=== PATIENT | female | born 1940 | race Caucasian/White ===

== ENCOUNTER → 2017-12-03 | Outpatient (CLI) | payer MEDICARE ==
--- NOTE | 2017-12-03 18:32 | ECHOF ---
Referral Reason:R60.9 Edema MEASUREMENTS -------- HEIGHT: 157.5 cm WEIGHT: 63.0 kg BP: 136/63 RVIDd: 2.6 cm (< 3.3) IVSd: 1.0 cm (0.6 - 1.1) LVIDd: 3.8 cm (3.9 - 5.3) LVPWd: 1.1 cm (0.6 - 1.1) IVSs: 1.4 cm LVIDs: 2.4 cm LVPWs: 1.3 cm LA Diam: 2.9 cm (2.7 - 3.8) LAESV Index (A-L): 23.40 ml/m Ao Diam: 3.1 cm (2.0 - 3.7) AV Cusp: 1.6 cm (1.5 - 2.6) EPSS: 0.6 cm MV E Alvarado: 0.91 m/s MV DecT: 172 ms MV A Alvarado: 1.09 m/s MV E/A Ratio: 0.84 AV maxP.02 mmHg AV meanP.56 mmHg AR PHT: 729 ms RAP: 5.00 mmHg RVSP: 24.98 mmHg MV EF SLOPE: 43.00 mm/s (70 - 150) MV EXCURSION: 1.34 cm (> 18.000) FINDINGS -------- Sinus rhythm. This was a technically adequate study. The left ventricular size is normal. There is borderline concentric left ventricular hypertrophy. Overall left ventricular systolic function is normal with, an EF between 55 - 60 %. The right ventricle is normal in size. Normal LA size by volume 22+/-6 ml/m2. The right atrium is normal in size. There is mild aortic valve sclerosis. There is xrxx-gg-uawibcbr aortic regurgitation. There is mi ld aortic stenosis present. Mild mitral annular calcification present. Wmrtwrmj-qd-dwaopf mitral regurgitation is present. Moderate tricuspid regurgitation present. Right ventricular systolic pressure is normal at < 35 mmH g. Trace/mild (physiologic) pulmonic regurgitation. The aortic root size is normal. Normal inferior vena cava with normal inspiratory collapse consistent with estimated right atrial pre ssure of 5 mmHg. There is no pericardial effusion. CONCLUSIONS -------- 1. Sinus rhythm. 2. This was a technically adequate study. 3. The left ventricular size is normal. 4. There is borderline concentric left ventricular hypertrophy. 5. Overall left ventricular systolic function is normal with, an EF between 55 - 60 %. 6. Normal LA size by volume 22+/-6 ml/m2. 7. There is mild aortic valve sclerosis. 8. There is lodo-lh-jgfbvfab aortic regurgitation. 9. There is mild aortic stenosis present. 10. Mild mitral annular calcification present. 11. Awuwkypm-us-slzndp mitral regurgitation is present. 12. Moderate tricuspid regurgitation present. 13. Right ventricular systolic pressure is normal at < 35 mmHg. 14. Trace/mild (physiologic) pulmonic regurgitation. 15. The aortic root size is normal. 16. Normal inferior vena cava with normal inspiratory collapse consistent with estimated right atrial pressure of 5 mmHg. 17. There is no pericardial effusion. [employer]ARD [employer]OX[employer] ESTIMATOR: HOWARD Taylor
== END | disposition home or self-care (01) ==
LOC: RADECHMAIN 13:13
PROVIDERS: ATTEND Internal Medicine Geriatric Medicine
DX: I08.3 Combined rheumatic disorders of mitral, aortic and tricuspid valves (principal)
CPT/HCPCS: 93306

== ENCOUNTER 2018-09-03 17:48 | Emergency (ER) | payer MEDICARE ==
[2018-09-03 18:08] VITALS: TEMP 98
[2018-09-03] MEDS ORDERED: LIDOCAINE 1% INJ 10MG/ML (20 ML MDV) SQ ONE (19:01)
[2018-09-03] MEDS ORDERED: SODIUM CHLORIDE 0.9% 500 ML 500 ML IV STA (19:01)
--- NOTE | 2018-09-03 19:37 | XR ---
EXAMINATION TYPE: XR chest 2V DATE OF EXAM: 09/03/2018 COMPARISON: NONE HISTORY: Syncope TECHNIQUE: Frontal and lateral views of the chest are obtained. FINDINGS: Heart is enlarged. There is no heart failure. Costophrenic angles are clear. Thoracic aort a is atheromatous. Lungs are clear of consolidation. There is 15% anterior wedging of T12 vertebra. IMPRESSION: Cardiomegaly. No active cardiopulmonary disease.
[2018-09-03 19:40] LABS: Basophils % (A) 0 %; Eosinophils # (A) 0.1 k/uL (0-0.7); Eosinophils % (A) 1 %; HCT 36.5 % (34.0-46.0); HGB 11.9 gm/dL (11.4-16.0); Lymphocytes # (A) 2.6 k/uL (1.0-4.8); Lymphocytes % (A) 25 %; MCH 32.7 pg (25.0-35.0); MCHC 32.7 g/dL (31.0-37.0); MCV 100.1 fL (80.0-100.0); Mean Platelet Volume 7.6; Monocytes # (A) 0.6 k/uL (0-1.0); Monocytes % (A) 6 %; Neutrophils % (A) 66 %; Platelet Count 201 k/uL (150-450); RBC 3.65 m/uL (3.80-5.40); RDW 11.9 % (11.5-15.5); WBC 10.6 k/uL (3.8-10.6)
[2018-09-03 19:55] LABS: INR 0.9 (<1.2); Partial Thromboplastin Time 24.3 sec (22.0-30.0); Prothrombin Time 9.6 sec (9.0-12.0)
[2018-09-03 20:07] LABS: ALT 17 U/L (9-52); AST 21 U/L (14-36); African American GFR (CKD) >90 (>60 ml/min/1.73 sqM); Albumin 4.1 g/dL (3.5-5.0); Alkaline Phosphatase 58 U/L (38-126); Anion Gap 10 mmol/L; Blood Urea Nitrogen 22 mg/dL (7-17); Calcium 9.3 mg/dL (8.4-10.2); Carbon Dioxide 27 mmol/L (22-30); Chloride 102 mmol/L (98-107); Glucose 98 mg/dL (74-99); Magnesium 2.2 mg/dL (1.6-2.3); Potassium 4.5 mmol/L (3.5-5.1); Sodium 139 mmol/L (137-145); Total Bilirubin 0.4 mg/dL (0.2-1.3); Total Protein 6.9 g/dL (6.3-8.2)
--- NOTE | 2018-09-03 20:28 | ED ---
General Adult HPI - General Chief complaint: Fall Stated complaint: 3 FALLS TODAY Time Seen by Provider: 09/03/18 18:15 Source: patient, family Mode of arrival: ambulatory Limitations: no limitations - History of Present Illness Initial comments: 77-year-old female patient with past medical history significant for dementia presents to the emergency department today after having 3 falls at home. Patient's daughter is present and reports the patient has had a steady decline in her mental and motor function since 2011. States over the last year things have been becoming worse. States that she has trouble with coordination and ambulation and she will occasionally become dizzy. She has been being evaluated by Dr. Campbell a neurologist in [facility]. They report 3 falls today once in the bathroom, once in the bedroom, once in the kitchen. Patient states that with the last fall she did strike her head on the floor. She denies any loss of consciousness. When asked why she fell patient reports "I don't know". She reports that one moment she was standing and the next she is on the floor. She does not believe she passed out during his episodes. Denies any shortness of breath, dizziness, or chest pain leading up to these episodes. Patient denies any recent rash, fever, chills, abdominal pain, nausea, vomiting, diarrhea, constipation, back pain, numbness, tingling, weakness, hematuria, dysuria, urinary urgency, urinary frequency, headache, visual changes, or any other complaints. - Related Data Previous Rx's Medication Instructions Recorded Azithromycin [Zithromax Z-pack] 0 mg PO DIRECTED #6 tab 09/03/18 Allergies Allergy/AdvReac Type Severity Reaction Status Date / Time Penicillins Allergy Unknown Verified 09/03/18 18:02 Review of Systems ROS Statement: Those systems with pertinent positive or pertinent negative responses have been documented in the HPI. ROS Other: All systems not noted in ROS Statement are negative. Past Medical History Past Medical History: Dementia, Hypertension History of Any Multi-Drug Resistant Organisms: None Reported Past Surgical History: Section Past Psychological History: No Psychological Hx Reported Smoking Status: Never smoker Past Alcohol Use History: None Reported, Occasional Past Drug Use History: None Reported General Exam Limitations: no limitations General appearance: alert, in no apparent distress, other (This is a well- developed, well-nourished elderly female patient in no acute distress. Vital signs upon presentation are temperature 98.0F, pulse 61, respirations 18, blood pressure 132/80, pulse ox 99% on room air.) Eye exam: Present: normal appearance, PERRL, EOMI. Absent: scleral icterus, conjunctival injection, nystagmus, periorbital swelling ENT exam: Present: normal exam, normal oropharynx Respiratory exam: Present: normal lung sounds bilaterally. Absent: respiratory distress, wheezes, rales, rhonchi, stridor Cardiovascular Exam: Present: regular rate, normal rhythm, normal heart sounds. Absent: systolic murmur, diastolic murmur, rubs, gallop, clicks GI/Abdominal exam: Present: soft, normal bowel sounds. Absent: distended, tenderness, guarding, rebound, rigid Extremities exam: Present: full ROM, normal capillary refill, other (There is a 4 cm laceration to the right posterior elbow.). Absent: normal inspection, tenderness, pedal edema, joint swelling, calf tenderness Neurological exam: Present: alert, CN II-XII intact. Absent: oriented X3 (Oriented 2) Psychiatric exam: Present: normal affect, normal mood, other (Pleasant demeanor) Skin exam: Present: warm, dry, intact, normal color. Absent: rash Course Vital Signs 09/03/18 09/03/18 09/03/18 18:02 21:23 21:25 Temperature 98 F Pulse Rate 61 Pulse Rate [ 70 72 Pulse Oximetery ] Respiratory 18 Rate Blood Pressure 132/80 Blood Pressure 169/71 155/78 [Left Arm] O2 Sat by Pulse 99 Oximetry 09/03/18 22:15 Temperature Pulse Rate Pulse Rate [ Pulse Oximetery ] Respiratory 16 Rate Blood Pressure Blood Pressure [Left Arm] O2 Sat by Pulse Oximetry EKG Findings - EKG Comments: EKG Findings:: EKG obtained at 194 shows normal sinus rhythm with a left axis deviation. Ventricular rate is 64, CA interval 204, QRS duration 76, QT 396, QTc 408. No evidence of ST elevation or depression. Procedures - Laceration Laceration #1 Consent Obtained: verbal consent Indication: laceration Site: upper extremity (right elbow) Size (cm): 4 Description: linear Depth: simple, single layer Anesthetic Used: lidocaine 1% Anesthesia Technique: local infiltration Amount (mls): 6 Pre-repair: irrigated extensively Type of Sutures: nylon Size of Sutures: 4-0 Number of Sutures: 5 Technique: simple, interrupted Patient Tolerated Procedure: well, no complications Medical Decision Making - Medical Decision Making 77-year-old female patient presents to the emergency department today for evaluation after experiencing 3 falls at home. Patient states that she did strike her head on the last fall but did not lose consciousness. Patient is unsure why she is falling. Family member reports the patient has had a steady decline and physical and mental coordination over the last several years worsening over the last year. Physical examination is unremarkable. She is neurologically intact with no focal deficits. She does have a laceration to the right elbow. This was repaired with sutures as documented. CT brain and C- spine was obtained and showed pansinusitis, but no other acute abnormalities. Chest x-ray was obtained and showed no acute abnormalities. Labs reviewed and are unremarkable. No urinary tract infection. Did discuss findings and results with the patient and family. She'll be treated with azithromycin for sinusitis. She'll be discharged home at this time to follow-up with her primary care physician for recheck in 1-2 days. Return parameters were discussed in detail. She verbalizes understanding and agrees with this plan. - Lab Data Result diagrams: 09/03/18 19:20 09/03/18 19:20 Lab Results 09/03/18 09/03/18 09/03/18 Range/Units 19:20 19:20 19:20 WBC 10.6 (3.8-10.6) k/uL RBC 3.65 L (3.80-5.40) m/uL Hgb 11.9 (11.4-16.0) gm/dL Hct 36.5 (34.0-46.0) % MCV 100.1 H (80.0-100.0) fL MCH 32.7 (25.0-35.0) pg MCHC 32.7 (31.0-37.0) g/dL RDW 11.9 (11.5-15.5) % Plt Count 201 (150-450) k/uL Neutrophils % 66 % Lymphocytes % 25 % Monocytes % 6 % Eosinophils % 1 % Basophils % 0 % Neutrophils # 7.0 (1.3-7.7) k/uL Lymphocytes # 2.6 (1.0-4.8) k/uL Monocytes # 0.6 (0-1.0) k/uL Eosinophils # 0.1 (0-0.7) k/uL Basophils # 0.0 (0-0.2) k/uL PT 9.6 (9.0-12.0) sec INR 0.9 (<1.2) APTT 24.3 (22.0-30.0) sec Sodium 139 (137-145) mmol/L Potassium 4.5 (3.5-5.1) mmol/L Chloride 102 (98-107) mmol/L Carbon Dioxide 27 (22-30) mmol/L Anion Gap 10 mmol/L BUN 22 H (7-17) mg/dL Creatinine 0.68 (0.52-1.04) mg/dL Est GFR (CKD-EPI)AfAm >90 (>60 ml/min/1.73 sqM) Est GFR (CKD-EPI)NonAf 85 (>60 ml/min/1.73 sqM) Glucose 98 (74-99) mg/dL Calcium 9.3 (8.4-10.2) mg/dL Magnesium 2.2 (1.6-2.3) mg/dL Total Bilirubin 0.4 (0.2-1.3) mg/dL AST 21 (14-36) U/L ALT 17 (9-52) U/L Alkaline Phosphatase 58 (38-126) U/L Troponin I (0.000-0.034) ng/mL Total Protein 6.9 (6.3-8.2) g/dL Albumin 4.1 (3.5-5.0) g/dL TSH 2.140 (0.465-4.680) mIU/L Urine Color Urine Appearance (Clear) Urine pH (5.0-8.0) Ur Specific [place] (1.001-1.035) Urine Protein (Negative) Urine Glucose (UA) (Negative) Urine Ketones (Negative) Urine Blood (Negative) Urine Nitrite (Negative) Urine Bilirubin (Negative) Urine Urobilinogen (<2.0) mg/dL Ur Leukocyte Esterase (Negative) Urine WBC (0-5) /hpf Ur Squamous Epith Cells (0-4) /hpf Urine Mucus (None) /hpf 09/03/18 09/03/18 Range/Units 19:20 20:45 WBC (3.8-10.6) k/uL RBC (3.80-5.40) m/uL Hgb (11.4-16.0) gm/dL Hct (34.0-46.0) % MCV (80.0-100.0) fL MCH (25.0-35.0) pg MCHC (31.0-37.0) g/dL RDW (11.5-15.5) % Plt Count (150-450) k/uL Neutrophils % % Lymphocytes % % Monocytes % % Eosinophils % % Basophils % % Neutrophils # (1.3-7.7) k/uL Lymphocytes # (1.0-4.8) k/uL Monocytes # (0-1.0) k/uL Eosinophils # (0-0.7) k/uL Basophils # (0-0.2) k/uL PT (9.0-12.0) sec INR (<1.2) APTT (22.0-30.0) sec Sodium (137-145) mmol/L Potassium (3.5-5.1) mmol/L Chloride (98-107) mmol/L Carbon Dioxide (22-30) mmol/L Anion Gap mmol/L BUN (7-17) mg/dL Creatinine (0.52-1.04) mg/dL Est GFR (CKD-EPI)AfAm (>60 ml/min/1.73 sqM) Est GFR (CKD-EPI)NonAf (>60 ml/min/1.73 sqM) Glucose (74-99) mg/dL Calcium (8.4-10.2) mg/dL Magnesium (1.6-2.3) mg/dL Total Bilirubin (0.2-1.3) mg/dL AST (14-36) U/L ALT (9-52) U/L Alkaline Phosphatase (38-126) U/L Troponin I <0.012 (0.000-0.034) ng/mL Total Protein (6.3-8.2) g/dL Albumin (3.5-5.0) g/dL TSH (0.465-4.680) mIU/L Urine Color Yellow Urine Appearance Clear (Clear) Urine pH 5.5 (5.0-8.0) Ur Specific [place] 1.015 (1.001-1.035) Urine Protein Negative (Negative) Urine Glucose (UA) Negative (Negative) Urine Ketones Trace H (Negative) Urine Blood Negative (Negative) Urine Nitrite Negative (Negative) Urine Bilirubin Negative (Negative) Urine Urobilinogen <2.0 (<2.0) mg/dL Ur Leukocyte Esterase Small H (Negative) Urine WBC 2 (0-5) /hpf Ur Squamous Epith Cells <1 (0-4) /hpf Urine Mucus Rare H (None) /hpf - Radiology Data Radiology results: report reviewed, image reviewed Two-view x-ray of the chest is obtained. Report was reviewed in its entirety. Impression by Dr. Magaña shows cardiomegaly. No active cardiopulmonary disease. CT brain and C-spine without contrast obtained. Report was reviewed in its entirety. Impression by Dr. Magaña shows cerebral atrophy. Pansinusitis. No acute intracranial abnormality. Mild spondylotic changes of the cervical spine. No fracture. Disposition Clinical Impression: Frequent falls, Laceration of right elbow, Pansinusitis Disposition: HOME SELF-CARE Condition: Good Instructions (If sedation given, give patient instructions): Care For Your Stitches (ED), Laceration (ED), Sinusitis (ED), Fall Prevention for Older Adults (ED) Additional Instructions: Complete antibiotic prescription in full. Cleanse wound twice daily with warm water and antibacterial soap. Return in 7 days to have the stitches removed. Follow-up through primary care physician for recheck in 1-2 days. Return to the emergency department immediately for any new, worsening, or concerning symptoms Prescriptions: Azithromycin [Zithromax Z-pack] 0 mg PO DIRECTED #6 tab Is patient prescribed a controlled substance at d/c from ED?: No Referrals: Sunny Monteiro MD [Primary Care Provider] - 1-2 days Time of Disposition: 22:03
--- NOTE | 2018-09-03 20:56 | CT ---
EXAMINATION TYPE: CT brain patti prasad DATE OF EXAM: 09/03/2018 COMPARISON: None HISTORY: multiple falls today CT DLP: 1134.5 mGycm Automated exposure control for dose reduction was used. TECHNIQUE: CT scan of the head and cervical spine are performed without contrast. FINDINGS: There is some cerebral cortical atrophy. There is no mass effect nor midline shift. There is no sign of intracranial hemorrhage. Calvarium is intact. There is mucosal thickening in the maxil ann ethmoid frontal sinuses. There is mucosal thickening also in the sphenoid sinus. Cervical vertebra have normal alignment. There is mild spurring of the endplates at C4-5 C5-6 C6-7. F acet joints are intact. There is multilevel hypertrophic facet arthropathy. The skull base is intact. I see no bony destructive process. There is some pleural thickening at the lung apices. IMPRESSION: Cerebral atrophy. Pansinusitis. No acute intracranial abnormality. Mild spondylotic changes in the cervical spine. No fracture.
[2018-09-03 21:01] LABS: Appearance,Urine Clear (Clear); Bilirubin,Urine Negative (Negative); Blood,Urine Negative (Negative); Color,Urine Yellow; Glucose,Urine (UA) Negative (Negative); Ketones,Urine Trace (Negative); Leukocyte Esterase,Urine Small (Negative); Mucus,Urine Rare /hpf; Nitrite,Urine Negative (Negative); PH, Urine 5.5 (5.0-8.0); Protein,Urine Negative (Negative); Specific Gravity,Urine 1.015 (1.001-1.035); Squamous Epithelial Cell,Urine <1 /hpf (0-4); Urobilinogen,Urine <2.0 mg/dL (<2.0); WBC,Urine 2 /hpf (0-5)
[2018-09-03 21:26] VITALS: BP 155/78; PULSE 72
[2018-09-03] MEDS ORDERED: AZITHROMYCIN 500 MG TAB PO STA (22:01)
[2018-09-03 22:22] VITALS: RESP 16
== END 2018-09-03 22:15 | disposition home or self-care (01) ==
LOC: EC 17:48
DX: S51.011A Laceration without foreign body of right elbow, initial encounter (principal); R29.6 Repeated falls; J32.4 Chronic pansinusitis; F03.90 Unspecified dementia, unspecified severity, without behavioral disturbance, psychotic disturbance, mood disturbance, and anxiety; Z88.0 Allergy status to penicillin; W19.XXXA Unspecified fall, initial encounter
CPT/HCPCS: 99284 ×2; 12002 ×2; 96360 ×2; 96361 ×2; 36415; 93005; 80053; 84443; 83735; 84484; 85025; 85610; 85730; 81001; 71046; 72125; 70450; J2001

== ENCOUNTER → 2018-11-17 | Outpatient (CLI) | payer MEDICARE ==
[~2018-11-17] MED LIST: REGADENOSON 0.4 MG/5 ML SYRINGE IV ONE
--- NOTE | 2018-11-17 11:02 | US ---
EXAMINATION TYPE: US carotid duplex BILAT DATE OF EXAM: 11/17/2018 COMPARISON: NONE CLINICAL HISTORY: R42 dizziness. Intermittent dizziness EXAM MEASUREMENTS: RIGHT: Peak Systolic Velocity (PSV) cm/sec ----- Right CCA: 73.8 ----- Right ICA: 87.5 ----- Right ECA: 72.9 ICA/CCA ratio: 1.2 RIGHT: End Diastole cm/sec ----- Right CCA: 12.7 ----- Right ICA: 23.7 ----- Right ECA: 9.2 LEFT: Peak Systolic Velocity (PSV) cm/sec ----- Left CCA: 61.6 ----- Left ICA: 79.9 ----- Left ECA: 83.4 ICA/CCA ratio: 1.3 LEFT: End Diastole cm/sec ----- Left CCA: 15.4 ----- Left ICA: 25.8 ----- Left ECA: 11.0 VERTEBRALS (direction of flow): Right Vertebral: Antegrade Left Vertebral: Antegrade Rhythm: Normal IMPRESSION: Mild plaque bilateral bifurcations. No evidence of significant stenosis Criteria for Assigning % of Stenosis / Diameter reduction (Estimation based on the indirect measurements of the internal carotid artery velocities (ICA PSV). 1. Normal (no stenosis)=ICA PSV < 125 cm/s: ratio < 2.0: ICA EDV<40 cm/s. 2. Less than 50% stenosis=ICA PSV < 125 cm/s: ratio < 2.0: ICA EDV<40 cm/s. 3. 50 to 69% stenosis=ICA PSV of 125 to 230 cm/s: ration 2.0 ? 4.0: ICA EDV 40-100 cm/s. 4. Greater than 70% stenosis to near occlusion= ICA PSV > 230 cm/s: ratio > 4.0: ICA EDV > 100 cm/s. 5. Near occlusion= ICA PSV velocities may be low or undetectable: variable ratio and ICA EDV. 6. Total occlusion=unable to detect flow.
--- NOTE | 2018-11-17 11:32 | NM ---
EXAMINATION TYPE: NM stress lexiscan cardiolite DATE OF EXAM: 11/17/2018 COMPARISON: NONE HISTORY: Precordial chest pain and abnormal EKG. TECHNIQUE: After the intravenous administration of 9.81 mCi Tc 99m Sestamibi - Cardiolite resting SP ECT images acquired 45 minutes post injection. The patient received 0.4mg Lexiscan, 26.4 mCi Tc 99m Sestamibi - Stress images obtained [address] injection FINDINGS: Review of stress and rest SPECT images demonstrates mild decreased perfusion on stress images involvi ng the anterior wall which may reflect stress-induced ischemia. Gated analysis shows normal wall makenzie on with an estimated left ventricular ejection fraction of 68 %. IMPRESSION: I cannot exclude stress-induced ischemia involving the anterior wall. Correlate clinically.
--- NOTE | 2018-11-17 12:17 | EST ---
EXERCISE STRESS AGE: 78 SEX: F HT: 5'2" WT: 145 PROTOCOL: Lexiscan Cardiolite Stress Test HEART RATE REST: 60 BLOOD PRESSURE REST: 157/91 MAXIMUM HEART RATE ACHIEVED: 80 MAXIMUM BLOOD PRESSURE: 157/91 INDICATIONS: Abnormal ECG, dizziness. CLINICAL INFORMATION: Baseline rhythm is sinus mechanism, rate of 60, left axis deviation, poor R-wave progression connects with anterior wall myocardial infarction. Baseline blood pressure 157/91 mmHg. Patient received an injection of Lexiscan. Electrocardiograph monitoring revealed no evidence of diagnostic ischemic ST deviation. Cardiolite was injected per protocol. CONCLUSION: 1. Nondiagnostic electrocardiograph stress testing. 2. Nuclear images will be reported separately. MMODL / IJN: [id number] /
== END | disposition home or self-care (01) ==
LOC: RADNMMAIN 08:04
PROVIDERS: ATTEND Internal Medicine Geriatric Medicine
DX: I77.89 Other specified disorders of arteries and arterioles (principal); R42 Dizziness and giddiness; R94.31 Abnormal electrocardiogram [ECG] [EKG]
CPT/HCPCS: 93017; 93880; 78452; A9500; J2785

== ENCOUNTER 2018-11-27 19:22 | Emergency (ER) | payer MEDICARE ==
[2018-11-27 19:35] VITALS: TEMP 97.9
--- NOTE | 2018-11-27 20:50 | XR ---
EXAMINATION TYPE: XR shoulder complete LT DATE OF EXAM: 11/27/2018 COMPARISON: NONE HISTORY: Pain TECHNIQUE: 3 views FINDINGS: There is nondisplaced fracture of the lateral and of the clavicle. There is no dislocation. Glenohumeral joint is anatomic. IMPRESSION: Acute nondisplaced clavicle fracture.
--- NOTE | 2018-11-27 20:52 | XR ---
EXAMINATION TYPE: XR cervical spine comp DATE OF EXAM: 11/27/2018 COMPARISON: NONE HISTORY: Neck pain TECHNIQUE: 5 views FINDINGS: Cervical vertebra have normal alignment. There is some degenerative disc space narrowing fr om C4 to C6 with mild spurring. Posterior elements are intact. Atlantoaxial facet joint is normal. Th ere are no cervical ribs. IMPRESSION: Mild spondylotic changes. No fracture seen.
[2018-11-27 22:02] VITALS: BP 134/69; PULSE 71; RESP 20
--- NOTE | 2018-11-27 22:02 | ED ---
Fall HPI - General Chief Complaint: Fall Stated Complaint: fall Time Seen by Provider: 11/27/18 19:30 Source: patient, EMS Mode of arrival: EMS - History of Present Illness Initial Comments: 78-year-old female patient presents to the emergency department today for evaluation of left shoulder pain after experiencing a fall. Patient states that she was going up stairs when she lost her balance and fell down approximately 6- 8 steps. Patient states that she slid down on her side. She denies hitting her head or losing consciousness. She denies neck or back pain. Denies any leg or hip pain. Patient states that she is having pain to the shoulder whenever she attempts to move it. Denies any numbness or tingling to the arm. Denies any use of blood thinning medications. Patient denies any headache, chest pain, shortness of breath, dizziness, weakness, abdominal pain, nausea, vomiting, or difficulties with bowel movements or urination. - Related Data Previous Rx's Medication Instructions Recorded Azithromycin [Zithromax Z-pack] 0 mg PO DIRECTED #6 tab 09/03/18 Allergies Allergy/AdvReac Type Severity Reaction Status Date / Time Penicillins Allergy Unknown Verified 09/03/18 18:02 Review of Systems ROS Statement: Those systems with pertinent positive or pertinent negative responses have been documented in the HPI. ROS Other: All systems not noted in ROS Statement are negative. Past Medical History Past Medical History: Dementia, Hypertension History of Any Multi-Drug Resistant Organisms: None Reported Past Surgical History: Section Past Psychological History: No Psychological Hx Reported Smoking Status: Never smoker Past Alcohol Use History: Occasional Past Drug Use History: None Reported General Exam Limitations: no limitations General appearance: alert, in no apparent distress, other (This is a well- developed, well-nourished elderly female patient in no acute distress. Vital signs upon presentation are temperature 97.9F, pulse 68, respirations 18, blood pressure 173/81, pulse ox 96% on room air.) Eye exam: Present: normal appearance, PERRL, EOMI. Absent: scleral icterus, conjunctival injection, periorbital swelling ENT exam: Present: normal exam, normal oropharynx, mucous membranes moist Neck exam: Present: normal inspection, full ROM, other (Nontender, no step-off, no deformity to firm midline palpation of the posterior cervical spine. Full range of motion without pain or limitation.). Absent: tenderness, meningismus, lymphadenopathy Respiratory exam: Present: normal lung sounds bilaterally. Absent: respiratory distress, wheezes, rales, rhonchi, stridor Cardiovascular Exam: Present: regular rate, normal rhythm, normal heart sounds. Absent: systolic murmur, diastolic murmur, rubs, gallop, clicks GI/Abdominal exam: Present: soft, normal bowel sounds. Absent: distended, tenderness, guarding, rebound, rigid Extremities exam: Present: normal inspection, full ROM, tenderness (Tenderness over the left distal clavicle), normal capillary refill, other (Skin to the left arm is pink, warm, dry. Cap refills less than 3 seconds. Radial pulses 2+ and equal bilaterally.). Absent: pedal edema, joint swelling, calf tenderness Back exam: Present: normal inspection, other (Nontender, no step-off, no deformity to firm midline palpation of the thoracic and lumbar vertebrae. Full range of motion without pain or limitation.). Absent: vertebral tenderness Neurological exam: Present: alert, oriented X3, CN II-XII intact Psychiatric exam: Present: normal affect, normal mood Skin exam: Present: warm, dry, intact, normal color. Absent: rash Course Vital Signs 11/27/18 11/27/18 11/27/18 19:30 21:56 22:11 Temperature 97.9 F 97.9 F Pulse Rate 68 71 Respiratory 18 20 Rate Blood Pressure 173/81 134/69 O2 Sat by Pulse 96 95 Oximetry Medical Decision Making - Medical Decision Making 78-year-old female patient presents to the emergency department today for evaluation of left shoulder pain after experiencing a fall. Physical examination did reveal tenderness over the left shoulder. Neurovascular status is intact and left arm. X-rays of the cervical spine are obtained and were unremarkable. X-ray of the left shoulder was obtained and did reveal an acute nondisplaced left clavicle fracture. Patient was placed in a sling. She'll be discharged home to follow-up with industrial specialist for further evaluation. She is instructed to take Tylenol Motrin for pain control per she is educated regarding ice in the area. Return parameters were discussed in detail. Patient and family verbalized understanding and agree with this plan. - Radiology Data Radiology results: report reviewed, image reviewed Cervical spine x-rays obtained. Report was reviewed in its entirety. Impression by Dr. Patel shows mild spondylotic changes. No fracture seen. 3 views of the left shoulder obtained. Report was reviewed in its entirety. Impression by Dr. Magaña shows acute nondisplaced clavicle fracture. Disposition Clinical Impression: Closed left clavicular fracture Disposition: HOME SELF-CARE Condition: Good Instructions (If sedation given, give patient instructions): Clavicle Fracture (ED), Fall Prevention for Older Adults (ED) Additional Instructions: Take Tylenol and Motrin for pain control. Use sling. Do not lift arm above 90 degrees or shoulder level. Do not lift anything with the left arm until cleared by orthopedics. When dressing put the sore arm in first. When undressing take the arm out last. Apply ice to the shoulder 20 minutes at a time at least 4 times per day. Follow up with the industrial specialist for further evaluation. Return to the emergency department for any other, new, worsening, or concerning symptoms. Is patient prescribed a controlled substance at d/c from ED?: No Referrals: Sunny Monteiro MD [Primary Care Provider] - 1-2 days Armaan Murphy MD [STAFF PHYSICIAN] - 1-2 days Time of Disposition: 22:02
== END 2018-11-27 22:14 | disposition home or self-care (01) ==
LOC: EC 19:22
DX: S42.002A Fracture of unspecified part of left clavicle, initial encounter for closed fracture (principal); Z88.0 Allergy status to penicillin; W10.9XXA Fall (on) (from) unspecified stairs and steps, initial encounter; Y93.01 Activity, walking, marching and hiking
CPT/HCPCS: 72050; 99284

== ENCOUNTER → 2018-12-15 | Outpatient (CLI) | payer MEDICARE ==
[2018-12-15 15:38] LABS: HCT 37.6 % (34.0-46.0); HGB 12.6 gm/dL (11.4-16.0); MCH 33.8 pg (25.0-35.0); MCHC 33.5 g/dL (31.0-37.0); Mean Platelet Volume 6.5; Platelet Count 221 k/uL (150-450); RBC 3.73 m/uL (3.80-5.40); RDW 11.9 % (11.5-15.5); WBC 8.9 k/uL (3.8-10.6)
[2018-12-15 15:41] LABS: Potassium 4.7 mmol/L (3.5-5.1)
== END | disposition home or self-care (01) ==
LOC: LABPAT 14:34
PROVIDERS: ATTEND Internal Medicine Interventional Cardiology
DX: Z01.812 Encounter for preprocedural laboratory examination (principal); R94.39 Abnormal result of other cardiovascular function study
CPT/HCPCS: 36415; 80051; 82565; 84520; 85027

== ENCOUNTER 2018-12-16 06:15 | Day surgery (SDC) | payer MEDICARE ==
[2018-12-14 15:13] VITALS: BMI 25.7
[~2018-12-16 06:15] MED LIST changes: +ALPRAZolam 0.25 MG TAB PO PRN; +ALPRAZolam 0.5 MG TAB PO PRN; +NITROGLYCERIN SL TABS 0.4 MG TAB SUBLINGUAL PRN; -REGADENOSON 0.4 MG/5 ML SYRINGE IV ONE; +SODIUM CHLORIDE 0.9% 1,000 ML in EMPTY BAG 1 BAG IV ONE
[2018-12-16] MEDS ORDERED: ASPIRIN 325 MG TAB PO ONE (07:00)
[2018-12-16] MEDS ORDERED: ATORVASTATIN 80 MG TAB PO ONE (07:00)
[2018-12-16 07:07] VITALS: RESP 16; TEMP 98
[2018-12-16] MEDS ORDERED: SODIUM CHLORIDE 0.9% 1,000 ML IV ONE (07:09)
[2018-12-16] MEDS: BENZOCAINE SPRAY 1 CAN MUCOUS MEM ONE ×2 (07:20→07:28)
[2018-12-16] MEDS: MIDAZOLAM 2 MG/2 ML VIAL IVP ONE ×2 (07:28→07:30)
[2018-12-16] MEDS ORDERED: fentaNYL (PF) 50 MCG/ML 2 ML AMP IVP ONE (07:28)
[2018-12-16] MEDS ORDERED: LIDOCAINE 1% INJ 10MG/ML (20 ML MDV) SQ ONE (08:13)
--- NOTE | 2018-12-16 08:13 | ECHOT ---
TRANSESOPHAGEAL ECHOCARDIOGRAM INDICATION: Evaluation of mitral valve. PROCEDURE: After explaining the procedure to the patient, its risks and the complications, her blood pressure, heart rate, O2 saturation was monitored. The throat was sprayed with Cetacaine. She received 2 mg intravenous Versed and 50 mcg of intravenous fentanyl. The probe was introduced in the esophagus without difficulty. Images were obtained. Following that, the probe was removed. There was no immediate complication. FINDINGS: Left atrial size appears to be normal, although accurate measuring could not be obtained. Left atrial appendage is normal. Left ventricular size and systolic function normal. 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 The tricuspid valve appears to be thickening with appearance of prolapse. The aortic valve is mildly calcified with preserved opening. Descending thoracic aorta appears to be normal. No pericardial effusion was noted. Contrast bubble study revealed no evidence of shunting across the interatrial septum with Valsalva maneuver. Doppler pulse wave and color Doppler obtained and revealed severe eccentric mitral regurgitation with moderate tricuspid regurgitation and mild to moderate aortic regurgitation. There was no shunting by color Doppler study. CONCLUSION: 1. Normal left ventricular size and systolic function. 2. 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 3. Moderate tricuspid regurgitation. 4. Mild to moderate aortic regurgitation with mild calcification of the aortic valve leaflet and preserved opening. 5. No pericardial effusion. 6. No shunting across the interatrial septum. MMODL / IJN: [id number] /
[2018-12-16] MEDS ORDERED: IV FLUID CONTINUATION 800 ML IV ONE (08:15)
[2018-12-16] MEDS: VERAPAMIL SYRINGE (5 MG/10 ML) INTRAARTER ONE ×2 (08:17→08:36)
[2018-12-16] MEDS ORDERED: MIDAZOLAM 2 MG/2 ML VIAL IV ONE (08:21)
[2018-12-16] MEDS ORDERED: IOPAMIDOL-370 125ML BTL INJ ONE (08:40)
[2018-12-16] MEDS ORDERED: RX INFO: IV CONTRAST WAS GIVEN 1 EACH MISC MISCELLANE PRN (08:51)
[2018-12-16] MEDS ORDERED: ACETAMINOPHEN TAB 500 MG TAB PO PRN (08:52)
[2018-12-16] MEDS ORDERED: NON FORMULARY DRUG (Zinc [Zinc] 50 MG) PO SCH (09:00)
[2018-12-16] MEDS ORDERED: MAGNESIUM OXIDE 400 MG TAB PO SCH (09:00)
[2018-12-16] MEDS ORDERED: GLUCOS SUL PO SCH (09:00)
[2018-12-16] MEDS ORDERED: [UNRECOGNIZED DRUG - OTHER] PO SCH (09:00)
[2018-12-16] MEDS ORDERED: NON FORMULARY DRUG (B Complex-Vit C-Vit E-Zinc 1 TAB) PO SCH (09:00)
[2018-12-16] MEDS ORDERED: LYSINE PO SCH (09:00)
[2018-12-16] MEDS ORDERED: LUTEIN PO SCH (09:00)
[2018-12-16] MEDS ORDERED: RAMIPRIL 5 MG PO SCH (09:00)
[2018-12-16] MEDS ORDERED: [UNRECOGNIZED DRUG - OTHER] PO SCH (09:00)
[2018-12-16] MEDS ORDERED: [UNRECOGNIZED DRUG - OTHER] PO SCH (09:00)
[2018-12-16] MEDS ORDERED: LYCOPEN PO SCH (09:00)
[2018-12-16] MEDS ORDERED: VITAMIN D3 PO SCH (09:00)
[2018-12-16] MEDS ORDERED: NON FORMULARY DRUG (Ascorbic Acid [Vitamin C] 1,000 MG) PO SCH (09:00)
[2018-12-16] MEDS ORDERED: MULTIVIT MIN PO SCH (09:00)
[2018-12-16] MEDS ORDERED: RALOXIFENE 60 MG TAB PO SCH (09:00)
[2018-12-16] MEDS ORDERED: CALCIUM CARBONATE PO SCH (09:00)
[2018-12-16] MEDS ORDERED: SODIUM CHLORIDE 0.9% 1,000 ML IV SCH (09:00)
--- NOTE | 2018-12-16 09:41 | CC ---
CARDIAC CATHETERIZATION REPORT Mrs. Lawson is a 78-year-old female with known history of hypertension who was found to have progressive mitral regurgitation with symptoms of fatigue and dyspnea. In view of that, recommendation was made regarding cardiac catheterization. The procedure as well as the risks and the complications were discussed with the patient who is in full understanding and agreement. 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 Using Xylocaine anesthesia and Seldinger technique, a 6-Prydeinig sheath was introduced in the right radial artery. The intravenous catheter sheath in the right brachial area was exchanged over a wire to 6-Prydeinig sheath. Following that, attempts to advance a [place]- Opal catheter were unsuccessful in negotiating to advance the catheter into the superior vena cava. At that time, the [place]al catheter was removed and selective right and left coronary angiography was performed using 5-Prydeinig 3.5 bend right and left Kamran catheter. Multiple views of the coronary artery including hemiaxial views obtained. Following that, catheter and sheath were removed. Hemostasis was obtained with deployment of a TR band. There was no immediate complication. Patient is returned to her room in stable condition. Of note, the patient received 4000 units of intravenous heparin. FINDINGS: LEFT MAIN: This is a large-sized vessel bifurcating in left circumflex, left anterior descending artery. Left main coronary artery has no evidence of obstructive coronary artery disease. LEFT ANTERIOR DESCENDING ARTERY: This is a large-sized vessel reaching to the apex, tortuous in mid segment, giving rise to 2 large size diagonal branches. Left anterior descending artery as well as branches have no evidence of obstructive coronary artery disease. LEFT CIRCUMFLEX: This is a nondominant vessel, giving rise to a moderately sized obtuse marginal branch. The left circumflex as well as branches have no evidence of obstructive coronary artery disease. RIGHT CORONARY ARTERY: This is a large dominant vessel, bifurcating in PDA and posterolateral segment and branches. The right coronary artery has a superior takeoff that has no evidence of high-grade stenosis. LEFT VENTRICULOGRAM: Left ventriculogram was not performed. CONCLUSION: Normal coronary arteries. RECOMMENDATION: In view of finding anatomy, I have recommended continue medical therapy. Patient will be evaluated for the need to undergo mitral valve repair. Those findings and recommendations were discussed with the patient and her family and they are in full understanding and agreement. Duration of procedure is 31 minutes. MMODL / IJN: [id number] /
[2018-12-16 13:02] VITALS: BP 134/61; PULSE 54
[2018-12-16] MEDS ORDERED: MEMANTINE 10 MG TAB PO SCH (21:00)
[2018-12-16] MEDS ORDERED: DONEPEZIL 10 MG TAB PO SCH (21:00)
[2018-12-17] MEDS ORDERED: ASPIRIN 81 MG PO SCH (21:00)
== END 2018-12-16 14:19 | disposition home or self-care (01) ==
LOC: CATHCVL 06:15
PROVIDERS: ATTEND Internal Medicine Interventional Cardiology
DX: I08.3 Combined rheumatic disorders of mitral, aortic and tricuspid valves (principal); I77.1 Stricture of artery; I10 Essential (primary) hypertension; R41.3 Other amnesia; R60.0 Localized edema; M25.50 Pain in unspecified joint; Z91.81 History of falling; Z79.899 Other long term (current) drug therapy; Z79.82 Long term (current) use of aspirin; Z88.0 Allergy status to penicillin
CPT/HCPCS: 93312; 93320; 93325; 93454; C1769 ×3; C1751; C1894 ×3; J2250; J2001; J3010; J1644; Q9967

== ENCOUNTER 2018-12-25 11:29 | Emergency (ER) | payer MEDICARE ==
[2018-12-25] MEDS ORDERED: LIDOCAINE 1% INJ 10MG/ML (20 ML MDV) SQ ONE (12:06)
--- NOTE | 2018-12-25 12:48 | CT ---
EXAMINATION TYPE: CT brain patti prasad DATE OF EXAM: 12/25/2018 COMPARISON: Previous study dated 09/03/2018. HISTORY: Fall, struck back of head on parking lot CT DLP: 1249.2 mGycm Automated exposure control for dose reduction was used. TECHNIQUE: CT scan of the head and cervical spine are performed without contrast. FINDINGS: BRAIN: There are generalized changes of sulcal prominence and ventriculomegaly, compatible with atrop hic change. There is diffuse periventricular white matter lucency, compatible chronic white matter is chemic change. There is no acute focal lesion, mass effect or midline shift identified. I do not see evidence of intracranial blood. There is a left parietal scalp hematoma. Visualized portions of the paranasal sinuses and mastoids are clear. The bony calvarium is intact. IMPRESSION: 1. NO ACUTE INTRACRANIAL ABNORMALITY. 2. ATROPHIC CHANGE. 3. CHRONIC ISCHEMIC CHANGE. CERVICAL SPINE: There are mild emphysematous changes within the lungs. There has been a previous left -sided thyroidectomy. The right lobe of the thyroid is somewhat heterogenous and contains some calcif ication. Prevertebral soft tissues are normal. Vertebral body height and alignment are maintained. Atlantoaxial relationships are normal. There is mild degenerative disc disease at C4-5, C5-6 and C6-7. There is mild uncovertebral joint dis ease at these levels. There is facet arthropathy on the left to 3 and C3-4 as well as C4-5 and to a l ayla sensitivity 5 seconds. No definite protrusion is seen. No fracture is identified. IMPRESSION: 1. NO ACUTE OSSEOUS TRAUMA. 2. DEGENERATIVE CHANGE.
[2018-12-25] MEDS ORDERED: DIPH,PERTUS(ACELL)TETVAC-LF 0.5 ML VIAL IM ONE (14:10)
--- NOTE | 2018-12-25 14:11 | ED ---
Fall HPI - General Chief Complaint: Fall Stated Complaint: Fall Time Seen by Provider: 12/25/18 11:35 Source: patient Mode of arrival: ambulatory - History of Present Illness Initial Comments: The patient is a 78-year-old female presents emergency Department after a fall. The patient reports that she was coming out of buddhist. She attempted to step up a curb when she lost her footing and fell backwards. She did strike her head on the concrete. There was no loss of consciousness. She is not on any blood thinners. EMS was called to the scene by bystanders. They did place her in a c-collar and transferred her to the hospital. She denies pain elsewhere in her body. Denies any headaches or visual changes. No neck pain or stiffness. Denies any unilateral numbness or weakness. No pain in her thoracic or lumbar back. Denies any chest pain or shortness of breath. There are no other alleviating, precipitating or modifying factors - Related Data Home Medications Medication Instructions Recorded Confirmed Acetaminophen [Tylenol Extra 1,000 mg PO Q6H PRN 12/14/18 12/14/18 Strength] Ascorbic Acid [Vitamin C] 1,000 mg PO DAILY 12/14/18 12/16/18 Aspirin [Adult Low Dose Aspirin EC] 81 mg PO HS 12/14/18 12/16/18 B Complex-Vit C-Vit E-Zinc [Z-Bec] 1 tab PO DAILY 12/14/18 12/16/18 Calcium Carbonate/Vitamin D3 2 each PO DAILY 12/14/18 12/16/18 [Calcium 600-Vit D3 800 Caplet] Donepezil [Aricept] 10 mg PO HS 12/14/18 12/16/18 Glucos Sul 2Kcl/MSM/Chond/C/Mn 1 each PO DAILY 12/14/18 12/16/18 [Glucosamine Chondroitin Cap] Lysine (Unknown Dose) 1 tab PO DAILY 12/14/18 12/16/18 Magnesium Oxide [Mag-Ox] 400 mg PO DAILY 12/14/18 12/16/18 Memantine [Namenda] 10 mg PO HS 12/14/18 12/16/18 Multivit-Min/FA/Lycopen/Lutein 1 each PO DAILY 12/14/18 12/16/18 [Centrum Silver Tablet] Raloxifene [Evista] 60 mg PO DAILY 12/14/18 12/16/18 Ramipril [Altace] 5 mg PO DAILY 12/14/18 12/16/18 Zinc 50 mg PO DAILY 12/14/18 12/16/18 Allergies Allergy/AdvReac Type Severity Reaction Status Date / Time Penicillins Allergy Unknown Verified 12/25/18 11:35 Review of Systems ROS Statement: Those systems with pertinent positive or pertinent negative responses have been documented in the HPI. ROS Other: All systems not noted in ROS Statement are negative. Past Medical History Past Medical History: Cancer, Dementia, Eye Disorder, Hearing Disorder / Deafness, Hypertension, Liver Disease, Memory Impairment, Musculoskeletal Disorder, Syncope Additional Past Medical History / Comment(s): Hx heart murmur; Breast CA 2001; Hep A . Glaucoma. Wears hearing aids. "Recent EKG changes, Echo shows severe MV regurg," per daughter. Recent falls, has fx lt clavicle. History of Any Multi-Drug Resistant Organisms: None Reported Past Surgical History: Breast Surgery, Section Additional Past Surgical History / Comment(s): Lumpectomy. Cataracts. Past Anesthesia/Blood Transfusion Reactions: No Reported Reaction Past Psychological History: No Psychological Hx Reported Smoking Status: Never smoker - Past Family History Mother Family Medical History: Cancer Additional Family Medical History / Comment(s): Possible breast CA General Exam Limitations: no limitations General appearance: alert, in no apparent distress Head exam: Present: normocephalic, normal inspection, other (1.0 cm lac on the patients occiput) Eye exam: Present: normal appearance, PERRL, EOMI. Absent: scleral icterus, conjunctival injection, periorbital swelling ENT exam: Present: normal exam, mucous membranes moist Neck exam: Present: normal inspection. Absent: tenderness, meningismus, lymphadenopathy Respiratory exam: Present: normal lung sounds bilaterally. Absent: respiratory distress, wheezes, rales, rhonchi, stridor Cardiovascular Exam: Present: regular rate, normal rhythm, normal heart sounds. Absent: systolic murmur, diastolic murmur, rubs, gallop, clicks GI/Abdominal exam: Present: soft, normal bowel sounds. Absent: distended, tenderness, guarding, rebound, rigid Extremities exam: Present: normal inspection, full ROM, normal capillary refill. Absent: tenderness, pedal edema, joint swelling, calf tenderness Back exam: Present: normal inspection Neurological exam: Present: alert, oriented X3, CN II-XII intact Psychiatric exam: Present: normal affect, normal mood Skin exam: Present: warm, dry, intact, normal color. Absent: rash Course Vital Signs 12/25/18 12/25/18 11:31 14:47 Temperature 97.3 F L 98 F Pulse Rate 59 L 65 Respiratory 16 18 Rate Blood Pressure 137/68 155/84 O2 Sat by Pulse 97 98 Oximetry Procedures - Laceration Laceration #1 Consent Obtained: verbal consent Indication: laceration Site: scalp Size (cm): 1 (cm) Description: linear Depth: simple, single layer Anesthetic Used: lidocaine 1% Anesthesia Technique: local infiltration Amount (mls): 3 Pre-repair: wound explored, irrigated extensively, deep structures intact Type of Sutures: other (staple) Number of Sutures: 1 (staple) Patient Tolerated Procedure: well, no complications Medical Decision Making - Medical Decision Making Upon the patient is placed into room 27. There are history of physical exam is performed. I did recommend CT and the patient's brain and C-spine. Imaging is performed and demonstrates no acute intracranial abdomen male. Atrophic change. Chronic ischemic change. Cervical spine shows no acute osseous trauma. Degenerative changes. Physical exam demonstrates a 1 cm lac to the patient's occiput. I did recommend staple repair. I did anesthetize the area using 3 cc of 1% without epi. Once staple was put into place with reapproximation of the skin. C-collar was removed. Daughters at bedside. I updated the patient's tetanus. The patient will be discharged home. She is able to ambulated without difficulty. She is to follow-up with primary care doctor have her lianna taken out in 7-10 days. The patient has any new or worsening symptoms she should report back to the emergency room. The patient was discharged home in stable condition Disposition Clinical Impression: Fall, Blunt head trauma, Scalp laceration Disposition: HOME SELF-CARE Condition: Stable Instructions (If sedation given, give patient instructions): Fall Prevention for Older Adults (ED), Staple Care (ED) Additional Instructions: Please follow-up with your primary care doctor in 2-4 days. You need to have your lianna taken out in 7-10 days. Return to the emergency room for any new or worsening symptoms Is patient prescribed a controlled substance at d/c from ED?: No Referrals: Sunny Monteiro MD [Primary Care Provider] - 1-2 days Time of Disposition: 14:11
[2018-12-25 14:48] VITALS: BP 155/84; PULSE 65; RESP 18; TEMP 98
== END 2018-12-25 14:47 | disposition home or self-care (01) ==
LOC: EC 11:29
DX: S01.01XA Laceration without foreign body of scalp, initial encounter (principal); Z23 Encounter for immunization; I10 Essential (primary) hypertension; F03.90 Unspecified dementia, unspecified severity, without behavioral disturbance, psychotic disturbance, mood disturbance, and anxiety; Z79.82 Long term (current) use of aspirin; Z79.899 Other long term (current) drug therapy; Z88.0 Allergy status to penicillin; Z85.3 Personal history of malignant neoplasm of breast; W01.0XXA Fall on same level from slipping, tripping and stumbling without subsequent striking against object, initial encounter
CPT/HCPCS: 72125; 70450; 90715; 99284; 12001; 90471; J2001

== ENCOUNTER 2019-01-07 21:36 | Emergency (ER) | payer MEDICARE ==
[2019-01-07 21:45] VITALS: TEMP 97.9
[2019-01-07] MEDS ORDERED: SODIUM CHLORIDE 0.9% 500 ML 500 ML IV STA (21:49)
--- NOTE | 2019-01-07 21:54 | ED ---
General Adult HPI - General Chief complaint: Fall Stated complaint: Fall, Head Injury Time Seen by Provider: 01/07/19 21:41 Source: patient, EMS Mode of arrival: EMS Limitations: no limitations - History of Present Illness Initial comments: Dictation was produced using [employer] dictation software. please excuse any grammatical, word or spelling errors. Chief Complaint: 78 old female with past medical history of dementia, liver disease, hypertension, sick B presents after fall. History of Present Illness: 78-year-old female she has multiple comorbidities. Approximately 1-2 hours prior to arrival patient stood up after several minutes watching TV. She went to the bedroom and lost her footing causing her to fall backwards. Next thing she knows she is hitting her head on the dresser. Patient has similar episode recently and cause a laceration to her posterior head. She had a staple placed. She had her family member take the staple out recently. Reports that the previous laceration was well healed until she fell today. He opened causing bleeding. And was ambulatory after the fall. She told her assisted living facility staff that she fell. EMS was called patient brought to the emergency department. Patient has no other pain complaints at this time. She is ambulatory for EMS. The ROS documented in this emergency department record has been reviewed and confirmed by me. Those systems with pertinent positive or negative responses have been documented in the HPI. All other systems are other negative and/or noncontributory. PHYSICAL EXAM: General Impression: Alert and oriented x3, not in acute distress HEENT: One [place] laceration to the occiput with minimal hemorrhage, extra- ocular movements intact, pupils equal and reactive to light bilaterally, mucous membranes moist. Cardiovascular: Heart regular rate and rhythm, S1&S2 audible, no murmurs, rubs or gallops Chest: Lungs clear to auscultation bilaterally, no rhonchi, no wheeze, no rales Abdomen: Bowel sounds present, abdomen soft, non-tender, non-distended, no organomegaly Musculoskeletal: Pulses present and equal in all extremities, no peripheral edema Motor: no focal deficits noted Neurological: CN II-XII grossly intact, no focal motor or sensory deficits noted Skin: Intact with no visualized rashes Psych: Normal affect and mood ED course: 78-year-old female presents after episode of syncope and head trauma. As upon arrival are within acceptable limits.Laboratory evaluation obtained. CBC unremarkable. Coag panel is negative. Urinalysis is negative. Metabolic panel shows no acute processes. Computed tomography scan of the head and C- spine shows no acute injuries. Pelvis x-ray is nonacute. Chest x-ray shows no acute cardio pulmonary processes. Radiology was concerned about possible left- sided rib fractures. Patient denies any left-sided chest pain or rib pain. Patient observed in emergency department for several hours with stable medical condition. She is ambulatory around the ER several yards with no demonstration of ataxia. She has normal orthostatic vital signs. Medications were reviewed no obvious medication that's causing her symptoms. Patient feels comfortable being discharged. She is instructed to follow-up with her primary care physician for outpatient management. Chart review shows that patient's tetanus was updated last month. EKG interpretation: Ventricular rate 63, normal sinus rhythm, FL interval 180, QS 94, QTC 417. No FL prolongation, no QTC prolongation, no ST or T-wave changes noted. EKG compared to 09/03/2018 showing no changes. Overall, this EKG is unremarkable - Related Data Home Medications Medication Instructions Recorded Confirmed Acetaminophen [Tylenol Extra 1,000 mg PO Q6H PRN 12/14/18 01/07/19 Strength] Ascorbic Acid [Vitamin C] 1,000 mg PO DAILY 12/14/18 01/07/19 Aspirin [Adult Low Dose Aspirin EC] 81 mg PO HS 12/14/18 01/07/19 Calcium Carbonate/Vitamin D3 2 tab PO HS 12/14/18 01/07/19 [Calcium 600-Vit D3 800 Caplet] Donepezil [Aricept] 10 mg PO HS 12/14/18 01/07/19 Glucos Sul 2Kcl/MSM/Chond/C/Mn 1 tab PO DAILY 12/14/18 01/07/19 [Glucosamine Chondroitin Cap] Lysine (Unknown Dose) 1 tab PO DAILY 12/14/18 01/07/19 Magnesium Oxide [Mag-Ox] 400 mg PO DAILY 12/14/18 01/07/19 Memantine [Namenda] 10 mg PO HS 12/14/18 01/07/19 Multivit-Min/FA/Lycopen/Lutein 1 tab PO DAILY 12/14/18 01/07/19 [Centrum Silver Tablet] Raloxifene [Evista] 60 mg PO DAILY 12/14/18 01/07/19 Ramipril [Altace] 5 mg PO DAILY 12/14/18 01/07/19 Zinc 25 mg PO DAILY 12/14/18 01/07/19 Brimonidine Tartrate/Timolol 1 drop BOTH EYES BID 01/07/19 01/07/19 [Combigan 0.2%-0.5% Eye Drops] Vitamin B Complex 1 cap PO DAILY 01/07/19 01/07/19 Allergies Allergy/AdvReac Type Severity Reaction Status Date / Time Penicillins Allergy Unknown Verified 01/07/19 22:44 Childhood Review of Systems ROS Statement: Those systems with pertinent positive or pertinent negative responses have been documented in the HPI. ROS Other: All systems not noted in ROS Statement are negative. Past Medical History Past Medical History: Cancer, Dementia, Eye Disorder, Hearing Disorder / Deafness, Hypertension, Liver Disease, Memory Impairment, Musculoskeletal Disorder, Syncope Additional Past Medical History / Comment(s): Hx heart murmur; Breast CA 2001; Hep A 1969's. Glaucoma. Wears hearing aids. "Recent EKG changes, Echo shows severe MV regurg," per daughter. Recent falls, has fx lt clavicle. History of Any Multi-Drug Resistant Organisms: None Reported Past Surgical History: Breast Surgery, Section Additional Past Surgical History / Comment(s): Lumpectomy. Cataracts. Past Anesthesia/Blood Transfusion Reactions: No Reported Reaction Past Psychological History: No Psychological Hx Reported Smoking Status: Never smoker - Past Family History Mother Family Medical History: Cancer Additional Family Medical History / Comment(s): Possible breast CA General Exam Limitations: no limitations Course Vital Signs 01/07/19 01/07/19 01/07/19 21:41 22:05 22:44 Temperature 97.9 F Pulse Rate 63 72 Pulse Rate [ 61 Audio Visual Specialist ] Pulse Rate [ 64 Sitting] Pulse Rate [ 77 Standing] Respiratory 20 20 18 Rate Blood Pressure 166/79 164/84 Blood Pressure 154/77 [Sitting] Blood Pressure 166/87 [Standing] Blood Pressure 157/81 [Supine] O2 Sat by Pulse 98 99 99 Oximetry 01/07/19 23:44 Temperature Pulse Rate 61 Pulse Rate [ Audio Visual Specialist ] Pulse Rate [ Sitting] Pulse Rate [ Standing] Respiratory 20 Rate Blood Pressure 159/76 Blood Pressure [Sitting] Blood Pressure [Standing] Blood Pressure [Supine] O2 Sat by Pulse 97 Oximetry Medical Decision Making - Lab Data Result diagrams: 01/07/19 21:57 01/07/19 21:57 Lab Results 01/07/19 01/07/19 01/07/19 Range/Units 21:57 21:57 21:57 WBC 7.7 (3.8-10.6) k/uL RBC 3.69 L (3.80-5.40) m/uL Hgb 12.7 (11.4-16.0) gm/dL Hct 37.1 (34.0-46.0) % MCV 100.5 H (80.0-100.0) fL MCH 34.3 (25.0-35.0) pg MCHC 34.2 (31.0-37.0) g/dL RDW 12.0 (11.5-15.5) % Plt Count 197 (150-450) k/uL Neutrophils % 45 % Lymphocytes % 46 % Monocytes % 5 % Eosinophils % 0 % Basophils % 0 % Neutrophils # 3.5 (1.3-7.7) k/uL Lymphocytes # 3.5 (1.0-4.8) k/uL Monocytes # 0.4 (0-1.0) k/uL Eosinophils # 0.0 (0-0.7) k/uL Basophils # 0.0 (0-0.2) k/uL PT 9.9 (9.0-12.0) sec INR 0.9 (<1.2) APTT 22.4 (22.0-30.0) sec Sodium 140 (137-145) mmol/L Potassium 4.4 (3.5-5.1) mmol/L Chloride 107 (98-107) mmol/L Carbon Dioxide 26 (22-30) mmol/L Anion Gap 7 mmol/L BUN 22 H (7-17) mg/dL Creatinine 0.74 (0.52-1.04) mg/dL Est GFR (CKD-EPI)AfAm >90 (>60 ml/min/1.73 sqM) Est GFR (CKD-EPI)NonAf 78 (>60 ml/min/1.73 sqM) Glucose 110 H (74-99) mg/dL Calcium 9.5 (8.4-10.2) mg/dL Total Bilirubin 0.2 (0.2-1.3) mg/dL AST 24 (14-36) U/L ALT 16 (9-52) U/L Alkaline Phosphatase 69 (38-126) U/L Troponin I (0.000-0.034) ng/mL Total Protein 6.9 (6.3-8.2) g/dL Albumin 4.1 (3.5-5.0) g/dL Urine Color Urine Appearance (Clear) Urine pH (5.0-8.0) Ur Specific [place] (1.001-1.035) Urine Protein (Negative) Urine Glucose (UA) (Negative) Urine Ketones (Negative) Urine Blood (Negative) Urine Nitrite (Negative) Urine Bilirubin (Negative) Urine Urobilinogen (<2.0) mg/dL Ur Leukocyte Esterase (Negative) Blood Type Blood Type Confirm Blood Type Recheck Bld Type Recheck Status Antibody Screen Spec Expiration Date 01/07/19 01/07/19 01/07/19 Range/Units 21:57 21:57 22:04 WBC (3.8-10.6) k/uL RBC (3.80-5.40) m/uL Hgb (11.4-16.0) gm/dL Hct (34.0-46.0) % MCV (80.0-100.0) fL MCH (25.0-35.0) pg MCHC (31.0-37.0) g/dL RDW (11.5-15.5) % Plt Count (150-450) k/uL Neutrophils % % Lymphocytes % % Monocytes % % Eosinophils % % Basophils % % Neutrophils # (1.3-7.7) k/uL Lymphocytes # (1.0-4.8) k/uL Monocytes # (0-1.0) k/uL Eosinophils # (0-0.7) k/uL Basophils # (0-0.2) k/uL PT (9.0-12.0) sec INR (<1.2) APTT (22.0-30.0) sec Sodium (137-145) mmol/L Potassium (3.5-5.1) mmol/L Chloride (98-107) mmol/L Carbon Dioxide (22-30) mmol/L Anion Gap mmol/L BUN (7-17) mg/dL Creatinine (0.52-1.04) mg/dL Est GFR (CKD-EPI)AfAm (>60 ml/min/1.73 sqM) Est GFR (CKD-EPI)NonAf (>60 ml/min/1.73 sqM) Glucose (74-99) mg/dL Calcium (8.4-10.2) mg/dL Total Bilirubin (0.2-1.3) mg/dL AST (14-36) U/L ALT (9-52) U/L Alkaline Phosphatase (38-126) U/L Troponin I <0.012 (0.000-0.034) ng/mL Total Protein (6.3-8.2) g/dL Albumin (3.5-5.0) g/dL Urine Color Urine Appearance (Clear) Urine pH (5.0-8.0) Ur Specific [place] (1.001-1.035) Urine Protein (Negative) Urine Glucose (UA) (Negative) Urine Ketones (Negative) Urine Blood (Negative) Urine Nitrite (Negative) Urine Bilirubin (Negative) Urine Urobilinogen (<2.0) mg/dL Ur Leukocyte Esterase (Negative) Blood Type A Positive Blood Type Confirm A Positive Blood Type Recheck No Previous Record Bld Type Recheck Status CABO Indicated Antibody Screen NEGATIVE Spec Expiration Date 01/10/2019235601/07/19 Range/Units 22:40 WBC (3.8-10.6) k/uL RBC (3.80-5.40) m/uL Hgb (11.4-16.0) gm/dL Hct (34.0-46.0) % MCV (80.0-100.0) fL MCH (25.0-35.0) pg MCHC (31.0-37.0) g/dL RDW (11.5-15.5) % Plt Count (150-450) k/uL Neutrophils % % Lymphocytes % % Monocytes % % Eosinophils % % Basophils % % Neutrophils # (1.3-7.7) k/uL Lymphocytes # (1.0-4.8) k/uL Monocytes # (0-1.0) k/uL Eosinophils # (0-0.7) k/uL Basophils # (0-0.2) k/uL PT (9.0-12.0) sec INR (<1.2) APTT (22.0-30.0) sec Sodium (137-145) mmol/L Potassium (3.5-5.1) mmol/L Chloride (98-107) mmol/L Carbon Dioxide (22-30) mmol/L Anion Gap mmol/L BUN (7-17) mg/dL Creatinine (0.52-1.04) mg/dL Est GFR (CKD-EPI)AfAm (>60 ml/min/1.73 sqM) Est GFR (CKD-EPI)NonAf (>60 ml/min/1.73 sqM) Glucose (74-99) mg/dL Calcium (8.4-10.2) mg/dL Total Bilirubin (0.2-1.3) mg/dL AST (14-36) U/L ALT (9-52) U/L Alkaline Phosphatase (38-126) U/L Troponin I (0.000-0.034) ng/mL Total Protein (6.3-8.2) g/dL Albumin (3.5-5.0) g/dL Urine Color Yellow Urine Appearance Clear (Clear) Urine pH 6.5 (5.0-8.0) Ur Specific [place] 1.012 (1.001-1.035) Urine Protein Negative (Negative) Urine Glucose (UA) Negative (Negative) Urine Ketones Negative (Negative) Urine Blood Negative (Negative) Urine Nitrite Negative (Negative) Urine Bilirubin Negative (Negative) Urine Urobilinogen <2.0 (<2.0) mg/dL Ur Leukocyte Esterase Negative (Negative) Blood Type Blood Type Confirm Blood Type Recheck Bld Type Recheck Status Antibody Screen Spec Expiration Date Disposition Clinical Impression: Fall, Scalp laceration, Blunt head trauma Disposition: HOME SELF-CARE Condition: Good Instructions (If sedation given, give patient instructions): Fall Prevention for Older Adults (ED) Is patient prescribed a controlled substance at d/c from ED?: No Referrals: Sunny Monterio MD [Primary Care Provider] - 1-2 days Time of Disposition: 00:21
[2019-01-07 22:16] LABS: Basophils % (A) 0 %; Eosinophils % (A) 0 %; HCT 37.1 % (34.0-46.0); HGB 12.7 gm/dL (11.4-16.0); Lymphocytes # (A) 3.5 k/uL (1.0-4.8); Lymphocytes % (A) 46 %; MCH 34.3 pg (25.0-35.0); MCHC 34.2 g/dL (31.0-37.0); MCV 100.5 fL (80.0-100.0); Mean Platelet Volume 6.9; Monocytes # (A) 0.4 k/uL (0-1.0); Monocytes % (A) 5 %; Neutrophils # (A) 3.5 k/uL (1.3-7.7); Neutrophils % (A) 45 %; Platelet Count 197 k/uL (150-450); RBC 3.69 m/uL (3.80-5.40); WBC 7.7 k/uL (3.8-10.6)
[2019-01-07 22:19] LABS: ALT 16 U/L (9-52); AST 24 U/L (14-36); African American GFR (CKD) >90 (>60 ml/min/1.73 sqM); Albumin 4.1 g/dL (3.5-5.0); Alkaline Phosphatase 69 U/L (38-126); Anion Gap 7 mmol/L; Blood Urea Nitrogen 22 mg/dL (7-17); Calcium 9.5 mg/dL (8.4-10.2); Carbon Dioxide 26 mmol/L (22-30); Chloride 107 mmol/L (98-107); Glucose 110 mg/dL (74-99); Potassium 4.4 mmol/L (3.5-5.1); Sodium 140 mmol/L (137-145); Total Bilirubin 0.2 mg/dL (0.2-1.3); Total Protein 6.9 g/dL (6.3-8.2)
[2019-01-07 22:22] LABS: INR 0.9 (<1.2); Partial Thromboplastin Time 22.4 sec (22.0-30.0); Prothrombin Time 9.9 sec (9.0-12.0)
[2019-01-07 22:51] LABS: Appearance,Urine Clear (Clear); Bilirubin,Urine Negative (Negative); Blood,Urine Negative (Negative); Color,Urine Yellow; Glucose,Urine (UA) Negative (Negative); Ketones,Urine Negative (Negative); Leukocyte Esterase,Urine Negative (Negative); Nitrite,Urine Negative (Negative); PH, Urine 6.5 (5.0-8.0); Protein,Urine Negative (Negative); Specific Gravity,Urine 1.012 (1.001-1.035); Urobilinogen,Urine <2.0 mg/dL (<2.0)
--- NOTE | 2019-01-07 23:01 | CT ---
EXAM: CT Head Without Intravenous Contrast CLINICAL HISTORY: Injury. Headache. TECHNIQUE: Axial computed tomography images of the head/brain without intravenous contrast. CTDI is 55.27 mGy and DLP is 1293.1 mGy-cm. This CT exam was performed using one or more of the following dose reduction techniques: automated exposure control, adjustment of the mA and/or kV according to patient size, and/or use of iterative reconstruction technique. COMPARISON: 12/25/2018. FINDINGS: Brain: Small vessel disease of aging. No midline shift or mass-effect. No abnormal extra-axial collection. No hemorrhage. Midline shift: Midline anatomy is unremarkable. Ventricles: There is prominence of the ventricular system, cortical sulci, basilar cisterns, compatible with age related atrophy. Bones/joints: The calvarium is unremarkable. No acute fracture. Soft tissues: A 2.4 x 0.9 cm scalp hematoma at the left high parietal scalp is noted, similar to that noted on the study of 12/25/2018. Sinuses: Mild chronic right sphenoid sinusitis. Remaining visualized sinuses are unremarkable. Mastoid air cells: Mastoid air cells are well pneumatized. IMPRESSION: Age-related atrophy and small vessel disease of aging, similar to the previous study. No acute intracranial pathology. If there is concern for etiology such as early acute lacunar infarct, magnetic resonance image of the brain with diffusion-weighted sequences should be performed for follow-up. Stable scalp hematoma at the left high parietal scalp, unchanged since the previous study of 12/25/2018. EXAM: CT Cervical Spine Without Intravenous Contrast CLINICAL HISTORY: Injury. Headache. TECHNIQUE: Axial computed tomography images of the cervical spine without intravenous contrast. CTDI is 55.27 mGy and DLP is 1293.1 mGy-cm. This CT exam was performed using one or more of the following dose reduction techniques: automated exposure control, adjustment of the mA and/or kV according to patient size, and/or use of iterative reconstruction technique. COMPARISON: 12/25/2018. FINDINGS: Vertebrae: There is straightening and reversal of the curvature of the cervical spine possibly on the basis of muscle spasm. There is a normal relationship of C1 and C2. There is grade 1 anterolisthesis of C4 upon C5 vertebral body. There is grade 1 anterolisthesis of C5 on C6 vertebral body. Similar findings were noted on the previous study. There is mild dextroscoliosis. No acute fracture. Discs/spinal canal/neural foramina: Transaxial images of the cervical spine reveal mild to moderate posterior facet arthropathy and multilevel disc osteophyte complexes, similar to that noted on the previous study. No spinal canal stenosis. Soft tissues: Paraspinal and regional soft tissues are grossly unremarkable. 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 5 cm nodules the right lobe of the thyroid gland are noted. Lung apices: Scarring at the lung apices is suggested. The airway is patent. Other findings: The spinous processes are unremarkable. IMPRESSION: No evidence of acute injury to the cervical spine. Degenerative disc disease of the cervical spine, similar to that noted on the previous study as discussed above.
--- NOTE | 2019-01-07 23:35 | XR ---
EXAM: XR Pelvis, 1 or 2 Views CLINICAL HISTORY: Injury. Pelvic pain. TECHNIQUE: Frontal view of the pelvis. COMPARISON: None. FINDINGS: Bones/joints: Mild to moderate osteoarthritic changes about the hip joints are noted. No acute fracture or dislocation about the hip joints. The bony pelvis is unremarkable. Mild to moderate osteoarthritic changes about the sacroiliac joints. The visualized lumbar spine is unremarkable. The sacrum and coccyx are suboptimally visualized but appear grossly unremarkable. Clinical correlation is necessary. Soft tissues: Unremarkable. Vasculature: Pelvic phleboliths. IMPRESSION: No acute fracture about the bony pelvis. Osteoarthritic and degenerative changes.
[2019-01-07 23:45] VITALS: RESP 20
--- NOTE | 2019-01-07 23:46 | XR ---
EXAM: XR Chest, 1 View CLINICAL HISTORY: ITS.REASON XR Reason: trauma TECHNIQUE: Frontal view of the chest. COMPARISON: No relevant prior studies available. FINDINGS: Lungs: No consolidation or mass. Pleural space: No acute findings Heart: cardiomegaly. Bones/joints: The left fifth, sixth, and seventh ribs somewhat irregular. IMPRESSION: No acute cardiopulmonary process. Possible left-sided rib fractures.
[2019-01-08 00:54] VITALS: BP 120/67; PULSE 70
== END 2019-01-08 01:18 | disposition home or self-care (01) ==
LOC: EC 21:36
DX: S01.01XA Laceration without foreign body of scalp, initial encounter (principal); I10 Essential (primary) hypertension; F03.90 Unspecified dementia, unspecified severity, without behavioral disturbance, psychotic disturbance, mood disturbance, and anxiety; Z79.899 Other long term (current) drug therapy; Z79.82 Long term (current) use of aspirin; Z88.0 Allergy status to penicillin; Z85.3 Personal history of malignant neoplasm of breast; W18.09XA Striking against other object with subsequent fall, initial encounter; Y92.003 Bedroom of unspecified non-institutional (private) residence as the place of occurrence of the external cause
CPT/HCPCS: 36415; 70450; 71045; 72125; 72170; 80053; 81003; 84484; 85025; 85610; 85730; 86850; 86900; 86901; 93005; 96360; 96361; 99284

== ENCOUNTER → 2019-01-17 | Outpatient (CLI) | payer MEDICARE ==
[2019-01-17 10:02] LABS: HCT 36.7 % (34.0-46.0); HGB 12.6 gm/dL (11.4-16.0); MCHC 34.3 g/dL (31.0-37.0); Mean Platelet Volume 6.8; Platelet Count 191 k/uL (150-450); WBC 7.2 k/uL (3.8-10.6)
[2019-01-17 10:11] LABS: Partial Thromboplastin Time 23.2 sec (22.0-30.0); Prothrombin Time 10.3 sec (9.0-12.0)
[2019-01-17 10:12] LABS: Calcium 9.6 mg/dL (8.4-10.2); Magnesium 2.2 mg/dL (1.6-2.3); Potassium 4.8 mmol/L (3.5-5.1); Total Bilirubin 0.5 mg/dL (0.2-1.3); Total Protein 6.9 g/dL (6.3-8.2)
[2019-01-17 11:19] LABS: Appearance,Urine Clear (Clear); Bacteria,Urine Rare /hpf; Bilirubin,Urine Negative (Negative); Blood,Urine Negative (Negative); Color,Urine Yellow; Glucose,Urine (UA) Negative (Negative); Ketones,Urine Negative (Negative); Leukocyte Esterase,Urine Small (Negative); Mucus,Urine Few /hpf; Nitrite,Urine Negative (Negative); PH, Urine 5.5 (5.0-8.0); Protein,Urine Negative (Negative); RBC,Urine 2 /hpf (0-5); Squamous Epithelial Cell,Urine 1 /hpf (0-4); Urobilinogen,Urine <2.0 mg/dL (<2.0); WBC,Urine 35 /hpf (0-5)
--- NOTE | 2019-01-17 11:35 | XR ---
EXAMINATION TYPE: XR chest 2V DATE OF EXAM: 01/17/2019 COMPARISON: Prior chest 01/07/2019 HISTORY: Preop cardiac valve replacement TECHNIQUE: Frontal and lateral views of the chest are obtained. FINDINGS: There is no focal air space opacity, pleural effusion, or pneumothorax seen. The cardiac silhouette size is stable, enlarged. The aorta is dense. There are prominent lung volumes suggesting possible underlying COPD. The osseous structures are notable for possible superior wedge compression of a midthoracic vertebral body, degenerative disc changes are noted in the visualized spine. IMPRESSION: Stable cardiomegaly. Additional findings above.
[2019-01-17 17:04] LABS: Hepatitis A Antibody IgM Non-Reactive (Non-Reactive); Hepatitis B Core IgM Non-Reactive (Non-Reactive); Hepatitis B Surface Antigen Non-Reactive (Non-Reactive); Hepatitis C IgG Antibody Non-Reactive (Non-Reactive)
== END | disposition home or self-care (01) ==
LOC: LABWHC1 09:03
PROVIDERS: ATTEND Thoracic Surgery (Cardiothoracic Vascular Surgery)
DX: Z01.818 Encounter for other preprocedural examination (principal); Z01.810 Encounter for preprocedural cardiovascular examination; Z01.812 Encounter for preprocedural laboratory examination; I51.7 Cardiomegaly
CPT/HCPCS: 36415; 71046; 80053; 80061; 80074; 81001; 83735; 84443; 85027; 85610; 85730; 86850; 86900; 86901; 86920; 87070; 87077; 87086; 87186; 93005; 94150

== ENCOUNTER 2019-01-24 05:51 | Inpatient (IN) | payer MEDICARE ==
--- NOTE | 2019-01-17 10:43 | P.PN ---
Progress Note - Text Progress Note Date: 01/17/19 5 m walk test completed: Time: 4.28 seconds, time 2: 3.91 seconds, time 3: 3.43 seconds.
[~2019-01-24 05:51] MED LIST changes: +ALBUMIN HUMAN 25% 50 ML IV ONE; +ALBUMIN HUMAN 5% 500 ML IVPB ONE; -ALPRAZolam 0.25 MG TAB PO PRN; -ALPRAZolam 0.5 MG TAB PO PRN; +ASPIRIN 325 MG TAB PO ONE; +ATORVASTATIN 10 MG TAB PO ONE; +CALCIUM CHLORIDE 100 MG/ML 10 ML SYRINGE IV ONE; +CARDIOPLEGIC SOLN (K+ 16 MEQ/L 1,000 ML with SODIUM BICARB (1 MEQ/ML) 20 ML, LIDOCAINE ... PERFUSION ONE; +CHLORHEXIDINE GLUCONATE 15 ML CUP MUCOUS MEM ONE; +CLEVIDIPINE BUTYRATE 25 MG in EMPTY BAG 1 BAG IV ONE; +HEPARIN SODIUM 1,000 UN/ML (10ML VL) IV ONE; +HEPARIN SODIUM,PORCINE 5,000 UNIT in SODIUM CHLORIDE 0.9% 500 ML 500 ML IV ONE; +INSULIN REGULAR 100 UNIT in SODIUM CHLORIDE 0.9% 100 ML IV ONE; +LACTATED RINGERS 1,000 ML IV ONE; +LACTATED RINGERS 1,000 ML IV SCH; +LIDOCAINE 1% 20 ML VIAL (10MG/ML) FOR IV START INTRADERMA PRN; +MAGNESIUM SULFATE MG 500 MG/ML IV ONE; +MANNITOL 25% 12.5 GM/50 ML VIAL IV ONE; +METOPROLOL TARTRATE 12.5 MG TAB PO ONE; -NITROGLYCERIN SL TABS 0.4 MG TAB SUBLINGUAL PRN; +NITROGLYCERIN-D5W PMX 25 MG/250 ML BTL IV ONE; +NOREPINEPHRINE 4 MG in SODIUM CHLORIDE 0.9% 250 ML IV ONE; +PHENYLEPHRINE 10 MG/ML VIAL IV ONE; +PHENYLEPHRINE 40 MG in SODIUM CHLORIDE 0.9% 250 ML IV ONE; +PROPOFOL 1,000 MG/100 ML VIAL IV ONE; +PROTAMINE SULFATE 10 MG/ML 25 ML VIAL IV ONE; +PROTAMINE SULFATE 250 MG in EMPTY BAG 1 BAG IV ONE; +SODIUM BICARB 8.4% 50 ML SYR (1 MEQ/ML) IV ONE; +SODIUM CHLORIDE 0.9% 1,000 ML IV ONE; -SODIUM CHLORIDE 0.9% 1,000 ML in EMPTY BAG 1 BAG IV ONE; +TRANEXAMIC ACID 2,000 MG in SODIUM CHLORIDE 0.9% 80 ML IV ONE; +ceFAZolin 1,000 MG in SODIUM CHLORIDE 0.9% IRRIGATIO 1,000 ML IRRIGATION ONE; +ceFAZolin 2,000 MG in SODIUM CHLORIDE 0.9% 30 ML IVPB ONE
[2019-01-24] MEDS ORDERED: MIDAZOLAM 2 MG/2 ML VIAL ONE (08:10)
[2019-01-24] MEDS ORDERED: SODIUM CHLORIDE 0.9% 250 ML BAG ONE (08:10)
[2019-01-24] MEDS ORDERED: PROPOFOL 10 MG/ML 20 ML VIAL IV ONE (08:10)
[2019-01-24] MEDS ORDERED: ALBUMIN HUMAN 5% (25gm) 500 ML VIAL IVPB ONE (08:10)
[2019-01-24] MEDS ORDERED: fentaNYL (PF) 50 MCG/ML 50 ML VIAL ONE (08:10)
[2019-01-24] MEDS ORDERED: fentaNYL (PF) 50 MCG/ML 2 ML AMP ONE (08:10)
[2019-01-24] MEDS ORDERED: SODIUM CHLORIDE 0.9% IRRIG 1,000 ML BTL IRRIGATION ONE (08:10)
[2019-01-24] MEDS ORDERED: PROTAMINE SULFATE 10 MG/ML 25 ML VIAL IV ONE (08:10)
[2019-01-24] MEDS ORDERED: ELECTROLYTE-R (PH 7.4) 1,000 ML IV.SOLN IV ONE (08:10)
[2019-01-24] MEDS ORDERED: HEPARIN SODIUM,PORCINE 10,000 UNIT/ML 1 ML VIAL ONE (08:10)
[2019-01-24] MEDS ORDERED: TRANEXAMIC ACID 1,000 MG/10 ML VIAL ONE (08:10)
[2019-01-24] MEDS ORDERED: VECURONIUM 10 MG VIAL IV ONE (08:10)
[2019-01-24 09:50] LABS: ABG Base Excess -0.5 mmol/L; ABG Glucose Whole Blood 91 mg/dL (75-99); ABG HCO3 23 mmol/L (21-25); ABG Hematocrit 33 % (34.0-46.0); ABG Ionized Calcium 4.6 mg/dL (4.5-5.3); ABG PCO2 32 mmHg (35-45); ABG PH 7.46 (7.35-7.45); ABG PO2 269 mmHg (83-108); ABG Potassium Whole Blood 4.2 mmol/L (3.4-4.5); ABG Sodium Whole Blood 139 mmol/L (135-146); ABG TCO2 24 mmol/L (19-24)
[2019-01-24 10:41] LABS: ABG Base Excess 0.1 mmol/L; ABG Glucose Whole Blood 93 mg/dL (75-99); ABG HCO3 24 mmol/L (21-25); ABG Hematocrit 32 % (34.0-46.0); ABG Ionized Calcium 4.6 mg/dL (4.5-5.3); ABG PCO2 37 mmHg (35-45); ABG PH 7.42 (7.35-7.45); ABG PO2 287 mmHg (83-108); ABG Potassium Whole Blood 4.1 mmol/L (3.4-4.5); ABG Sodium Whole Blood 141 mmol/L (135-146); ABG TCO2 26 mmol/L (19-24)
[2019-01-24 11:37] LABS: ABG Base Excess -2.2 mmol/L; ABG Glucose Whole Blood 88 mg/dL (75-99); ABG HCO3 23 mmol/L (21-25); ABG Ionized Calcium 4.3 mg/dL (4.5-5.3); ABG Lactic Acid Whole Blood 1.6 mmol/L (0.5-1.6); ABG PCO2 38 mmHg (35-45); ABG PH 7.38 (7.35-7.45); ABG PO2 382 mmHg (83-108); ABG Potassium Whole Blood 4.5 mmol/L (3.4-4.5); ABG Sodium Whole Blood 139 mmol/L (135-146); ABG TCO2 24 mmol/L (19-24)
[2019-01-24 12:09] LABS: ABG Base Excess -2.6 mmol/L; ABG Glucose Whole Blood 93 mg/dL (75-99); ABG HCO3 22 mmol/L (21-25); ABG Ionized Calcium 4.3 mg/dL (4.5-5.3); ABG Lactic Acid Whole Blood 1.6 mmol/L (0.5-1.6); ABG PCO2 37 mmHg (35-45); ABG PH 7.38 (7.35-7.45); ABG PO2 381 mmHg (83-108); ABG Potassium Whole Blood 4.6 mmol/L (3.4-4.5); ABG Sodium Whole Blood 141 mmol/L (135-146); ABG TCO2 23 mmol/L (19-24)
[2019-01-24 12:45] LABS: ABG Base Excess -2.8 mmol/L; ABG Glucose Whole Blood 97 mg/dL (75-99); ABG HCO3 22 mmol/L (21-25); ABG Ionized Calcium 4.2 mg/dL (4.5-5.3); ABG Lactic Acid Whole Blood 1.7 mmol/L (0.5-1.6); ABG PCO2 34 mmHg (35-45); ABG PH 7.41 (7.35-7.45); ABG PO2 349 mmHg (83-108); ABG Sodium Whole Blood 139 mmol/L (135-146); ABG TCO2 23 mmol/L (19-24)
[2019-01-24 13:18] LABS: ABG Base Excess -3.3 mmol/L; ABG Glucose Whole Blood 110 mg/dL (75-99); ABG HCO3 21 mmol/L (21-25); ABG Ionized Calcium 4.1 mg/dL (4.5-5.3); ABG PCO2 35 mmHg (35-45); ABG PH 7.39 (7.35-7.45); ABG PO2 415 mmHg (83-108); ABG Potassium Whole Blood 5.2 mmol/L (3.4-4.5); ABG Sodium Whole Blood 139 mmol/L (135-146); ABG TCO2 22 mmol/L (19-24)
[2019-01-24 14:45] LABS: ABG Base Excess -3.7 mmol/L; ABG Glucose Whole Blood 93 mg/dL (75-99); ABG HCO3 22 mmol/L (21-25); ABG Hematocrit 32 % (34.0-46.0); ABG Ionized Calcium 5.8 mg/dL (4.5-5.3); ABG Oxygen Saturation 98.8 % (94-97); ABG PCO2 38 mmHg (35-45); ABG PH 7.36 (7.35-7.45); ABG PO2 119 mmHg (83-108); ABG Potassium Whole Blood 4.1 mmol/L (3.4-4.5); ABG Sodium Whole Blood 143 mmol/L (135-146); ABG TCO2 23 mmol/L (19-24)
[2019-01-24 15:00] LABS: ABG Lactic Acid Whole Blood 2.6 mmol/L (0.5-1.6)
[2019-01-24 15:01] LABS: ABG Hematocrit 19 % (34.0-46.0)
[2019-01-24 15:01] LABS: ABG Hematocrit 19 % (34.0-46.0)
[2019-01-24 15:02] LABS: ABG Hematocrit 23 % (34.0-46.0)
[2019-01-24 15:03] LABS: ABG Hematocrit 22 % (34.0-46.0); ABG Lactic Acid Whole Blood 2.1 mmol/L (0.5-1.6)
[2019-01-24 15:04] LABS: ABG Lactic Acid Whole Blood 2.2 mmol/L (0.5-1.6)
[2019-01-24] MEDS ORDERED: Magnesium Replacement Protocol 1 EACH MISC MISCELLANE PRN (15:17)
[2019-01-24] MEDS ORDERED: AMIODARONE 300 MG in DEXTROSE 5% IN WATER 250 ML IV PRN ×2 (15:17)
[2019-01-24] MEDS ORDERED: BENZOCAINE/MENTHOL LOZENG 1 EACH LOZENGE MUCOUS MEM PRN (15:17)
[2019-01-24] MEDS ORDERED: IPRATROPIUM-ALBUTEROL 3 ML NEB INHALATION PRN (15:17)
[2019-01-24] MEDS ORDERED: ONDANSETRON 4 MG/2 ML VIAL IVP PRN (15:17)
[2019-01-24] MEDS ORDERED: METOCLOPRAMIDE 5 MG/ML 2 ML VIAL IVP PRN (15:17)
[2019-01-24] MEDS ORDERED: DEXTROSE 5% IN WATER 100 ML with AMIODARONE 150 MG IV PRN (15:17)
[2019-01-24] MEDS ORDERED: AMIODARONE 360 MG in DEXTROSE 5% IN WATER 200 ML IV PRN ×2 (15:17)
[2019-01-24] MEDS ORDERED: PROPOFOL 1,000 MG in EMPTY BAG 1 BAG IV SCH (15:17)
[2019-01-24] MEDS ORDERED: CALCIUM GLUCONATE 2 GM in SODIUM CHLORIDE 0.9% 100 ML IVPB PRN (15:17)
[2019-01-24] MEDS ORDERED: Phosphorus Replacement Protoco 1 EACH MISC MISCELLANE PRN (15:17)
[2019-01-24] MEDS ORDERED: Potassium Replacement Protocol 1 EACH MISC MISCELLANE PRN (15:17)
[2019-01-24 15:39] LABS: Glucose,Whole Blood 96 mg/dL (75-99)
[2019-01-24 15:40] LABS: Ionized Calcium 5.4 mg/dL (4.5-5.3)
[2019-01-24 15:49] LABS: ALT 27 U/L (9-52); AST 46 U/L (14-36); African American GFR (CKD) >90 (>60 ml/min/1.73 sqM); Albumin 2.9 g/dL (3.5-5.0); Alkaline Phosphatase 21 U/L (38-126); Anion Gap 5 mmol/L; Blood Urea Nitrogen 14 mg/dL (7-17); Calcium 9.2 mg/dL (8.4-10.2); Carbon Dioxide 22 mmol/L (22-30); Chloride 116 mmol/L (98-107); Glucose 93 mg/dL (74-99); Magnesium 3.7 mg/dL (1.6-2.3); Non-African American GFR(CKD) 83 (>60 ml/min/1.73 sqM); Potassium 4.2 mmol/L (3.5-5.1); Sodium 143 mmol/L (137-145); Total Protein 4.5 g/dL (6.3-8.2)
--- NOTE | 2019-01-24 15:52 | XR ---
EXAMINATION TYPE: XR chest 1V portable DATE OF EXAM: 01/24/2019 HISTORY: Post Op CABG COMPARISON: 01/17/2019 TECHNIQUE: Single view of the chest is submitted. FINDINGS: Endotracheal tube, NG tube, SG catheter, mediastianal drains and chest tubes are appropriately placed . Post operative changes of CABG. No sizeable pneumothorax. Scattered Pleural-parencymal opacities may reflect atelectasis. The heart is not enlarged. IMPRESSION: 1. Post operative changes of CABG.
[2019-01-24 15:53] LABS: Basophils % (A) 0 %; Eosinophils % (A) 1 %; HCT 28.4 % (34.0-46.0); INR 1.5 (<1.2); Lymphocytes # (A) 1.5 k/uL (1.0-4.8); Lymphocytes % (A) 17 %; MCH 33.2 pg (25.0-35.0); MCHC 33.8 g/dL (31.0-37.0); MCV 98.1 fL (80.0-100.0); Mean Platelet Volume 6.9; Monocytes # (A) 0.3 k/uL (0-1.0); Monocytes % (A) 3 %; Neutrophils # (A) 7.1 k/uL (1.3-7.7); Neutrophils % (A) 79 %; Partial Thromboplastin Time 45.2 sec (22.0-30.0); Prothrombin Time 15.5 sec (9.0-12.0); RDW 13.8 % (11.5-15.5); WBC 8.9 k/uL (3.8-10.6)
[2019-01-24 15:54] LABS: HGB 9.6 gm/dL (11.4-16.0)
[2019-01-24 16:03] LABS: ABG Base Excess -3.5 mmol/L; ABG HCO3 23 mmol/L (21-25); ABG Oxygen Saturation 99.7 % (94-97); ABG PCO2 44 mmHg (35-45); ABG PH 7.32 (7.35-7.45); ABG PO2 313 mmHg (83-108); ABG TCO2 24 mmol/L (19-24); Allen Test Performed? Yes
[2019-01-24] MEDS: IPRATROPIUM-ALBUTEROL 3 ML NEB INHALATION SCH ×3 (16:08→19:26)
[2019-01-24 16:14] LABS: Glucose,Whole Blood 93 mg/dL (75-99)
[2019-01-24 16:31] LABS: Platelet Count 96 k/uL (150-450)
[2019-01-24] MEDS: LACTATED RINGERS 1,000 ML IV SCH (16:45)
[2019-01-24] MEDS: CLEVIDIPINE BUTYRATE 25 MG in EMPTY BAG 1 BAG IV SCH (16:46)
[2019-01-24] MEDS: ALBUMIN HUMAN 5% 250 ML in EMPTY BAG 1 BAG IVPB PRN ×3 (16:48→16:50)
[2019-01-24 17:16] LABS: Glucose,Whole Blood 95 mg/dL (75-99)
[2019-01-24] MEDS: ACETAMINOPHEN IV (For NPO) 1,000 MG in EMPTY BAG 1 BAG IVPB SCH ×2 (17:54→23:33)
[2019-01-24 18:21] LABS: Glucose,Whole Blood 110 mg/dL (75-99)
[2019-01-24 18:25] LABS: Basophils # (A) 0.1 k/uL (0-0.2); Basophils % (A) 1 %; Eosinophils % (A) 0 %; HGB 10.6 gm/dL (11.4-16.0); Lymphocytes # (A) 1.3 k/uL (1.0-4.8); Lymphocytes % (A) 12 %; MCH 32.6 pg (25.0-35.0); MCV 98.7 fL (80.0-100.0); Monocytes # (A) 0.4 k/uL (0-1.0); Monocytes % (A) 4 %; Neutrophils # (A) 9.5 k/uL (1.3-7.7); Neutrophils % (A) 83 %; RBC 3.24 m/uL (3.80-5.40); RDW 13.8 % (11.5-15.5); WBC 11.5 k/uL (3.8-10.6)
[2019-01-24 18:27] LABS: Platelet Count 99 k/uL (150-450)
--- NOTE | 2019-01-24 18:57 | P.CNPUL ---
History of Present Illness Consult date: 01/24/19 Chief complaint: Cardiac surgery, mitral valve repair, Tricuspid valve repair History of present illness: 78-year-old female patient is currently postop from cardiac surgery as the patient underwent a mitral valve repair and a tricuspid valve repair. Currently she is postop day #0. Note that preoperatively, the patient was found to have severe mitral regurgitation and moderate TR and mild aortic insufficiency. Her coronary angiogram was within normal limits. She is known to have hypertension, early onset dementia, and previous history of breast cancer. Currently, the patient is postop. She is on a assist-control mode of ventilation at the rate of 12 with a tidal volume of 350 and FiO2 was dropped down to 50% with a PEEP of 5. The blood gases showed a pH of 7.32 with a pCO2 of 43 and pO2 of found and 13 and this was done immediately postop. The chest x-ray showed adequate expansion of both lungs. The patient has 2 mediastinal chest tubes 1 right- sided and 1 left-sided pleural chest tube. The output from the chest tubes have been in the order of 200 mL of bloody output/serosanguineous from the mediastinal chest tube and 100 mL from the pleural chest tubes. Hemodynamically, the patient is doing well. Her cardiac index is at 2 with an output of 3.3. The patient has a PA pressure of 37/20. She is on Catapres for blood pressure control. She is not requiring any inotropes. She is producing adequate urine output in the order of 150 mL an hour. She is on IV fluids and she is receiving lactated Ringer at the rate of an hour. She received a total of 2 units of packed RBC intraoperatively and a unit of packed RBC. The patient for now is off sedation and when the process of weaning the sedation off and assessing the patient neurologic status. Review of Systems ROS unobtainable: due to endotracheal tube Past Medical History Past Medical History: Cancer, Dementia, Eye Disorder, Hearing Disorder / Deafness, Hypertension, Liver Disease, Memory Impairment, Musculoskeletal Disorder, Osteoarthritis (OA), Syncope Additional Past Medical History / Comment(s): Hx heart murmur; Breast CA 2001; Hep A 1970's. Glaucoma. Wears hearing aids. Recent falls, hx. fx lt clavicle, fell & cut back of head 01-07-19-lianna to be removed by daughter,fatigue, leg swelling History of Any Multi-Drug Resistant Organisms: None Reported Past Surgical History: Breast Surgery, Section, Heart Catheterization Additional Past Surgical History / Comment(s): left breast Lumpectomy. Cataracts. Past Anesthesia/Blood Transfusion Reactions: No Reported Reaction Smoking Status: Never smoker - Past Family History Mother Family Medical History: Cancer Additional Family Medical History / Comment(s): Possible breast CA Medications and Allergies Home Medications Medication Instructions Recorded Confirmed Type Ascorbic Acid [Vitamin C] 1,000 mg PO DAILY 12/14/18 01/24/19 History Aspirin [Adult Low Dose Aspirin EC] 81 mg PO HS 12/14/18 01/24/19 History Calcium Carbonate/Vitamin D3 2 tab PO HS 12/14/18 01/24/19 History [Calcium 600-Vit D3 800 Caplet] Donepezil [Aricept] 10 mg PO HS 12/14/18 01/24/19 History Glucos Sul 2Kcl/MSM/Chond/C/Mn 1 tab PO DAILY 12/14/18 01/24/19 History [Glucosamine Chondroitin Cap] Lysine HCl [l-Lysine] 1,000 mg PO DAILY 12/14/18 01/24/19 History Magnesium Oxide [Mag-Ox] 250 mg PO DAILY 12/14/18 01/24/19 History Memantine [Namenda] 10 mg PO HS 12/14/18 01/24/19 History Multivit-Min/FA/Lycopen/Lutein 1 tab PO DAILY 12/14/18 01/24/19 History [Centrum Silver Tablet] Raloxifene [Evista] 60 mg PO DAILY 12/14/18 01/24/19 History Ramipril [Altace] 5 mg PO DAILY 12/14/18 01/24/19 History Zinc 25 mg PO DAILY 12/14/18 01/24/19 History Brimonidine Tartrate/Timolol 1 drop BOTH EYES BID 01/07/19 01/24/19 History [Combigan 0.2%-0.5% Eye Drops] Vitamin B Complex 1 cap PO DAILY 01/07/19 01/24/19 History Latanoprost Ophth [Xalatan 0.005%] 1 drops BOTH EYES HS 01/23/19 01/24/19 History Sulfamethox-Tmp 400-80Mg [Bactrim 1 tab PO Q12HR 01/23/19 01/24/19 History SS 400-80 mg] Allergies Allergy/AdvReac Type Severity Reaction Status Date / Time Penicillins Allergy Unknown Verified 01/24/19 06:24 Childhood Physical Exam Vitals: Vital Signs Temp Pulse Pulse Resp BP BP Pulse Ox 01/24/19 18:20 80 20 89/61 98 01/24/19 18:10 80 15 97 01/24/19 18:00 80 12 96 01/24/19 17:50 80 12 96 01/24/19 17:40 80 12 94 L 01/24/19 17:30 79 20 99 01/24/19 17:20 80 19 96 01/24/19 17:10 80 13 94 L 01/24/19 17:00 80 15 94 L 01/24/19 16:50 93.9 F L 80 21 94 L 01/24/19 16:40 80 21 94 L 01/24/19 16:30 80 20 93 L 01/24/19 16:20 80 12 89/61 93 L 01/24/19 16:10 80 19 97 01/24/19 16:09 80 01/24/19 16:00 80 11 L 01/24/19 15:50 80 9 L 99 01/24/19 15:40 80 100 01/24/19 15:30 93.2 F L 80 5 L 99 01/24/19 15:20 39 H 01/24/19 06:47 98.3 F 58 L 16 128/77 99 Intake and Output 01/24/19 01/24/19 01/24/19 06:59 14:59 22:59 Intake Total 041 679 4871.786 Output Total 3580 Balance 100 652 -2154.214 Intake: IV 100 32 108 Cardiac Output 90 Pressure Bag 18 Intake, IV Titration 1017.786 Amount ACETAMINOPHEN IV (For NPO 100 ) 1,000 mg In Empty Bag 1 bag @ 400 mls/hr IVPB Q6HR [facility] Rx#:[id number] Albumin Human 5% 250 ml 750 In Empty Bag 1 bag @ 250 mls/hr IVPB Q1HR PRN Rx#: [id number] Clevidipine Butyrate 25 6.666 mg In Empty Bag 1 bag @ 1 MG/HR 2 mls/hr IV .Q24H [facility] Rx#:[id number] Lactated Ringers 1,000 ml 100 @ 50 mls/hr IV .Q20H [facility] Rx#:[id number] Propofol 1,000 mg In 11.120 Empty Bag 1 bag @ Titrate IV .Q0M [facility] Rx#: [id number] ceFAZolin 2 gm In Sodium 50 Chloride 0.9% 50 ml @ 100 mls/hr IVPB Q8H [facility] Rx#: [id number] Blood Product 620 300 Platelet Pheresis Acda2 0 300 Unit [id number] Rc As-1 Unit 310 [id number] Rc As-1 Unit 310 [id number] Output: Chest Tube Drainage 280 left and right pleural 80 mediastinal x2 200 Urine 1700 Estimated Blood Loss 1600 Other: Voiding Method Indwelling Catheter Weight 66.587 kg ABP, PAP, CO, CI - Last 8 Hours Arterial Blood Pressure 143/83 Arterial Blood Pressure 127/73 Arterial Blood Pressure 121/70 Arterial Blood Pressure 104/60 Arterial Blood Pressure 91/53 Arterial Blood Pressure 131/74 Arterial Blood Pressure 144/81 Arterial Blood Pressure 123/69 Arterial Blood Pressure 114/65 Arterial Blood Pressure 112/64 Arterial Blood Pressure 122/69 Arterial Blood Pressure 128/71 Arterial Blood Pressure 116/67 Arterial Blood Pressure 90/55 Arterial Blood Pressure 82/52 Arterial Blood Pressure 84/55 Arterial Blood Pressure 120/74 Arterial Blood Pressure 80/53 Pulmonary Artery Pressure 40/20 Pulmonary Artery Pressure 41/21 Pulmonary Artery Pressure 40/20 Pulmonary Artery Pressure 36/19 Pulmonary Artery Pressure 36/19 Pulmonary Artery Pressure 36/19 Pulmonary Artery Pressure 41/22 Pulmonary Artery Pressure 38/19 Pulmonary Artery Pressure 37/20 Pulmonary Artery Pressure 35/18 Pulmonary Artery Pressure 35/20 Pulmonary Artery Pressure 39/23 Pulmonary Artery Pressure 37/22 Pulmonary Artery Pressure 36/20 Pulmonary Artery Pressure 32/18 Pulmonary Artery Pressure 28/17 Pulmonary Artery Pressure 34/21 Pulmonary Artery Pressure 34/20 Cardiac Output 3.3 Cardiac Output 3.7 Cardiac Output 3.7 Cardiac Output 3.7 Cardiac Output 3.7 Cardiac Output 3.7 Cardiac Output 3.7 Cardiac Output 3.7 Cardiac Output 3.8 Cardiac Output 3.8 Cardiac Output 3.8 Cardiac Output 3.1 Cardiac Output 3.1 Cardiac Output 3.6 Cardiac Output 3.6 Cardiac Output 3.6 Cardiac Output 3.6 Cardiac Index 2 Cardiac Index 2.2 Cardiac Index 2.2 Cardiac Index 2.2 Cardiac Index 2.2 Cardiac Index 2.2 Cardiac Index 2.2 Cardiac Index 2.2 Cardiac Index 2.3 Cardiac Index 2.3 Cardiac Index 2.3 Cardiac Index 1.8 Cardiac Index 1.8 Cardiac Index 2.1 Cardiac Index 2.1 Cardiac Index 2.1 Cardiac Index 2.1 Gen. appearance, comfortable sedated nonacute distress sections with a mechanical ventilator. Head exam was generally normal. There was no scleral icterus or corneal arcus. Mucous membranes were moist. Neck was supple and without jugular venous distension, thyromegaly, or carotid bruits. Carotids were easily palpable bilaterally. There was no adenopathy. The patient is a left IJ Cordis with a [place]-Opal catheter in place. Orogastric and orotracheal tube are both in place. The patient is intubated by #8 orotracheal tube. Lungs sounds are equal and symmetrical bilaterally. No wheezes or rhonchi any crackles. Sternum stable clean and intact. The patient has 2 mediastinal chest tubes, right pleural and left pleural chest tubes are also in place. Heart sounds are regular, paced at the rate of 80. Underlying rhythm is irregular and bradycardic rhythm at the rate of 30. No significant murmurs appreciated. Abdominal exam revealed normal bowel sounds. The abdomen was soft, non-tender, and without masses, organomegaly, or appreciable enlargement of the abdominal aorta. Examination of the extremities revealed easily palpable radial, femoral and pedal pulses. There was no cyanosis, clubbing or edema. Examination of the skin revealed no evidence of significant rashes, suspicious appearing nevi or other concerning lesions. Neurologic patient is sedated. Pupils are equal and reactive to light. No facial asymmetry. No gaze. No nystagmus. Results - Laboratory Findings CBC and BMP: 01/24/19 18:14 01/24/19 15:25 ABG ABG pH 7.32 (7.35-7.45) L 01/24/19 15:55 ABG pCO2 44 mmHg (35-45) 01/24/19 15:55 ABG pO2 313 mmHg (83-108) H 01/24/19 15:55 ABG O2 Saturation 99.7 % (94-97) H 01/24/19 15:55 PT/INR, D-dimer PT 15.5 sec (9.0-12.0) H 01/24/19 15:25 INR 1.5 (<1.2) H 01/24/19 15:25 Abnormal lab findings: Abnormal Labs 01/17/19 01/24/19 01/24/19 09:30 09:50 10:41 WBC RBC Hgb Hct Plt Count Neutrophils # PT INR APTT ABG pH 7.46 H ABG pCO2 32 L ABG pO2 269 H 287 H ABG Total CO2 26 H ABG O2 Saturation 100.0 H 100.0 H ABG Hematocrit 33 L 32 L ABG Potassium ABG Ionized Calcium ABG Glucose ABG Lactic Acid 2.6 H* 2.0 H Hemoglobin 10.8 L 10.4 L Chloride POC Glucose (mg/dL) Ionized Calcium Andra Magnesium AST Alkaline Phosphatase Total Protein Albumin Arterial Blood Potassium Arterial Blood Glucose Crossmatch See Detail 01/24/19 01/24/19 01/24/19 11:37 12:45 12:45 WBC RBC Hgb Hct Plt Count Neutrophils # PT INR APTT ABG pH ABG pCO2 34 L ABG pO2 382 H 381 H 349 H ABG Total CO2 ABG O2 Saturation 100.0 H 100.0 H 100.0 H ABG Hematocrit 19 L* 19 L* 23 L ABG Potassium 4.6 H 5.0 H ABG Ionized Calcium 4.3 L 4.3 L 4.2 L ABG Glucose ABG Lactic Acid 1.7 H Hemoglobin 6.3 L* 6.2 L* 7.6 L Chloride POC Glucose (mg/dL) Ionized Calcium Andra Magnesium AST Alkaline Phosphatase Total Protein Albumin Arterial Blood Potassium 4.6 H 5.0 H Arterial Blood Glucose Crossmatch 01/24/19 01/24/19 01/24/19 13:18 14:46 15:25 WBC RBC 2.90 L Hgb 9.6 L D Hct 28.4 L Plt Count 96 L Neutrophils # PT INR APTT ABG pH ABG pCO2 ABG pO2 415 H 119 H ABG Total CO2 ABG O2 Saturation 100.0 H 98.8 H ABG Hematocrit 22 L 32 L ABG Potassium 5.2 H ABG Ionized Calcium 4.1 L 5.8 H ABG Glucose 110 H ABG Lactic Acid 2.1 H 2.2 H* Hemoglobin 7.2 L 10.4 L Chloride POC Glucose (mg/dL) Ionized Calcium Andra Magnesium AST Alkaline Phosphatase Total Protein Albumin Arterial Blood Potassium 5.2 H Arterial Blood Glucose 110 H Crossmatch 01/24/19 01/24/19 01/24/19 15:25 15:25 15:55 WBC RBC Hgb Hct Plt Count Neutrophils # PT 15.5 H INR 1.5 H APTT 45.2 H ABG pH 7.32 L ABG pCO2 ABG pO2 313 H ABG Total CO2 ABG O2 Saturation 99.7 H ABG Hematocrit ABG Potassium ABG Ionized Calcium ABG Glucose ABG Lactic Acid Hemoglobin Chloride 116 H POC Glucose (mg/dL) Ionized Calcium Andra 5.4 H Magnesium 3.7 H AST 46 H Alkaline Phosphatase 21 L Total Protein 4.5 L Albumin 2.9 L Arterial Blood Potassium Arterial Blood Glucose Crossmatch 01/24/19 01/24/19 18:09 18:14 WBC 11.5 H RBC 3.24 L Hgb 10.6 L Hct 32.0 L Plt Count 99 L Neutrophils # 9.5 H PT INR APTT ABG pH ABG pCO2 ABG pO2 ABG Total CO2 ABG O2 Saturation ABG Hematocrit ABG Potassium ABG Ionized Calcium ABG Glucose ABG Lactic Acid Hemoglobin Chloride POC Glucose (mg/dL) 110 H Ionized Calcium Andra Magnesium AST Alkaline Phosphatase Total Protein Albumin Arterial Blood Potassium Arterial Blood Glucose Crossmatch - Diagnostic Findings Chest x-ray: image reviewed Assessment and Plan Plan: 1 valvular heart disease with severe mitral and tricuspid regurgitation the patient undergone mitral valve repair and tricuspid valve repair and the patient is postop day #0. Intraoperatively, the patient required a total of 2 units of packed RBC and unit of platelets. Currently on no inotropes and the patient is maintaining her on hemodynamics. She is on Cleviprex for blood pressure control. 2 post thoracotomy, currently on mechanical ventilator and she is remains intubated on a mechanical ventilator for now 3 hypertension currently on Cleviprex for blood pressure control 4 history of breast cancer 5 early onset dementia 6 bradycardia, currently paced at the rate of 80 (AV paced) Plan Monitor hemodynamics. Keep the patient AV paced at the rate of 80. Increase tidal volume to 400. Keep respiratory 12. Wean down the FiO2 down to 40%. Maintaining Cleviprex for blood pressure control. Monitor the output from the chest tubes. Hold sedation. Assess neuro status. Assess weaning parameters and her ability to wean. Further recommendations are to follow accordingly. She is 100 is stable. Cardiac output needs to be repeated. Chest x-ray was reviewed. Blood gases was reviewed. Anticipate extubation within the next few hours.
[2019-01-24 19:01] LABS: Glucose,Whole Blood 126 mg/dL (75-99)
[2019-01-24 20:01] LABS: Glucose,Whole Blood 137 mg/dL (75-99)
--- NOTE | 2019-01-24 20:01 | CONS ---
CONSULTATION Mrs. Lawson is a 78-year-old female who underwent mitral and tricuspid valve repair. The patient has no obstructive coronary artery disease. She has been complaining of progressive dyspnea and fatigue and underwent cardiac catheterization, was found to have significant mitral valve disease with a ELLYN that was done on the 16 of December. 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 She underwent mitral and tricuspid valve repair, aortoplasty for dilated aorta and clipping of the left atrial appendage. She is intubated and sedated and is with paced rhythm. She is on no pressors. PAST MEDICAL HISTORY: Her past medical history is positive for the valve disease, but there is no history of coronary artery disease or history of myocardial infarction. She has a history of hypertension. She is a nonsmoker. REVIEW OF SYSTEMS: Could not be obtained at this time. MEDICATIONS: Her medication prior to admission included ramipril 5 mg daily, Namenda, Xalatan, Aricept, aspirin and vitamin C. PHYSICAL EXAMINATION: She is a 78-year-old female, intubated, sedated. Blood pressure 112/60. PA pressure systolic in the mid 30s. Heart rate in the 80s, paced. HEAD: Normocephalic. Eyes sclerae anicteric. NECK: [place]-Opal catheter noted in the IJ. LUNGS: Clear to auscultation anteriorly. HEART is regular rate and rhythm S1-S2. No rub appreciated. ABDOMEN: Soft, hypoactive bowel sounds. No organomegaly. EXTREMITIES: Serjio wrapping in place. No edema. Chest x-ray revealed evidence of congestion with an ET tube in place, a [place]-Opal catheter. IMPRESSION: 1. Status post mitral and tricuspid valve repair and closure of left atrial appendage. 2. Prior history of hypertension. RECOMMENDATIONS: We will continue routine postoperative care, hopefully wean the patient, extubate her soon. Adjust her medical regimen afterward. Thank you for this consult. We will follow with you. MMODL / IJN: [id number] /
[2019-01-24 20:36] LABS: Basophils % (A) 0 %; Eosinophils % (A) 0 %; HCT 32.5 % (34.0-46.0); HGB 11.1 gm/dL (11.4-16.0); Lymphocytes # (A) 1.3 k/uL (1.0-4.8); Lymphocytes % (A) 8 %; MCH 33.3 pg (25.0-35.0); MCHC 34.1 g/dL (31.0-37.0); MCV 97.9 fL (80.0-100.0); Mean Platelet Volume 6.9; Monocytes # (A) 0.5 k/uL (0-1.0); Monocytes % (A) 3 %; Neutrophils # (A) 13.4 k/uL (1.3-7.7); Neutrophils % (A) 88 %; Platelet Count 128 k/uL (150-450); RBC 3.32 m/uL (3.80-5.40); RDW 14.2 % (11.5-15.5); WBC 15.2 k/uL (3.8-10.6)
[2019-01-24] MEDS ORDERED: MUPIROCIN 2% OINT 22 GM TUBE NASAL ONE (20:45)
[2019-01-24 20:46] LABS: Glucose,Whole Blood 134 mg/dL (75-99)
[2019-01-24] MEDS: INSULIN REGULAR 100 UNIT in SODIUM CHLORIDE 0.9% 100 ML IV SCH (21:27)
[2019-01-24 22:15] LABS: Glucose,Whole Blood 136 mg/dL (75-99)
[2019-01-24] MEDS: HEPARIN SODIUM,PORCINE 5,000 UNIT/ML 1 ML VIAL SQ SCH (23:31)
[2019-01-24] MEDS: TIMOLOL 0.5% OPHTH DROPS 5 ML BTL BOTH EYES SCH (23:32)
[2019-01-24] MEDS: BRIMONIDINE TARTRATE 0.2% DROPS 5 ML BTL BOTH EYES SCH (23:32)
[2019-01-24 23:37] LABS: Glucose,Whole Blood 131 mg/dL (75-99)
[2019-01-25 00:39] LABS: Glucose,Whole Blood 138 mg/dL (75-99)
[2019-01-25] MEDS: LATANOPROST 0.005% OPHTH DROPS 2.5 ML BTL BOTH EYES SCH ×2 (00:48→20:52)
[2019-01-25 01:22] LABS: Glucose,Whole Blood 135 mg/dL (75-99)
[2019-01-25] MEDS: MEMANTINE 10 MG TAB PO SCH ×2 (01:30→20:51)
[2019-01-25] MEDS: DONEPEZIL 10 MG TAB PO SCH ×2 (01:30→20:52)
[2019-01-25] MEDS: CLEVIDIPINE BUTYRATE 25 MG in EMPTY BAG 1 BAG IV SCH (02:36)
[2019-01-25 02:50] LABS: Glucose,Whole Blood 137 mg/dL (75-99)
[2019-01-25 04:25] LABS: Glucose,Whole Blood 135 mg/dL (75-99)
[2019-01-25 04:42] LABS: Basophils % (A) 0 %; Eosinophils % (A) 0 %; HCT 31.5 % (34.0-46.0); HGB 10.7 gm/dL (11.4-16.0); Lymphocytes # (A) 0.9 k/uL (1.0-4.8); Lymphocytes % (A) 8 %; MCH 33.4 pg (25.0-35.0); MCV 98.2 fL (80.0-100.0); Mean Platelet Volume 6.9; Monocytes # (A) 0.4 k/uL (0-1.0); Monocytes % (A) 4 %; Neutrophils # (A) 10.6 k/uL (1.3-7.7); Neutrophils % (A) 88 %; Platelet Count 124 k/uL (150-450); RDW 14.2 % (11.5-15.5)
[2019-01-25 04:47] LABS: ABG Base Excess -3.3 mmol/L; ABG HCO3 23 mmol/L (21-25); ABG Oxygen Saturation 96.6 % (94-97); ABG PCO2 44 mmHg (35-45); ABG PH 7.33 (7.35-7.45); ABG PO2 89 mmHg (83-108); ABG TCO2 24 mmol/L (19-24)
[2019-01-25 05:27] LABS: Albumin 3.7 g/dL (3.5-5.0); Calcium 8.5 mg/dL (8.4-10.2); Magnesium 2.4 mg/dL (1.6-2.3); Potassium 4.3 mmol/L (3.5-5.1); Total Bilirubin 1.5 mg/dL (0.2-1.3); Total Protein 5.3 g/dL (6.3-8.2)
[2019-01-25] MEDS ORDERED: HYDROcodone/APAP 5-325MG 1 EACH TAB PO PRN ×2 (05:59)
[2019-01-25 06:26] LABS: Glucose,Whole Blood 134 mg/dL (75-99)
--- NOTE | 2019-01-25 06:30 | XR ---
EXAMINATION TYPE: XR chest 1V portable DATE OF EXAM: 01/25/2019 CLINICAL HISTORY: Difficulty breathing progress study. Postoperative cardiac surgery. TECHNIQUE: Single AP portable upright view of the chest is obtained. COMPARISON: Chest x-ray from one day earlier and older studies. FINDINGS: Interval extubation with removal of endotracheal and orogastric tubes. Persistent bilatera l chest tubes along with mediastinal drainage catheter. Persistent left internal jugular [place]-Opal ca theter. Cardiac valvular rings and superior closure device are redemonstrated. There is background ch ronic parenchymal change in cardiomegaly with ectatic aorta causing mass effect on trachea and patchy bibasilar opacities. Tiny biapical pneumothoraces are thought present seen better on current study. Osseous structures are intact. Overlying leads and wires are noted. Overlying epicardial pacer wires are noted inferiorly. IMPRESSION: Interval extubation. Chronic parenchymal change and cardiomegaly with improving central v ascular congestion. Persistent patchy bibasilar atelectasis and/or infiltrate. Tiny biapical pneumoth oraces despite bilateral chest tube placement.
[2019-01-25] MEDS: IPRATROPIUM-ALBUTEROL 3 ML NEB INHALATION SCH ×4 (07:08→20:02)
[2019-01-25 07:21] LABS: Glucose,Whole Blood 134 mg/dL (75-99)
--- NOTE | 2019-01-25 07:29 | PN ---
PROGRESS NOTE Mrs. Lawson is a 78-year-old female who underwent mitral and aortic valve repair yesterday with clipping of the left atrial appendage. She is extubated, sitting up in the chair. She is paced 100%. She has underlying severe bradycardia to an asystole. She is on no vasopressor. Her blood pressure was elevated earlier. She is on Cleviprex for that. There is no evidence of ventricular or atrial arrhythmia. In addition to the Cleviprex, she is on Lipitor daily, aspirin, Aricept. PHYSICAL EXAMINATION: Blood pressure 117/50 with the heart rate of 80. Patient is paced. LUNGS: With crackles at the bases. HEART: Regular rate and rhythm. S1, S2. No S3. No rub. ABDOMEN: Soft, nontender. EXTREMITIES: No edema. LAB DATA: Lab data revealed BUN and creatinine 16 and 0.78. Potassium 4.3. Her hemoglobin 10.7. Her chest x-ray showed improved vascular congestion. IMPRESSION: 1. Status post mitral and tricuspid valve repair. 2. Marked bradycardia. 3. History of hypertension. 4. Status post clipping of the left atrial appendage. RECOMMENDATION: I will follow her rhythm and if needed, permanent pacemaker implantation will be recommended. We will continue incentive spirometry. Increase her level of activity and follow her blood pressure and depending on that, further adjustment will be made. MMODL / IJN: [id number] /
[2019-01-25] MEDS: INSULIN REGULAR 100 UNIT in SODIUM CHLORIDE 0.9% 100 ML IV SCH (07:44)
[2019-01-25 08:06] LABS: Glucose,Whole Blood 127 mg/dL (75-99)
[2019-01-25] MEDS ORDERED: MAGNESIUM HYDROXIDE 2,400 MG/10 ML CUP PO PRN (09:00)
[2019-01-25] MEDS ORDERED: ASPIRIN 325 MG TAB PO SCH (09:00)
[2019-01-25] MEDS ORDERED: PANTOPRAZOLE 40 MG/10 ML VIAL IVP SCH (09:00)
[2019-01-25] MEDS ORDERED: METOPROLOL TARTRATE 12.5 MG TAB PO SCH (09:00)
[2019-01-25] MEDS ORDERED: BISACODYL 10 MG SUPP RECTAL PRN (09:00)
[2019-01-25] MEDS: ATORVASTATIN 40 MG TAB PO SCH (09:15)
[2019-01-25] MEDS: BRIMONIDINE TARTRATE 0.2% DROPS 5 ML BTL BOTH EYES SCH ×2 (09:16→20:52)
[2019-01-25] MEDS: HEPARIN SODIUM,PORCINE 5,000 UNIT/ML 1 ML VIAL SQ SCH ×3 (09:16→23:11)
[2019-01-25] MEDS: TIMOLOL 0.5% OPHTH DROPS 5 ML BTL BOTH EYES SCH ×2 (09:17→20:47)
[2019-01-25] MEDS: CHOLECALCIFEROL 400 UNIT TAB PO SCH (09:19)
[2019-01-25] MEDS: ASCORBIC ACID 500 MG TAB PO SCH (09:19)
--- NOTE | 2019-01-25 10:09 | P.PN ---
Subjective Progress Note Date: 01/25/19 78-year-old female patient is currently postop from cardiac surgery as the patient underwent a mitral valve repair and a tricuspid valve repair. Currently she is postop day #0. Note that preoperatively, the patient was found to have severe mitral regurgitation and moderate TR and mild aortic insufficiency. Her coronary angiogram was within normal limits. She is known to have hypertension, early onset dementia, and previous history of breast cancer. Currently, the patient is postop. She is on a assist-control mode of ventilation at the rate of 12 with a tidal volume of 350 and FiO2 was dropped down to 50% with a PEEP of 5. The blood gases showed a pH of 7.32 with a pCO2 of 43 and pO2 of found and 13 and this was done immediately postop. The chest x-ray showed adequate expansion of both lungs. The patient has 2 mediastinal chest tubes 1 right- sided and 1 left-sided pleural chest tube. The output from the chest tubes have been in the order of 200 mL of bloody output/serosanguineous from the mediastinal chest tube and 100 mL from the pleural chest tubes. Hemodynamically, the patient is doing well. Her cardiac index is at 2 with an output of 3.3. The patient has a PA pressure of 37/20. She is on Catapres for blood pressure control. She is not requiring any inotropes. She is producing adequate urine output in the order of 150 mL an hour. She is on IV fluids and she is receiving lactated Ringer at the rate of an hour. She received a total of 2 units of packed RBC intraoperatively and a unit of packed RBC. The patient for now is off sedation and when the process of weaning the sedation off and assessing the patient neurologic status. On today's evaluation of 01/25/2019 the patient is looking well. She is a bit sleepy. I was able to wean off the mechanical ventilator and extubated around 11:30 PM yesterday. She is currently on oxygen at 3 L. Bruner-Opal catheter is in place. Cardiac index is at 2.4 with an output of 4.1. PA pressures are 30/9 and his CVP is around 7. She has the tubes in place with a right pleural and left pleural and 2 mediastinal chest tubes. Output is around 30-50 mL an hour and there is no evidence of any air leak. The chest x-ray from today shows what especially of both lungs. She is hemodynamically stable. She wasn't Cleviprex for blood pressure control that This continues. She is awake and alert and she is following commands. Her underlying cardiac rhythm was asystole. The patient is currently AV paced at the rate of 80. Afebrile. Using incentive spirometer and she is pulling approximately 500 mL. Objective - Vital Signs Vital signs: Vital Signs Temp 97.7 F 01/25/19 08:00 Pulse 80 01/25/19 09:00 Resp 13 01/25/19 09:00 BP 116/61 01/25/19 00:30 Pulse Ox 97 01/25/19 09:00 Intake & Output 01/24/19 01/25/19 01/25/19 18:59 06:59 18:59 Intake Total 2077.786 1031.333 327.386 Output Total 3580 2375 220 Balance -1502.214 -1343.667 107.386 Intake: IV 140 948 207 Cardiac Output 90 240 30 Lactated Ringers 1,000 ml 550 150 @ 20 mls/hr IV .Q24H [facility] Rx#:[id number] Pressure Bag 18 108 27 ceFAZolin 2 gm In Sodium 50 Chloride 0.9% 50 ml @ 100 mls/hr IVPB Q8HR [facility] Rx# :[id number] Intake, IV Titration 1017.786 83.333 60.386 Amount ACETAMINOPHEN IV (For NPO 100 ) 1,000 mg In Empty Bag 1 bag @ 400 mls/hr IVPB Q6HR [facility] Rx#:[id number] Albumin Human 5% 250 ml 750 In Empty Bag 1 bag @ 250 mls/hr IVPB Q1HR PRN Rx#: [id number] Clevidipine Butyrate 25 6.666 33.333 50 mg In Empty Bag 1 bag @ 1 MG/HR 2 mls/hr IV .Q24H [facility] Rx#:[id number] Insulin Regular 100 unit 10.386 In Sodium Chloride 0.9% 100 ml @ Per Protocol IV .Q0M [facility] Rx#:[id number] Lactated Ringers 1,000 ml 100 @ 20 mls/hr IV .Q24H [facility] Rx#:[id number] Propofol 1,000 mg In 11.120 Empty Bag 1 bag @ Titrate IV .Q0M [facility] Rx#: [id number] ceFAZolin 2 gm In Sodium 50 50 Chloride 0.9% 50 ml @ 100 mls/hr IVPB Q8H [facility] Rx#: [id number] Oral 60 Blood Product 920 Platelet Pheresis Acda2 300 Unit [id number] Rc As-1 Unit 310 [id number] Rc As-1 Unit 310 [id number] Output: Chest Tube Drainage 280 800 70 left and right pleural 80 390 40 mediastinal x2 200 410 30 Urine 1700 1575 150 Estimated Blood Loss 1600 Other: Voiding Method Indwelling Catheter Indwelling Catheter Indwelling Catheter ABP, PAP, CO, CI - Last Documented Arterial Blood Pressure 109/72 Pulmonary Artery Pressure 30/9 Cardiac Output 4.1 Cardiac Index 2.4 - Exam Gen. appearance, comfortable, sleepy, currently on today's Zaroxolyn by nasal cannula Head exam was generally normal. There was no scleral icterus or corneal arcus. Mucous membranes were moist. Neck was supple and without jugular venous distension, thyromegaly, or carotid bruits. Carotids were easily palpable bilaterally. There was no adenopathy. The patient is a left IJ Cordis with a Bruner-Opal catheter in place. Orogastric and orotracheal tube are both in place. The patient is intubated by #8 orotracheal tube. Lungs sounds are equal and symmetrical bilaterally. No wheezes or rhonchi any crackles. Sternum stable clean and intact. The patient has 2 mediastinal chest tubes, right pleural and left pleural chest tubes are also in place. Heart sounds are regular, paced at the rate of 80. Underlying rhythm is irregular and bradycardic rhythm at the rate of 30. No significant murmurs appreciated. Abdominal exam revealed normal bowel sounds. The abdomen was soft, non-tender, and without masses, organomegaly, or appreciable enlargement of the abdominal aorta. Examination of the extremities revealed easily palpable radial, femoral and pedal pulses. There was no cyanosis, clubbing or edema. Examination of the skin revealed no evidence of significant rashes, suspicious appearing nevi or other concerning lesions. Neurologic patient awake and alert and following commands and answering questions. No focal neurological deficits. - Labs CBC & Chem 7: 01/25/19 04:10 01/25/19 04:10 Labs: Abnormal Lab Results - Last 24 Hours (Table) 11/01/24/19 01/24/19 Range/Units 09:30 09:50 10:41 WBC (3.8-10.6) k/uL RBC (3.80-5.40) m/uL Hgb (11.4-16.0) gm/dL Hct (34.0-46.0) % Plt Count (150-450) k/uL Neutrophils # (1.3-7.7) k/uL Lymphocytes # (1.0-4.8) k/uL PT (9.0-12.0) sec INR (<1.2) APTT (22.0-30.0) sec ABG pH 7.46 H (7.35-7.45) ABG pCO2 32 L (35-45) mmHg ABG pO2 269 H 287 H (83-108) mmHg ABG Total CO2 26 H (19-24) mmol/L ABG O2 Saturation 100.0 H 100.0 H (94-97) % ABG Hematocrit 33 L 32 L (34.0-46.0) % ABG Potassium (3.4-4.5) mmol/L ABG Ionized Calcium (4.5-5.3) mg/dL ABG Glucose (75-99) mg/dL ABG Lactic Acid 2.6 H* 2.0 H (0.5-1.6) mmol/L Hemoglobin 10.8 L 10.4 L (11.4-16.0) gm/dL Chloride (98-107) mmol/L Glucose (74-99) mg/dL POC Glucose (mg/dL) (75-99) mg/dL Ionized Calcium Andra (4.5-5.3) mg/dL Magnesium (1.6-2.3) mg/dL Total Bilirubin (0.2-1.3) mg/dL AST (14-36) U/L Alkaline Phosphatase (38-126) U/L Total Protein (6.3-8.2) g/dL Albumin (3.5-5.0) g/dL Arterial Blood Potassium (3.4-4.5) mmol/L Arterial Blood Glucose (75-99) mg/dL Crossmatch See Detail 01/24/19 01/24/19 01/24/19 Range/Units 11:37 12:45 12:45 WBC (3.8-10.6) k/uL RBC (3.80-5.40) m/uL Hgb (11.4-16.0) gm/dL Hct (34.0-46.0) % Plt Count (150-450) k/uL Neutrophils # (1.3-7.7) k/uL Lymphocytes # (1.0-4.8) k/uL PT (9.0-12.0) sec INR (<1.2) APTT (22.0-30.0) sec ABG pH (7.35-7.45) ABG pCO2 34 L (35-45) mmHg ABG pO2 382 H 381 H 349 H (83-108) mmHg ABG Total CO2 (19-24) mmol/L ABG O2 Saturation 100.0 H 100.0 H 100.0 H (94-97) % ABG Hematocrit 19 L* 19 L* 23 L (34.0-46.0) % ABG Potassium 4.6 H 5.0 H (3.4-4.5) mmol/L ABG Ionized Calcium 4.3 L 4.3 L 4.2 L (4.5-5.3) mg/dL ABG Glucose (75-99) mg/dL ABG Lactic Acid 1.7 H (0.5-1.6) mmol/L Hemoglobin 6.3 L* 6.2 L* 7.6 L (11.4-16.0) gm/dL Chloride (98-107) mmol/L Glucose (74-99) mg/dL POC Glucose (mg/dL) (75-99) mg/dL Ionized Calcium Andra (4.5-5.3) mg/dL Magnesium (1.6-2.3) mg/dL Total Bilirubin (0.2-1.3) mg/dL AST (14-36) U/L Alkaline Phosphatase (38-126) U/L Total Protein (6.3-8.2) g/dL Albumin (3.5-5.0) g/dL Arterial Blood Potassium 4.6 H 5.0 H (3.4-4.5) mmol/L Arterial Blood Glucose (75-99) mg/dL Crossmatch 01/24/19 01/24/19 01/24/19 Range/Units 13:18 14:46 15:25 WBC (3.8-10.6) k/uL RBC 2.90 L (3.80-5.40) m/uL Hgb 9.6 L D (11.4-16.0) gm/dL Hct 28.4 L (34.0-46.0) % Plt Count 96 L (150-450) k/uL Neutrophils # (1.3-7.7) k/uL Lymphocytes # (1.0-4.8) k/uL PT (9.0-12.0) sec INR (<1.2) APTT (22.0-30.0) sec ABG pH (7.35-7.45) ABG pCO2 (35-45) mmHg ABG pO2 415 H 119 H (83-108) mmHg ABG Total CO2 (19-24) mmol/L ABG O2 Saturation 100.0 H 98.8 H (94-97) % ABG Hematocrit 22 L 32 L (34.0-46.0) % ABG Potassium 5.2 H (3.4-4.5) mmol/L ABG Ionized Calcium 4.1 L 5.8 H (4.5-5.3) mg/dL ABG Glucose 110 H (75-99) mg/dL ABG Lactic Acid 2.1 H 2.2 H* (0.5-1.6) mmol/L Hemoglobin 7.2 L 10.4 L (11.4-16.0) gm/dL Chloride (98-107) mmol/L Glucose (74-99) mg/dL POC Glucose (mg/dL) (75-99) mg/dL Ionized Calcium Andra (4.5-5.3) mg/dL Magnesium (1.6-2.3) mg/dL Total Bilirubin (0.2-1.3) mg/dL AST (14-36) U/L Alkaline Phosphatase (38-126) U/L Total Protein (6.3-8.2) g/dL Albumin (3.5-5.0) g/dL Arterial Blood Potassium 5.2 H (3.4-4.5) mmol/L Arterial Blood Glucose 110 H (75-99) mg/dL Crossmatch 01/24/19 01/24/19 01/24/19 Range/Units 15:25 15:25 15:55 WBC (3.8-10.6) k/uL RBC (3.80-5.40) m/uL Hgb (11.4-16.0) gm/dL Hct (34.0-46.0) % Plt Count (150-450) k/uL Neutrophils # (1.3-7.7) k/uL Lymphocytes # (1.0-4.8) k/uL PT 15.5 H (9.0-12.0) sec INR 1.5 H (<1.2) APTT 45.2 H (22.0-30.0) sec ABG pH 7.32 L (7.35-7.45) ABG pCO2 (35-45) mmHg ABG pO2 313 H (83-108) mmHg ABG Total CO2 (19-24) mmol/L ABG O2 Saturation 99.7 H (94-97) % ABG Hematocrit (34.0-46.0) % ABG Potassium (3.4-4.5) mmol/L ABG Ionized Calcium (4.5-5.3) mg/dL ABG Glucose (75-99) mg/dL ABG Lactic Acid (0.5-1.6) mmol/L Hemoglobin (11.4-16.0) gm/dL Chloride 116 H (98-107) mmol/L Glucose (74-99) mg/dL POC Glucose (mg/dL) (75-99) mg/dL Ionized Calcium Andra 5.4 H (4.5-5.3) mg/dL Magnesium 3.7 H (1.6-2.3) mg/dL Total Bilirubin (0.2-1.3) mg/dL AST 46 H (14-36) U/L Alkaline Phosphatase 21 L (38-126) U/L Total Protein 4.5 L (6.3-8.2) g/dL Albumin 2.9 L (3.5-5.0) g/dL Arterial Blood Potassium (3.4-4.5) mmol/L Arterial Blood Glucose (75-99) mg/dL Crossmatch 01/24/19 01/24/19 01/24/19 Range/Units 18:09 18:14 18:50 WBC 11.5 H (3.8-10.6) k/uL RBC 3.24 L (3.80-5.40) m/uL Hgb 10.6 L (11.4-16.0) gm/dL Hct 32.0 L (34.0-46.0) % Plt Count 99 L (150-450) k/uL Neutrophils # 9.5 H (1.3-7.7) k/uL Lymphocytes # (1.0-4.8) k/uL PT (9.0-12.0) sec INR (<1.2) APTT (22.0-30.0) sec ABG pH (7.35-7.45) ABG pCO2 (35-45) mmHg ABG pO2 (83-108) mmHg ABG Total CO2 (19-24) mmol/L ABG O2 Saturation (94-97) % ABG Hematocrit (34.0-46.0) % ABG Potassium (3.4-4.5) mmol/L ABG Ionized Calcium (4.5-5.3) mg/dL ABG Glucose (75-99) mg/dL ABG Lactic Acid (0.5-1.6) mmol/L Hemoglobin (11.4-16.0) gm/dL Chloride (98-107) mmol/L Glucose (74-99) mg/dL POC Glucose (mg/dL) 110 H 126 H (75-99) mg/dL Ionized Calcium Andra (4.5-5.3) mg/dL Magnesium (1.6-2.3) mg/dL Total Bilirubin (0.2-1.3) mg/dL AST (14-36) U/L Alkaline Phosphatase (38-126) U/L Total Protein (6.3-8.2) g/dL Albumin (3.5-5.0) g/dL Arterial Blood Potassium (3.4-4.5) mmol/L Arterial Blood Glucose (75-99) mg/dL Crossmatch 01/24/19 01/24/19 01/24/19 Range/Units 19:50 20:21 20:35 WBC 15.2 H (3.8-10.6) k/uL RBC 3.32 L (3.80-5.40) m/uL Hgb 11.1 L (11.4-16.0) gm/dL Hct 32.5 L (34.0-46.0) % Plt Count 128 L (150-450) k/uL Neutrophils # 13.4 H (1.3-7.7) k/uL Lymphocytes # (1.0-4.8) k/uL PT (9.0-12.0) sec INR (<1.2) APTT (22.0-30.0) sec ABG pH (7.35-7.45) ABG pCO2 (35-45) mmHg ABG pO2 (83-108) mmHg ABG Total CO2 (19-24) mmol/L ABG O2 Saturation (94-97) % ABG Hematocrit (34.0-46.0) % ABG Potassium (3.4-4.5) mmol/L ABG Ionized Calcium (4.5-5.3) mg/dL ABG Glucose (75-99) mg/dL ABG Lactic Acid (0.5-1.6) mmol/L Hemoglobin (11.4-16.0) gm/dL Chloride (98-107) mmol/L Glucose (74-99) mg/dL POC Glucose (mg/dL) 137 H 134 H (75-99) mg/dL Ionized Calcium Andra (4.5-5.3) mg/dL Magnesium (1.6-2.3) mg/dL Total Bilirubin (0.2-1.3) mg/dL AST (14-36) U/L Alkaline Phosphatase (38-126) U/L Total Protein (6.3-8.2) g/dL Albumin (3.5-5.0) g/dL Arterial Blood Potassium (3.4-4.5) mmol/L Arterial Blood Glucose (75-99) mg/dL Crossmatch 01/24/19 01/24/19 01/24/19 Range/Units 22:03 23:25 23:41 WBC (3.8-10.6) k/uL RBC (3.80-5.40) m/uL Hgb (11.4-16.0) gm/dL Hct (34.0-46.0) % Plt Count (150-450) k/uL Neutrophils # (1.3-7.7) k/uL Lymphocytes # (1.0-4.8) k/uL PT (9.0-12.0) sec INR (<1.2) APTT (22.0-30.0) sec ABG pH 7.33 L (7.35-7.45) ABG pCO2 (35-45) mmHg ABG pO2 (83-108) mmHg ABG Total CO2 (19-24) mmol/L ABG O2 Saturation (94-97) % ABG Hematocrit (34.0-46.0) % ABG Potassium (3.4-4.5) mmol/L ABG Ionized Calcium (4.5-5.3) mg/dL ABG Glucose (75-99) mg/dL ABG Lactic Acid (0.5-1.6) mmol/L Hemoglobin (11.4-16.0) gm/dL Chloride (98-107) mmol/L Glucose (74-99) mg/dL POC Glucose (mg/dL) 136 H 131 H (75-99) mg/dL Ionized Calcium Andra (4.5-5.3) mg/dL Magnesium (1.6-2.3) mg/dL Total Bilirubin (0.2-1.3) mg/dL AST (14-36) U/L Alkaline Phosphatase (38-126) U/L Total Protein (6.3-8.2) g/dL Albumin (3.5-5.0) g/dL Arterial Blood Potassium (3.4-4.5) mmol/L Arterial Blood Glucose (75-99) mg/dL Crossmatch 01/25/19 01/25/19 01/25/19 Range/Units 00:27 01:10 02:39 WBC (3.8-10.6) k/uL RBC (3.80-5.40) m/uL Hgb (11.4-16.0) gm/dL Hct (34.0-46.0) % Plt Count (150-450) k/uL Neutrophils # (1.3-7.7) k/uL Lymphocytes # (1.0-4.8) k/uL PT (9.0-12.0) sec INR (<1.2) APTT (22.0-30.0) sec ABG pH (7.35-7.45) ABG pCO2 (35-45) mmHg ABG pO2 (83-108) mmHg ABG Total CO2 (19-24) mmol/L ABG O2 Saturation (94-97) % ABG Hematocrit (34.0-46.0) % ABG Potassium (3.4-4.5) mmol/L ABG Ionized Calcium (4.5-5.3) mg/dL ABG Glucose (75-99) mg/dL ABG Lactic Acid (0.5-1.6) mmol/L Hemoglobin (11.4-16.0) gm/dL Chloride (98-107) mmol/L Glucose (74-99) mg/dL POC Glucose (mg/dL) 138 H 135 H 137 H (75-99) mg/dL Ionized Calcium Andra (4.5-5.3) mg/dL Magnesium (1.6-2.3) mg/dL Total Bilirubin (0.2-1.3) mg/dL AST (14-36) U/L Alkaline Phosphatase (38-126) U/L Total Protein (6.3-8.2) g/dL Albumin (3.5-5.0) g/dL Arterial Blood Potassium (3.4-4.5) mmol/L Arterial Blood Glucose (75-99) mg/dL Crossmatch 01/25/19 01/25/19 01/25/19 Range/Units 04:10 04:10 04:14 WBC 12.0 H (3.8-10.6) k/uL RBC 3.20 L (3.80-5.40) m/uL Hgb 10.7 L (11.4-16.0) gm/dL Hct 31.5 L (34.0-46.0) % Plt Count 124 L (150-450) k/uL Neutrophils # 10.6 H (1.3-7.7) k/uL Lymphocytes # 0.9 L (1.0-4.8) k/uL PT (9.0-12.0) sec INR (<1.2) APTT (22.0-30.0) sec ABG pH (7.35-7.45) ABG pCO2 (35-45) mmHg ABG pO2 (83-108) mmHg ABG Total CO2 (19-24) mmol/L ABG O2 Saturation (94-97) % ABG Hematocrit (34.0-46.0) % ABG Potassium (3.4-4.5) mmol/L ABG Ionized Calcium (4.5-5.3) mg/dL ABG Glucose (75-99) mg/dL ABG Lactic Acid (0.5-1.6) mmol/L Hemoglobin (11.4-16.0) gm/dL Chloride 112 H (98-107) mmol/L Glucose 135 H (74-99) mg/dL POC Glucose (mg/dL) 135 H (75-99) mg/dL Ionized Calcium Andra (4.5-5.3) mg/dL Magnesium 2.4 H (1.6-2.3) mg/dL Total Bilirubin 1.5 H (0.2-1.3) mg/dL AST 80 H (14-36) U/L Alkaline Phosphatase 28 L (38-126) U/L Total Protein 5.3 L (6.3-8.2) g/dL Albumin (3.5-5.0) g/dL Arterial Blood Potassium (3.4-4.5) mmol/L Arterial Blood Glucose (75-99) mg/dL Crossmatch 01/25/19 01/25/19 01/25/19 Range/Units 06:14 07:09 07:54 WBC (3.8-10.6) k/uL RBC (3.80-5.40) m/uL Hgb (11.4-16.0) gm/dL Hct (34.0-46.0) % Plt Count (150-450) k/uL Neutrophils # (1.3-7.7) k/uL Lymphocytes # (1.0-4.8) k/uL PT (9.0-12.0) sec INR (<1.2) APTT (22.0-30.0) sec ABG pH (7.35-7.45) ABG pCO2 (35-45) mmHg ABG pO2 (83-108) mmHg ABG Total CO2 (19-24) mmol/L ABG O2 Saturation (94-97) % ABG Hematocrit (34.0-46.0) % ABG Potassium (3.4-4.5) mmol/L ABG Ionized Calcium (4.5-5.3) mg/dL ABG Glucose (75-99) mg/dL ABG Lactic Acid (0.5-1.6) mmol/L Hemoglobin (11.4-16.0) gm/dL Chloride (98-107) mmol/L Glucose (74-99) mg/dL POC Glucose (mg/dL) 134 H 134 H 127 H (75-99) mg/dL Ionized Calcium Andra (4.5-5.3) mg/dL Magnesium (1.6-2.3) mg/dL Total Bilirubin (0.2-1.3) mg/dL AST (14-36) U/L Alkaline Phosphatase (38-126) U/L Total Protein (6.3-8.2) g/dL Albumin (3.5-5.0) g/dL Arterial Blood Potassium (3.4-4.5) mmol/L Arterial Blood Glucose (75-99) mg/dL Crossmatch Assessment and Plan Plan: 1 valvular heart disease with severe mitral and tricuspid regurgitation the patient undergone mitral valve repair and tricuspid valve repair and the patient is postop day #1. Intraoperatively, the patient required a total of 2 units of packed RBC and unit of platelets. Currently on no inotropes and the patient is maintaining her on hemodynamics. She is currently off the Drip. Cardiac index is up to 2.4. She is producing adequate amount of urine output. Chest tubes are all in place. The patient is extubated. 2 post thoracotomy, the patient was weaned off the mechanical ventilator and she was extubated and currently she is on 4 L of oxygen by nasal cannula. She has a very tiny biapical pneumothoraces in the chest tubes are in place without evidence of any air leak. She is using incentive spirometer. 3 hypertension currently off Cleviprex 4 history of breast cancer 5 early onset dementia 6 asystole/bradycardia, currently paced at the rate of 80 (AV paced) Plan Keep the patient paced at the rate of 80. Keep the chest tubes in place. Monitor hemodynamics. Encouraged use of incentive spirometer. She is able to stop on a chair. Adequate pain control. Bruner-Opal catheter will be removed. The hemoglobin is stable at 10.7. We'll continue to follow.
--- NOTE | 2019-01-25 10:11 | OP ---
OPERATIVE REPORT DATE OF OPERATION: 01/24/2019 DATED OF DICTATION: 01/25/2019 PREOPERATIVE DIAGNOSIS: Mitral regurgitation, tricuspid regurgitation. POSTOPERATIVE DIAGNOSIS: Mitral regurgitation, tricuspid regurgitation., ascending aortic aneurysm. SURGEON: Dr. Josep Tolliver. TROLLEY OPERATOR: Dr. Chetan Tapia. ANESTHESIA: General endotracheal with ELLYN by Dr. Tinoco. OPERATIVE PROCEDURE: Mitral valve repair, tricuspid valve repair, repair of ascending aortic aneurysm. INDICATIONS: Patient is a 79-year-old female who presents with worsening dyspnea and shortness of breath. She has had known history of mitral valve prolapse and mitral regurgitation or many years, and these have been followed over time. The most recent echocardiogram showed severe mitral regurgitation with moderate tricuspid regurgitation. This was confirmed on ELLYN. There was no evidence of flail of the leaflets. However, there was bileaflet prolapse and billowing with central regurgitation of the mitral valve. Ventricular function was well preserved. There was mild aortic valvular insufficiency. The cardiac catheterization showed normal coronary artery. Patient was referred for elective mitral valve repair and this was scheduled electively at the patient's and surgeon's convenience. OPERATIVE PROCEDURE: The patient was electively admitted to the hospital, brought to the operating room, placed supine on the operating table, anesthetized and intubated, monitoring lines have been started in the preoperative area, ELLYN probe was placed. Steward catheter was placed. The anterior torso and lower extremities were sterilely prepped and draped in standard fashion. Midline sternotomy was performed. Bilateral pleural spaces were opened and the pericardium was opened and the heart exposed with pericardial sutures. It was immediately evident that the ascending aorta was markedly dilated with a maximum diameter of 4.5 cm. This appeared to begin in the segment of the ascending aorta above the sinotubular junction and there was a good neck just before takeoff of the innominate artery with a bovine arch. The ascending aorta was mobilized. It was felt it was necessary to address this aneurysm during this operation due to its size. Epiaortic ultrasonography was performed and there was no significant calcification preoperative associated with the ascending aorta or proximal arch. The patient was systemically heparinized and cannulated for cardiopulmonary bypass. A 6 mm soft cannula was placed in the arch of the aorta just beyond the takeoff of the Bovine arch vessel, 34 straight venous cannula was placed through the right atrial appendage into the inferior vena cava and the 28 right angle camera was placed in the superior vena cava. Antegrade and retrograde catheters were placed in a standard fashion. The patient was placed on cardiopulmonary bypass and stabilized. Interatrial groove was developed. The aorta was cross clamped right at the base of a bovine arch vessel in the distal- most portion of the ascending aorta. The heart was arrested with cold crystalloid cardioplegia followed by retrograde cardioplegia. The left atrium was entered through the interatrial groove and the mitral valve was exposed. 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 This extended from the free edge all the way to the anulus. On testing the valve, the regurgitant opening was between the edge of this cleft at A2, A3 and E2, P3. The edges of the anterior leaflet did not prolapse beyond the plane of the anulus. It was felt the first thing to do was to place a ring and reassess. Anterior leaflet was sized and a 26 mm Visio 2 ring was chosen. Circumferential annuloplasty sutures were taken down the entire anulus of the mitral valve. On pulling up on these and retesting the valve, the mitral regurgitation appeared immediately to have almost been eradicated, this was felt to be a good sign. The valve sutures were passed through the 26 ring and the ring was seated and the sutures tied. When testing the valve, there was now only a minimal leak at the previous site and there appeared to be good coaptation throughout. It was decided to see what would happen if we attempted to close the cleft and a single suture was placed in the very distal most edge of the anterior leaflet at the site of the cleft to reattach A2 and A3. It should be noted that there was no regurgitation through the cleft itself. When placing this suture it immediately became evident that this only worsened the mitral regurgitation and the suture was cut out. It was felt that the current repair was highly acceptable and the therefore we opted to close the left atrium. After appropriate irrigation, left atrium was closed with a single running 3-0 Prolene suture. Atrium was de-aired prior to tying the suture. Attention was now directed to the ascending aorta. Given the patient's age, the size of the ascending aorta at 4.5 cm, it was decided to simply place an aortoplasty type of repair. Cortical incision was made from the cross- clamp just to the left of midline along the entire length of the ascending aorta and down to the level of the sino-tubular junction above the noncoronary cusp of the aortic valve. We then excised elliptical portions of the aorta from both the left and right side of the aortotomy attempting to maintain similar length of the incision on both sides. Two strips of Pasquale felt were cut to reinforce the aortoplasty and a 2 layer running closure was then performed using Pasquale felt to reinforce on both slides. This yielded an excellent reduction in the diameter of the ascending aorta down to maximum of about 34 mm. Intermittent doses of retrograde cardioplegia had been given at appropriate intervals, in the upper profunda vertical, right atriotomy and exposed the tricuspid valve. Moderate central regurgitation was noted. Annuloplasty sutures were placed avoiding the region of the septal leaflet end and the induction tissue and a 26 mm MC3 band was chosen. No sutures were placed through the MC3 band and the band was seated without difficulty. The sutures were tied and cut and the valve was noted to be competent. The patient was placed in steep Trendelenburg and the cross-clamp was removed. The caval tapes had been passed prior to opening of the right atrium. Right atriotomy was now closed with a single layer running closure of 5-0 Prolene with completion of the closure of the right atriotomy. Atrial and ventricular pacing wires were placed and the patient was paced, heart was de-aired on ELLYN guidance. The aortic vent was then removed and reinforced with a 4-0 pledget of Prolene suture. A 34-Swiss cannula in the right atrial appendage extending into the inferior vena cava was pulled back into the right atrium, the superior vena caval cannula is clamped and removed and the pursestring tied. The patient was weaned from cardiopulmonary bypass without the use of inotropic support. Hemostasis appeared to be good. Patient was decannulating in standard fashion after returning the pump to the patient. Epi was reversed with protamine and good hemostasis obtained throughout. Bilateral pleural spaces were drained with 32-Swiss chest tubes in the mediastinum with a 36-Swiss straight anterior tube and a 36-Swiss right angled inferior tube. The sternum was closed with 6 Mersilene bands after irrigating out the chest with antibiotic solution and ensuring excellent hemostasis throughout. Fascia was closed with 0 Ethibond and subcutaneous and subcuticular layers with 0 Vicryl suture and she was transferred to the [facility] in stable condition. MMODL / IJN: [id number] / DEXTER
[2019-01-25 10:29] LABS: Glucose,Whole Blood 124 mg/dL (75-99)
--- NOTE | 2019-01-25 10:33 | P.PN ---
Subjective Progress Note Date: 01/25/19 Principal diagnosis: Severe mitral regurgitation with moderate tricuspid regurgitation and mild aortic insufficiency. Patient has a pmh of life long standing mitral valve prolapse which never required treatment. Other pmh includes hypertension, early-onset dementia, depression, osteroarthritis, remote history of Hepatitis A, and breast cancer with radiation 17 years ago. POD #1 Elective mitral valve repair with 26mm annuloflex ring, tricuspid valve repair with 26mm M3 tricuspid ring, ascending aortoplasty, ligation of the left atrial appendage with 35mm Atriclip, Epiaortic ultrasound, intraoperative ELLYN Postoperative bradycardia, unexpected finding. Postoperative acute blood loss anemia, expected, secondary to cardiopulmonary bypass pump and hemodilution. Patient sitting up in the chair and lethargic this morning, no acute distress noted. She states she is having pain that is controlled by her pain regimen. She is short of breath with activity, but not at rest. Currently on 2L nasal cannula with SPO2 93%. Left IJ cordis and swan analisa catheter in place. CI 2.4/CO 4.1, PAP 29/10. Patient hemodynamically stable and off pressors. Patient currently on Cleviprex to control blood pressure. Objective - Vital Signs Vital signs: Vital Signs Temp 97.7 F 01/25/19 08:00 Pulse 80 01/25/19 08:00 Resp 16 01/25/19 08:00 BP 116/61 01/25/19 00:30 Pulse Ox 95 01/25/19 08:00 Intake & Output 01/24/19 01/25/19 01/25/19 18:59 06:59 18:59 Intake Total 2077.786 1031.333 218.386 Output Total 3580 2375 175 Balance -1502.214 -1343.667 43.386 Intake: IV 140 948 148 Cardiac Output 90 240 30 Lactated Ringers 1,000 ml 550 100 @ 50 mls/hr IV .Q20H [facility] Rx#:[id number] Pressure Bag 18 108 18 ceFAZolin 2 gm In Sodium 50 Chloride 0.9% 50 ml @ 100 mls/hr IVPB Q8HR [facility] Rx# :[id number] Intake, IV Titration 1017.786 83.333 10.386 Amount ACETAMINOPHEN IV (For NPO 100 ) 1,000 mg In Empty Bag 1 bag @ 400 mls/hr IVPB Q6HR [facility] Rx#:[id number] Albumin Human 5% 250 ml 750 In Empty Bag 1 bag @ 250 mls/hr IVPB Q1HR PRN Rx#: [id number] Clevidipine Butyrate 25 6.666 33.333 mg In Empty Bag 1 bag @ 1 MG/HR 2 mls/hr IV .Q24H [facility] Rx#:[id number] Insulin Regular 100 unit 10.386 In Sodium Chloride 0.9% 100 ml @ Per Protocol IV .Q0M [facility] Rx#:[id number] Lactated Ringers 1,000 ml 100 @ 50 mls/hr IV .Q20H [facility] Rx#:[id number] Propofol 1,000 mg In 11.120 Empty Bag 1 bag @ Titrate IV .Q0M [facility] Rx#: [id number] ceFAZolin 2 gm In Sodium 50 50 Chloride 0.9% 50 ml @ 100 mls/hr IVPB Q8H [facility] Rx#: [id number] Oral 60 Blood Product 920 Platelet Pheresis Acda2 300 Unit [id number] Rc As-1 Unit 310 [id number] Rc As-1 Unit 310 [id number] Output: Chest Tube Drainage 280 800 70 left and right pleural 80 390 40 mediastinal x2 200 410 30 Urine 1700 1575 105 Estimated Blood Loss 1600 Other: Voiding Method Indwelling Catheter Indwelling Catheter Indwelling Catheter ABP, PAP, CO, CI - Last Documented Arterial Blood Pressure 117/57 Pulmonary Artery Pressure 29/9 Cardiac Output 4.1 Cardiac Index 2.4 - Constitutional Constitutional Comment(s): Patient lethargic, but Alert and orient x 3 and answers questions appropriately. General appearance: Present: average body habitus - Respiratory Details: Lungs sounds are equal and symmetrical bilaterally and diminished. No wheezes or rhonchi any crackles. Patient currently on 3L NC with a SPO2 of 93%. Weak cough, and only able to achieve 500ml on incentive spirometer. Sternum stable clean and intact. The patient has 2 mediastinal chest tubes, right pleural and left pleural chest tubes are also in place to -20cm [id number]. Mediastinal chest tubes with total of 650ml sero/sang drainage, right and left pleural chest tubes with a total of 50ml sero/sang drainage. No airleak or subcutaneous emphy sema present. - Cardiovascular Details: Heart sounds are regular. Epicardial pacemaker DDD set at a rate of 80bpm. Patient currently paced at the rate of 80. No underlying rhythm, no intrinsic rhythm. No significant murmurs appreciated. Left IJ Cordis and swan in place. CO 3.7, CI 2.2, PAP 29/10. Left radial arterial line intact. Patient on Cleviprex, blood pressure stable 115/58. Generalized trace edema noted. Extremities warm to touch. +2 pulses in all 4 extremities. Capillary refill < 3 seconds. - Gastrointestinal Gastrointestinal Comment(s): Abdomen soft, non-tender, non-distended. Normoactive owel sounds present x 4 quadrants. No nausea or vomiting. No flatus or bowel movement post operative ly. - Genitourinary Genitourinary Comment(s): Steward catheter in place and draining clear yellow urine. Output 40-60ml's an hour this morning. - Integumentary Integumentary Comment(s): Skin warm and dry. Sternal incision with dressing CDI. - Neurologic Neurologic Comment(s): Patient is lethargic, but awakens easily. Neurologic: Present: CNII-XII intact - Musculoskeletal Musculoskeletal: Present: generalized weakness, strength equal bilaterally - Psychiatric Psychiatric: Present: A&O x's 3, appropriate affect, intact judgment & insight - Allied health notes Allied health notes reviewed: nursing - Labs CBC & Chem 7: 01/25/19 04:10 01/25/19 04:10 Labs: Abnormal Lab Results - Last 24 Hours (Table) 01/17/19 01/24/19 01/24/19 Range/Units 09:30 09:50 10:41 WBC (3.8-10.6) k/uL RBC (3.80-5.40) m/uL Hgb (11.4-16.0) gm/dL Hct (34.0-46.0) % Plt Count (150-450) k/uL Neutrophils # (1.3-7.7) k/uL Lymphocytes # (1.0-4.8) k/uL PT (9.0-12.0) sec INR (<1.2) APTT (22.0-30.0) sec ABG pH 7.46 H (7.35-7.45) ABG pCO2 32 L (35-45) mmHg ABG pO2 269 H 287 H (83-108) mmHg ABG Total CO2 26 H (19-24) mmol/L ABG O2 Saturation 100.0 H 100.0 H (94-97) % ABG Hematocrit 33 L 32 L (34.0-46.0) % ABG Potassium (3.4-4.5) mmol/L ABG Ionized Calcium (4.5-5.3) mg/dL ABG Glucose (75-99) mg/dL ABG Lactic Acid 2.6 H* 2.0 H (0.5-1.6) mmol/L Hemoglobin 10.8 L 10.4 L (11.4-16.0) gm/dL Chloride (98-107) mmol/L Glucose (74-99) mg/dL POC Glucose (mg/dL) (75-99) mg/dL Ionized Calcium Andra (4.5-5.3) mg/dL Magnesium (1.6-2.3) mg/dL Total Bilirubin (0.2-1.3) mg/dL AST (14-36) U/L Alkaline Phosphatase (38-126) U/L Total Protein (6.3-8.2) g/dL Albumin (3.5-5.0) g/dL Arterial Blood Potassium (3.4-4.5) mmol/L Arterial Blood Glucose (75-99) mg/dL Crossmatch See Detail 01/24/19 01/24/19 01/24/19 Range/Units 11:37 12:45 12:45 WBC (3.8-10.6) k/uL RBC (3.80-5.40) m/uL Hgb (11.4-16.0) gm/dL Hct (34.0-46.0) % Plt Count (150-450) k/uL Neutrophils # (1.3-7.7) k/uL Lymphocytes # (1.0-4.8) k/uL PT (9.0-12.0) sec INR (<1.2) APTT (22.0-30.0) sec ABG pH (7.35-7.45) ABG pCO2 34 L (35-45) mmHg ABG pO2 382 H 381 H 349 H (83-108) mmHg ABG Total CO2 (19-24) mmol/L ABG O2 Saturation 100.0 H 100.0 H 100.0 H (94-97) % ABG Hematocrit 19 L* 19 L* 23 L (34.0-46.0) % ABG Potassium 4.6 H 5.0 H (3.4-4.5) mmol/L ABG Ionized Calcium 4.3 L 4.3 L 4.2 L (4.5-5.3) mg/dL ABG Glucose (75-99) mg/dL ABG Lactic Acid 1.7 H (0.5-1.6) mmol/L Hemoglobin 6.3 L* 6.2 L* 7.6 L (11.4-16.0) gm/dL Chloride (98-107) mmol/L Glucose (74-99) mg/dL POC Glucose (mg/dL) (75-99) mg/dL Ionized Calcium Andra (4.5-5.3) mg/dL Magnesium (1.6-2.3) mg/dL Total Bilirubin (0.2-1.3) mg/dL AST (14-36) U/L Alkaline Phosphatase (38-126) U/L Total Protein (6.3-8.2) g/dL Albumin (3.5-5.0) g/dL Arterial Blood Potassium 4.6 H 5.0 H (3.4-4.5) mmol/L Arterial Blood Glucose (75-99) mg/dL Crossmatch 01/24/19 01/24/19 01/24/19 Range/Units 13:18 14:46 15:25 WBC (3.8-10.6) k/uL RBC 2.90 L (3.80-5.40) m/uL Hgb 9.6 L D (11.4-16.0) gm/dL Hct 28.4 L (34.0-46.0) % Plt Count 96 L (150-450) k/uL Neutrophils # (1.3-7.7) k/uL Lymphocytes # (1.0-4.8) k/uL PT (9.0-12.0) sec INR (<1.2) APTT (22.0-30.0) sec ABG pH (7.35-7.45) ABG pCO2 (35-45) mmHg ABG pO2 415 H 119 H (83-108) mmHg ABG Total CO2 (19-24) mmol/L ABG O2 Saturation 100.0 H 98.8 H (94-97) % ABG Hematocrit 22 L 32 L (34.0-46.0) % ABG Potassium 5.2 H (3.4-4.5) mmol/L ABG Ionized Calcium 4.1 L 5.8 H (4.5-5.3) mg/dL ABG Glucose 110 H (75-99) mg/dL ABG Lactic Acid 2.1 H 2.2 H* (0.5-1.6) mmol/L Hemoglobin 7.2 L 10.4 L (11.4-16.0) gm/dL Chloride (98-107) mmol/L Glucose (74-99) mg/dL POC Glucose (mg/dL) (75-99) mg/dL Ionized Calcium Andra (4.5-5.3) mg/dL Magnesium (1.6-2.3) mg/dL Total Bilirubin (0.2-1.3) mg/dL AST (14-36) U/L Alkaline Phosphatase (38-126) U/L Total Protein (6.3-8.2) g/dL Albumin (3.5-5.0) g/dL Arterial Blood Potassium 5.2 H (3.4-4.5) mmol/L Arterial Blood Glucose 110 H (75-99) mg/dL Crossmatch 01/24/19 01/24/19 01/24/19 Range/Units 15:25 15:25 15:55 WBC (3.8-10.6) k/uL RBC (3.80-5.40) m/uL Hgb (11.4-16.0) gm/dL Hct (34.0-46.0) % Plt Count (150-450) k/uL Neutrophils # (1.3-7.7) k/uL Lymphocytes # (1.0-4.8) k/uL PT 15.5 H (9.0-12.0) sec INR 1.5 H (<1.2) APTT 45.2 H (22.0-30.0) sec ABG pH 7.32 L (7.35-7.45) ABG pCO2 (35-45) mmHg ABG pO2 313 H (83-108) mmHg ABG Total CO2 (19-24) mmol/L ABG O2 Saturation 99.7 H (94-97) % ABG Hematocrit (34.0-46.0) % ABG Potassium (3.4-4.5) mmol/L ABG Ionized Calcium (4.5-5.3) mg/dL ABG Glucose (75-99) mg/dL ABG Lactic Acid (0.5-1.6) mmol/L Hemoglobin (11.4-16.0) gm/dL Chloride 116 H (98-107) mmol/L Glucose (74-99) mg/dL POC Glucose (mg/dL) (75-99) mg/dL Ionized Calcium Andra 5.4 H (4.5-5.3) mg/dL Magnesium 3.7 H (1.6-2.3) mg/dL Total Bilirubin (0.2-1.3) mg/dL AST 46 H (14-36) U/L Alkaline Phosphatase 21 L (38-126) U/L Total Protein 4.5 L (6.3-8.2) g/dL Albumin 2.9 L (3.5-5.0) g/dL Arterial Blood Potassium (3.4-4.5) mmol/L Arterial Blood Glucose (75-99) mg/dL Crossmatch 01/24/19 01/24/19 01/24/19 Range/Units 18:09 18:14 18:50 WBC 11.5 H (3.8-10.6) k/uL RBC 3.24 L (3.80-5.40) m/uL Hgb 10.6 L (11.4-16.0) gm/dL Hct 32.0 L (34.0-46.0) % Plt Count 99 L (150-450) k/uL Neutrophils # 9.5 H (1.3-7.7) k/uL Lymphocytes # (1.0-4.8) k/uL PT (9.0-12.0) sec INR (<1.2) APTT (22.0-30.0) sec ABG pH (7.35-7.45) ABG pCO2 (35-45) mmHg ABG pO2 (83-108) mmHg ABG Total CO2 (19-24) mmol/L ABG O2 Saturation (94-97) % ABG Hematocrit (34.0-46.0) % ABG Potassium (3.4-4.5) mmol/L ABG Ionized Calcium (4.5-5.3) mg/dL ABG Glucose (75-99) mg/dL ABG Lactic Acid (0.5-1.6) mmol/L Hemoglobin (11.4-16.0) gm/dL Chloride (98-107) mmol/L Glucose (74-99) mg/dL POC Glucose (mg/dL) 110 H 126 H (75-99) mg/dL Ionized Calcium Andra (4.5-5.3) mg/dL Magnesium (1.6-2.3) mg/dL Total Bilirubin (0.2-1.3) mg/dL AST (14-36) U/L Alkaline Phosphatase (38-126) U/L Total Protein (6.3-8.2) g/dL Albumin (3.5-5.0) g/dL Arterial Blood Potassium (3.4-4.5) mmol/L Arterial Blood Glucose (75-99) mg/dL Crossmatch 01/24/19 01/24/19 01/24/19 Range/Units 19:50 20:21 20:35 WBC 15.2 H (3.8-10.6) k/uL RBC 3.32 L (3.80-5.40) m/uL Hgb 11.1 L (11.4-16.0) gm/dL Hct 32.5 L (34.0-46.0) % Plt Count 128 L (150-450) k/uL Neutrophils # 13.4 H (1.3-7.7) k/uL Lymphocytes # (1.0-4.8) k/uL PT (9.0-12.0) sec INR (<1.2) APTT (22.0-30.0) sec ABG pH (7.35-7.45) ABG pCO2 (35-45) mmHg ABG pO2 (83-108) mmHg ABG Total CO2 (19-24) mmol/L ABG O2 Saturation (94-97) % ABG Hematocrit (34.0-46.0) % ABG Potassium (3.4-4.5) mmol/L ABG Ionized Calcium (4.5-5.3) mg/dL ABG Glucose (75-99) mg/dL ABG Lactic Acid (0.5-1.6) mmol/L Hemoglobin (11.4-16.0) gm/dL Chloride (98-107) mmol/L Glucose (74-99) mg/dL POC Glucose (mg/dL) 137 H 134 H (75-99) mg/dL Ionized Calcium Andra (4.5-5.3) mg/dL Magnesium (1.6-2.3) mg/dL Total Bilirubin (0.2-1.3) mg/dL AST (14-36) U/L Alkaline Phosphatase (38-126) U/L Total Protein (6.3-8.2) g/dL Albumin (3.5-5.0) g/dL Arterial Blood Potassium (3.4-4.5) mmol/L Arterial Blood Glucose (75-99) mg/dL Crossmatch 01/24/19 01/24/19 01/24/19 Range/Units 22:03 23:25 23:41 WBC (3.8-10.6) k/uL RBC (3.80-5.40) m/uL Hgb (11.4-16.0) gm/dL Hct (34.0-46.0) % Plt Count (150-450) k/uL Neutrophils # (1.3-7.7) k/uL Lymphocytes # (1.0-4.8) k/uL PT (9.0-12.0) sec INR (<1.2) APTT (22.0-30.0) sec ABG pH 7.33 L (7.35-7.45) ABG pCO2 (35-45) mmHg ABG pO2 (83-108) mmHg ABG Total CO2 (19-24) mmol/L ABG O2 Saturation (94-97) % ABG Hematocrit (34.0-46.0) % ABG Potassium (3.4-4.5) mmol/L ABG Ionized Calcium (4.5-5.3) mg/dL ABG Glucose (75-99) mg/dL ABG Lactic Acid (0.5-1.6) mmol/L Hemoglobin (11.4-16.0) gm/dL Chloride (98-107) mmol/L Glucose (74-99) mg/dL POC Glucose (mg/dL) 136 H 131 H (75-99) mg/dL Ionized Calcium Andra (4.5-5.3) mg/dL Magnesium (1.6-2.3) mg/dL Total Bilirubin (0.2-1.3) mg/dL AST (14-36) U/L Alkaline Phosphatase (38-126) U/L Total Protein (6.3-8.2) g/dL Albumin (3.5-5.0) g/dL Arterial Blood Potassium (3.4-4.5) mmol/L Arterial Blood Glucose (75-99) mg/dL Crossmatch 01/25/19 01/25/19 01/25/19 Range/Units 00:27 01:10 02:39 WBC (3.8-10.6) k/uL RBC (3.80-5.40) m/uL Hgb (11.4-16.0) gm/dL Hct (34.0-46.0) % Plt Count (150-450) k/uL Neutrophils # (1.3-7.7) k/uL Lymphocytes # (1.0-4.8) k/uL PT (9.0-12.0) sec INR (<1.2) APTT (22.0-30.0) sec ABG pH (7.35-7.45) ABG pCO2 (35-45) mmHg ABG pO2 (83-108) mmHg ABG Total CO2 (19-24) mmol/L ABG O2 Saturation (94-97) % ABG Hematocrit (34.0-46.0) % ABG Potassium (3.4-4.5) mmol/L ABG Ionized Calcium (4.5-5.3) mg/dL ABG Glucose (75-99) mg/dL ABG Lactic Acid (0.5-1.6) mmol/L Hemoglobin (11.4-16.0) gm/dL Chloride (98-107) mmol/L Glucose (74-99) mg/dL POC Glucose (mg/dL) 138 H 135 H 137 H (75-99) mg/dL Ionized Calcium Andra (4.5-5.3) mg/dL Magnesium (1.6-2.3) mg/dL Total Bilirubin (0.2-1.3) mg/dL AST (14-36) U/L Alkaline Phosphatase (38-126) U/L Total Protein (6.3-8.2) g/dL Albumin (3.5-5.0) g/dL Arterial Blood Potassium (3.4-4.5) mmol/L Arterial Blood Glucose (75-99) mg/dL Crossmatch 01/25/19 01/25/19 01/25/19 Range/Units 04:10 04:10 04:14 WBC 12.0 H (3.8-10.6) k/uL RBC 3.20 L (3.80-5.40) m/uL Hgb 10.7 L (11.4-16.0) gm/dL Hct 31.5 L (34.0-46.0) % Plt Count 124 L (150-450) k/uL Neutrophils # 10.6 H (1.3-7.7) k/uL Lymphocytes # 0.9 L (1.0-4.8) k/uL PT (9.0-12.0) sec INR (<1.2) APTT (22.0-30.0) sec ABG pH (7.35-7.45) ABG pCO2 (35-45) mmHg ABG pO2 (83-108) mmHg ABG Total CO2 (19-24) mmol/L ABG O2 Saturation (94-97) % ABG Hematocrit (34.0-46.0) % ABG Potassium (3.4-4.5) mmol/L ABG Ionized Calcium (4.5-5.3) mg/dL ABG Glucose (75-99) mg/dL ABG Lactic Acid (0.5-1.6) mmol/L Hemoglobin (11.4-16.0) gm/dL Chloride 112 H (98-107) mmol/L Glucose 135 H (74-99) mg/dL POC Glucose (mg/dL) 135 H (75-99) mg/dL Ionized Calcium Andra (4.5-5.3) mg/dL Magnesium 2.4 H (1.6-2.3) mg/dL Total Bilirubin 1.5 H (0.2-1.3) mg/dL AST 80 H (14-36) U/L Alkaline Phosphatase 28 L (38-126) U/L Total Protein 5.3 L (6.3-8.2) g/dL Albumin (3.5-5.0) g/dL Arterial Blood Potassium (3.4-4.5) mmol/L Arterial Blood Glucose (75-99) mg/dL Crossmatch 01/25/19 01/25/19 01/25/19 Range/Units 06:14 07:09 07:54 WBC (3.8-10.6) k/uL RBC (3.80-5.40) m/uL Hgb (11.4-16.0) gm/dL Hct (34.0-46.0) % Plt Count (150-450) k/uL Neutrophils # (1.3-7.7) k/uL Lymphocytes # (1.0-4.8) k/uL PT (9.0-12.0) sec INR (<1.2) APTT (22.0-30.0) sec ABG pH (7.35-7.45) ABG pCO2 (35-45) mmHg ABG pO2 (83-108) mmHg ABG Total CO2 (19-24) mmol/L ABG O2 Saturation (94-97) % ABG Hematocrit (34.0-46.0) % ABG Potassium (3.4-4.5) mmol/L ABG Ionized Calcium (4.5-5.3) mg/dL ABG Glucose (75-99) mg/dL ABG Lactic Acid (0.5-1.6) mmol/L Hemoglobin (11.4-16.0) gm/dL Chloride (98-107) mmol/L Glucose (74-99) mg/dL POC Glucose (mg/dL) 134 H 134 H 127 H (75-99) mg/dL Ionized Calcium Andra (4.5-5.3) mg/dL Magnesium (1.6-2.3) mg/dL Total Bilirubin (0.2-1.3) mg/dL AST (14-36) U/L Alkaline Phosphatase (38-126) U/L Total Protein (6.3-8.2) g/dL Albumin (3.5-5.0) g/dL Arterial Blood Potassium (3.4-4.5) mmol/L Arterial Blood Glucose (75-99) mg/dL Crossmatch - Imaging and Cardiology Chest x-ray: report reviewed, image reviewed Assessment and Plan Assessment: 1. Severe mitral regurgitation, moderate tricuspid regurgitation, and mild aortic insufficiency. S/P Elective mitral valve repair with 26mm annuloflex ring, tricuspid valve repair with 26mm M3 tricuspid ring, ascending aortoplasty, ligation of the left atrial appendage with 35mm Atriclip, Epiaortic ultrasound, intraoperative ELLYN 2. Post operative bradycardia 3. Post operative acute blood loss anemia secondary to cardiopulmonary bypass pump and hemodilution 4. Hypertension 5. Dementia 6. Depression 7. Osteoarthritis 8. Remote history of Hepatitis A 9. History of breast cancer with radiation 17 years ago Plan: 1. Optimize medical management with full strength asprin, stopped beta ollie and will re-start as appropriate. Wean off Cleveprex 2. Wean oxygen as tolerated. Encourage incentive spirometer as tolerated. Bronchodilators per pulmonology. 3. Discontinue swan analisa catheter connect cordis to continuous CVP monitoring 4. Increase activity as tolerated, out of bed to chair. PT/OT/cardiac rehab following. 5. Will monitor daily labs and xrays. Electrolyte replacement per protocol. 6. Insulin management per primary care service. 7. Discontinue [place], start Toradol 15mg Q 6 hours PRN and Tylenol 1000 mg Q 6 hrs PRN. No narcotics. 8. GI/DVT prophylaxis, continue Heparin 5000 units SQ Q 8 hours and Protonix changed from IV to 40mg PO AC breakfast 9. More recommendations to follow on patient's clinical course.
[2019-01-25] MEDS: KETOROLAC 30 MG/ML 1 ML VIAL IVP SCH ×4 (11:17→23:10)
[2019-01-25] MEDS: LACTATED RINGERS 1,000 ML IV SCH (11:17)
[2019-01-25 12:22] LABS: Glucose,Whole Blood 120 mg/dL (75-99)
--- NOTE | 2019-01-25 13:51 | P.CONS ---
History of Present Illness - Reason for Consult Consult date: 01/25/19 medical management - History of Present Illness This is a 78-year-old female patient of Dr. Monteiro with past medical history of breast cancer in 2001, dementia, hypertension, osteoarthritis, glaucoma. Patient is seen on postop day #1 following a mitral valve repair and a tricuspid valve repair. Patient is seen in the intensive care unit. She has been successfully extubated last evening is currently on 2 L nasal cannula. She is using incentive spirometer reaching 500 mL. She is currently on insulin 1 unit per hour and does not have history of diabetes. Patient has had good urine output but has decreased to 30-40 mL per hour this morning. She is currently on O2 at 2 L. Blood pressure is stable. Patient did stand with physical therapy may require subacute or inpatient rehab. Review of Systems Constitutional: Reports fatigue, Reports poor appetite, Reports weakness, Denies anorexia, Denies chills, Denies fever Eyes: denies blurred vision, denies pain Ears, nose, mouth and throat: Denies dental pain, Denies dysphagia, Denies headache, Denies sore throat, Denies vertigo Cardiovascular: Denies chest pain, Denies decreased exercise tolerance, Denies dyspnea on exertion, Denies shortness of breath, Denies syncope Respiratory: Denies cough, Denies cough with sputum, Denies dyspnea, Denies respiratory infections Gastrointestinal: Denies abdominal pain, Denies diarrhea, Denies nausea, Denies vomiting Genitourinary: Denies dysuria, Denies hematuria, Denies urinary frequency Musculoskeletal: Reports muscle weakness, Denies myalgias Integumentary: Denies pruritus, Denies rash Neurological: Denies change in mentation, Denies change in speech, Denies numbness, Denies seizures, Denies weakness Psychiatric: Denies anxiety, Denies depression Endocrine: Denies fatigue, Denies weight change Past Medical History Past Medical History: Cancer, Dementia, Eye Disorder, Hearing Disorder / Deafness, Hypertension, Liver Disease, Memory Impairment, Musculoskeletal Disorder, Osteoarthritis (OA), Syncope Additional Past Medical History / Comment(s): Hx heart murmur; Breast CA 2001; Hep A 1970'. Glaucoma. Wears hearing aids. Recent falls, hx. fx lt clavicle, fell & cut back of head 01-07-19-lianna to be removed by daughter,fatigue, leg swelling History of Any Multi-Drug Resistant Organisms: None Reported Past Surgical History: Breast Surgery, Section, Heart Catheterization Additional Past Surgical History / Comment(s): left breast Lumpectomy. Cataracts. Mitral valve repair and tricuspid valve repair 01/25/2019. Past Anesthesia/Blood Transfusion Reactions: No Reported Reaction Smoking Status: Never smoker Additional Past Alcohol Use History / Comment(s): Patient is a lifelong nonsmoker, no marijuana or illicit drug use. She drink alcohol occasionally. - Past Family History Mother Family Medical History: Cancer Additional Family Medical History / Comment(s): . Mother at age 90. Possible breast CA Father Additional Family Medical History / Comment(s): Father at age 90 from old age. Brother(s) Additional Family Medical History / Comment(s): Patient has 1 brother with no known medical problems. Patient does not have any sisters. Patient has 2 daughters with no major medical problems. Medications and Allergies Home Medications Medication Instructions Recorded Confirmed Type Ascorbic Acid [Vitamin C] 1,000 mg PO DAILY 12/14/18 01/24/19 History Aspirin [Adult Low Dose Aspirin EC] 81 mg PO HS 12/14/18 01/24/19 History Calcium Carbonate/Vitamin D3 2 tab PO HS 12/14/18 01/24/19 History [Calcium 600-Vit D3 800 Caplet] Donepezil [Aricept] 10 mg PO HS 12/14/18 01/24/19 History Glucos Sul 2Kcl/MSM/Chond/C/Mn 1 tab PO DAILY 12/14/18 01/24/19 History [Glucosamine Chondroitin Cap] Lysine HCl [l-Lysine] 1,000 mg PO DAILY 12/14/18 01/24/19 History Magnesium Oxide [Mag-Ox] 250 mg PO DAILY 12/14/18 01/24/19 History Memantine [Namenda] 10 mg PO HS 12/14/18 01/24/19 History Multivit-Min/FA/Lycopen/Lutein 1 tab PO DAILY 12/14/18 01/24/19 History [Centrum Silver Tablet] Raloxifene [Evista] 60 mg PO DAILY 12/14/18 01/24/19 History Ramipril [Altace] 5 mg PO DAILY 12/14/18 01/24/19 History Zinc 25 mg PO DAILY 12/14/18 01/24/19 History Brimonidine Tartrate/Timolol 1 drop BOTH EYES BID 01/07/19 01/24/19 History [Combigan 0.2%-0.5% Eye Drops] Vitamin B Complex 1 cap PO DAILY 01/07/19 01/24/19 History Latanoprost Ophth [Xalatan 0.005%] 1 drops BOTH EYES HS 01/23/19 01/24/19 History Sulfamethox-Tmp 400-80Mg [Bactrim 1 tab PO Q12HR 01/23/19 01/24/19 History SS 400-80 mg] Allergies Allergy/AdvReac Type Severity Reaction Status Date / Time Penicillins Allergy Unknown Verified 01/24/19 06:24 Childhood Physical Exam Vitals: Vital Signs Temp Pulse Resp BP Pulse Ox 01/25/19 13:00 70 12 96 01/25/19 12:30 70 11 L 97 01/25/19 12:00 97.6 F 69 22 96 01/25/19 11:47 70 01/25/19 11:38 73 01/25/19 11:30 70 14 98 01/25/19 11:00 80 20 116/61 98 01/25/19 10:30 80 14 116/61 99 01/25/19 10:00 80 14 116/61 97 01/25/19 09:30 80 12 116/61 95 01/25/19 09:00 80 13 97 01/25/19 08:30 80 13 97 01/25/19 08:00 97.7 F 80 16 95 01/25/19 07:30 80 16 96 01/25/19 07:23 80 01/25/19 07:09 80 01/25/19 07:00 79 11 L 96 01/25/19 06:45 80 13 96 01/25/19 06:30 80 16 96 01/25/19 06:15 80 19 98 01/25/19 06:00 80 13 97 01/25/19 05:45 80 21 94 L 01/25/19 05:30 80 13 94 L 01/25/19 05:15 80 22 94 L 01/25/19 05:00 80 18 94 L 01/25/19 04:45 80 11 L 95 01/25/19 04:30 80 12 94 L 01/25/19 04:15 80 11 L 94 L 01/25/19 04:00 97.0 F L 80 10 L 94 L 01/25/19 03:45 80 11 L 95 01/25/19 03:30 80 10 L 94 L 01/25/19 03:15 80 10 L 96 01/25/19 03:00 80 10 L 97 01/25/19 02:45 80 11 L 95 01/25/19 02:30 80 13 96 01/25/19 02:15 80 11 L 97 01/25/19 02:00 80 15 97 01/25/19 01:45 80 11 L 97 01/25/19 01:30 80 18 96 01/25/19 01:15 80 11 L 97 01/25/19 01:00 80 11 L 96 01/25/19 00:45 80 18 97 01/25/19 00:30 80 13 116/61 96 01/25/19 00:00 97.3 F L 80 17 96 01/24/19 23:43 96 01/24/19 23:30 80 15 95 01/24/19 23:00 80 14 98 01/24/19 22:30 80 17 98 01/24/19 22:00 80 14 97 01/24/19 21:45 80 16 98 01/24/19 21:30 80 18 96 01/24/19 21:15 80 24 96 01/24/19 21:00 97.2 F L 80 24 97 01/24/19 20:45 80 23 97 01/24/19 20:30 80 12 97 01/24/19 20:15 80 12 95 01/24/19 20:00 80 13 94 L 01/24/19 19:57 95 01/24/19 19:45 80 14 110/54 95 01/24/19 19:31 80 01/24/19 19:30 96.4 F L 80 12 100 01/24/19 19:23 80 01/24/19 19:00 95.9 F L 80 16 98 01/24/19 18:50 80 20 96 01/24/19 18:40 80 20 95 01/24/19 18:30 80 14 98 01/24/19 18:20 80 20 89/61 98 01/24/19 18:10 80 15 97 01/24/19 18:00 80 12 96 01/24/19 17:50 80 12 96 01/24/19 17:40 80 12 94 L 01/24/19 17:30 79 20 99 01/24/19 17:20 80 19 96 01/24/19 17:10 80 13 94 L 01/24/19 17:00 80 15 94 L 01/24/19 16:50 93.9 F L 80 21 94 L 01/24/19 16:40 80 21 94 L 01/24/19 16:30 80 20 93 L 01/24/19 16:20 80 12 89/61 93 L 01/24/19 16:19 80 01/24/19 16:10 80 19 97 01/24/19 16:09 80 01/24/19 16:00 80 11 L 01/24/19 15:50 80 9 L 99 01/24/19 15:40 80 100 01/24/19 15:30 93.2 F L 80 5 L 99 01/24/19 15:20 39 H Intake and Output 01/24/19 01/25/19 01/25/19 22:59 06:59 14:59 Intake Total 1749.786 707.333 611.386 Output Total 4825 1130 485 Balance -3075.214 -422.667 126.386 Intake: IV 374 682 441 Cardiac Output 170 160 30 Lactated Ringers 1,000 ml 150 400 310 @ 20 mls/hr IV .Q24H [facility] Rx#:[id number] Pressure Bag 54 72 51 ceFAZolin 2 gm In Sodium 50 50 Chloride 0.9% 50 ml @ 100 mls/hr IVPB Q8HR [facility] Rx# :[id number] Intake, IV Titration 1075.786 25.333 60.386 Amount ACETAMINOPHEN IV (For NPO 100 ) 1,000 mg In Empty Bag 1 bag @ 400 mls/hr IVPB Q6HR [facility] Rx#:[id number] Albumin Human 5% 250 ml 750 In Empty Bag 1 bag @ 250 mls/hr IVPB Q1HR PRN Rx#: [id number] Clevidipine Butyrate 25 14.666 25.333 50 mg In Empty Bag 1 bag @ 1 MG/HR 2 mls/hr IV .Q24H [facility] Rx#:[id number] Insulin Regular 100 unit 10.386 In Sodium Chloride 0.9% 100 ml @ Per Protocol IV .Q0M [facility] Rx#:[id number] Lactated Ringers 1,000 ml 100 @ 20 mls/hr IV .Q24H [facility] Rx#:[id number] Propofol 1,000 mg In 11.120 Empty Bag 1 bag @ Titrate IV .Q0M [facility] Rx#: [id number] ceFAZolin 2 gm In Sodium 100 Chloride 0.9% 50 ml @ 100 mls/hr IVPB Q8H [facility] Rx#: [id number] Oral 110 Blood Product 300 Platelet Pheresis Acda2 300 Unit [id number] Output: Chest Tube Drainage 670 410 220 left and right pleural 270 200 130 mediastinal x2 400 210 90 Urine 2555 720 265 Estimated Blood Loss 1600 Other: Voiding Method Indwelling Catheter Indwelling Catheter Indwelling Catheter Weight 66.587 kg ABP, PAP, CO, CI - Last 8 Hours Arterial Blood Pressure 116/58 Arterial Blood Pressure 117/60 Arterial Blood Pressure 144/69 Arterial Blood Pressure 119/58 Arterial Blood Pressure 153/70 Arterial Blood Pressure 138/66 Arterial Blood Pressure 98/64 Arterial Blood Pressure 113/62 Arterial Blood Pressure 109/72 Arterial Blood Pressure 104/66 Arterial Blood Pressure 117/57 Arterial Blood Pressure 111/52 Arterial Blood Pressure 117/57 Arterial Blood Pressure 113/55 Arterial Blood Pressure 108/54 Arterial Blood Pressure 125/59 Arterial Blood Pressure 121/58 Arterial Blood Pressure 110/54 Arterial Blood Pressure 104/54 Pulmonary Artery Pressure 31/9 Pulmonary Artery Pressure 30/11 Pulmonary Artery Pressure 30/9 Pulmonary Artery Pressure 30/9 Pulmonary Artery Pressure 29/9 Pulmonary Artery Pressure 24/6 Pulmonary Artery Pressure 27/8 Pulmonary Artery Pressure 28/9 Pulmonary Artery Pressure 28/8 Pulmonary Artery Pressure 28/10 Pulmonary Artery Pressure 29/11 Pulmonary Artery Pressure 30/11 Pulmonary Artery Pressure 31/13 Cardiac Output 4.1 Cardiac Output 4.1 Cardiac Output 4.1 Cardiac Output 4.1 Cardiac Output 4.1 Cardiac Output 4.1 Cardiac Output 4.1 Cardiac Output 4.1 Cardiac Output 4.1 Cardiac Output 4.1 Cardiac Output 4.1 Cardiac Output 3.7 Cardiac Output 3.7 Cardiac Index 2.4 Cardiac Index 2.4 Cardiac Index 2.4 Cardiac Index 2.4 Cardiac Index 2.4 Cardiac Index 2.4 Cardiac Index 2.4 Cardiac Index 2.4 Cardiac Index 2.4 Cardiac Index 2.4 Cardiac Index 2.4 Cardiac Index 2.2 Cardiac Index 2.2 Gen: This is a 78-year-old female. She is sitting in recliner in the intensive care unit appears to be comfortable and in no acute distress. HEENT: Head is atraumatic, normocephalic. Pupils equal, round. Sclerae is anicteric. Left-sided Cordis in place. NECK: Supple. No JVD. No lymphadenopathy. No thyromegaly. LUNGS: Diminished bilaterally. No wheezes or rhonchi. No intercostal retractions. HEART: Regular rate and rhythm. No murmur. Chest tubes in place. ABDOMEN: Soft. Bowel sounds are present. No masses. No tenderness. Steward catheter draining clear catrachito urine. EXTREMITIES: No pedal edema. No calf tenderness. NEUROLOGICAL: Patient is awake, alert and oriented x3. Cranial nerves 2 through 12 are grossly intact. Results CBC & Chem 7: 01/25/19 04:10 01/25/19 04:10 Labs: Abnormal Lab Results - Last 24 Hours (Table) 01/17/19 01/24/19 01/24/19 Range/Units 09:30 09:50 10:41 WBC (3.8-10.6) k/uL RBC (3.80-5.40) m/uL Hgb (11.4-16.0) gm/dL Hct (34.0-46.0) % Plt Count (150-450) k/uL Neutrophils # (1.3-7.7) k/uL Lymphocytes # (1.0-4.8) k/uL PT (9.0-12.0) sec INR (<1.2) APTT (22.0-30.0) sec ABG pH 7.46 H (7.35-7.45) ABG pCO2 32 L (35-45) mmHg ABG pO2 269 H 287 H (83-108) mmHg ABG Total CO2 26 H (19-24) mmol/L ABG O2 Saturation 100.0 H 100.0 H (94-97) % ABG Hematocrit 33 L 32 L (34.0-46.0) % ABG Potassium (3.4-4.5) mmol/L ABG Ionized Calcium (4.5-5.3) mg/dL ABG Glucose (75-99) mg/dL ABG Lactic Acid 2.6 H* 2.0 H (0.5-1.6) mmol/L Hemoglobin 10.8 L 10.4 L (11.4-16.0) gm/dL Chloride (98-107) mmol/L Glucose (74-99) mg/dL POC Glucose (mg/dL) (75-99) mg/dL Ionized Calcium Andra (4.5-5.3) mg/dL Magnesium (1.6-2.3) mg/dL Total Bilirubin (0.2-1.3) mg/dL AST (14-36) U/L Alkaline Phosphatase (38-126) U/L Total Protein (6.3-8.2) g/dL Albumin (3.5-5.0) g/dL Arterial Blood Potassium (3.4-4.5) mmol/L Arterial Blood Glucose (75-99) mg/dL Crossmatch See Detail 01/24/19 01/24/19 01/24/19 Range/Units 11:37 12:45 12:45 WBC (3.8-10.6) k/uL RBC (3.80-5.40) m/uL Hgb (11.4-16.0) gm/dL Hct (34.0-46.0) % Plt Count (150-450) k/uL Neutrophils # (1.3-7.7) k/uL Lymphocytes # (1.0-4.8) k/uL PT (9.0-12.0) sec INR (<1.2) APTT (22.0-30.0) sec ABG pH (7.35-7.45) ABG pCO2 34 L (35-45) mmHg ABG pO2 382 H 381 H 349 H (83-108) mmHg ABG Total CO2 (19-24) mmol/L ABG O2 Saturation 100.0 H 100.0 H 100.0 H (94-97) % ABG Hematocrit 19 L* 19 L* 23 L (34.0-46.0) % ABG Potassium 4.6 H 5.0 H (3.4-4.5) mmol/L ABG Ionized Calcium 4.3 L 4.3 L 4.2 L (4.5-5.3) mg/dL ABG Glucose (75-99) mg/dL ABG Lactic Acid 1.7 H (0.5-1.6) mmol/L Hemoglobin 6.3 L* 6.2 L* 7.6 L (11.4-16.0) gm/dL Chloride (98-107) mmol/L Glucose (74-99) mg/dL POC Glucose (mg/dL) (75-99) mg/dL Ionized Calcium Andra (4.5-5.3) mg/dL Magnesium (1.6-2.3) mg/dL Total Bilirubin (0.2-1.3) mg/dL AST (14-36) U/L Alkaline Phosphatase (38-126) U/L Total Protein (6.3-8.2) g/dL Albumin (3.5-5.0) g/dL Arterial Blood Potassium 4.6 H 5.0 H (3.4-4.5) mmol/L Arterial Blood Glucose (75-99) mg/dL Crossmatch 01/24/19 01/24/19 01/24/19 Range/Units 13:18 14:46 15:25 WBC (3.8-10.6) k/uL RBC 2.90 L (3.80-5.40) m/uL Hgb 9.6 L D (11.4-16.0) gm/dL Hct 28.4 L (34.0-46.0) % Plt Count 96 L (150-450) k/uL Neutrophils # (1.3-7.7) k/uL Lymphocytes # (1.0-4.8) k/uL PT (9.0-12.0) sec INR (<1.2) APTT (22.0-30.0) sec ABG pH (7.35-7.45) ABG pCO2 (35-45) mmHg ABG pO2 415 H 119 H (83-108) mmHg ABG Total CO2 (19-24) mmol/L ABG O2 Saturation 100.0 H 98.8 H (94-97) % ABG Hematocrit 22 L 32 L (34.0-46.0) % ABG Potassium 5.2 H (3.4-4.5) mmol/L ABG Ionized Calcium 4.1 L 5.8 H (4.5-5.3) mg/dL ABG Glucose 110 H (75-99) mg/dL ABG Lactic Acid 2.1 H 2.2 H* (0.5-1.6) mmol/L Hemoglobin 7.2 L 10.4 L (11.4-16.0) gm/dL Chloride (98-107) mmol/L Glucose (74-99) mg/dL POC Glucose (mg/dL) (75-99) mg/dL Ionized Calcium Andra (4.5-5.3) mg/dL Magnesium (1.6-2.3) mg/dL Total Bilirubin (0.2-1.3) mg/dL AST (14-36) U/L Alkaline Phosphatase (38-126) U/L Total Protein (6.3-8.2) g/dL Albumin (3.5-5.0) g/dL Arterial Blood Potassium 5.2 H (3.4-4.5) mmol/L Arterial Blood Glucose 110 H (75-99) mg/dL Crossmatch 01/24/19 01/24/19 01/24/19 Range/Units 15:25 15:25 15:55 WBC (3.8-10.6) k/uL RBC (3.80-5.40) m/uL Hgb (11.4-16.0) gm/dL Hct (34.0-46.0) % Plt Count (150-450) k/uL Neutrophils # (1.3-7.7) k/uL Lymphocytes # (1.0-4.8) k/uL PT 15.5 H (9.0-12.0) sec INR 1.5 H (<1.2) APTT 45.2 H (22.0-30.0) sec ABG pH 7.32 L (7.35-7.45) ABG pCO2 (35-45) mmHg ABG pO2 313 H (83-108) mmHg ABG Total CO2 (19-24) mmol/L ABG O2 Saturation 99.7 H (94-97) % ABG Hematocrit (34.0-46.0) % ABG Potassium (3.4-4.5) mmol/L ABG Ionized Calcium (4.5-5.3) mg/dL ABG Glucose (75-99) mg/dL ABG Lactic Acid (0.5-1.6) mmol/L Hemoglobin (11.4-16.0) gm/dL Chloride 116 H (98-107) mmol/L Glucose (74-99) mg/dL POC Glucose (mg/dL) (75-99) mg/dL Ionized Calcium Andra 5.4 H (4.5-5.3) mg/dL Magnesium 3.7 H (1.6-2.3) mg/dL Total Bilirubin (0.2-1.3) mg/dL AST 46 H (14-36) U/L Alkaline Phosphatase 21 L (38-126) U/L Total Protein 4.5 L (6.3-8.2) g/dL Albumin 2.9 L (3.5-5.0) g/dL Arterial Blood Potassium (3.4-4.5) mmol/L Arterial Blood Glucose (75-99) mg/dL Crossmatch 01/24/19 01/24/19 01/24/19 Range/Units 18:09 18:14 18:50 WBC 11.5 H (3.8-10.6) k/uL RBC 3.24 L (3.80-5.40) m/uL Hgb 10.6 L (11.4-16.0) gm/dL Hct 32.0 L (34.0-46.0) % Plt Count 99 L (150-450) k/uL Neutrophils # 9.5 H (1.3-7.7) k/uL Lymphocytes # (1.0-4.8) k/uL PT (9.0-12.0) sec INR (<1.2) APTT (22.0-30.0) sec ABG pH (7.35-7.45) ABG pCO2 (35-45) mmHg ABG pO2 (83-108) mmHg ABG Total CO2 (19-24) mmol/L ABG O2 Saturation (94-97) % ABG Hematocrit (34.0-46.0) % ABG Potassium (3.4-4.5) mmol/L ABG Ionized Calcium (4.5-5.3) mg/dL ABG Glucose (75-99) mg/dL ABG Lactic Acid (0.5-1.6) mmol/L Hemoglobin (11.4-16.0) gm/dL Chloride (98-107) mmol/L Glucose (74-99) mg/dL POC Glucose (mg/dL) 110 H 126 H (75-99) mg/dL Ionized Calcium Andra (4.5-5.3) mg/dL Magnesium (1.6-2.3) mg/dL Total Bilirubin (0.2-1.3) mg/dL AST (14-36) U/L Alkaline Phosphatase (38-126) U/L Total Protein (6.3-8.2) g/dL Albumin (3.5-5.0) g/dL Arterial Blood Potassium (3.4-4.5) mmol/L Arterial Blood Glucose (75-99) mg/dL Crossmatch 01/24/19 01/24/19 01/24/19 Range/Units 19:50 20:21 20:35 WBC 15.2 H (3.8-10.6) k/uL RBC 3.32 L (3.80-5.40) m/uL Hgb 11.1 L (11.4-16.0) gm/dL Hct 32.5 L (34.0-46.0) % Plt Count 128 L (150-450) k/uL Neutrophils # 13.4 H (1.3-7.7) k/uL Lymphocytes # (1.0-4.8) k/uL PT (9.0-12.0) sec INR (<1.2) APTT (22.0-30.0) sec ABG pH (7.35-7.45) ABG pCO2 (35-45) mmHg ABG pO2 (83-108) mmHg ABG Total CO2 (19-24) mmol/L ABG O2 Saturation (94-97) % ABG Hematocrit (34.0-46.0) % ABG Potassium (3.4-4.5) mmol/L ABG Ionized Calcium (4.5-5.3) mg/dL ABG Glucose (75-99) mg/dL ABG Lactic Acid (0.5-1.6) mmol/L Hemoglobin (11.4-16.0) gm/dL Chloride (98-107) mmol/L Glucose (74-99) mg/dL POC Glucose (mg/dL) 137 H 134 H (75-99) mg/dL Ionized Calcium Andra (4.5-5.3) mg/dL Magnesium (1.6-2.3) mg/dL Total Bilirubin (0.2-1.3) mg/dL AST (14-36) U/L Alkaline Phosphatase (38-126) U/L Total Protein (6.3-8.2) g/dL Albumin (3.5-5.0) g/dL Arterial Blood Potassium (3.4-4.5) mmol/L Arterial Blood Glucose (75-99) mg/dL Crossmatch 01/24/19 01/24/19 01/24/19 Range/Units 22:03 23:25 23:41 WBC (3.8-10.6) k/uL RBC (3.80-5.40) m/uL Hgb (11.4-16.0) gm/dL Hct (34.0-46.0) % Plt Count (150-450) k/uL Neutrophils # (1.3-7.7) k/uL Lymphocytes # (1.0-4.8) k/uL PT (9.0-12.0) sec INR (<1.2) APTT (22.0-30.0) sec ABG pH 7.33 L (7.35-7.45) ABG pCO2 (35-45) mmHg ABG pO2 (83-108) mmHg ABG Total CO2 (19-24) mmol/L ABG O2 Saturation (94-97) % ABG Hematocrit (34.0-46.0) % ABG Potassium (3.4-4.5) mmol/L ABG Ionized Calcium (4.5-5.3) mg/dL ABG Glucose (75-99) mg/dL ABG Lactic Acid (0.5-1.6) mmol/L Hemoglobin (11.4-16.0) gm/dL Chloride (98-107) mmol/L Glucose (74-99) mg/dL POC Glucose (mg/dL) 136 H 131 H (75-99) mg/dL Ionized Calcium Andra (4.5-5.3) mg/dL Magnesium (1.6-2.3) mg/dL Total Bilirubin (0.2-1.3) mg/dL AST (14-36) U/L Alkaline Phosphatase (38-126) U/L Total Protein (6.3-8.2) g/dL Albumin (3.5-5.0) g/dL Arterial Blood Potassium (3.4-4.5) mmol/L Arterial Blood Glucose (75-99) mg/dL Crossmatch 01/25/19 01/25/19 01/25/19 Range/Units 00: 01:10 02:39 WBC (3.8-10.6) k/uL RBC (3.80-5.40) m/uL Hgb (11.4-16.0) gm/dL Hct (34.0-46.0) % Plt Count (150-450) k/uL Neutrophils # (1.3-7.7) k/uL Lymphocytes # (1.0-4.8) k/uL PT (9.0-12.0) sec INR (<1.2) APTT (22.0-30.0) sec ABG pH (7.35-7.45) ABG pCO2 (35-45) mmHg ABG pO2 (83-108) mmHg ABG Total CO2 (19-24) mmol/L ABG O2 Saturation (94-97) % ABG Hematocrit (34.0-46.0) % ABG Potassium (3.4-4.5) mmol/L ABG Ionized Calcium (4.5-5.3) mg/dL ABG Glucose (75-99) mg/dL ABG Lactic Acid (0.5-1.6) mmol/L Hemoglobin (11.4-16.0) gm/dL Chloride (98-107) mmol/L Glucose (74-99) mg/dL POC Glucose (mg/dL) 138 H 135 H 137 H (75-99) mg/dL Ionized Calcium Andra (4.5-5.3) mg/dL Magnesium (1.6-2.3) mg/dL Total Bilirubin (0.2-1.3) mg/dL AST (14-36) U/L Alkaline Phosphatase (38-126) U/L Total Protein (6.3-8.2) g/dL Albumin (3.5-5.0) g/dL Arterial Blood Potassium (3.4-4.5) mmol/L Arterial Blood Glucose (75-99) mg/dL Crossmatch 01/25/19 01/25/19 01/25/19 Range/Units 04:10 04:10 04:14 WBC 12.0 H (3.8-10.6) k/uL RBC 3.20 L (3.80-5.40) m/uL Hgb 10.7 L (11.4-16.0) gm/dL Hct 31.5 L (34.0-46.0) % Plt Count 124 L (150-450) k/uL Neutrophils # 10.6 H (1.3-7.7) k/uL Lymphocytes # 0.9 L (1.0-4.8) k/uL PT (9.0-12.0) sec INR (<1.2) APTT (22.0-30.0) sec ABG pH (7.35-7.45) ABG pCO2 (35-45) mmHg ABG pO2 (83-108) mmHg ABG Total CO2 (19-24) mmol/L ABG O2 Saturation (94-97) % ABG Hematocrit (34.0-46.0) % ABG Potassium (3.4-4.5) mmol/L ABG Ionized Calcium (4.5-5.3) mg/dL ABG Glucose (75-99) mg/dL ABG Lactic Acid (0.5-1.6) mmol/L Hemoglobin (11.4-16.0) gm/dL Chloride 112 H (98-107) mmol/L Glucose 135 H (74-99) mg/dL POC Glucose (mg/dL) 135 H (75-99) mg/dL Ionized Calcium Andra (4.5-5.3) mg/dL Magnesium 2.4 H (1.6-2.3) mg/dL Total Bilirubin 1.5 H (0.2-1.3) mg/dL AST 80 H (14-36) U/L Alkaline Phosphatase 28 L (38-126) U/L Total Protein 5.3 L (6.3-8.2) g/dL Albumin (3.5-5.0) g/dL Arterial Blood Potassium (3.4-4.5) mmol/L Arterial Blood Glucose (75-99) mg/dL Crossmatch 01/25/19 01/25/19 01/25/19 Range/Units 06:14 07:09 07:54 WBC (3.8-10.6) k/uL RBC (3.80-5.40) m/uL Hgb (11.4-16.0) gm/dL Hct (34.0-46.0) % Plt Count (150-450) k/uL Neutrophils # (1.3-7.7) k/uL Lymphocytes # (1.0-4.8) k/uL PT (9.0-12.0) sec INR (<1.2) APTT (22.0-30.0) sec ABG pH (7.35-7.45) ABG pCO2 (35-45) mmHg ABG pO2 (83-108) mmHg ABG Total CO2 (19-24) mmol/L ABG O2 Saturation (94-97) % ABG Hematocrit (34.0-46.0) % ABG Potassium (3.4-4.5) mmol/L ABG Ionized Calcium (4.5-5.3) mg/dL ABG Glucose (75-99) mg/dL ABG Lactic Acid (0.5-1.6) mmol/L Hemoglobin (11.4-16.0) gm/dL Chloride (98-107) mmol/L Glucose (74-99) mg/dL POC Glucose (mg/dL) 134 H 134 H 127 H (75-99) mg/dL Ionized Calcium Andra (4.5-5.3) mg/dL Magnesium (1.6-2.3) mg/dL Total Bilirubin (0.2-1.3) mg/dL AST (14-36) U/L Alkaline Phosphatase (38-126) U/L Total Protein (6.3-8.2) g/dL Albumin (3.5-5.0) g/dL Arterial Blood Potassium (3.4-4.5) mmol/L Arterial Blood Glucose (75-99) mg/dL Crossmatch 01/25/19 01/25/19 Range/Units 10:17 12:10 WBC (3.8-10.6) k/uL RBC (3.80-5.40) m/uL Hgb (11.4-16.0) gm/dL Hct (34.0-46.0) % Plt Count (150-450) k/uL Neutrophils # (1.3-7.7) k/uL Lymphocytes # (1.0-4.8) k/uL PT (9.0-12.0) sec INR (<1.2) APTT (22.0-30.0) sec ABG pH (7.35-7.45) ABG pCO2 (35-45) mmHg ABG pO2 (83-108) mmHg ABG Total CO2 (19-24) mmol/L ABG O2 Saturation (94-97) % ABG Hematocrit (34.0-46.0) % ABG Potassium (3.4-4.5) mmol/L ABG Ionized Calcium (4.5-5.3) mg/dL ABG Glucose (75-99) mg/dL ABG Lactic Acid (0.5-1.6) mmol/L Hemoglobin (11.4-16.0) gm/dL Chloride (98-107) mmol/L Glucose (74-99) mg/dL POC Glucose (mg/dL) 124 H 120 H (75-99) mg/dL Ionized Calcium Andra (4.5-5.3) mg/dL Magnesium (1.6-2.3) mg/dL Total Bilirubin (0.2-1.3) mg/dL AST (14-36) U/L Alkaline Phosphatase (38-126) U/L Total Protein (6.3-8.2) g/dL Albumin (3.5-5.0) g/dL Arterial Blood Potassium (3.4-4.5) mmol/L Arterial Blood Glucose (75-99) mg/dL Crossmatch Assessment and Plan Plan: 1. Valvular heart disease status post mitral valve repair and tricuspid valve repair, postop day #1. Continue current management per cardiothoracic surgery, intensive care management continues incentive spirometry to reduce incidence of atelectasis and hospital-acquired pneumonia. Insulin drip currently at one unit per hour. Continue aspirin, Lipitor 2. Hypertension. Patient is off clevidipine. 3. Dementia. Continue Aricept. 4. Glaucoma. Continue eyedrops. 5. Postoperative bradycardia, resolved, expected. 6. DVT prophylaxis. Heparin subcu. 7. GI prophylaxis. Tenex. Discharge plan: To be determined Impression and plan of care have been directed as dictated by the signing physician. Noris Gonzales nurse practitioner acting as scribe for signing physician.
[2019-01-25] MEDS ORDERED: FUROSEMIDE 10 MG/ML 2 ML VIAL IV ONE (14:15)
[2019-01-25 14:21] LABS: Glucose,Whole Blood 120 mg/dL (75-99)
[2019-01-25 16:31] LABS: Glucose,Whole Blood 124 mg/dL (75-99)
[2019-01-25 18:17] LABS: Glucose,Whole Blood 129 mg/dL (75-99)
[2019-01-25 20:26] LABS: Glucose,Whole Blood 106 mg/dL (75-99)
[2019-01-25] MEDS: SENNOSIDES-DOCUSATE SODIUM 1 EACH TAB PO SCH (20:51)
[2019-01-25 22:19] LABS: Glucose,Whole Blood 125 mg/dL (75-99)
[2019-01-25 23:47] LABS: Glucose,Whole Blood 134 mg/dL (75-99)
[2019-01-26] MEDS: ACETAMINOPHEN TAB 500 MG TAB PO PRN ×3 (01:48→21:07)
[2019-01-26 02:10] LABS: Glucose,Whole Blood 118 mg/dL (75-99)
[2019-01-26 03:39] LABS: Glucose,Whole Blood 121 mg/dL (75-99)
[2019-01-26] MEDS ORDERED: FUROSEMIDE 10 MG/ML 2 ML VIAL IV ONE (04:23)
[2019-01-26 04:38] LABS: Basophils % (A) 0 %; Eosinophils # (A) 0.1 k/uL (0-0.7); Eosinophils % (A) 1 %; HCT 27.9 % (34.0-46.0); HGB 9.4 gm/dL (11.4-16.0); Lymphocytes # (A) 1.5 k/uL (1.0-4.8); Lymphocytes % (A) 13 %; MCH 33.3 pg (25.0-35.0); MCHC 33.6 g/dL (31.0-37.0); MCV 99.4 fL (80.0-100.0); Mean Platelet Volume 7.2; Monocytes # (A) 0.5 k/uL (0-1.0); Monocytes % (A) 4 %; Neutrophils % (A) 82 %; RBC 2.81 m/uL (3.80-5.40); RDW 14.2 % (11.5-15.5); WBC 12.1 k/uL (3.8-10.6)
[2019-01-26 04:40] LABS: Glucose,Whole Blood 131 mg/dL (75-99)
[2019-01-26 05:13] LABS: Platelet Count 91 k/uL (150-450)
[2019-01-26 05:39] LABS: Albumin 3.1 g/dL (3.5-5.0); Calcium 8.5 mg/dL (8.4-10.2); Potassium 4.2 mmol/L (3.5-5.1); Total Bilirubin 0.8 mg/dL (0.2-1.3); Total Protein 4.9 g/dL (6.3-8.2)
[2019-01-26 05:47] LABS: Glucose,Whole Blood 135 mg/dL (75-99)
[2019-01-26] MEDS: KETOROLAC 30 MG/ML 1 ML VIAL IVP SCH ×4 (06:03→23:00)
--- NOTE | 2019-01-26 07:07 | XR ---
EXAMINATION TYPE: XR chest 1V portable DATE OF EXAM: 01/26/2019 CLINICAL HISTORY: Difficulty breathing progress study. Postopen cardiac surgery. TECHNIQUE: Single AP portable upright view of the chest is obtained. COMPARISON: Chest x-ray from one day earlier and older studies. FINDINGS: Persistent bilateral chest tubes with tiny biapical pneumothoraces unchanged from prior. P ersistent mediastinal drainage catheter. Interval removal of left internal jugular [place]-Opal catheter with cordis sheath now present. Cardiac valvular rings and closure device again seen. Background chr onic parenchymal change and cardiomegaly with ectatic aorta causing mass effect on trachea is redemon strated. Persistent patchy bibasilar opacities. Second mediastinal or pericardial drainage catheter i nferiorly better seen on current study. Overlying EKG leads redemonstrated. Overlying epicardial wire s less well seen. Osseous structures intact. IMPRESSION: Chronic parenchymal changes and cardiomegaly with patchy bibasilar atelectasis and/or inf iltrate and tiny biapical pneumothoraces despite bilateral chest tube all redemonstrated. No signific ant interval change from one day earlier.
[2019-01-26 07:15] LABS: Glucose,Whole Blood 129 mg/dL (75-99)
[2019-01-26] MEDS: IPRATROPIUM-ALBUTEROL 3 ML NEB INHALATION SCH ×4 (08:02→19:27)
[2019-01-26 08:21] LABS: Glucose,Whole Blood 126 mg/dL (75-99)
[2019-01-26] MEDS: ASCORBIC ACID 500 MG TAB PO SCH (08:57)
[2019-01-26] MEDS: TIMOLOL 0.5% OPHTH DROPS 5 ML BTL BOTH EYES SCH ×3 (08:59→21:10)
[2019-01-26] MEDS: hydrALAZINE HCL 25 MG TAB PO SCH ×2 (08:59→21:08)
[2019-01-26] MEDS: ATORVASTATIN 40 MG TAB PO SCH (08:59)
[2019-01-26] MEDS: HEPARIN SODIUM,PORCINE 5,000 UNIT/ML 1 ML VIAL SQ SCH ×3 (08:59→23:00)
[2019-01-26] MEDS: BRIMONIDINE TARTRATE 0.2% DROPS 5 ML BTL BOTH EYES SCH ×2 (08:59→21:07)
[2019-01-26] MEDS: CHOLECALCIFEROL 400 UNIT TAB PO SCH (09:00)
[2019-01-26] MEDS: PANTOPRAZOLE 40 MG TABLET PO SCH (09:02)
[2019-01-26] MEDS: ASPIRIN 81 MG PO SCH (09:02)
--- NOTE | 2019-01-26 09:38 | P.PN ---
Subjective Progress Note Date: 01/26/19 78-year-old female patient is currently postop from cardiac surgery as the patient underwent a mitral valve repair and a tricuspid valve repair. Currently she is postop day #0. Note that preoperatively, the patient was found to have severe mitral regurgitation and moderate TR and mild aortic insufficiency. Her coronary angiogram was within normal limits. She is known to have hypertension, early onset dementia, and previous history of breast cancer. Currently, the patient is postop. She is on a assist-control mode of ventilation at the rate of 12 with a tidal volume of 350 and FiO2 was dropped down to 50% with a PEEP of 5. The blood gases showed a pH of 7.32 with a pCO2 of 43 and pO2 of found and 13 and this was done immediately postop. The chest x-ray showed adequate expansion of both lungs. The patient has 2 mediastinal chest tubes 1 right- sided and 1 left-sided pleural chest tube. The output from the chest tubes have been in the order of 200 mL of bloody output/serosanguineous from the mediastinal chest tube and 100 mL from the pleural chest tubes. Hemodynamically, the patient is doing well. Her cardiac index is at 2 with an output of 3.3. The patient has a PA pressure of 37/20. She is on Catapres for blood pressure control. She is not requiring any inotropes. She is producing adequate urine output in the order of 150 mL an hour. She is on IV fluids and she is receiving lactated Ringer at the rate of an hour. She received a total of 2 units of packed RBC intraoperatively and a unit of packed RBC. The patient for now is off sedation and when the process of weaning the sedation off and assessing the patient neurologic status. On today's evaluation of 01/25/2019 the patient is looking well. She is a bit sleepy. I was able to wean off the mechanical ventilator and extubated around 11:30 PM yesterday. She is currently on oxygen at 3 L. [place]-Opal catheter is in place. Cardiac index is at 2.4 with an output of 4.1. PA pressures are 30/9 and his CVP is around 7. She has the tubes in place with a right pleural and left pleural and 2 mediastinal chest tubes. Output is around 30-50 mL an hour and there is no evidence of any air leak. The chest x-ray from today shows what especially of both lungs. She is hemodynamically stable. She wasn't Cleviprex for blood pressure control that This continues. She is awake and alert and she is following commands. Her underlying cardiac rhythm was asystole. The patient is currently AV paced at the rate of 80. Afebrile. Using incentive spirometer and she is pulling approximately 500 mL. [place] evaluation of 01/26/2019 the patient is resting comfortably in bed. She was moved to a chair and after being there for few minutes she started developing ectopies mainly ventricular ectopies while her cardiac rhythm was still paced at the rate of 70. Her underlying rhythm is abnormal and that only P waves without any significant ventricular bases were noted earlier. However, she is producing some ventricular ectopies for now on the rhythm strips. She was unable to tolerate lower heart rate and heart rate was maintained at the rate of 70. Output from the chest tubes are minimal. The patient has right pleural and the left pleural chest tube and mediastinal chest tubes. The based on chest tubes w ill be taken out today. Her urine output is in order of 30 mL an hour. She got a dose of Lasix at 5 AM this morning. She is using incentive spirometer and she is pulling approximately 500. Tiny apical pneumothorax on today's chest x-ray. No evidence of any air leaks. [place]-Opal catheter removed. Cordis is in place. Sternum stable clean and intact. No fever or chills. The hemoglobin is stable at 9.4. Creatinine is at 0.8. Objective - Vital Signs Vital signs: Vital Signs Temp 97.8 F 01/26/19 08:00 Pulse 72 01/26/19 08:24 Resp 17 01/26/19 08:00 BP 117/65 01/26/19 07:30 Pulse Ox 94 L 01/26/19 08:00 Intake & Output 01/25/19 01/26/19 01/26/19 18:59 06:59 18:59 Intake Total 882.462 680.603 72 Output Total 928 980 125 Balance -45.538 -299.397 -53 Weight 66.587 kg 70.1 kg Intake: IV 641 432 72 Cardiac Output 30 Lactated Ringers 1,000 ml 480 360 60 @ 20 mls/hr IV .Q24H [facility] Rx#:[id number] Pressure Bag 81 72 12 ceFAZolin 2 gm In Sodium 50 Chloride 0.9% 50 ml @ 100 mls/hr IVPB Q8HR [facility] Rx# :[id number] Intake, IV Titration 71.462 3.603 Amount Clevidipine Butyrate 25 50 mg In Empty Bag 1 bag @ 1 MG/HR 2 mls/hr IV .Q24H [facility] Rx#:[id number] Insulin Regular 100 unit 21.462 3.603 In Sodium Chloride 0.9% 100 ml @ Per Protocol IV .Q0M [facility] Rx#:[id number] Oral 170 245 Output: Chest Tube Drainage 360 530 left and right pleural 240 380 mediastinal x2 120 150 Urine 568 450 125 Other: Voiding Method Indwelling Catheter Indwelling Catheter ABP, PAP, CO, CI - Last Documented Arterial Blood Pressure 125/53 Pulmonary Artery Pressure 31/9 Cardiac Output 4.1 Cardiac Index 2.4 - Exam Gen. appearance, comfortable, sleepy, currently on 4 L per nasal cannula Head exam was generally normal. There was no scleral icterus or corneal arcus. Mucous membranes were moist. Neck was supple and without jugular venous distension, thyromegaly, or carotid bruits. Carotids were easily palpable bilaterally. There was no adenopathy. The patient is a left IJ Cordis in place and the [place]-Opal catheter has been taken out. Lungs sounds are equal and symmetrical bilaterally. No wheezes or rhonchi any crackles. Sternum stable clean and intact. The patient has 2 mediastinal chest tubes, right pleural and left pleural chest tubes are also in place. Heart sounds are regular, paced at the rate of 70. His some underlying ventricular ectopies.. No significant murmurs appreciated. Abdominal exam revealed normal bowel sounds. The abdomen was soft, non-tender, and without masses, organomegaly, or appreciable enlargement of the abdominal aorta. Examination of the extremities revealed easily palpable radial, femoral and pedal pulses. There was no cyanosis, clubbing or edema. Examination of the skin revealed no evidence of significant rashes, suspicious appearing nevi or other concerning lesions. Neurologic patient awake and alert and following commands and answering questions. No focal neurological deficits. - Labs CBC & Chem 7: 01/26/19 04:30 01/26/19 04:30 Labs: Abnormal Lab Results - Last 24 Hours (Table) 01/25/19 01/25/19 01/25/19 Range/Units 10:17 12:10 14:09 WBC (3.8-10.6) k/uL RBC (3.80-5.40) m/uL Hgb (11.4-16.0) gm/dL Hct (34.0-46.0) % Plt Count (150-450) k/uL Neutrophils # (1.3-7.7) k/uL Chloride (98-107) mmol/L BUN (7-17) mg/dL Glucose (74-99) mg/dL POC Glucose (mg/dL) 124 H 120 H 120 H (75-99) mg/dL AST (14-36) U/L Alkaline Phosphatase (38-126) U/L Total Protein (6.3-8.2) g/dL Albumin (3.5-5.0) g/dL 01/25/19 01/25/19 01/25/19 Range/Units 16:19 18:06 20:15 WBC (3.8-10.6) k/uL RBC (3.80-5.40) m/uL Hgb (11.4-16.0) gm/dL Hct (34.0-46.0) % Plt Count (150-450) k/uL Neutrophils # (1.3-7.7) k/uL Chloride (98-107) mmol/L BUN (7-17) mg/dL Glucose (74-99) mg/dL POC Glucose (mg/dL) 124 H 129 H 106 H (75-99) mg/dL AST (14-36) U/L Alkaline Phosphatase (38-126) U/L Total Protein (6.3-8.2) g/dL Albumin (3.5-5.0) g/dL 01/25/19 01/25/19 01/26/19 Range/Units 22:07 23:18 01:58 WBC (3.8-10.6) k/uL RBC (3.80-5.40) m/uL Hgb (11.4-16.0) gm/dL Hct (34.0-46.0) % Plt Count (150-450) k/uL Neutrophils # (1.3-7.7) k/uL Chloride (98-107) mmol/L BUN (7-17) mg/dL Glucose (74-99) mg/dL POC Glucose (mg/dL) 125 H 134 H 118 H (75-99) mg/dL AST (14-36) U/L Alkaline Phosphatase (38-126) U/L Total Protein (6.3-8.2) g/dL Albumin (3.5-5.0) g/dL 01/26/19 01/26/19 01/26/19 Range/Units 03:28 04:27 04:30 WBC 12.1 H (3.8-10.6) k/uL RBC 2.81 L (3.80-5.40) m/uL Hgb 9.4 L (11.4-16.0) gm/dL Hct 27.9 L (34.0-46.0) % Plt Count 91 L (150-450) k/uL Neutrophils # 10.0 H (1.3-7.7) k/uL Chloride (98-107) mmol/L BUN (7-17) mg/dL Glucose (74-99) mg/dL POC Glucose (mg/dL) 121 H 131 H (75-99) mg/dL AST (14-36) U/L Alkaline Phosphatase (38-126) U/L Total Protein (6.3-8.2) g/dL Albumin (3.5-5.0) g/dL 01/26/19 01/26/19 01/26/19 Range/Units 04:30 05:35 07:03 WBC (3.8-10.6) k/uL RBC (3.80-5.40) m/uL Hgb (11.4-16.0) gm/dL Hct (34.0-46.0) % Plt Count (150-450) k/uL Neutrophils # (1.3-7.7) k/uL Chloride 110 H (98-107) mmol/L BUN 25 H (7-17) mg/dL Glucose 128 H (74-99) mg/dL POC Glucose (mg/dL) 135 H 129 H (75-99) mg/dL AST 74 H (14-36) U/L Alkaline Phosphatase 37 L (38-126) U/L Total Protein 4.9 L (6.3-8.2) g/dL Albumin 3.1 L (3.5-5.0) g/dL 01/26/19 Range/Units 08:09 WBC (3.8-10.6) k/uL RBC (3.80-5.40) m/uL Hgb (11.4-16.0) gm/dL Hct (34.0-46.0) % Plt Count (150-450) k/uL Neutrophils # (1.3-7.7) k/uL Chloride (98-107) mmol/L BUN (7-17) mg/dL Glucose (74-99) mg/dL POC Glucose (mg/dL) 126 H (75-99) mg/dL AST (14-36) U/L Alkaline Phosphatase (38-126) U/L Total Protein (6.3-8.2) g/dL Albumin (3.5-5.0) g/dL Assessment and Plan Plan: 1 valvular heart disease with severe mitral and tricuspid regurgitation the patient undergone mitral valve repair and tricuspid valve repair and the patient is postop day #2. The patient's distal in the intensive care unit. The patient is recovering from her surgery. Underlying cardiac rhythm is he weighs only without any ventricular beats. The patient is currently paced at the rate of 70. On the rhythm strip there is some ventricular ectopies been generated. She remains hemodynamically stable. 2 post thoracotomy, the patient was weaned off the mechanical ventilator and she was extubated and currently she is on 4 L of oxygen by nasal cannula. She has a very tiny biapical pneumothoraces in the chest tubes are in place without evidence of any air leak. She is using incentive spirometer. The mediastinal chest tubes will be removed today. 3 hypertension currently off Cleviprex , the patient is going to be started on some hydralazine. 4 history of breast cancer 5 early onset dementia 6 asystole/bradycardia, currently paced at the rate of 70 (AV paced) Plan To the cardiac rhythm. Keep the heart paced at the rate of 70. Very much likely that she will need a permanent pacemaker at a later stage. Keep the Cordis in place for any transvenous pacing that may be needed. Remove the mediastinal chest tubes. Continue to follow. Keep in the ICU for now.
[2019-01-26 10:04] LABS: Glucose,Whole Blood 145 mg/dL (75-99)
[2019-01-26 10:14] LABS: Magnesium 2.1 mg/dL (1.6-2.3); Potassium 3.9 mmol/L (3.5-5.1)
[2019-01-26] MEDS: LACTATED RINGERS 1,000 ML IV SCH (10:16)
--- NOTE | 2019-01-26 11:04 | P.PN ---
Subjective Progress Note Date: 01/26/19 Principal diagnosis: Severe mitral valve regurgitation with moderate tricuspid valve regurgitation, mild aortic insufficiency and ascending aortic aneurysm. Past medical history s ignificant for hypertension, early onset dementia, depression, osteoarthritis, remote history of hepatitis A and breast cancer with radiation 17 years ago. POD #2 mitral valve repair with a 26mm annuloflex ring, tricuspid valve repair with a 26mm MC3 tricuspid ring, ascending aortic aortoplasty, ligation of the left atrial appendage with a 35mm Atriclip, Epiaortic ultrasound, intraoperative ELLYN. Postoperative bradycardia, unexpected finding. Postoperative acute blood loss anemia, expected, secondary to cardiopulmonary bypass pump and hemodilution. The patient is sitting up to the bedside chair in the intensive care unit. She is in no acute distress. Currently denies any complaints of pain or shortness of breath. Oxygen saturations are 95% on 2 L nasal cannula and she is achieving 500 mL on her incentive spirometry. Left IJ cordis remains in place to continue CVP monitoring, current CVP pressure 3 mmHg. Remained hemodynamically stable and is currently on no inotropic or pressor support. Remains with atrial and ventricular epicardial pacemaker wires in place and is currently on a DDD mode of 70. She has an abnormal underlying rhythm which is consistent with third- degree heart block with a heart rate in the 40s. Remains with mediastinal, left and right pleural chest tubes in place to low continuous wall suction -20 cm H2O. Draining thin serosanguineous drainage and no air leak is present. Mediastinal chest tubes drained 120 mL output in the last 8 hours, 250 mL output in the last 24 hours. The right pleural chest tubes drained 320 mL output in the last 8 hours, 640 mL output in the last 24 hours. Objective - Vital Signs Vital signs: Vital Signs Temp 97.8 F 01/26/19 08:00 Pulse 72 01/26/19 08:24 Resp 17 01/26/19 08:00 BP 117/65 01/26/19 07:30 Pulse Ox 94 L 01/26/19 08:00 Intake & Output 01/25/19 01/26/19 01/26/19 18:59 06:59 18:59 Intake Total 882.462 680.603 72 Output Total 928 980 125 Balance -45.538 -299.397 -53 Weight 66.587 kg 70.1 kg Intake: IV 641 432 72 Cardiac Output 30 Lactated Ringers 1,000 ml 480 360 60 @ 20 mls/hr IV .Q24H [facility] Rx#:[id number] Pressure Bag 81 72 12 ceFAZolin 2 gm In Sodium 50 Chloride 0.9% 50 ml @ 100 mls/hr IVPB Q8HR [facility] Rx# :[id number] Intake, IV Titration 71.462 3.603 0 Amount Clevidipine Butyrate 25 50 mg In Empty Bag 1 bag @ 1 MG/HR 2 mls/hr IV .Q24H [facility] Rx#:[id number] Insulin Regular 100 unit 21.462 3.603 0 In Sodium Chloride 0.9% 100 ml @ Per Protocol IV .Q0M [facility] Rx#:[id number] Oral 170 245 Output: Chest Tube Drainage 360 530 left and right pleural 240 380 mediastinal x2 120 150 Urine 568 450 125 Other: Voiding Method Indwelling Catheter Indwelling Catheter ABP, PAP, CO, CI - Last Documented Arterial Blood Pressure 125/53 Pulmonary Artery Pressure 31/9 Cardiac Output 4.1 Cardiac Index 2.4 - Constitutional General appearance: Present: cooperative, no acute distress - Respiratory Details: Lung sounds essentially clear throughout, diminished bilateral bases. Respirations are symmetrical and nonlabored. Oxygen saturation 95% on 2 L nasal cannula. Achieving 500 mL on her incentive spirometry with much encouragement. Mediastinal, left and right pleural chest tubes remain in place to low co ntinuous wall suction -20 cm H2O. No air leak is present. Draining thin serosanguineous drainage. - Cardiovascular Details: Regular rhythm and rate. S1 and S2 present, negative for S3, gallop or murmur. Sternum is stable. Atrial and ventricular epicardial pacemaker wires in place and connected to a pacemaker generator with a DDD mode with a rate of 70 bpm. Underlying rhythm consistent with third-degree AV block. Heart hugger is in place and she is demonstrating appropriate use. Knee-high MU hose and sequential compression devices in place to bilateral lower extremities. - Gastrointestinal Gastrointestinal Comment(s): Abdomen is soft, nontender and nondistended. Active bowel sounds present all 4 abdominal quadrants. No guarding or rigidity. No organomegaly appreciated. - Genitourinary Genitourinary Comment(s): Steward catheter for accurate I&O. Draining clear yellow urine. 285 mL output in the last 8 hours. - Integumentary Integumentary Comment(s): Skin is warm and dry. No clubbing or cyanosis is present. Midline sternal incision is clean, dry and approximated. No drainage or redness is present. - Neurologic Neurologic: Present: CNII-XII intact - Musculoskeletal Musculoskeletal: Present: gait normal, generalized weakness, strength equal bilaterally - Psychiatric Psychiatric: Present: A&O x's 3, appropriate affect, intact judgment & insight - Allied health notes Allied health notes reviewed: nursing - Labs CBC & Chem 7: 01/26/19 04:30 01/26/19 09:52 Labs: Abnormal Lab Results - Last 24 Hours (Table) 01/25/19 01/25/19 01/25/19 Range/Units 12:10 14:09 16:19 WBC (3.8-10.6) k/uL RBC (3.80-5.40) m/uL Hgb (11.4-16.0) gm/dL Hct (34.0-46.0) % Plt Count (150-450) k/uL Neutrophils # (1.3-7.7) k/uL Chloride (98-107) mmol/L BUN (7-17) mg/dL Glucose (74-99) mg/dL POC Glucose (mg/dL) 120 H 120 H 124 H (75-99) mg/dL AST (14-36) U/L Alkaline Phosphatase (38-126) U/L Total Protein (6.3-8.2) g/dL Albumin (3.5-5.0) g/dL 01/25/19 01/25/19 01/25/19 Range/Units 18:06 20:15 22:07 WBC (3.8-10.6) k/uL RBC (3.80-5.40) m/uL Hgb (11.4-16.0) gm/dL Hct (34.0-46.0) % Plt Count (150-450) k/uL Neutrophils # (1.3-7.7) k/uL Chloride (98-107) mmol/L BUN (7-17) mg/dL Glucose (74-99) mg/dL POC Glucose (mg/dL) 129 H 106 H 125 H (75-99) mg/dL AST (14-36) U/L Alkaline Phosphatase (38-126) U/L Total Protein (6.3-8.2) g/dL Albumin (3.5-5.0) g/dL 01/25/19 01/26/19 01/26/19 Range/Units 23:18 01:58 03:28 WBC (3.8-10.6) k/uL RBC (3.80-5.40) m/uL Hgb (11.4-16.0) gm/dL Hct (34.0-46.0) % Plt Count (150-450) k/uL Neutrophils # (1.3-7.7) k/uL Chloride (98-107) mmol/L BUN (7-17) mg/dL Glucose (74-99) mg/dL POC Glucose (mg/dL) 134 H 118 H 121 H (75-99) mg/dL AST (14-36) U/L Alkaline Phosphatase (38-126) U/L Total Protein (6.3-8.2) g/dL Albumin (3.5-5.0) g/dL 01/26/19 01/26/19 01/26/19 Range/Units 04:27 04:30 04:30 WBC 12.1 H (3.8-10.6) k/uL RBC 2.81 L (3.80-5.40) m/uL Hgb 9.4 L (11.4-16.0) gm/dL Hct 27.9 L (34.0-46.0) % Plt Count 91 L (150-450) k/uL Neutrophils # 10.0 H (1.3-7.7) k/uL Chloride 110 H (98-107) mmol/L BUN 25 H (7-17) mg/dL Glucose 128 H (74-99) mg/dL POC Glucose (mg/dL) 131 H (75-99) mg/dL AST 74 H (14-36) U/L Alkaline Phosphatase 37 L (38-126) U/L Total Protein 4.9 L (6.3-8.2) g/dL Albumin 3.1 L (3.5-5.0) g/dL 01/26/19 01/26/19 01/26/19 Range/Units 05:35 07:03 08:09 WBC (3.8-10.6) k/uL RBC (3.80-5.40) m/uL Hgb (11.4-16.0) gm/dL Hct (34.0-46.0) % Plt Count (150-450) k/uL Neutrophils # (1.3-7.7) k/uL Chloride (98-107) mmol/L BUN (7-17) mg/dL Glucose (74-99) mg/dL POC Glucose (mg/dL) 135 H 129 H 126 H (75-99) mg/dL AST (14-36) U/L Alkaline Phosphatase (38-126) U/L Total Protein (6.3-8.2) g/dL Albumin (3.5-5.0) g/dL 01/26/19 Range/Units 09:52 WBC (3.8-10.6) k/uL RBC (3.80-5.40) m/uL Hgb (11.4-16.0) gm/dL Hct (34.0-46.0) % Plt Count (150-450) k/uL Neutrophils # (1.3-7.7) k/uL Chloride (98-107) mmol/L BUN (7-17) mg/dL Glucose (74-99) mg/dL POC Glucose (mg/dL) 145 H (75-99) mg/dL AST (14-36) U/L Alkaline Phosphatase (38-126) U/L Total Protein (6.3-8.2) g/dL Albumin (3.5-5.0) g/dL - Imaging and Cardiology Chest x-ray: report reviewed, image reviewed Assessment and Plan Assessment: 1. Severe mitral valve regurgitation, moderate tricuspid valve regurgitation, aortic valve insufficiency and ascending aortic aneurysm. Status post mitral valve repair with 26mm annuloflex ring, tricuspid valve repair with 26mm M3 tricuspid ring, ascending aorta aortoplasty, ligation of the left atrial appendage with 35mm Atriclip. 2. Post operative bradycardia 3. Post operative acute blood loss anemia secondary to cardiopulmonary bypass pump and hemodilution 4. Hypertension 5. History of early-onset dementia 6. Depression 7. Osteoarthritis 8. Remote history of Hepatitis A 9. History of breast cancer with radiation 17 years ago Plan: 1. Optimize medical management with asprin, and statin. We will decrease her aspirin to 81 mg by mouth daily due to her platelet count of 91. Continue to hold her beta ollie due to her underlying rhythm. 2. Wean oxygen as tolerated. Encourage incentive spirometer as tolerated. Bronchodilators per pulmonology. 3. Keep right IJ cordis to continuous CVP monitoring. 4. Increase activity as tolerated, out of bed to chair. PT/OT/cardiac rehab following. 5. Will monitor daily labs and chest xrays. Electrolyte replacement per protocol. 6. Insulin management per primary care service. 7. Continue pain management per when necessary orders. Avoid narcotics. 8. GI/DVT prophylaxis. 9. Start Hydralazine 25 mg by mouth twice a day for afterload reduction. 10. Mediastinal chest tubes removed without incident. 4 x 4 gauze to cover, Vaseline impregnated gauze to cover and secured with tape. Keep left and right pleural chest tubes in place to low continuous wall suction -20 cm H2O. 11. Place temporary pacemaker pads as backup. Keep atrial and ventricular epicardial pacemaker wires in place and connected to backup pacemaker generator on a DDD mode with a heart rate of 70 bpm. 12. Nothing by mouth after midnight for possible permanent pacemaker placement. 13. More recommendations to follow on patient's clinical course. Time with Patient: Greater than 30
[2019-01-26] MEDS: POTASSIUM CHLORIDE 10 MEQ in WATER FOR INJECTION 1 100ML.BAG IVPB SCH ×2 (11:13→12:07)
[2019-01-26] MEDS: INSULIN ASPART (NovoLOG) 100 UNIT/ML VIAL SQ SCH ×3 (11:31→21:09)
[2019-01-26 11:41] LABS: Glucose,Whole Blood 122 mg/dL (75-99)
--- NOTE | 2019-01-26 13:20 | PN ---
PROGRESS NOTE 78-year-old lady who is admitted to hospital with mitral and tricuspid valve repair. This morning she remains with high-grade AV block with complete AV dissociation and she is dependent on her pacemaker. She is otherwise doing well and is free of symptoms. EXAM: Heart rate is 69 beats per minute, paced. Blood pressure is 126/67, respiratory 16. There is no jugular venous distention. Chest exam reveals diminished air entry at the bases. Heart exam reveals first and second heart sounds. No gallop. Exam of extremities did not reveal any edema. Peripheral pulses are felt. LAB: Show a hemoglobin of 9.4, platelet count is 91, BUN is 25, creatinine is 0.8, potassium is 4.2. The patient is currently on Lipitor, Apresoline and insulin. ASSESSMENT: 1. Status post mitral and tricuspid valve repair. 2. Complete heart block secondary to recent surgery. PLAN: The patient will continue with current care. If the AV conduction does not improve over the next 48 hours, the patient will undergo a permanent pacemaker on Wednesday. MMODL / IJN: [id number] /
[2019-01-26] MEDS: CLEVIDIPINE BUTYRATE 25 MG in EMPTY BAG 1 BAG IV SCH (16:21)
[2019-01-26 17:10] LABS: Glucose,Whole Blood 139 mg/dL (75-99)
[2019-01-26] MEDS: MEMANTINE 10 MG TAB PO SCH (21:07)
[2019-01-26] MEDS: LATANOPROST 0.005% OPHTH DROPS 2.5 ML BTL BOTH EYES SCH (21:07)
[2019-01-26] MEDS: DONEPEZIL 10 MG TAB PO SCH (21:08)
[2019-01-26] MEDS: SENNOSIDES-DOCUSATE SODIUM 1 EACH TAB PO SCH (21:09)
[2019-01-26 21:17] LABS: Glucose,Whole Blood 113 mg/dL (75-99)
[2019-01-26] MEDS ORDERED: ALBUMIN HUMAN 5% 250 ML in EMPTY BAG 1 BAG IVPB ONE (21:45)
[2019-01-27] MEDS ORDERED: SODIUM CHLORIDE 0.9% 500 ML 500 ML IV ONE ×2 (03:29→22:43)
[2019-01-27] MEDS: ACETAMINOPHEN TAB 500 MG TAB PO PRN ×3 (04:12→18:50)
[2019-01-27] MEDS: KETOROLAC 30 MG/ML 1 ML VIAL IVP SCH (05:20)
[2019-01-27 05:30] LABS: Basophils % (A) 0 %; Eosinophils # (A) 0.1 k/uL (0-0.7); Eosinophils % (A) 1 %; HCT 28.5 % (34.0-46.0); HGB 9.5 gm/dL (11.4-16.0); Lymphocytes # (A) 1.4 k/uL (1.0-4.8); Lymphocytes % (A) 12 %; MCH 33.5 pg (25.0-35.0); MCHC 33.5 g/dL (31.0-37.0); Mean Platelet Volume 8.7; Monocytes # (A) 0.3 k/uL (0-1.0); Monocytes % (A) 2 %; Neutrophils # (A) 9.8 k/uL (1.3-7.7); Neutrophils % (A) 84 %; Platelet Count 100 k/uL (150-450); RBC 2.85 m/uL (3.80-5.40); RDW 13.7 % (11.5-15.5); WBC 11.7 k/uL (3.8-10.6)
[2019-01-27 05:58] LABS: ALT 23 U/L (9-52); AST 41 U/L (14-36); African American GFR (CKD) >90 (>60 ml/min/1.73 sqM); Albumin 3.2 g/dL (3.5-5.0); Alkaline Phosphatase 40 U/L (38-126); Anion Gap 8 mmol/L; Blood Urea Nitrogen 33 mg/dL (7-17); Calcium 8.5 mg/dL (8.4-10.2); Carbon Dioxide 23 mmol/L (22-30); Chloride 110 mmol/L (98-107); Glucose 129 mg/dL (74-99); Non-African American GFR(CKD) 79 (>60 ml/min/1.73 sqM); Sodium 141 mmol/L (137-145); Total Bilirubin 1.1 mg/dL (0.2-1.3); Total Protein 5.2 g/dL (6.3-8.2)
[2019-01-27] MEDS: INSULIN ASPART (NovoLOG) 100 UNIT/ML VIAL SQ SCH ×4 (06:28→20:48)
--- NOTE | 2019-01-27 06:52 | XR ---
EXAMINATION TYPE: XR chest 1V portable DATE OF EXAM: 01/27/2019 CLINICAL HISTORY: Difficulty breathing progress study. TECHNIQUE: Single AP portable upright view of the chest is obtained. COMPARISON: Chest x-ray from one day earlier and older studies FINDINGS: Persistent bilateral chest tubes with tiny left greater than right biapical pneumothorace s unchanged from prior. Interval removal of mediastinal drainage catheter. Stable left internal jugul ar cordis sheath . Cardiac valvular rings and closure device again seen. Inferior epicardial wires ar e noted on current study. Overlying EKG leads are redemonstrated. Background chronic parenchymal change and cardiomegaly with ectatic aorta causing mass effect on trac hea is redemonstrated. Persistent left greater than right bibasilar opacities. Osseous structures int act. IMPRESSION: Stable tiny left greater than right bilateral apical pneumothoraces. Cardiomegaly and chr onic parenchymal change with left greater than right bibasilar acute infiltrate and/or atelectasis re cecilia present.
[2019-01-27] MEDS: IPRATROPIUM-ALBUTEROL 3 ML NEB INHALATION SCH ×4 (08:24→20:10)
[2019-01-27] MEDS ORDERED: FUROSEMIDE 10 MG/ML 4 ML VIAL IV STA (09:23)
[2019-01-27] MEDS: HEPARIN SODIUM,PORCINE 5,000 UNIT/ML 1 ML VIAL SQ SCH ×3 (09:44→23:38)
[2019-01-27] MEDS: ASPIRIN 81 MG PO SCH (09:45)
[2019-01-27] MEDS: TIMOLOL 0.5% OPHTH DROPS 5 ML BTL BOTH EYES SCH ×2 (09:45→20:43)
[2019-01-27] MEDS: hydrALAZINE HCL 25 MG TAB PO SCH ×2 (09:45→20:46)
[2019-01-27] MEDS: ASCORBIC ACID 500 MG TAB PO SCH (09:45)
[2019-01-27] MEDS: ATORVASTATIN 40 MG TAB PO SCH (09:45)
[2019-01-27] MEDS: PANTOPRAZOLE 40 MG TABLET PO SCH (09:45)
[2019-01-27] MEDS: CHOLECALCIFEROL 400 UNIT TAB PO SCH (09:45)
--- NOTE | 2019-01-27 10:19 | P.PN ---
Subjective Progress Note Date: 01/27/19 78-year-old female patient is currently postop from cardiac surgery as the patient underwent a mitral valve repair and a tricuspid valve repair. Currently she is postop day #0. Note that preoperatively, the patient was found to have severe mitral regurgitation and moderate TR and mild aortic insufficiency. Her coronary angiogram was within normal limits. She is known to have hypertension, early onset dementia, and previous history of breast cancer. Currently, the patient is postop. She is on a assist-control mode of ventilation at the rate of 12 with a tidal volume of 350 and FiO2 was dropped down to 50% with a PEEP of 5. The blood gases showed a pH of 7.32 with a pCO2 of 43 and pO2 of found and 13 and this was done immediately postop. The chest x-ray showed adequate expansion of both lungs. The patient has 2 mediastinal chest tubes 1 right- sided and 1 left-sided pleural chest tube. The output from the chest tubes have been in the order of 200 mL of bloody output/serosanguineous from the mediastinal chest tube and 100 mL from the pleural chest tubes. Hemodynamically, the patient is doing well. Her cardiac index is at 2 with an output of 3.3. The patient has a PA pressure of 37/20. She is on Catapres for blood pressure control. She is not requiring any inotropes. She is producing adequate urine output in the order of 150 mL an hour. She is on IV fluids and she is receiving lactated Ringer at the rate of an hour. She received a total of 2 units of packed RBC intraoperatively and a unit of packed RBC. The patient for now is off sedation and when the process of weaning the sedation off and assessing the patient neurologic status. On today's evaluation of 01/25/2019 the patient is looking well. She is a bit sleepy. I was able to wean off the mechanical ventilator and extubated around 11:30 PM yesterday. She is currently on oxygen at 3 L. [place]-Opal catheter is in place. Cardiac index is at 2.4 with an output of 4.1. PA pressures are 30/9 and his CVP is around 7. She has the tubes in place with a right pleural and left pleural and 2 mediastinal chest tubes. Output is around 30-50 mL an hour and there is no evidence of any air leak. The chest x-ray from today shows what especially of both lungs. She is hemodynamically stable. She wasn't Cleviprex for blood pressure control that This continues. She is awake and alert and she is following commands. Her underlying cardiac rhythm was asystole. The patient is currently AV paced at the rate of 80. Afebrile. Using incentive spirometer and she is pulling approximately 500 mL. [place] evaluation of 01/26/2019 the patient is resting comfortably in bed. She was moved to a chair and after being there for few minutes she started developing ectopies mainly ventricular ectopies while her cardiac rhythm was still paced at the rate of 70. Her underlying rhythm is abnormal and that only P waves without any significant ventricular bases were noted earlier. However, she is producing some ventricular ectopies for now on the rhythm strips. She was unable to tolerate lower heart rate and heart rate was maintained at the rate of 70. Output from the chest tubes are minimal. The patient has right pleural and the left pleural chest tube and mediastinal chest tubes. The based on chest tubes w ill be taken out today. Her urine output is in order of 30 mL an hour. She got a dose of Lasix at 5 AM this morning. She is using incentive spirometer and she is pulling approximately 500. Tiny apical pneumothorax on today's chest x-ray. No evidence of any air leaks. [place]-Opal catheter removed. Cordis is in place. Sternum stable clean and intact. No fever or chills. The hemoglobin is stable at 9.4. Creatinine is at 0.8. On today's evaluation of 01/27/2019 the patient is postop day #3. She is looking well. Her underlying rhythm is still third-degree ventricular rhythm and the patient is going to have a pacemaker inserted tomorrow. Overnight she had had a low urine output. She was given albumin 5% to 50 mL and she was also given a bolus of 500 mL of normal saline. She did improve her urine output. This morning she is slightly running low at 20 mL an hour. She will be given a dose of Lasix 40 mg IV push. The chest tubes are in place and there are being . Output remains considerably high and we are going to monitor the output. The chest x-ray from today shows small tiny biapical pneumothoraces. Nevertheless, there is no evidence of air leak and the chest tube. The patient is currently paced and she is AV paced at the rate of 70. Sternum is stable cl mumtaz and intact. She does have some increased lower extremity edema. No other significant events overnight. Objective - Vital Signs Vital signs: Vital Signs Temp 98.0 F 01/27/19 08:00 Pulse 69 01/27/19 10:00 Resp 22 01/27/19 10:00 BP 114/59 01/27/19 08:00 Pulse Ox 91 L 01/27/19 10:00 Intake & Output 01/26/19 01/27/19 01/27/19 18:59 06:59 18:59 Intake Total 562 1042 104 Output Total 560 978 220 Balance 2 64 -116 Weight 75 kg Intake: IV 362 1042 104 Albumin Human 5% 250 ml 250 In Empty Bag 1 bag @ 250 mls/hr IVPB ONCE ONE Rx#: [id number] Lactated Ringers 1,000 ml 290 220 80 @ 20 mls/hr IV .Q24H [facility] Rx#:[id number] Pressure Bag 72 72 24 normal saline 500 Intake, IV Titration 200 Amount Insulin Regular 100 unit 0 In Sodium Chloride 0.9% 100 ml @ Per Protocol IV .Q0M [facility] Rx#:[id number] Potassium Chloride 10 meq 200 In Water For Injection 1 100ml.bag @ 100 mls/hr IVPB Q1H [facility] Rx#: [id number] Output: Chest Tube Drainage 125 720 110 left and right pleural 125 720 110 Urine 435 258 110 Other: Voiding Method Indwelling Catheter Indwelling Catheter ABP, PAP, CO, CI - Last Documented Arterial Blood Pressure 139/63 Pulmonary Artery Pressure 31/9 Cardiac Output 4.1 Cardiac Index 2.4 - Exam Gen. appearance, comfortable, sleepy, currently on 6 L per nasal cannula Head exam was generally normal. There was no scleral icterus or corneal arcus. Mucous membranes were moist. Neck was supple and without jugular venous distension, thyromegaly, or carotid bruits. Carotids were easily palpable bilaterally. There was no adenopathy. The patient is a left IJ Cordis in place and the [place]-Opal catheter has been taken out. Lungs sounds are equal and symmetrical bilaterally. No wheezes or rhonchi any crackles. Sternum stable clean and intact. The patient has right pleural and left pleural chest tubes are also in place. Heart sounds are regular, AV paced at the rate of 70. His some underlying ventricular ectopies.. No significant murmurs appreciated. Abdominal exam revealed normal bowel sounds. The abdomen was soft, non-tender, and without masses, organomegaly, or appreciable enlargement of the abdominal aorta. Examination of the extremities revealed easily palpable radial, femoral and pedal pulses. There was no cyanosis, clubbing or edema. Examination of the skin revealed no evidence of significant rashes, suspicious appearing nevi or other concerning lesions. Neurologic patient awake and alert and following commands and answering questions. No focal neurological deficits. - Labs CBC & Chem 7: 01/27/19 05:15 01/27/19 05:15 Labs: Abnormal Lab Results - Last 24 Hours (Table) 01/26/19 01/26/19 01/26/19 Range/Units 11:30 16:58 21:06 WBC (3.8-10.6) k/uL RBC (3.80-5.40) m/uL Hgb (11.4-16.0) gm/dL Hct (34.0-46.0) % Plt Count (150-450) k/uL Neutrophils # (1.3-7.7) k/uL Chloride (98-107) mmol/L BUN (7-17) mg/dL Glucose (74-99) mg/dL POC Glucose (mg/dL) 122 H 139 H 113 H (75-99) mg/dL AST (14-36) U/L Total Protein (6.3-8.2) g/dL Albumin (3.5-5.0) g/dL 01/27/19 01/27/19 Range/Units 05:15 05:15 WBC 11.7 H (3.8-10.6) k/uL RBC 2.85 L (3.80-5.40) m/uL Hgb 9.5 L (11.4-16.0) gm/dL Hct 28.5 L (34.0-46.0) % Plt Count 100 L (150-450) k/uL Neutrophils # 9.8 H (1.3-7.7) k/uL Chloride 110 H (98-107) mmol/L BUN 33 H (7-17) mg/dL Glucose 129 H (74-99) mg/dL POC Glucose (mg/dL) (75-99) mg/dL AST 41 H (14-36) U/L Total Protein 5.2 L (6.3-8.2) g/dL Albumin 3.2 L (3.5-5.0) g/dL Assessment and Plan Plan: 1 valvular heart disease with severe mitral and tricuspid regurgitation the patient undergone mitral valve repair and tricuspid valve repair and the patient is postop day #3. The patient's distal in the intensive care unit. The patient is recovering from her surgery. Underlying cardiac rhythm is a third-degree AV block.. The patient is currently paced at the rate of 70. The patient is hemodynamically stable. The patient is going to have a permanent pacemaker in place. 2 post thoracotomy, the patient was weaned off the mechanical ventilator and she was extubated and currently she is on 6 L of oxygen by nasal cannula. She has a very tiny biapical pneumothoraces in the chest tubes are in place without evidence of any air leak. The mediastinal chest tubes are removed. The pleural chest tubes will be kept in place and they'll be . No evidence of any air leak. Small tiny apical pneumothoraces is still present. 3 hypertension currently off Cleviprex , the patient is going to be started on some hydralazine. 4 history of breast cancer 5 early onset dementia 6 asystole/lztvtyznggo-jlbds-nhdame AV block, currently paced at the rate of 70 (AV paced) Plan Give the patient 40 mg of IV Lasix. the chest tubes. Monitor hemodynamics. Monitor the urine output. The patient will need a permanent pacemaker and this will be inserted tomorrow. We'll continue to follow.
[2019-01-27] MEDS: BRIMONIDINE TARTRATE 0.2% DROPS 5 ML BTL BOTH EYES SCH ×2 (10:21→20:42)
--- NOTE | 2019-01-27 10:39 | P.PN ---
Subjective Progress Note Date: 01/27/19 Principal diagnosis: Severe mitral valve regurgitation with moderate tricuspid valve regurgitation, mild aortic insufficiency and ascending aortic aneurysm. Past medical history s ignificant for hypertension, early onset dementia, depression, osteoarthritis, remote history of hepatitis A and breast cancer with radiation 17 years ago. POD #3 mitral valve repair with a 26mm annuloflex ring, tricuspid valve repair with a 26mm MC3 tricuspid ring, ascending aortic aortoplasty, ligation of the left atrial appendage with a 35mm Atriclip, Epiaortic ultrasound, intraoperative ELLYN. Postoperative bradycardia, unexpected finding. Postoperative acute blood loss anemia, expected, secondary to cardiopulmonary bypass pump and hemodilution. Postoperative third-degree AV block, an unexpected the potential outcome of surgery. The patient is sitting up to the bedside chair in the intensive care unit. She is in no acute distress. Her atrial and ventricular epicardial pacemaker wires remain in place connected to a bedside pacemaker generator on a DDD mode with a heart rate of 70 bpm. Her underlying rhythm is third degree heart block with a heart rate in the 30s. Denies any complaints of pain or shortness of breath at this time. Oxygen saturation is 92% on 4 L nasal cannula. Generalized +1 edema. She reports she ambulated in the intensive care unit hallway this morning with minimal assistance from the nursing staff. She is tolerating oral intake. Left IJ cordis remains in place with continuous CVP monitoring, current CVP pressure 18 mmHg. Left and right pleural chest tubes remain in place to low continuous wall suction -20 cm H2O. No air leak is present. Draining thin serosanguineous drainage with 640 mL output in the last 8 hours, 845 ml output in the last 24 hours. Objective - Vital Signs Vital signs: Vital Signs Temp 98.0 F 01/27/19 08:00 Pulse 69 01/27/19 08:38 Resp 20 01/27/19 08:00 BP 114/59 01/27/19 08:00 Pulse Ox 96 01/27/19 08:24 Intake & Output 01/26/19 01/27/19 01/27/19 18:59 06:59 18:59 Intake Total 562 1042 52 Output Total 560 978 80 Balance 2 64 -28 Weight 75 kg Intake: IV 362 1042 52 Albumin Human 5% 250 ml 250 In Empty Bag 1 bag @ 250 mls/hr IVPB ONCE ONE Rx#: [id number] Lactated Ringers 1,000 ml 290 220 40 @ 20 mls/hr IV .Q24H [facility] Rx#:[id number] Pressure Bag 72 72 12 normal saline 500 Intake, IV Titration 200 Amount Insulin Regular 100 unit 0 In Sodium Chloride 0.9% 100 ml @ Per Protocol IV .Q0M [facility] Rx#:[id number] Potassium Chloride 10 meq 200 In Water For Injection 1 100ml.bag @ 100 mls/hr IVPB Q1H [facility] Rx#: [id number] Output: Chest Tube Drainage 125 720 30 left and right pleural 125 720 30 Urine 435 258 50 Other: Voiding Method Indwelling Catheter Indwelling Catheter ABP, PAP, CO, CI - Last Documented Arterial Blood Pressure 115/69 Pulmonary Artery Pressure 31/9 Cardiac Output 4.1 Cardiac Index 2.4 - Constitutional General appearance: Present: cooperative, no acute distress, obese - Respiratory Details: Lung sounds essentially clear throughout, diminished to her bilateral bases. Respirations are symmetrical and nonlabored. Oxygen saturation 92% on 4 L nasal cannula. Achieving 500 mL on her incentive spirometry with much encouragement. Left and right pleural chest tubes remain in place to low continuous wall suction -20 cm H2O. No air leak is present. Draining thin serosanguineous drainage. - Cardiovascular Details: Regular rhythm and rate. S1 and S2 present, negative for S3, gallop or murmur. Sternum is stable. Atrial and ventricular epicardial pacemaker wires in place and connected to a pacemaker generator with a DDD mode with a rate of 70 bpm. Underlying rhythm consistent with third-degree AV block. Heart hugger is in place and she is demonstrating appropriate use. Knee-high MU hose and sequential compression devices in place to bilateral lower extremities. +1 generalized edema. - Gastrointestinal Gastrointestinal Comment(s): Abdomen is soft, nontender nondistended. Active bowel sounds present all 4 abdominal quadrants. No guarding or rigidity. No organomegaly appreciated. Tolerating oral intake. - Genitourinary Genitourinary Comment(s): Steward catheter for accurate I&O. Draining clear yellow urine. - Integumentary Integumentary Comment(s): Skin is warm and dry. No clubbing or cyanosis is present. Midline sternal incision is clean, dry and approximated. No drainage or redness is present. - Neurologic Neurologic: Present: CNII-XII intact - Musculoskeletal Musculoskeletal: Present: gait normal, generalized weakness, strength equal bilaterally - Psychiatric Psychiatric Comment(s): Flat affect. Psychiatric: Present: A&O x's 3, intact judgment & insight - Allied health notes Allied health notes reviewed: nursing - Labs CBC & Chem 7: 01/27/19 05:15 01/27/19 05:15 Labs: Abnormal Lab Results - Last 24 Hours (Table) 01/26/19 01/26/19 01/26/19 Range/Units 09:52 11:30 16:58 WBC (3.8-10.6) k/uL RBC (3.80-5.40) m/uL Hgb (11.4-16.0) gm/dL Hct (34.0-46.0) % Plt Count (150-450) k/uL Neutrophils # (1.3-7.7) k/uL Chloride (98-107) mmol/L BUN (7-17) mg/dL Glucose (74-99) mg/dL POC Glucose (mg/dL) 145 H 122 H 139 H (75-99) mg/dL AST (14-36) U/L Total Protein (6.3-8.2) g/dL Albumin (3.5-5.0) g/dL 01/26/19 01/27/19 01/27/19 Range/Units 21:06 05:15 05:15 WBC 11.7 H (3.8-10.6) k/uL RBC 2.85 L (3.80-5.40) m/uL Hgb 9.5 L (11.4-16.0) gm/dL Hct 28.5 L (34.0-46.0) % Plt Count 100 L (150-450) k/uL Neutrophils # 9.8 H (1.3-7.7) k/uL Chloride 110 H (98-107) mmol/L BUN 33 H (7-17) mg/dL Glucose 129 H (74-99) mg/dL POC Glucose (mg/dL) 113 H (75-99) mg/dL AST 41 H (14-36) U/L Total Protein 5.2 L (6.3-8.2) g/dL Albumin 3.2 L (3.5-5.0) g/dL - Imaging and Cardiology Chest x-ray: report reviewed, image reviewed Assessment and Plan Assessment: 1. Severe mitral valve regurgitation, moderate tricuspid valve regurgitation, aortic valve insufficiency and ascending aortic aneurysm. Status post mitral valve repair with 26mm annuloflex ring, tricuspid valve repair with 26mm M3 tricuspid ring, ascending aorta aortoplasty, ligation of the left atrial appendage with 35mm Atriclip. 2. Post operative bradycardia 3. Post operative acute blood loss anemia secondary to cardiopulmonary bypass pump and hemodilution 4. Hypertension 5. History of early-onset dementia 6. Depression 7. Osteoarthritis 8. Remote history of Hepatitis A 9. History of breast cancer with radiation 17 years ago 10. Postoperative third-degree AV block, unexpected Plan: 1. Optimize medical management with low-dose asprin, and statin. Continue to hold her beta ollie due to her underlying third-degree AV block rhythm. 2. Wean oxygen as tolerated. Encourage incentive spirometer as tolerated. Bronchodilators per pulmonology. 3. Discontinue left IJ cordis. 4. Increase activity as tolerated, out of bed to chair. PT/OT/cardiac rehab following. 5. Will monitor daily labs and chest xrays. Electrolyte replacement per protocol. 6. Insulin management per primary care service. 7. Continue pain management per when necessary orders. Avoid narcotics. 8. GI/DVT prophylaxis. 9. Continue Hydralazine 25 mg by mouth twice a day for afterload reduction. 10. We will split her left and right pleural chest tubes and keep them in place to low continuous wall suction -20 cm H2O. 11. Continue temporary pacemaker pads as backup. Keep atrial and ventricular epicardial pacemaker wires in place and connected to backup pacemaker generator on a DDD mode with a heart rate of 70 bpm. She may require a permanent pacemaker to be placed by cardiology within the next 24-48 hours. 12. Discontinue Toradol. 13. Lasix 40 mg IV 1 now. 14. More recommendations to follow on patient's clinical course. Time with Patient: Greater than 30
--- NOTE | 2019-01-27 10:44 | P.PN ---
Subjective Progress Note Date: 01/26/19 This is a 78-year-old female patient of Dr. Monteiro with past medical history of breast cancer in 2002, dementia, hypertension, osteoarthritis, glaucoma. Patient is seen on postop day #1 following a mitral valve repair and a tricuspid valve repair. Patient is seen in the intensive care unit. She has been successfully extubated last evening is currently on 2 L nasal cannula. She is using incentive spirometer reaching 500 mL. She is currently on insulin 1 unit per hour and does not have history of diabetes. Patient has had good urine output but has decreased to 30-40 mL per hour this morning. She is currently on O2 at 2 L. Blood pressure is stable. Patient did stand with physical therapy may require subacute or inpatient rehab. Patient examined sitting comfortably in bed. Denies any acute distress. He saturating well at 95% on 2 L of oxygen. She currently has 2 mediastinal chest tube in place had low continuous wall suction. Did receive a dose of Lasix overnight continues to have 30 to 40 mL of urine output per of her. Patient was noted to have bradycardia consistent with third-degree block and atrial ventricular epicardial pacemaker wires were kept in place with a plan to place pacemaker. Mediastinal chest tube drained 120 mL output in the last 8 hours 250 mL output in the last 24 hours with a right chest tube draining 320 mL output in 8 hours and 6 for urine output in the last 24 hours. No evidence of any air leaks. [place]-Opal catheter removed. Cordis is in place Objective - Vital Signs Vital signs: Vital Signs Temp 97.1 F L 01/26/19 12:00 Pulse 68 01/26/19 14:00 Resp 14 01/26/19 14:00 BP 117/65 01/26/19 10:00 Pulse Ox 95 01/26/19 14:00 Intake & Output 01/25/19 01/26/19 01/26/19 18:59 06:59 18:59 Intake Total 882.462 680.603 458 Output Total 928 980 410 Balance -45.538 -299.397 48 Weight 66.587 kg 70.1 kg Intake: IV 641 432 258 Cardiac Output 30 Lactated Ringers 1,000 ml 480 360 210 @ 20 mls/hr IV .Q24H [facility] Rx#:[id number] Pressure Bag 81 72 48 ceFAZolin 2 gm In Sodium 50 Chloride 0.9% 50 ml @ 100 mls/hr IVPB Q8HR [facility] Rx# :[id number] Intake, IV Titration 71.462 3.603 200 Amount Clevidipine Butyrate 25 50 mg In Empty Bag 1 bag @ 1 MG/HR 2 mls/hr IV .Q24H [facility] Rx#:[id number] Insulin Regular 100 unit 21.462 3.603 0 In Sodium Chloride 0.9% 100 ml @ Per Protocol IV .Q0M [facility] Rx#:[id number] Potassium Chloride 10 meq 200 In Water For Injection 1 100ml.bag @ 100 mls/hr IVPB Q1H [facility] Rx#: [id number] Oral 170 245 Output: Chest Tube Drainage 360 530 70 left and right pleural 240 380 70 mediastinal x2 120 150 Urine 568 450 340 Other: Voiding Method Indwelling Catheter Indwelling Catheter Indwelling Catheter ABP, PAP, CO, CI - Last Documented Arterial Blood Pressure 120/54 Pulmonary Artery Pressure 31/9 Cardiac Output 4.1 Cardiac Index 2.4 - Exam Gen: This is a 78-year-old female. She is sitting in recliner in the intensive care unit appears to be comfortable and in no acute distress. HEENT: Head is atraumatic, normocephalic. Pupils equal, round. Sclerae is anicteric. Left-sided Cordis in place. NECK: Supple. No JVD. No lymphadenopathy. No thyromegaly.left I J in place LUNGS: Diminished bilaterally. No wheezes or rhonchi. No intercostal retractions. HEART: Regular rate and rhythm. No murmur. Chest tubes in place. ABDOMEN: Soft. Bowel sounds are present. No masses. No tenderness. Steward catheter draining clear catrachito urine. EXTREMITIES: No pedal edema. No calf tenderness. NEUROLOGICAL: Patient is awake, alert and oriented x3. Cranial nerves 2 through 12 are grossly intact. - Labs CBC & Chem 7: 01/26/19 04:30 01/26/19 09:52 Labs: Abnormal Lab Results - Last 24 Hours (Table) 01/25/19 01/25/19 01/25/19 Range/Units 16:19 18:06 20:15 WBC (3.8-10.6) k/uL RBC (3.80-5.40) m/uL Hgb (11.4-16.0) gm/dL Hct (34.0-46.0) % Plt Count (150-450) k/uL Neutrophils # (1.3-7.7) k/uL Chloride (98-107) mmol/L BUN (7-17) mg/dL Glucose (74-99) mg/dL POC Glucose (mg/dL) 124 H 129 H 106 H (75-99) mg/dL AST (14-36) U/L Alkaline Phosphatase (38-126) U/L Total Protein (6.3-8.2) g/dL Albumin (3.5-5.0) g/dL 01/25/19 01/25/19 01/26/19 Range/Units 22:07 23:18 01:58 WBC (3.8-10.6) k/uL RBC (3.80-5.40) m/uL Hgb (11.4-16.0) gm/dL Hct (34.0-46.0) % Plt Count (150-450) k/uL Neutrophils # (1.3-7.7) k/uL Chloride (98-107) mmol/L BUN (7-17) mg/dL Glucose (74-99) mg/dL POC Glucose (mg/dL) 125 H 134 H 118 H (75-99) mg/dL AST (14-36) U/L Alkaline Phosphatase (38-126) U/L Total Protein (6.3-8.2) g/dL Albumin (3.5-5.0) g/dL 01/26/19 01/26/19 01/26/19 Range/Units 03:28 04:27 04:30 WBC 12.1 H (3.8-10.6) k/uL RBC 2.81 L (3.80-5.40) m/uL Hgb 9.4 L (11.4-16.0) gm/dL Hct 27.9 L (34.0-46.0) % Plt Count 91 L (150-450) k/uL Neutrophils # 10.0 H (1.3-7.7) k/uL Chloride (98-107) mmol/L BUN (7-17) mg/dL Glucose (74-99) mg/dL POC Glucose (mg/dL) 121 H 131 H (75-99) mg/dL AST (14-36) U/L Alkaline Phosphatase (38-126) U/L Total Protein (6.3-8.2) g/dL Albumin (3.5-5.0) g/dL 01/26/19 01/26/19 01/26/19 Range/Units 04:30 05:35 07:03 WBC (3.8-10.6) k/uL RBC (3.80-5.40) m/uL Hgb (11.4-16.0) gm/dL Hct (34.0-46.0) % Plt Count (150-450) k/uL Neutrophils # (1.3-7.7) k/uL Chloride 110 H (98-107) mmol/L BUN 25 H (7-17) mg/dL Glucose 128 H (74-99) mg/dL POC Glucose (mg/dL) 135 H 129 H (75-99) mg/dL AST 74 H (14-36) U/L Alkaline Phosphatase 37 L (38-126) U/L Total Protein 4.9 L (6.3-8.2) g/dL Albumin 3.1 L (3.5-5.0) g/dL 01/26/19 01/26/19 01/26/19 Range/Units 08:09 09:52 11:30 WBC (3.8-10.6) k/uL RBC (3.80-5.40) m/uL Hgb (11.4-16.0) gm/dL Hct (34.0-46.0) % Plt Count (150-450) k/uL Neutrophils # (1.3-7.7) k/uL Chloride (98-107) mmol/L BUN (7-17) mg/dL Glucose (74-99) mg/dL POC Glucose (mg/dL) 126 H 145 H 122 H (75-99) mg/dL AST (14-36) U/L Alkaline Phosphatase (38-126) U/L Total Protein (6.3-8.2) g/dL Albumin (3.5-5.0) g/dL Assessment and Plan Plan: 1. Valvular heart disease status post mitral valve repair and tricuspid valve repair, postop day #2. Continue current management per cardiothoracic surgery, intensive care management continues incentive spirometry to reduce incidence of atelectasis and hospital-acquired pneumonia. Insulin drip discontinued. Continue aspirin, Lipitor 2. Hypertension. Patient is off clevidipine. 3. Dementia. Continue Aricept. 4. Glaucoma. Continue eyedrops. 5. Postoperative bradycardia with evidence of 3 rd degree block , plan for pacemaker placement 6. DVT prophylaxis. Heparin subcu. 7. GI prophylaxis. Tenex.
--- NOTE | 2019-01-27 10:59 | P.PN ---
Subjective Progress Note Date: 01/27/19 This is a 78-year-old female patient of Dr. Monteiro with past medical history of breast cancer in 2002, dementia, hypertension, osteoarthritis, glaucoma. Patient is seen on postop day #1 following a mitral valve repair and a tricuspid valve repair. Patient is seen in the intensive care unit. She has been successfully extubated last evening is currently on 2 L nasal cannula. She is using incentive spirometer reaching 500 mL. She is currently on insulin 1 unit per hour and does not have history of diabetes. Patient has had good urine output but has decreased to 30-40 mL per hour this morning. She is currently on O2 at 2 L. Blood pressure is stable. Patient did stand with physical therapy may require subacute or inpatient rehab. 01/27: Patient has developed third degree AV block for which her heart rate was running in the 30s and 40s. Heart rate is currently in the 60s with bedside pacemaker generator on DDD mode, blood pressure 139/63, pulse ox 91-95% on 6 L nasal cannula. Patient is scheduled for pacemaker implantation for tomorrow. Patient has had mediastinal chest tubes removed. 2 bilateral pleural chest tubes remain in place draining serous fluid. Repeat chest x-ray last evening revealed stable tiny left greater than right bilateral apical pneumothoraces. Cardiomegaly and chronic parenchymal change with left greater than right bibasilar acute infiltrate and/or atelectasis. The patient is found sitting up in a chair and appears to be comfortable and in no acute distress, no respiratory distress is noted. Review of Systems Constitutional: Reports fatigue, Reports poor appetite, Reports weakness, Denies anorexia, Denies chills, Denies fever Ears, nose, mouth and throat: Denies dental pain, Denies dysphagia, Denies headache, Denies sore throat, Denies vertigo Cardiovascular: Denies chest pain, Denies decreased exercise tolerance, Denies dyspnea on exertion, Denies shortness of breath, Denies syncope Respiratory: Denies cough, Denies cough with sputum, Denies dyspnea, Denies respiratory infections Gastrointestinal: Denies abdominal pain, Denies diarrhea, Denies nausea, Denies vomiting Genitourinary: Denies dysuria, Denies hematuria, Denies urinary frequency Musculoskeletal: Reports muscle weakness, Denies myalgias Integumentary: Denies pruritus, Denies rash Neurological: Denies change in mentation, Denies change in speech, Denies numbness, Denies seizures, Denies weakness Psychiatric: Denies anxiety, Denies depression Endocrine: Denies fatigue, Denies weight change Objective - Vital Signs Vital signs: Vital Signs Temp 98.0 F 01/27/19 08:00 Pulse 69 01/27/19 09:00 Resp 16 01/27/19 09:00 BP 114/59 01/27/19 08:00 Pulse Ox 95 01/27/19 09:00 Intake & Output 01/26/19 01/27/19 01/27/19 18:59 06:59 18:59 Intake Total 562 1042 78 Output Total 560 978 200 Balance 2 64 -122 Weight 75 kg Intake: IV 362 1042 78 Albumin Human 5% 250 ml 250 In Empty Bag 1 bag @ 250 mls/hr IVPB ONCE ONE Rx#: [id number] Lactated Ringers 1,000 ml 290 220 60 @ 20 mls/hr IV .Q24H [facility] Rx#:[id number] Pressure Bag 72 72 18 normal saline 500 Intake, IV Titration 200 Amount Insulin Regular 100 unit 0 In Sodium Chloride 0.9% 100 ml @ Per Protocol IV .Q0M [facility] Rx#:[id number] Potassium Chloride 10 meq 200 In Water For Injection 1 100ml.bag @ 100 mls/hr IVPB Q1H [facility] Rx#: [id number] Output: Chest Tube Drainage 125 720 110 left and right pleural 125 720 110 Urine 435 258 90 Other: Voiding Method Indwelling Catheter Indwelling Catheter ABP, PAP, CO, CI - Last Documented Arterial Blood Pressure 157/70 Pulmonary Artery Pressure 31/9 Cardiac Output 4.1 Cardiac Index 2.4 - Exam Gen: This is a 78-year-old female. She is sitting in recliner in the intensive care unit appears to be comfortable and in no acute distress. HEENT: Head is atraumatic, normocephalic. Pupils equal, round. Sclerae is anicteric. NECK: Supple. No JVD. No lymphadenopathy. No thyromegaly. LUNGS: Diminished bilaterally. No wheezes or rhonchi. No intercostal retractions. HEART: Regular rate and rhythm. No murmur. Chest tubes in place. ABDOMEN: Soft. Bowel sounds are present. No masses. No tenderness. EXTREMITIES: 1+ pedal edema. No calf tenderness. NEUROLOGICAL: Patient is awake, alert and oriented x3. Cranial nerves 2 through 12 are grossly intact. - Labs CBC & Chem 7: 01/27/19 05:15 01/27/19 05:15 Labs: Abnormal Lab Results - Last 24 Hours (Table) 01/26/19 01/26/19 01/26/19 Range/Units 09:52 11:30 16:58 WBC (3.8-10.6) k/uL RBC (3.80-5.40) m/uL Hgb (11.4-16.0) gm/dL Hct (34.0-46.0) % Plt Count (150-450) k/uL Neutrophils # (1.3-7.7) k/uL Chloride (98-107) mmol/L BUN (7-17) mg/dL Glucose (74-99) mg/dL POC Glucose (mg/dL) 145 H 122 H 139 H (75-99) mg/dL AST (14-36) U/L Total Protein (6.3-8.2) g/dL Albumin (3.5-5.0) g/dL 01/26/19 01/27/19 01/27/19 Range/Units 21:06 05:15 05:15 WBC 11.7 H (3.8-10.6) k/uL RBC 2.85 L (3.80-5.40) m/uL Hgb 9.5 L (11.4-16.0) gm/dL Hct 28.5 L (34.0-46.0) % Plt Count 100 L (150-450) k/uL Neutrophils # 9.8 H (1.3-7.7) k/uL Chloride 110 H (98-107) mmol/L BUN 33 H (7-17) mg/dL Glucose 129 H (74-99) mg/dL POC Glucose (mg/dL) 113 H (75-99) mg/dL AST 41 H (14-36) U/L Total Protein 5.2 L (6.3-8.2) g/dL Albumin 3.2 L (3.5-5.0) g/dL Assessment and Plan Plan: 1. Valvular heart disease status post mitral valve repair and tricuspid valve repair, postop day #1. Continue current management per cardiothoracic surgery, intensive care management continues incentive spirometry to reduce incidence of atelectasis and hospital-acquired pneumonia. Continue aspirin, Lipitor. Patient is off insulin drip and on NovoLog scale. 2. Third-degree AV block currently on pace pacer DDD. Scheduled for permanent pacemaker placement on Wednesday. 3. Hypertension. Continue hydralazine 25 mg twice daily. 4. Dementia. Continue Aricept and Namenda. 5. Glaucoma. Continue eyedrops. 6. DVT prophylaxis. Heparin subcu. 7. GI prophylaxis. Protonix. Discharge plan: [facility] Impression and plan of care have been directed as dictated by the signing physician. Noris Gonzales nurse practitioner acting as scribe for signing physician.
[2019-01-27 11:49] LABS: Glucose,Whole Blood 106 mg/dL (75-99)
--- NOTE | 2019-01-27 12:21 | PN ---
PROGRESS NOTE Sheila is a 78-year-old lady with mitral and tricuspid valve repair, developed complete heart block and still remains in complete heart block. We do not see any junctional escape rhythm and she is pacer dependent. The patient will undergo a permanent pacemaker tomorrow by Dr. Perez at 9:00. The nurse in the ICU will obtain consent from her daughter. PHYSICAL EXAMINATION: On exam today she is otherwise doing well, ambulating without any problems. Vital signs are stable. Paced rhythm. Chest exam reveals diminished air entry at the bases. Heart exam reveals first and second heart sounds. No gallop. Exam of extremities reveals trace edema. Peripheral pulses are felt. LABS: Labs showed that the hemoglobin is 9.5, platelet count is 100, potassium is 4, creatinine is 0.7. ASSESSMENT: 1. Complete heart block related to mitral valve repair. 2. Status post mitral and tricuspid valve repair. PLAN: Patient is doing better. Will have permanent pacemaker tomorrow. MMODL / IJN: [id number] /
[2019-01-27 17:37] LABS: Glucose,Whole Blood 131 mg/dL (75-99)
[2019-01-27] MEDS ORDERED: Potassium Replacement Protocol 1 EACH MISC MISCELLANE PRN (18:59)
[2019-01-27] MEDS ORDERED: POTASSIUM BICARBONATE/CIT AC 20 MEQ TABLET.EFF NG-TUBE SCH (19:00)
[2019-01-27] MEDS: DONEPEZIL 10 MG TAB PO SCH (20:43)
[2019-01-27 20:44] LABS: Glucose,Whole Blood 136 mg/dL (75-99)
[2019-01-27] MEDS: SENNOSIDES-DOCUSATE SODIUM 1 EACH TAB PO SCH (20:47)
[2019-01-27] MEDS: MEMANTINE 10 MG TAB PO SCH (20:47)
[2019-01-27] MEDS: LATANOPROST 0.005% OPHTH DROPS 2.5 ML BTL BOTH EYES SCH (21:40)
[2019-01-28] MEDS: ACETAMINOPHEN TAB 500 MG TAB PO PRN ×2 (00:51→11:33)
[2019-01-28] MEDS ORDERED: SODIUM CHLORIDE 0.9% 500 ML 500 ML IV ONE (01:23)
[2019-01-28 04:44] LABS: Basophils % (A) 0 %; Eosinophils # (A) 0.1 k/uL (0-0.7); Eosinophils % (A) 1 %; HCT 27.7 % (34.0-46.0); HGB 9.2 gm/dL (11.4-16.0); Lymphocytes # (A) 1.8 k/uL (1.0-4.8); Lymphocytes % (A) 14 %; MCH 33.2 pg (25.0-35.0); MCHC 33.3 g/dL (31.0-37.0); MCV 99.6 fL (80.0-100.0); Mean Platelet Volume 7.3; Monocytes # (A) 0.4 k/uL (0-1.0); Monocytes % (A) 3 %; Neutrophils # (A) 10.8 k/uL (1.3-7.7); Neutrophils % (A) 82 %; Platelet Count 132 k/uL (150-450); RBC 2.78 m/uL (3.80-5.40); RDW 13.7 % (11.5-15.5); WBC 13.1 k/uL (3.8-10.6)
[2019-01-28 05:41] LABS: ALT 26 U/L (9-52); AST 41 U/L (14-36); African American GFR (CKD) >90 (>60 ml/min/1.73 sqM); Alkaline Phosphatase 45 U/L (38-126); Anion Gap 4 mmol/L; Blood Urea Nitrogen 37 mg/dL (7-17); Calcium 8.3 mg/dL (8.4-10.2); Carbon Dioxide 26 mmol/L (22-30); Chloride 110 mmol/L (98-107); Glucose 113 mg/dL (74-99); Non-African American GFR(CKD) 86 (>60 ml/min/1.73 sqM); Potassium 3.9 mmol/L (3.5-5.1); Sodium 140 mmol/L (137-145); Total Bilirubin 0.9 mg/dL (0.2-1.3); Total Protein 5.3 g/dL (6.3-8.2)
--- NOTE | 2019-01-28 06:27 | XR ---
EXAMINATION TYPE: XR chest 1V portable DATE OF EXAM: 01/28/2019 CLINICAL HISTORY: Difficulty breathing progress study. TECHNIQUE: Single AP portable upright view of the chest is obtained. COMPARISON: Chest x-ray from one day earlier and older studies. FINDINGS: Persistent bilateral chest tubes with tiny left apical pneumothorax thought stable. Tiny r ight apical pneumothorax not identified on current study. Interval removal of left internal jugular c ordis sheath . Cardiac valvular rings and closure device again seen. Overlying Inferior epicardial wi res are redemonstrated. Overlying EKG leads are redemonstrated. Background chronic parenchymal change and cardiomegaly with ectatic aorta is redemonstrated. Persiste nt left greater than right bibasilar opacities. New inferior right upper lung opacity. Suspect small right pleural effusion. IMPRESSION: Bilateral chest tubes with stable tiny left apical pneumothorax. No right pneumothorax cl early seen on current study. Cardiomegaly and chronic parenchymal changes with bibasilar acute infilt rate and/or atelectasis. New inferior right upper lung acute infiltrate. Suspect small right pleural effusion.
[2019-01-28 07:01] LABS: Glucose,Whole Blood 112 mg/dL (75-99)
[2019-01-28] MEDS: INSULIN ASPART (NovoLOG) 100 UNIT/ML VIAL SQ SCH ×4 (07:04→20:56)
[2019-01-28] MEDS: IPRATROPIUM-ALBUTEROL 3 ML NEB INHALATION SCH ×5 (07:55→21:11)
[2019-01-28] MEDS: hydrALAZINE HCL 25 MG TAB PO SCH (08:39)
[2019-01-28] MEDS ORDERED: IV FLUID CONTINUATION 1,000 ML IV ONE (08:50)
[2019-01-28] MEDS ORDERED: FUROSEMIDE 10 MG/ML 2 ML VIAL IV STA (08:52)
[2019-01-28] MEDS ORDERED: IOPAMIDOL-370 50ML BTL INJ ONE (08:55)
[2019-01-28] MEDS ORDERED: CLINDAMYCIN 600 MG in SODIUM CHLORIDE 0.9% IRRIGATIO 250 ML IRRIGATION ONE (09:00)
[2019-01-28] MEDS ORDERED: CLINDAMYCIN 900 MG in DEXTROSE 5% IN WATER 50 ML IVPB ONE ×2 (09:00)
[2019-01-28] MEDS ORDERED: LIDOCAINE 1% INJ 10MG/ML (20 ML MDV) ONE ×2 (09:04→09:05)
[2019-01-28] MEDS ORDERED: fentaNYL (PF) 50 MCG/ML 2 ML AMP ONE (09:19)
[2019-01-28] MEDS ORDERED: fentaNYL (PF) 50 MCG/ML 2 ML AMP IVP ONE (09:20)
[2019-01-28] MEDS ORDERED: LIDOCAINE 1% INJ 10MG/ML (20 ML MDV) SQ ONE (09:21)
[2019-01-28] MEDS: LIDOCAINE 1% INJ 10MG/ML (20 ML MDV) SQ ONE ×2 (09:25→09:30)
[2019-01-28] MEDS: PANTOPRAZOLE 40 MG TABLET PO SCH (09:57)
--- NOTE | 2019-01-28 10:40 | P.PCN ---
Date of Procedure: 01/28/19 Preoperative Diagnosis: Complete A-V dissociation, status post mitral and tricuspid valve surgery Postoperative Diagnosis: The same Procedure(s) Performed: Dual-chamber pacemaker implantation, axillary venography Description of Procedure: HISTORY: This is a 78-year-old female with history of of mitral and tricuspid regurgitation. Status post surgery for repair of both valves. Patient developed complete AV dissociation. A request was made for dual-chamber permanent pacemaker implantation. CONSENT: Dr. Herrera has discussed the risks, benefits and alternative therapies for the above-mentioned procedure and for both sedation/analgesia as well as necessary blood product administration, if indicated, as they pertain to this patient. The patient has indicated understanding and acceptance of the risks and procedures discussed. PROCEDURE: Patient was brought to the lab in a fasting state. Patient was prepped and draped in the usual fashion. Patient was given IV sedation with fentanyl and Versed. The skin below the left clavicle was infiltrated with lidocaine. An incision was made parallel to deltopectoral groove was deepened until the pectoral fascia was exposed. A pocket was created by blunt dissection and cautery. Axillary venography was performed to delineate the course of the axillary vein. 2 sticks were performed into extrathoracic portion of the axillary vein and 2 sheaths were advanced over the guidewires and left in subclavian vein. Conscious Sedation: Versed 0mg Fentanyl 12.5 g Duration 70 minutes LEADS: ATRIAL: This is manufactured by [employer]. Model number is 5076 and serial number is [id number] VENTRICULAR: This is manufactured by [employer] model number is 5076. Serial number is [id number] The ventricular lead is maneuvered l with help of a straight and curved stylets into the left ventricle apical region. Satisfactory position was obtained and threshold measurements were made. The atrial lead was then maneuvered into the right atrial appendage. And thresholds were obtained. THRESHOLDS: ATRIUM: The minimal patient threshold was 0.7 at pulse width of 0.5 with impedance of 687. P-wave: 2.7 mV VENTRICLE: The minimal patient threshold is 0.6 at pulse width of 0.5. The impedance is 1108 R-wave: 10.2 The leads and pulse generator remained in the pocket after it was washed with antibiotics. Pocket was closed in the usual fashion. The fascia was closed with 2-0 Prolene ,the subcutaneous tissue was closed with 3-0 Prolene and the skin was closed with 4-0 Prolene. PROGRAMMING: MODE: DDDR RATE: 60 to 130OUTPUT: Atrium: 3.5 V Ventricle: 3.5 V FINAL IMPRESSION: #1. Axillary venography #2. Successful implantation of dual- chamber pacemaker COMPLICATIONS: None immediately PLAN: Get a chest x-ray to rule out possible tear of pneumothorax. Chest x-ray in the morning. Continue prophylactic antibiotic.
--- NOTE | 2019-01-28 11:02 | P.PN ---
Subjective Progress Note Date: 01/28/19 Principal diagnosis: Severe mitral valve regurgitation with moderate tricuspid valve regurgitation, mild aortic insufficiency and ascending aortic aneurysm. Past medical history s ignificant for hypertension, early onset dementia, depression, osteoarthritis, remote history of hepatitis A and breast cancer with radiation 17 years ago. POD #3 mitral valve repair with a 26mm annuloflex ring, tricuspid valve repair with a 26mm MC3 tricuspid ring, ascending aortic aortoplasty, ligation of the left atrial appendage with a 35mm Atriclip, Epiaortic ultrasound, intraoperative ELLYN. Postoperative bradycardia, unexpected finding. Postoperative acute blood loss anemia, expected, secondary to cardiopulmonary bypass pump and hemodilution. Postoperative complete A-V dissociation, an unexpected the potential outcome of surgery. The patient is sitting up to the bedside chair in the intensive care unit. She is in no acute distress. Her atrial and ventricular epicardial pacemaker wires remain in place connected to a bedside pacemaker generator on a DDD mode with a heart rate of 70 bpm. Her underlying rhythm is complete A-V dissociation with heart rate in the 40s. Denies any complaints of pain although reports she is having some episodes of shortness of breath with activity. Oxygen saturation is 94% on 6 L nasal cannula. Generalized +1 edema. The night nurse reports that she had some episodes of low urine output with some hypotension and was given 1 L of normal saline. Her current blood pressure is 116/82 mmHg and she has had 265 mL output in the last 8 hours of urine. She is nothing by mouth at this time for a permanent pacemaker placement scheduled for 9 AM today. Left and right pleural chest tubes remain in place to low continuous wall suction -20 cm H2O. No air leak is present. Draining thin serosanguineous drainage. 600 mL output in the last 24 hours and 230 mL output in the last 8 hours from her right pleural chest tube and 400 mL in the last 24 hours and 290 mL output in the last 8 hours from her left pleural chest tube. Objective - Vital Signs Vital signs: Vital Signs Temp 98.3 F 01/28/19 08:00 Pulse 70 01/28/19 08:00 Resp 25 H 01/28/19 08:00 BP 115/58 01/28/19 08:00 Pulse Ox 95 01/28/19 08:00 Intake & Output 01/27/19 01/28/19 01/28/19 18:59 06:59 18:59 Intake Total 332 744 298 Output Total 1693 589 285 Balance -1361 155 13 Weight 72.9 kg Intake: IV 332 744 298 Albumin Human 5% 250 ml 20 In Empty Bag 1 bag @ 250 mls/hr IVPB ONCE ONE Rx#: [id number] Lactated Ringers 1,000 ml 260 200 80 @ 20 mls/hr IV .Q24H [facility] Rx#:[id number] Pressure Bag 72 24 12 normal saline 500 Output: Chest Tube Drainage 543 330 230 Pleural Catheter Left 118 220 90 Pleural Catheter Right 155 110 140 left and right pleural 270 Urine 1150 259 55 Other: Voiding Method Indwelling Catheter Indwelling Catheter Indwelling Catheter ABP, PAP, CO, CI - Last Documented Arterial Blood Pressure 138/59 Pulmonary Artery Pressure 31/9 Cardiac Output 4.1 Cardiac Index 2.4 - Constitutional General appearance: Present: cooperative, no acute distress, obese - Respiratory Details: Lungs sounds essentially diminished throughout. No wheezes or crackles present. Respirations are symmetrical and nonlabored. Oxygen saturation is 94% on 6 L nasal cannula. Achieving 500 mL on her incentive spirometry with much encouragement. Left and right pleural chest tubes remain in place to low continuous wall suction -20 cm H2O. No air leak is present. Draining thin serosanguineous drainage. - Cardiovascular Details: Regular rhythm and rate. S1 and S2 present, negative for S3, gallop or murmur. Sternum is stable. Bedside telemetry showing DDD paced rhythm at 70 BPM. Underlying rhythm is complete AV dissociation heart rate in the 40s. Atrial and ventricular epicardial pacemaker wires in place and connected to bedside pacemaker generator with a DDD of 70. Left radial arterial line in place and functioning. Heart hugger is in place and she is demonstrating appropriate use with encouragement. Knee-high MU hose and sequential compression devices in place to bilateral lower extremities. +1 generalized edema. - Gastrointestinal Gastrointestinal Comment(s): Abdomen is soft, nontender and nondistended. Active bowel sounds present in all 4 abdominal quadrants. No guarding or rigidity. No organomegaly appreciated. Passing flatus. Nothing by mouth. - Genitourinary Genitourinary Comment(s): Steward catheter for accurate I&O. Draining clear yellow urine. - Integumentary Integumentary Comment(s): Skin is warm and dry. No clubbing or cyanosis is present. Midline sternal incision is clean, dry and approximated. No drainage or redness present. Gauze dressing is clean and intact. No rash or abnormal pigmentation. - Neurologic Neurologic: Present: CNII-XII intact - Musculoskeletal Musculoskeletal: Present: gait normal, generalized weakness, strength equal bilaterally - Psychiatric Psychiatric Comment(s): Episodes of forgetfulness. Psychiatric: Present: A&O x's 3, appropriate affect, intact judgment & insight - Allied health notes Allied health notes reviewed: nursing - Labs CBC & Chem 7: 01/28/19 04:30 01/28/19 04:30 Labs: Abnormal Lab Results - Last 24 Hours (Table) 01/27/19 01/27/19 01/27/19 Range/Units 11:37 17:25 20:33 WBC (3.8-10.6) k/uL RBC (3.80-5.40) m/uL Hgb (11.4-16.0) gm/dL Hct (34.0-46.0) % Plt Count (150-450) k/uL Neutrophils # (1.3-7.7) k/uL Chloride (98-107) mmol/L BUN (7-17) mg/dL Glucose (74-99) mg/dL POC Glucose (mg/dL) 106 H 131 H 136 H (75-99) mg/dL Calcium (8.4-10.2) mg/dL AST (14-36) U/L Total Protein (6.3-8.2) g/dL Albumin (3.5-5.0) g/dL 01/28/19 01/28/19 01/28/19 Range/Units 04:30 04:30 06:50 WBC 13.1 H (3.8-10.6) k/uL RBC 2.78 L (3.80-5.40) m/uL Hgb 9.2 L (11.4-16.0) gm/dL Hct 27.7 L (34.0-46.0) % Plt Count 132 L (150-450) k/uL Neutrophils # 10.8 H (1.3-7.7) k/uL Chloride 110 H (98-107) mmol/L BUN 37 H (7-17) mg/dL Glucose 113 H (74-99) mg/dL POC Glucose (mg/dL) 112 H (75-99) mg/dL Calcium 8.3 L (8.4-10.2) mg/dL AST 41 H (14-36) U/L Total Protein 5.3 L (6.3-8.2) g/dL Albumin 3.0 L (3.5-5.0) g/dL - Imaging and Cardiology Chest x-ray: report reviewed, image reviewed Assessment and Plan Assessment: 1. Severe mitral valve regurgitation, moderate tricuspid valve regurgitation, aortic valve insufficiency and ascending aortic aneurysm. Status post mitral valve repair with 26mm annuloflex ring, tricuspid valve repair with 26mm M3 tricuspid ring, ascending aorta aortoplasty, ligation of the left atrial appendage with 35mm Atriclip. 2. Post operative bradycardia 3. Post operative acute blood loss anemia secondary to cardiopulmonary bypass pump and hemodilution 4. Hypertension 5. History of early-onset dementia 6. Depression 7. Osteoarthritis 8. Remote history of Hepatitis A 9. History of breast cancer with radiation 17 years ago 10. Postoperative complete A-V dissociation, unexpected Plan: 1. Optimize medical management with low-dose asprin, and statin. Once her permanent pacemaker is placed we will start her on metoprolol tartrate 12.5 mg by mouth twice a day. 2. Wean oxygen as tolerated. Encourage incentive spirometer as tolerated. Bronchodilators per pulmonology. 3. Keep atrial and ventricular epicardial pacemaker wires in today. Anticipate removal of her epicardial pacemaker wires tomorrow 01/29/2019. 4. Increase activity as tolerated, out of bed to chair[facility] 5. Will monitor daily labs and chest xrays. Electrolyte replacement per protocol. 6. Insulin management per primary care service. 7. Continue pain management per when necessary orders. Avoid narcotics. 8. GI/DVT prophylaxis. 9. Discontinue hydralazine due to episode of hypotension last evening. 10. Keep left and right pleural chest tubes and keep them in place to low continuous wall suction -20 cm H2O. Continue accurate I & O. 11. Scheduled for permanent pacemaker placement today at [address] Perez 12. Lasix 20 mg IV 1 now. 13. More recommendations to follow on patient's clinical course. Time with Patient: Greater than 30
[2019-01-28] MEDS: HEPARIN SODIUM,PORCINE 5,000 UNIT/ML 1 ML VIAL SQ SCH ×2 (11:09→16:27)
[2019-01-28] MEDS: POTASSIUM CHLORIDE 10 MEQ in WATER FOR INJECTION 1 100ML.BAG IVPB SCH ×2 (11:10→11:56)
[2019-01-28] MEDS: ASCORBIC ACID 500 MG TAB PO SCH (11:10)
[2019-01-28] MEDS: ASPIRIN 81 MG PO SCH (11:10)
[2019-01-28] MEDS: ATORVASTATIN 40 MG TAB PO SCH (11:10)
[2019-01-28] MEDS: METOPROLOL TARTRATE 12.5 MG TAB PO SCH ×2 (11:11→20:49)
[2019-01-28] MEDS: BRIMONIDINE TARTRATE 0.2% DROPS 5 ML BTL BOTH EYES SCH ×2 (11:11→20:49)
[2019-01-28] MEDS: TIMOLOL 0.5% OPHTH DROPS 5 ML BTL BOTH EYES SCH ×2 (11:14→21:00)
[2019-01-28] MEDS: CHOLECALCIFEROL 400 UNIT TAB PO SCH (11:15)
--- NOTE | 2019-01-28 11:32 | P.PN ---
Subjective Progress Note Date: 01/28/19 78-year-old female patient is currently postop from cardiac surgery as the patient underwent a mitral valve repair and a tricuspid valve repair. Currently she is postop day #0. Note that preoperatively, the patient was found to have severe mitral regurgitation and moderate TR and mild aortic insufficiency. Her coronary angiogram was within normal limits. She is known to have hypertension, early onset dementia, and previous history of breast cancer. Currently, the patient is postop. She is on a assist-control mode of ventilation at the rate of 12 with a tidal volume of 350 and FiO2 was dropped down to 50% with a PEEP of 5. The blood gases showed a pH of 7.32 with a pCO2 of 43 and pO2 of found and 13 and this was done immediately postop. The chest x-ray showed adequate expansion of both lungs. The patient has 2 mediastinal chest tubes 1 right- sided and 1 left-sided pleural chest tube. The output from the chest tubes have been in the order of 200 mL of bloody output/serosanguineous from the mediastinal chest tube and 100 mL from the pleural chest tubes. Hemodynamically, the patient is doing well. Her cardiac index is at 2 with an output of 3.3. The patient has a PA pressure of 37/20. She is on Catapres for blood pressure control. She is not requiring any inotropes. She is producing adequate urine output in the order of 150 mL an hour. She is on IV fluids and she is receiving lactated Ringer at the rate of an hour. She received a total of 2 units of packed RBC intraoperatively and a unit of packed RBC. The patient for now is off sedation and when the process of weaning the sedation off and assessing the patient neurologic status. On today's evaluation of 01/25/2019 the patient is looking well. She is a bit sleepy. I was able to wean off the mechanical ventilator and extubated around 11:30 PM yesterday. She is currently on oxygen at 3 L. [place]-Opal catheter is in place. Cardiac index is at 2.4 with an output of 4.1. PA pressures are 30/9 and his CVP is around 7. She has the tubes in place with a right pleural and left pleural and 2 mediastinal chest tubes. Output is around 30-50 mL an hour and there is no evidence of any air leak. The chest x-ray from today shows what especially of both lungs. She is hemodynamically stable. She wasn't Cleviprex for blood pressure control that This continues. She is awake and alert and she is following commands. Her underlying cardiac rhythm was asystole. The patient is currently AV paced at the rate of 80. Afebrile. Using incentive spirometer and she is pulling approximately 500 mL. ON 01/26/2019 the patient is resting comfortably in bed. She was moved to a chair and after being there for few minutes she started developing ectopies mainly ventricular ectopies while her cardiac rhythm was still paced at the rate of 70. Her underlying rhythm is abnormal and that only P waves without any si gnificant ventricular bases were noted earlier. However, she is producing some ventricular ectopies for now on the rhythm strips. She was unable to tolerate lower heart rate and heart rate was maintained at the rate of 70. Output from the chest tubes are minimal. The patient has right pleural and the left pleural chest tube and mediastinal chest tubes. The based on chest tubes will be taken out today. Her urine output is in order of 30 mL an hour. She got a dose of Lasix at 5 AM this morning. She is using incentive spirometer and she is pulling approximately 500. Tiny apical pneumothorax on today's chest x-ray. No evidence of any air leaks. [place]-Opal catheter removed. Cordis is in place. Sternum stable clean and intact. No fever or chills. The hemoglobin is stable at 9.4. Creatinine is at 0.8. On today's evaluation of 01/27/2019 the patient is postop day #3. She is look ing well. Her underlying rhythm is still third-degree ventricular rhythm and the patient is going to have a pacemaker inserted tomorrow. Overnight she had had a low urine output. She was given albumin 5% to 50 mL and she was also given a bolus of 500 mL of normal saline. She did improve her urine output. This morning she is slightly running low at 20 mL an hour. She will be given a dose of Lasix 40 mg IV push. The chest tubes are in place and there are being . Output remains considerably high and we are going to monitor the output. The chest x-ray from today shows small tiny biapical pneumothoraces. Nevertheless, there is no evidence of air leak and the chest tube. The patient is currently paced and she is AV paced at the rate of 70. Sternum is stable clean and intact. She does have some increased lower extremity edema. No other significant events overnight. On today's evaluation of 01/28/2019 the patient is post pacemaker insertion. The patient had A-V dissociation following bowel surgery and she underwent a dual-chamber pacemaker implantation. She is doing well. Chest x-ray shows to her chest tubes right pleural and left pleural. Output from the right chest tube has been 200 mL over the past 4 hours, and similar output for the left. Her chest x-ray shows questionable tiny apical pneumothoraces. Otherwise no evidence of air leak. There is some mild pulmonary vascular congestion. Urine output is in order of 30 she is an hour and the patient is producing adequate amount of urine output for now and she was given Lasix 20 mg IV. No respiratory distress. She is using incentive spirometer. She is taking a short Objective - Vital Signs Vital signs: Vital Signs Temp 98.3 F 01/28/19 08:00 Pulse 70 01/28/19 08:00 Resp 25 H 01/28/19 08:00 BP 115/58 01/28/19 08:00 Pulse Ox 95 01/28/19 08:00 Intake & Output 01/27/19 01/28/19 01/28/19 18:59 06:59 18:59 Intake Total 332 744 298 Output Total 1693 589 285 Balance -1361 155 13 Weight 72.9 kg Intake: IV 332 744 298 Albumin Human 5% 250 ml 20 In Empty Bag 1 bag @ 250 mls/hr IVPB ONCE ONE Rx#: [id number] Lactated Ringers 1,000 ml 260 200 80 @ 20 mls/hr IV .Q24H [facility] Rx#:[id number] Pressure Bag 72 24 12 normal saline 500 Output: Chest Tube Drainage 543 330 230 Pleural Catheter Left 118 220 90 Pleural Catheter Right 155 110 140 left and right pleural 270 Urine 1150 259 55 Other: Voiding Method Indwelling Catheter Indwelling Catheter Indwelling Catheter ABP, PAP, CO, CI - Last Documented Arterial Blood Pressure 138/59 Pulmonary Artery Pressure 31/9 Cardiac Output 4.1 Cardiac Index 2.4 - Exam Gen. appearance, comfortable, sleepy, currently on 6 L per nasal cannula Head exam was generally normal. There was no scleral icterus or corneal arcus. Mucous membranes were moist. Neck was supple and without jugular venous distension, thyromegaly, or carotid bruits. Carotids were easily palpable bilaterally. There was no adenopathy. The patient is a left IJ Cordis was removed Lungs sounds are equal and symmetrical bilaterally. No wheezes or rhonchi any crackles. Sternum stable clean and intact. The patient has right pleural and left pleural chest tubes are also in place. Heart sounds are regular, the patient has a pacemaker in place and her cardiac rhythmfor now. This was inserted for A-V dissociation. Sternum stable clean and intact. . No significant murmurs appreciated. Abdominal exam revealed normal bowel sounds. The abdomen was soft, non-tender, and without masses, organomegaly, or appreciable enlargement of the abdominal aorta. Examination of the extremities revealed easily palpable radial, femoral and pedal pulses. There was no cyanosis, clubbing or edema. Examination of the skin revealed no evidence of significant rashes, suspicious appearing nevi or other concerning lesions. Neurologic patient awake and alert and following commands and answering questions. No focal neurological deficits. - Labs CBC & Chem 7: 01/28/19 04:30 01/28/19 04:30 Labs: Abnormal Lab Results - Last 24 Hours (Table) 01/27/19 01/27/19 01/27/19 Range/Units 11:37 17:25 20:33 WBC (3.8-10.6) k/uL RBC (3.80-5.40) m/uL Hgb (11.4-16.0) gm/dL Hct (34.0-46.0) % Plt Count (150-450) k/uL Neutrophils # (1.3-7.7) k/uL Chloride (98-107) mmol/L BUN (7-17) mg/dL Glucose (74-99) mg/dL POC Glucose (mg/dL) 106 H 131 H 136 H (75-99) mg/dL Calcium (8.4-10.2) mg/dL AST (14-36) U/L Total Protein (6.3-8.2) g/dL Albumin (3.5-5.0) g/dL 01/28/19 01/28/19 01/28/19 Range/Units 04:30 04:30 06:50 WBC 13.1 H (3.8-10.6) k/uL RBC 2.78 L (3.80-5.40) m/uL Hgb 9.2 L (11.4-16.0) gm/dL Hct 27.7 L (34.0-46.0) % Plt Count 132 L (150-450) k/uL Neutrophils # 10.8 H (1.3-7.7) k/uL Chloride 110 H (98-107) mmol/L BUN 37 H (7-17) mg/dL Glucose 113 H (74-99) mg/dL POC Glucose (mg/dL) 112 H (75-99) mg/dL Calcium 8.3 L (8.4-10.2) mg/dL AST 41 H (14-36) U/L Total Protein 5.3 L (6.3-8.2) g/dL Albumin 3.0 L (3.5-5.0) g/dL Assessment and Plan Plan: 1 valvular heart disease with severe mitral and tricuspid regurgitation the patient undergone mitral valve repair and tricuspid valve repair and the patient is postop day #4. 2 A-V dissociation post pacemaker insertion and the patient has a dual-chamber pacemaker and she is well paced for now with adequate hemodynamics. She is producing good urine output. 3 post thoracotomy, the patient was weaned off the mechanical ventilator and she was extubated and currently she is on 6 L of oxygen by nasal cannula. She has a very tiny biapical pneumothoraces in the chest tubes are in place without evidence of any air leak. The pleural chest tubes are still in place 4 history of breast cancer 5 early onset dementia 6 hypertension , the beta ollie was initiated and the patient was taken off the hydralazine now that she has a pacemaker in place. Plan Continue monitor the output from the chest tubes. Keep the chest in place for today. Continues incentive spirometer. Agree on Lasix. Reviewed the chest x- ray. Awaiting a follow-up chest x-ray post pacemaker insertion. Beta blockers were started. We'll continue to follow.
--- NOTE | 2019-01-28 12:04 | XR ---
EXAMINATION TYPE: XR chest 1V portable DATE OF EXAM: 01/28/2019 CLINICAL HISTORY: Pacemaker placement. TECHNIQUE: Single AP portable upright view of the chest is obtained. COMPARISON: Chest x-ray from earlier today and older studies FINDINGS: New dual-lead pacemaker with leads projecting over right atrium and right ventricle. Persistent bilateral chest tubes with tiny left apical pneumothorax redemonstrated. Cardiac valvular rings and closure device again seen. Overlying Inferior epicardial wires are redemonstrated. Overlyi ng EKG leads are redemonstrated. Background chronic parenchymal change and cardiomegaly with ectatic and atherosclerotic aorta is rede monstrated. Persistent left greater than right bibasilar and bilateral perihilar opacities. Osseous s tructures are demineralized. IMPRESSION: 1. New dual-lead pacemaker with leads projecting over right atrium and right ventricle. 2. Other findings stable with bilateral chest tubes and tiny left apical pneumothorax. There is bilat eral perihilar and bibasilar edema and/or infiltrates redemonstrated.
[2019-01-28 12:08] LABS: Glucose,Whole Blood 103 mg/dL (75-99)
[2019-01-28] MEDS: DEXTROSE/WATER 1 250ML.BAG with DOPamine DRIP 800 MG IV SCH (13:04)
--- NOTE | 2019-01-28 13:42 | P.PN ---
Subjective This is a 78-year-old female patient of Dr. Monteiro with past medical history of breast cancer in 2002, dementia, hypertension, osteoarthritis, glaucoma. Patient is seen on postop day #1 following a mitral valve repair and a tricuspid valve repair. Patient is seen in the intensive care unit. She has been successfully extubated last evening is currently on 2 L nasal cannula. She is using incentive spirometer reaching 500 mL. She is currently on insulin 1 unit per hour and does not have history of diabetes. Patient has had good urine output but has decreased to 30-40 mL per hour this morning. She is currently on O2 at 2 L. Blood pressure is stable. Patient did stand with physical therapy may require subacute or inpatient rehab. Patient examined sitting comfortably in bed. Denies any acute distress. He saturating well at 95% on 2 L of oxygen. She currently has 2 mediastinal chest tube in place had low continuous wall suction. Did receive a dose of Lasix overnight continues to have 30 to 40 mL of urine output per of her. Patient was noted to have bradycardia consistent with third-degree block and atrial ventricular epicardial pacemaker wires were kept in place with a plan to place pacemaker. Mediastinal chest tube drained 120 mL output in the last 8 hours 250 mL output in the last 24 hours with a right chest tube draining 320 mL output in 8 hours and 6 for urine output in the last 24 hours. No evidence of an y air leaks. [place]-Opal catheter removed. Cordis is in place 01/27: Patient has developed third degree AV block for which her heart rate was running in the 30s and 40s. Heart rate is currently in the 60s with bedside pacemaker generator on DDD mode, blood pressure 139/63, pulse ox 91-95% on 6 L nasal cannula. Patient is scheduled for pacemaker implantation for tomorrow. Patient has had mediastinal chest tubes removed. 2 bilateral pleural chest tubes remain in place draining serous fluid. Repeat chest x-ray last evening revealed stable tiny left greater than right bilateral apical pneumothoraces. Cardiomegaly and chronic parenchymal change with left greater than right bibasilar acute infiltrate and/or atelectasis. The patient is found sitting up in a chair and appears to be comfortable and in no acute distress, no respiratory distress is noted. 01/28 appears very tired on examination. Overnight patient and decreased urine output and was given 1 L of IV fluid followed by a dose of Lasix. This morning patient went for pacemaker placement and postoperatively patient was noted to have a low blood pressure 79/49. Patient did receive a 20 mg of IV Lasix and Lopressor 12.5 mg this morning. Patient will be initiated on dopamine drip until blood pressure stabilizes. Pacemaker need to be interrogated as patient currently still has atrial and ventricular epicardial pacemaker wires to maintain the rate of 70-80. Urine output maintained at 30 mL per hour. Her pleural chest tubes draining thin serosanguineous drainage with 2:30 mL output in the last 8 hours from the right pleural chest tube and to 90 output in the last 8 hours from the left pleural chest tube labs suggestive leukocytosis with a WBC of 13 hemoglobin 9.2 platelet 132 chloride 110 blood sugar 103 and will continue sliding scale for blood sugar more than 120. Patient in the [place] discontinuance currently patient is very fatigued and tired. Over this illness patient is medically stable Review of Systems Constitutional: Reports fatigue, Reports poor appetite, Reports weakness, Denies anorexia, Denies chills, Denies fever Ears, nose, mouth and throat: Denies dental pain, Denies dysphagia, Denies headache, Denies sore throat, Denies vertigo Cardiovascular: Denies chest pain, Denies decreased exercise tolerance, Denies dyspnea on exertion, Denies shortness of breath, Denies syncope Respiratory: Denies cough, Denies cough with sputum, Denies dyspnea, Denies respiratory infections Gastrointestinal: Denies abdominal pain, Denies diarrhea, Denies nausea, Denies vomiting Genitourinary: Denies dysuria, Denies hematuria, Denies urinary frequency Musculoskeletal: Reports muscle weakness, Denies myalgias Integumentary: Denies pruritus, Denies rash Neurological: Denies change in mentation, Denies change in speech, Denies numbness, Denies seizures, Denies weakness Psychiatric: Denies anxiety, Denies depression Endocrine: Denies fatigue, Denies weight change Objective - Vital Signs Vital signs: Vital Signs Temp 98.9 F 01/28/19 12:00 Pulse 80 01/28/19 13:20 Resp 16 01/28/19 13:20 BP 83/63 01/28/19 13:20 Pulse Ox 92 L 01/28/19 13:20 Intake & Output 01/27/19 01/28/19 01/28/19 18:59 06:59 18:59 Intake Total 332 744 438 Output Total 1693 589 495 Balance -1361 155 -57 Weight 72.9 kg Intake: IV 332 744 338 Albumin Human 5% 250 ml 20 In Empty Bag 1 bag @ 250 mls/hr IVPB ONCE ONE Rx#: [id number] Lactated Ringers 1,000 ml 260 200 120 @ 20 mls/hr IV .Q24H [facility] Rx#:[id number] Pressure Bag 72 24 12 normal saline 500 Oral 100 Output: Chest Tube Drainage 543 330 230 Pleural Catheter Left 118 220 90 Pleural Catheter Right 155 110 140 left and right pleural 270 Urine 1150 259 265 Other: Voiding Method Indwelling Catheter Indwelling Catheter Indwelling Catheter ABP, PAP, CO, CI - Last Documented Arterial Blood Pressure 138/59 Pulmonary Artery Pressure 31/9 Cardiac Output 4.1 Cardiac Index 2.4 - Exam Gen: This is a 78-year-old female. She is sitting in recliner in the intensive care unit appears to be comfortable and in no acute distress. HEENT: Head is atraumatic, normocephalic. Pupils equal, round. Sclerae is anicteric. Left-sided Cordis in place. NECK: Supple. No JVD. No lymphadenopathy. No thyromegaly.left I J in place LUNGS: Diminished bilaterally. No wheezes or rhonchi. No intercostal retractions. Pleural tube in place bilateral HEART: Regular rate and rhythm. No murmur. Chest tubes in place. ABDOMEN: Soft. Bowel sounds are present. No masses. No tenderness. [place] catheter draining clear catrachito urine. EXTREMITIES: No pedal edema. No calf tenderness. NEUROLOGICAL: Patient is awake, alert and oriented x3. Cranial nerves 2 through 12 are grossly intact. - Labs CBC & Chem 7: 01/28/19 04:30 01/28/19 04:30 Labs: Abnormal Lab Results - Last 24 Hours (Table) 01/27/19 01/27/19 01/28/19 Range/Units 17:25 20:33 04:30 WBC 13.1 H (3.8-10.6) k/uL RBC 2.78 L (3.80-5.40) m/uL Hgb 9.2 L (11.4-16.0) gm/dL Hct 27.7 L (34.0-46.0) % Plt Count 132 L (150-450) k/uL Neutrophils # 10.8 H (1.3-7.7) k/uL Chloride (98-107) mmol/L BUN (7-17) mg/dL Glucose (74-99) mg/dL POC Glucose (mg/dL) 131 H 136 H (75-99) mg/dL Calcium (8.4-10.2) mg/dL AST (14-36) U/L Total Protein (6.3-8.2) g/dL Albumin (3.5-5.0) g/dL 01/28/19 01/28/19 01/28/19 Range/Units 04:30 06:50 11:57 WBC (3.8-10.6) k/uL RBC (3.80-5.40) m/uL Hgb (11.4-16.0) gm/dL Hct (34.0-46.0) % Plt Count (150-450) k/uL Neutrophils # (1.3-7.7) k/uL Chloride 110 H (98-107) mmol/L BUN 37 H (7-17) mg/dL Glucose 113 H (74-99) mg/dL POC Glucose (mg/dL) 112 H 103 H (75-99) mg/dL Calcium 8.3 L (8.4-10.2) mg/dL AST 41 H (14-36) U/L Total Protein 5.3 L (6.3-8.2) g/dL Albumin 3.0 L (3.5-5.0) g/dL Assessment and Plan Plan: 1. Valvular heart disease status post mitral valve repair and tricuspid valve repair, postop day #2. Continue current management per cardiothoracic surgery, intensive care management continues incentive spirometry to reduce incidence of atelectasis and hospital-acquired pneumonia. Insulin drip discontinued. Continue aspirin, Lipitor 2. Hypertension. Patient is off clevidipine. Currently hypotensive patient did receive Lopressor and Lasix this morning hold antihypertensives. Status post 1 L of IV fluid in the night followed by Lasix 3. Dementia. Hold Aricept. 4. Glaucoma. Continue eyedrops. 5. A-V dissociation s/p pacemaker placed on 01/28. The pressure continues to be low. Echocardiogram ordered chest x-ray positive for apical small pneumothorax with the perihilar and bibasilar edema and infiltrates redemonstrated 6. DVT prophylaxis. Heparin subcu. 7. GI prophylaxis. Tenex. 8 Hyperglycemia continue sliding scale as needed and as mentioned drip disco ntinued 9. Hypotension plan for pacemaker interrogation. hold antihypertensive medication. Patient did receive Lopressor and Lasix this morning his urine output was low. May need intermittent IV fluids. Hold hydralazine 10 acute hypoxic respiratory failure post thoracotomy weaned off mechanical ventilator currently on 6 L of oxygen tiny right apical pneumothorax is but no evidence of fairly seen
[2019-01-28] MEDS ORDERED: ALBUMIN HUMAN 25% 50 ML in EMPTY BAG 1 BAG IVPB ONE (14:00)
[2019-01-28] MEDS: CLINDAMYCIN 900 MG in DEXTROSE 5% IN WATER 50 ML IVPB SCH ×4 (14:46→20:48)
[2019-01-28 17:07] LABS: Glucose,Whole Blood 115 mg/dL (75-99)
[2019-01-28] MEDS: LATANOPROST 0.005% OPHTH DROPS 2.5 ML BTL BOTH EYES SCH (20:49)
[2019-01-28] MEDS: DONEPEZIL 10 MG TAB PO SCH (20:49)
[2019-01-28] MEDS: SENNOSIDES-DOCUSATE SODIUM 1 EACH TAB PO SCH (20:49)
[2019-01-28 21:07] LABS: Glucose,Whole Blood 121 mg/dL (75-99)
[2019-01-29] MEDS: HEPARIN SODIUM,PORCINE 5,000 UNIT/ML 1 ML VIAL SQ SCH ×3 (00:39→16:56)
[2019-01-29] MEDS: CLINDAMYCIN 900 MG in DEXTROSE 5% IN WATER 50 ML IVPB SCH ×4 (03:46→08:40)
[2019-01-29 04:53] LABS: Basophils % (A) 0 %; Eosinophils % (A) 0 %; HCT 29.8 % (34.0-46.0); HGB 9.5 gm/dL (11.4-16.0); Lymphocytes # (A) 1.6 k/uL (1.0-4.8); Lymphocytes % (A) 14 %; MCH 32.9 pg (25.0-35.0); MCHC 31.9 g/dL (31.0-37.0); MCV 103.2 fL (80.0-100.0); Macrocytosis Slight; Mean Platelet Volume 8.1; Monocytes # (A) 0.4 k/uL (0-1.0); Monocytes % (A) 4 %; Neutrophils # (A) 9.4 k/uL (1.3-7.7); Neutrophils % (A) 81 %; Platelet Count 137 k/uL (150-450); RBC 2.89 m/uL (3.80-5.40); RDW 13.5 % (11.5-15.5); WBC 11.5 k/uL (3.8-10.6)
[2019-01-29 05:06] LABS: ALT 35 U/L (9-52); AST 48 U/L (14-36); African American GFR (CKD) >90 (>60 ml/min/1.73 sqM); Alkaline Phosphatase 46 U/L (38-126); Anion Gap 8 mmol/L; Blood Urea Nitrogen 39 mg/dL (7-17); Calcium 8.3 mg/dL (8.4-10.2); Carbon Dioxide 23 mmol/L (22-30); Chloride 106 mmol/L (98-107); Glucose 107 mg/dL (74-99); Non-African American GFR(CKD) >90 (>60 ml/min/1.73 sqM); Potassium 4.4 mmol/L (3.5-5.1); Sodium 137 mmol/L (137-145); Total Bilirubin 1.1 mg/dL (0.2-1.3); Total Protein 5.1 g/dL (6.3-8.2)
[2019-01-29 07:01] LABS: Glucose,Whole Blood 116 mg/dL (75-99)
[2019-01-29] MEDS: IPRATROPIUM-ALBUTEROL 3 ML NEB INHALATION SCH ×4 (07:39→20:15)
[2019-01-29] MEDS: INSULIN ASPART (NovoLOG) 100 UNIT/ML VIAL SQ SCH ×4 (08:30→20:37)
[2019-01-29] MEDS: PANTOPRAZOLE 40 MG TABLET PO SCH (08:38)
[2019-01-29] MEDS: CHOLECALCIFEROL 400 UNIT TAB PO SCH (08:39)
[2019-01-29] MEDS: ASPIRIN 81 MG PO SCH (08:39)
[2019-01-29] MEDS: ASCORBIC ACID 500 MG TAB PO SCH (08:39)
[2019-01-29] MEDS: ATORVASTATIN 40 MG TAB PO SCH (08:39)
[2019-01-29] MEDS: METOPROLOL TARTRATE 12.5 MG TAB PO SCH ×2 (08:39→20:37)
[2019-01-29] MEDS: TIMOLOL 0.5% OPHTH DROPS 5 ML BTL BOTH EYES SCH ×2 (08:43→21:42)
[2019-01-29] MEDS: BRIMONIDINE TARTRATE 0.2% DROPS 5 ML BTL BOTH EYES SCH ×2 (08:43→20:38)
[2019-01-29] MEDS ORDERED: TERBUTALINE 1 MG/ML VIAL SQ ONE (10:08)
--- NOTE | 2019-01-29 10:10 | XR ---
EXAMINATION TYPE: XR chest 1V DATE OF EXAM: 01/29/2019 HISTORY: Shortness of breath. COMPARISON: 01/28/2019 TECHNIQUE: Single view of the chest is submitted. FINDINGS: Demonstrated are scattered senescent parenchymal change. Bilateral chest tubes noted to be in place. Scattered infiltrates seen throughout both lung [place]. Tiny left apical pneumothorax is unchanged. The heart is stable. Hilar and mediastinal structures are within normal limits. Degenerative changes are seen of the dorsal spine. IMPRESSION: 1. Bilateral chest tubes noted to be in place. Scattered infiltrates seen throughout both lung field s. Tiny left apical pneumothorax is unchanged.
--- NOTE | 2019-01-29 10:18 | P.PN ---
Subjective Progress Note Date: 01/29/19 Principal diagnosis: Severe mitral valve regurgitation with moderate tricuspid valve regurgitation, mild aortic insufficiency and ascending aortic aneurysm. Past medical history s ignificant for hypertension, early onset dementia, depression, osteoarthritis, remote history of hepatitis A and breast cancer with radiation 17 years ago. POD #4 mitral valve repair with a 26mm annuloflex ring, tricuspid valve repair with a 26mm MC3 tricuspid ring, ascending aortic aortoplasty, ligation of the left atrial appendage with a 35mm Atriclip, Epiaortic ultrasound, intraoperative ELLYN. Postoperative bradycardia, unexpected finding. Postoperative acute blood loss anemia, expected, secondary to cardiopulmonary bypass pump and hemodilution. Postoperative complete A-V dissociation, an unexpected the potential outcome of surgery. POD #1 dual-chamber pacemaker implantation, axillary venography completed by Dr. Perez. The patient is sitting up to the bedside chair in the intensive care unit. She is in no acute distress. Her atrial and ventricular epicardial pacemaker wires remain in place connected to a bedside pacemaker generator on a DDD mode with a heart rate of 80 bpm. she underwent a dual-chamber pacemaker implantation yesterday and postoperatively developed some hypotension and decreased urine output. She is currently on dopamine renal dose at 3 mcg/kg/m. Her blood pressure currently is 101/52 and her underlying rhythm is paced at 70 with her permanent pacemaker. Denies any complaints of pain or shortness of breath. Oxygen saturation is 94% on 10 L nasal cannula. Generalized +1 edema. Left and right pleural chest tubes remain in place to low continuous wall suction -20 cm H2O. No air leak is present. Draining thin serosanguineous drainage. 650 mL output in the last 24 hours and 345 mL output in the last 8 hours from her right pleural chest tube and 380 mL in the last 24 hours and 280 mL output in the last 8 hours from her left pleural chest tube. Objective - Vital Signs Vital signs: Vital Signs Temp 98.4 F 01/29/19 08:00 Pulse 78 01/29/19 08:00 Resp 18 01/29/19 08:00 BP 101/52 01/29/19 08:00 Pulse Ox 95 01/29/19 08:00 Intake & Output 01/28/19 01/29/19 01/29/19 18:59 06:59 18:59 Intake Total 688 940 44.1 Output Total 1235 1205 120 Balance -547 -265 -75.9 Weight 73.6 kg Intake: IV 538 340 44.1 Clindamycin 900 mg In 100 100 Dextrose 5% in Water 50 ml @ 50 mls/hr IVPB Q6H GIOVANNY Rx#:[id number] Dextrose/Water 1 250ml. 4.1 bag @ 3 MCG/KG/MIN 4.101 mls/hr IV .Q24H GIOVANNY with DOPamine DRIP 800 mg Rx#: [id number] Lactated Ringers 1,000 ml 220 240 40 @ 20 mls/hr IV .Q24H GIOVANNY Rx#:[id number] Pressure Bag 12 Intake, IV Titration 50 Amount Albumin Human 25% 50 ml 50 In Empty Bag 1 bag @ 50 mls/hr IVPB ONCE ONE Rx#: [id number] Oral 100 600 Output: Chest Tube Drainage 760 630 50 Pleural Catheter Left 180 200 20 Pleural Catheter Right 280 430 30 left and right pleural 300 Urine 475 575 70 Other: Voiding Method Indwelling Catheter Indwelling Catheter ABP, PAP, CO, CI - Last Documented Arterial Blood Pressure 138/59 Pulmonary Artery Pressure 31/9 Cardiac Output 4.1 Cardiac Index 2.4 - Constitutional General appearance: Present: cooperative, no acute distress, obese - Respiratory Details: Lungs sounds essentially diminished throughout with few scattered rhonchi. Respirations are symmetrical and nonlabored. Oxygen saturation is 94% on 10 L nasal cannula. Achieving 500 mL on her incentive spirometry with much enc ouragement. Left and right pleural chest tubes remain in place to low continuous wall suction -20 cm H2O. No air leak is present. Draining thin serosanguineous drainage. - Cardiovascular Details: Regular rhythm and rate. S1 and S2 present, negative for S3, gallop or murmur. Sternum is stable. Bedside telemetry showing DDD paced rhythm at 80 BPM. Unde rlying rhythm is paced at a heart rate of 70. Atrial and ventricular epicardial pacemaker wires in place and were grounded. Heart hugger is in place and she is demonstrating appropriate use with encouragement. Knee-high MU hose and sequential compression devices in place to bilateral lower extremities. +1 generalized edema. - Gastrointestinal Gastrointestinal Comment(s): Abdomen is soft, nontender and nondistended. Active bowel sounds present in all 4 abdominal quadrants. No guarding or rigidity. No organomegaly appreciated. Passing flatus. Nothing by mouth. Bowel movement yesterday. - Genitourinary Genitourinary Comment(s): Steward catheter for accurate I&O. Draining clear yellow urine. - Integumentary Integumentary Comment(s): Skin is warm and dry. No clubbing or cyanosis is present. Midline sternal incision is clean, dry and approximated. No drainage or redness present. Gauze dressing is clean and intact. No rash or abnormal pigmentation. Left upper chest incision clean, dry and approximated. Dressing is clean and dry with some scant serosanguineous drainage. - Neurologic Neurologic: Present: CNII-XII intact - Musculoskeletal Musculoskeletal Comment(s): Sling in place to left arm. Musculoskeletal: Present: gait normal, generalized weakness, strength equal bilaterally - Psychiatric Psychiatric Comment(s): Episodes of forgetfulness. Flat affect. Psychiatric: Present: A&O x's 3, intact judgment & insight - Allied health notes Allied health notes reviewed: nursing - Labs CBC & Chem 7: 01/29/19 03:58 01/29/19 03:58 Labs: Abnormal Lab Results - Last 24 Hours (Table) 01/28/19 01/28/19 01/28/19 Range/Units 11:57 16:55 19:40 WBC (3.8-10.6) k/uL RBC (3.80-5.40) m/uL Hgb (11.4-16.0) gm/dL Hct (34.0-46.0) % MCV (80.0-100.0) fL Plt Count (150-450) k/uL Neutrophils # (1.3-7.7) k/uL Potassium 6.0 H (3.5-5.1) mmol/L BUN (7-17) mg/dL Glucose (74-99) mg/dL POC Glucose (mg/dL) 103 H 115 H (75-99) mg/dL Calcium (8.4-10.2) mg/dL AST (14-36) U/L Total Protein (6.3-8.2) g/dL Albumin (3.5-5.0) g/dL 01/28/19 01/29/19 01/29/19 Range/Units 20:56 03:58 03:58 WBC 11.5 H (3.8-10.6) k/uL RBC 2.89 L (3.80-5.40) m/uL Hgb 9.5 L (11.4-16.0) gm/dL Hct 29.8 L (34.0-46.0) % MCV 103.2 H (80.0-100.0) fL Plt Count 137 L (150-450) k/uL Neutrophils # 9.4 H (1.3-7.7) k/uL Potassium (3.5-5.1) mmol/L BUN 39 H (7-17) mg/dL Glucose 107 H (74-99) mg/dL POC Glucose (mg/dL) 121 H (75-99) mg/dL Calcium 8.3 L (8.4-10.2) mg/dL AST 48 H (14-36) U/L Total Protein 5.1 L (6.3-8.2) g/dL Albumin 3.0 L (3.5-5.0) g/dL 01/29/19 Range/Units 06:48 WBC (3.8-10.6) k/uL RBC (3.80-5.40) m/uL Hgb (11.4-16.0) gm/dL Hct (34.0-46.0) % MCV (80.0-100.0) fL Plt Count (150-450) k/uL Neutrophils # (1.3-7.7) k/uL Potassium (3.5-5.1) mmol/L BUN (7-17) mg/dL Glucose (74-99) mg/dL POC Glucose (mg/dL) 116 H (75-99) mg/dL Calcium (8.4-10.2) mg/dL AST (14-36) U/L Total Protein (6.3-8.2) g/dL Albumin (3.5-5.0) g/dL - Imaging and Cardiology Chest x-ray: report reviewed, image reviewed Assessment and Plan Assessment: 1. Severe mitral valve regurgitation, moderate tricuspid valve regurgitation, aortic valve insufficiency and ascending aortic aneurysm. Status post mitral valve repair with 26mm annuloflex ring, tricuspid valve repair with 26mm M3 tricuspid ring, ascending aorta aortoplasty, ligation of the left atrial appendage with 35mm Atriclip. 2. Post operative bradycardia 3. Post operative acute blood loss anemia secondary to cardiopulmonary bypass pump and hemodilution 4. Hypertension 5. History of early-onset dementia 6. Depression 7. Osteoarthritis 8. Remote history of Hepatitis A 9. History of breast cancer with radiation 17 years ago 10. Postoperative complete A-V dissociation, unexpected Plan: 1. Optimize medical management with low-dose asprin, beta ollie and statin. We will increase her beta ollie as tolerated. 2. Wean oxygen as tolerated. Encourage incentive spirometer as tolerated. Bronchodilators per pulmonology. 3. Remove atrial and ventricular epicardial pacemaker wires in today. 4. Increase activity as tolerated, out of bed to chair. PT/OT/cardiac rehab following. 5. Will monitor daily labs and chest xrays. Electrolyte replacement per protocol. 6. Insulin management per primary care service. 7. Continue pain management per when necessary orders. Avoid narcotics. 8. GI/DVT prophylaxis. 9. Continue dopamine at 3 mcg/kg/m. 10. Keep left and right pleural chest tubes and keep them in place to low continuous wall suction -20 cm H2O. Continue accurate I & O. 11. More recommendations to follow on patient's clinical course. Time with Patient: Greater than 30
--- NOTE | 2019-01-29 10:36 | P.PN ---
Subjective Progress Note Date: 01/29/19 78-year-old female patient is currently postop from cardiac surgery as the patient underwent a mitral valve repair and a tricuspid valve repair. Currently she is postop day #0. Note that preoperatively, the patient was found to have severe mitral regurgitation and moderate TR and mild aortic insufficiency. Her coronary angiogram was within normal limits. She is known to have hypertension, early onset dementia, and previous history of breast cancer. Currently, the patient is postop. She is on a assist-control mode of ventilation at the rate of 12 with a tidal volume of 350 and FiO2 was dropped down to 50% with a PEEP of 5. The blood gases showed a pH of 7.32 with a pCO2 of 43 and pO2 of found and 13 and this was done immediately postop. The chest x-ray showed adequate expansion of both lungs. The patient has 2 mediastinal chest tubes 1 right- sided and 1 left-sided pleural chest tube. The output from the chest tubes have been in the order of 200 mL of bloody output/serosanguineous from the mediastinal chest tube and 100 mL from the pleural chest tubes. Hemodynamically, the patient is doing well. Her cardiac index is at 2 with an output of 3.3. The patient has a PA pressure of 37/20. She is on Catapres for blood pressure control. She is not requiring any inotropes. She is producing adequate urine output in the order of 150 mL an hour. She is on IV fluids and she is receiving lactated Ringer at the rate of an hour. She received a total of 2 units of packed RBC intraoperatively and a unit of packed RBC. The patient for now is off sedation and when the process of weaning the sedation off and assessing the patient neurologic status. On today's evaluation of 01/25/2019 the patient is looking well. She is a bit sleepy. I was able to wean off the mechanical ventilator and extubated around 11:30 PM yesterday. She is currently on oxygen at 3 L. [place]-Opal catheter is in place. Cardiac index is at 2.4 with an output of 4.1. PA pressures are 30/9 and his CVP is around 7. She has the tubes in place with a right pleural and left pleural and 2 mediastinal chest tubes. Output is around 30-50 mL an hour and there is no evidence of any air leak. The chest x-ray from today shows what especially of both lungs. She is hemodynamically stable. She wasn't Cleviprex for blood pressure control that This continues. She is awake and alert and she is following commands. Her underlying cardiac rhythm was asystole. The patient is currently AV paced at the rate of 80. Afebrile. Using incentive spirometer and she is pulling approximately 500 mL. ON 01/26/2019 the patient is resting comfortably in bed. She was moved to a chair and after being there for few minutes she started developing ectopies mainly ventricular ectopies while her cardiac rhythm was still paced at the rate of 70. Her underlying rhythm is abnormal and that only P waves without any si gnificant ventricular bases were noted earlier. However, she is producing some ventricular ectopies for now on the rhythm strips. She was unable to tolerate lower heart rate and heart rate was maintained at the rate of 70. Output from the chest tubes are minimal. The patient has right pleural and the left pleural chest tube and mediastinal chest tubes. The based on chest tubes will be taken out today. Her urine output is in order of 30 mL an hour. She got a dose of Lasix at 5 AM this morning. She is using incentive spirometer and she is pulling approximately 500. Tiny apical pneumothorax on today's chest x-ray. No evidence of any air leaks. Fairmount-Opal catheter removed. Cordis is in place. Sternum stable clean and intact. No fever or chills. The hemoglobin is stable at 9.4. Creatinine is at 0.8. On today's evaluation of 01/27/2019 the patient is postop day #3. She is look ing well. Her underlying rhythm is still third-degree ventricular rhythm and the patient is going to have a pacemaker inserted tomorrow. Overnight she had had a low urine output. She was given albumin 5% to 50 mL and she was also given a bolus of 500 mL of normal saline. She did improve her urine output. This morning she is slightly running low at 20 mL an hour. She will be given a dose of Lasix 40 mg IV push. The chest tubes are in place and there are being . Output remains considerably high and we are going to monitor the output. The chest x-ray from today shows small tiny biapical pneumothoraces. Nevertheless, there is no evidence of air leak and the chest tube. The patient is currently paced and she is AV paced at the rate of 70. Sternum is stable clean and intact. She does have some increased lower extremity edema. No other significant events overnight. On today's evaluation of 01/28/2019 the patient is post pacemaker insertion. The patient had A-V dissociation following bowel surgery and she underwent a dual-chamber pacemaker implantation. She is doing well. Chest x-ray shows to her chest tubes right pleural and left pleural. Output from the right chest tube has been 200 mL over the past 4 hours, and similar output for the left. Her chest x-ray shows questionable tiny apical pneumothoraces. Otherwise no evidence of air leak. There is some mild pulmonary vascular congestion. Urine output is in order of 30 she is an hour and the patient is producing adequate amount of urine output for now and she was given Lasix 20 mg IV. No respiratory distress. She is using incentive spirometer. She is taking a short On today's evaluation of 01/29/2019 the patient is postop day #4 following mitral valve repair and tricuspid valve repair. The patient is laying comfortably in bed. The pleural chest tubes are still in place and the output remains considerably high in the form of serosanguineous drainage. The right- sided chest tube has drained around 650 on the right over the past 24 hours and 350 over the past 8 hours and the left has put out 38 over the past [address] over the past 8 hours. The chest x-ray still consistent with bilateral pulmonary infiltrates consistent with edema. No evidence of a significant pneumothorax. The patient is currently paced at the rate of 60. A permanent pacemaker was inserted yesterday without any complication. Note that she developed postop complete A-V dissociation. Her urine output is in order of 30 mL an hour. She was having some issues with low urine output and hypotension ye sterday and currently she is on dopamine at 3 g per KG per minute. Current oxygen level is at 8 L by nasal cannula to maintain a saturation above 92-93%. The patient's hemoglobin is at 9.5. Renal function is stable at creatinine of 0.5 with a BUN of 39. She will go 4 extremities. She is following commands pH is awake and alert and oriented. Objective - Vital Signs Vital signs: Vital Signs Temp 98.4 F 01/29/19 08:00 Pulse 76 01/29/19 10:00 Resp 18 01/29/19 10:00 BP 88/47 01/29/19 10:00 Pulse Ox 95 01/29/19 10:00 Intake & Output 01/28/19 01/29/19 01/29/19 18:59 06:59 18:59 Intake Total 688 985.1 96.4 Output Total 1235 1205 235 Balance -547 -219.9 -138.6 Weight 73.6 kg Intake: IV 538 385.1 96.4 Clindamycin 900 mg In 100 100 Dextrose 5% in Water 50 ml @ 50 mls/hr IVPB Q6H GIOVANNY Rx#:[id number] Dextrose/Water 1 250ml. 45.1 16.4 bag @ 3 MCG/KG/MIN 4.101 mls/hr IV .Q24H GIOVANNY with DOPamine DRIP 800 mg Rx#: [id number] Lactated Ringers 1,000 ml 220 240 80 @ 20 mls/hr IV .Q24H GIOVANNY Rx#:[id number] Pressure Bag 12 Intake, IV Titration 50 Amount Albumin Human 25% 50 ml 50 In Empty Bag 1 bag @ 50 mls/hr IVPB ONCE ONE Rx#: [id number] Oral 100 600 Output: Chest Tube Drainage 760 630 90 Pleural Catheter Left 180 200 40 Pleural Catheter Right 280 430 50 left and right pleural 300 Urine 475 575 145 Other: Voiding Method Indwelling Catheter Indwelling Catheter ABP, PAP, CO, CI - Last Documented Arterial Blood Pressure 138/59 Pulmonary Artery Pressure 31/9 Cardiac Output 4.1 Cardiac Index 2.4 - Exam - Constitutional General appearance: Present: cooperative, no acute distress, obese - Respiratory Details: Lungs sounds essentially diminished throughout with few scattered rhonchi. Respirations are symmetrical and nonlabored. Oxygen saturation is 94% on 10 L nasal cannula. Achieving 500 mL on her incentive spirometry with much encouragement. Left and right pleural chest tubes remain in place to low continuous wall suction -20 cm H2O. No air leak is present. Draining thin serosanguineous drainage. - Cardiovascular Details: Regular rhythm and rate. S1 and S2 present, negative for S3, gallop or murmur. Sternum is stable. Bedside telemetry showing DDD paced rhythm at 80 BPM. Underlying rhythm is paced at a heart rate of 70. Atrial and ventricular epicardial pacemaker wires in place and were grounded. Heart hugger is in place and she is demonstrating appropriate use with encouragement. Knee-high MU hose and sequential compression devices in place to bilateral lower extremities. +1 generalized edema. - Gastrointestinal Gastrointestinal Comment(s): Abdomen is soft, nontender and nondistended. Active bowel sounds present in all 4 abdominal quadrants. No guarding or rigidity. No organomegaly appreciated. Passing flatus. Nothing by mouth. Bowel movement yesterday. - Genitourinary Genitourinary Comment(s): Steward catheter for accurate I&O. Draining clear yellow urine. - Integumentary Integumentary Comment(s): Skin is warm and dry. No clubbing or cyanosis is present. Midline sternal incision is clean, dry and approximated. No drainage or redness present. Gauze dressing is clean and intact. No rash or abnormal pigmentation. Left upper chest incision clean, dry and approximated. Dressing is clean and dry with some scant serosanguineous drainage. - Neurologic Neurologic: Present: CNII-XII intact - Musculoskeletal Musculoskeletal Comment(s): Sling in place to left arm. Musculoskeletal: Present: gait normal, generalized weakness, strength equal bilaterally - Psychiatric Psychiatric Comment(s): Episodes of forgetfulness. Flat affect. Psychiatric: Present: A&O x's 3, intact judgment & insight - Labs CBC & Chem 7: 01/29/19 03:58 01/29/19 03:58 Labs: Abnormal Lab Results - Last 24 Hours (Table) 01/28/19 01/28/19 01/28/19 Range/Units 11:57 16:55 19:40 WBC (3.8-10.6) k/uL RBC (3.80-5.40) m/uL Hgb (11.4-16.0) gm/dL Hct (34.0-46.0) % MCV (80.0-100.0) fL Plt Count (150-450) k/uL Neutrophils # (1.3-7.7) k/uL Potassium 6.0 H (3.5-5.1) mmol/L BUN (7-17) mg/dL Glucose (74-99) mg/dL POC Glucose (mg/dL) 103 H 115 H (75-99) mg/dL Calcium (8.4-10.2) mg/dL AST (14-36) U/L Total Protein (6.3-8.2) g/dL Albumin (3.5-5.0) g/dL 01/28/19 01/29/19 01/29/19 Range/Units 20:56 03:58 03:58 WBC 11.5 H (3.8-10.6) k/uL RBC 2.89 L (3.80-5.40) m/uL Hgb 9.5 L (11.4-16.0) gm/dL Hct 29.8 L (34.0-46.0) % MCV 103.2 H (80.0-100.0) fL Plt Count 137 L (150-450) k/uL Neutrophils # 9.4 H (1.3-7.7) k/uL Potassium (3.5-5.1) mmol/L BUN 39 H (7-17) mg/dL Glucose 107 H (74-99) mg/dL POC Glucose (mg/dL) 121 H (75-99) mg/dL Calcium 8.3 L (8.4-10.2) mg/dL AST 48 H (14-36) U/L Total Protein 5.1 L (6.3-8.2) g/dL Albumin 3.0 L (3.5-5.0) g/dL 01/29/19 Range/Units 06:48 WBC (3.8-10.6) k/uL RBC (3.80-5.40) m/uL Hgb (11.4-16.0) gm/dL Hct (34.0-46.0) % MCV (80.0-100.0) fL Plt Count (150-450) k/uL Neutrophils # (1.3-7.7) k/uL Potassium (3.5-5.1) mmol/L BUN (7-17) mg/dL Glucose (74-99) mg/dL POC Glucose (mg/dL) 116 H (75-99) mg/dL Calcium (8.4-10.2) mg/dL AST (14-36) U/L Total Protein (6.3-8.2) g/dL Albumin (3.5-5.0) g/dL Assessment and Plan Plan: 1 valvular heart disease with severe mitral and tricuspid regurgitation the patient undergone mitral valve repair and tricuspid valve repair and the patient is postop day #5 2 A-V dissociation post pacemaker insertion and the patient has a dual-chamber pacemaker and she is well paced 3 post thoracotomy, the patient was weaned off the mechanical ventilator and she was extubated and currently she is on 8 L of oxygen by nasal cannula. She has a very tiny biapical pneumothoraces in the chest tubes are in place without evidence of any air leak. The pleural chest tubes are still in place and she is having significant amount of output from the chest to be kept in place. Urine output 4 history of breast cancer 5 early onset dementia 6 hypertension , the beta ollie was initiated and the patient was taken off the hydralazine now that she has a pacemaker in place. Plan Continue monitor the output from the chest tubes. Keep the chest in place for today. The patient was started on dopamine for blood pressure support. Continue dopamine and titrate the dose. Currently she is on 4 g per KG per minute. She is running a lower blood pressure. We'll monitor that. We'll check a pacemaker. Hold diuretics for today. We'll continue to follow
[2019-01-29 11:58] LABS: Glucose,Whole Blood 141 mg/dL (75-99)
--- NOTE | 2019-01-29 12:33 | ECHOF ---
Referral Reason:limited echo, evaluate pericardial effusion MEASUREMENTS -------- HEIGHT: 157.5 cm WEIGHT: 72.6 kg BP: 80/53 FINDINGS -------- Limited Study S/P PMI There is a trivial pericardial effusion present. CONCLUSIONS -------- 1. Limited Study S/P [place] 2. There is a trivial pericardial effusion present. [employer]: Rayne Gaona RDCS
--- NOTE | 2019-01-29 13:15 | P.PN ---
Subjective Progress Note Date: 01/29/19 This is a 78-year-old female patient of Dr. Monteiro with past medical history of breast cancer in 2002, dementia, hypertension, osteoarthritis, glaucoma. Patient is seen on postop day #1 following a mitral valve repair and a tricuspid valve repair. Patient is seen in the intensive care unit. She has been successfully extubated last evening is currently on 2 L nasal cannula. She is using incentive spirometer reaching 500 mL. She is currently on insulin 1 unit per hour and does not have history of diabetes. Patient has had good urine output but has decreased to 30-40 mL per hour this morning. She is currently on O2 at 2 L. Blood pressure is stable. Patient did stand with physical therapy may require subacute or inpatient rehab. Patient examined sitting comfortably in bed. Denies any acute distress. He saturating well at 95% on 2 L of oxygen. She currently has 2 mediastinal chest tube in place had low continuous wall suction. Did receive a dose of Lasix overnight continues to have 30 to 40 mL of urine output per of her. Patient was noted to have bradycardia consistent with third-degree block and atrial ventricular epicardial pacemaker wires were kept in place with a plan to place pacemaker. Mediastinal chest tube drained 120 mL output in the last 8 hours 250 mL output in the last 24 hours with a right chest tube draining 320 mL output in 8 hours and 6 for urine output in the last 24 hours. No evidence of any air leaks. [place]-Opal catheter removed. Cordis is in place 01/27: Patient has developed third degree AV block for which her heart rate was running in the 30s and 40s. Heart rate is currently in the 60s with bedside pacemaker generator on DDD mode, blood pressure 139/63, pulse ox 91-95% on 6 L nasal cannula. Patient is scheduled for pacemaker implantation for tomorrow. Patient has had mediastinal chest tubes removed. 2 bilateral pleural chest tub es remain in place draining serous fluid. Repeat chest x-ray last evening revealed stable tiny left greater than right bilateral apical pneumothoraces. Cardiomegaly and chronic parenchymal change with left greater than right bibasilar acute infiltrate and/or atelectasis. The patient is found sitting up in a chair and appears to be comfortable and in no acute distress, no respiratory distress is noted. 01/28 appears very tired on examination. Overnight patient and decreased urine output and was given 1 L of IV fluid followed by a dose of Lasix. This morning patient went for pacemaker placement and postoperatively patient was noted to have a low blood pressure 79/49. Patient did receive a 20 mg of IV Lasix and Lopressor 12.5 mg this morning. Patient will be initiated on dopamine drip until blood pressure stabilizes. Pacemaker need to be interrogated as patient currently still has atrial and ventricular epicardial pacemaker wires to maintain the rate of 70-80. Urine output maintained at 30 mL per hour. Her pleural chest tubes draining thin serosanguineous drainage with 2:30 mL output in the last 8 hours from the right pleural chest tube and to 90 output in the last 8 hours from the left pleural chest tube labs suggestive leukocytosis with a WBC of 13 hemoglobin 9.2 platelet 132 chloride 110 blood sugar 103 and will continue sliding scale for blood sugar more than 120. Patient in the [place] discontinuance currently patient is very fatigued and tired. Over this illness patient is medically stable 01/29 patient examined bedside appears lethargic but is able to answer questions appropriately. Patient's afebrile blood pressure 95/57 currently on 8 L of high flow chest x-ray consistent with bilateral pulmonary infiltrate with chest tube in place. Apical pneumothorax seen small in size. Chest tube drainage from left is 70 mL in the past 8 hours and 80 mL in the right pleural catheter. Patient currently paced at rate of 60 urine output maintained at 30 mL per hour blood sugar ranged from 116-141. We will add a dose of Lantus 5 units at bedtime continue sliding scale with meals Review of Systems Constitutional: Reports fatigue, Reports poor appetite, Reports weakness, Denies anorexia, Denies chills, Denies fever Ears, nose, mouth and throat: Denies dental pain, Denies dysphagia, Denies headache, Denies sore throat, Denies vertigo Cardiovascular: Denies chest pain, Denies decreased exercise tolerance, Denies dyspnea on exertion, Denies shortness of breath, Denies syncope Respiratory: Denies cough, Denies cough with sputum, Denies dyspnea, Denies respiratory infections Gastrointestinal: Denies abdominal pain, Denies diarrhea, Denies nausea, Denies vomiting Genitourinary: Denies dysuria, Denies hematuria, Denies urinary frequency Musculoskeletal: Reports muscle weakness, Denies myalgias Integumentary: Denies pruritus, Denies rash Neurological: Denies change in mentation, Denies change in speech, Denies numbness, Denies seizures, Denies weakness Psychiatric: Denies anxiety, Denies depression Endocrine: Denies fatigue, Denies weight change Objective - Vital Signs Vital signs: Vital Signs Temp 98.5 F 01/29/19 12:00 Pulse 70 01/29/19 12:30 Resp 17 01/29/19 12:30 BP 95/57 01/29/19 12:30 Pulse Ox 98 01/29/19 12:30 Intake & Output 01/28/19 01/29/19 01/29/19 18:59 06:59 18:59 Intake Total 688 985.1 127.32 Output Total 1235 1205 325 Balance -547 -219.9 -197.68 Weight 73.6 kg Intake: IV 538 385.1 127.32 Clindamycin 900 mg In 100 100 Dextrose 5% in Water 50 ml @ 50 mls/hr IVPB Q6H GIOVANNY Rx#:[id number] Dextrose/Water 1 250ml. 45.1 27.32 bag @ 4 MCG/KG/MIN 5.468 mls/hr IV .Q24H GIOVANNY with DOPamine DRIP 800 mg Rx#: [id number] Lactated Ringers 1,000 ml 220 240 100 @ 20 mls/hr IV .Q24H GIOVANNY Rx#:[id number] Pressure Bag 12 Intake, IV Titration 50 Amount Albumin Human 25% 50 ml 50 In Empty Bag 1 bag @ 50 mls/hr IVPB ONCE ONE Rx#: [id number] Oral 100 600 Output: Chest Tube Drainage 760 630 150 Pleural Catheter Left 180 200 70 Pleural Catheter Right 280 430 80 left and right pleural 300 Urine 475 575 175 Other: Voiding Method Indwelling Catheter Indwelling Catheter Indwelling Catheter ABP, PAP, CO, CI - Last Documented Arterial Blood Pressure 138/59 Pulmonary Artery Pressure 31/9 Cardiac Output 4.1 Cardiac Index 2.4 - Exam Gen: This is a 78-year-old female. She is sitting in recliner in the intensive care unit appears to be comfortable and in no acute distress. HEENT: Head is atraumatic, normocephalic. Pupils equal, round. Sclerae is anicteric. Left-sided Cordis in place. NECK: Supple. No JVD. No lymphadenopathy. No thyromegaly.left I J in place LUNGS: Diminished bilaterally. No wheezes or rhonchi. No intercostal retractions. Pleural tube in place bilateral HEART: Regular rate and rhythm. No murmur. Chest tubes in place. ABDOMEN: Soft. Bowel sounds are present. No masses. No tenderness. Steward catheter draining clear catrachito urine. EXTREMITIES: No pedal edema. No calf tenderness. NEUROLOGICAL: Patient is awake, alert and oriented x3. Cranial nerves 2 through 12 are grossly intact. - Labs CBC & Chem 7: 01/29/19 03:58 01/29/19 03:58 Labs: Abnormal Lab Results - Last 24 Hours (Table) 01/28/19 01/28/19 01/28/19 Range/Units 16:55 19:40 20:56 WBC (3.8-10.6) k/uL RBC (3.80-5.40) m/uL Hgb (11.4-16.0) gm/dL Hct (34.0-46.0) % MCV (80.0-100.0) fL Plt Count (150-450) k/uL Neutrophils # (1.3-7.7) k/uL Potassium 6.0 H (3.5-5.1) mmol/L BUN (7-17) mg/dL Glucose (74-99) mg/dL POC Glucose (mg/dL) 115 H 121 H (75-99) mg/dL Calcium (8.4-10.2) mg/dL AST (14-36) U/L Total Protein (6.3-8.2) g/dL Albumin (3.5-5.0) g/dL 01/29/19 01/29/19 01/29/19 Range/Units 03:58 03:58 06:48 WBC 11.5 H (3.8-10.6) k/uL RBC 2.89 L (3.80-5.40) m/uL Hgb 9.5 L (11.4-16.0) gm/dL Hct 29.8 L (34.0-46.0) % MCV 103.2 H (80.0-100.0) fL Plt Count 137 L (150-450) k/uL Neutrophils # 9.4 H (1.3-7.7) k/uL Potassium (3.5-5.1) mmol/L BUN 39 H (7-17) mg/dL Glucose 107 H (74-99) mg/dL POC Glucose (mg/dL) 116 H (75-99) mg/dL Calcium 8.3 L (8.4-10.2) mg/dL AST 48 H (14-36) U/L Total Protein 5.1 L (6.3-8.2) g/dL Albumin 3.0 L (3.5-5.0) g/dL 01/29/19 Range/Units 11:47 WBC (3.8-10.6) k/uL RBC (3.80-5.40) m/uL Hgb (11.4-16.0) gm/dL Hct (34.0-46.0) % MCV (80.0-100.0) fL Plt Count (150-450) k/uL Neutrophils # (1.3-7.7) k/uL Potassium (3.5-5.1) mmol/L BUN (7-17) mg/dL Glucose (74-99) mg/dL POC Glucose (mg/dL) 141 H (75-99) mg/dL Calcium (8.4-10.2) mg/dL AST (14-36) U/L Total Protein (6.3-8.2) g/dL Albumin (3.5-5.0) g/dL Assessment and Plan Plan: 1. Valvular heart disease status post mitral valve repair and tricuspid valve repair, postop day #2. Continue current management per cardiothoracic surgery, intensive care management continues incentive spirometry to reduce incidence of atelectasis and hospital-acquired pneumonia. Insulin drip discontinued. Con tinue aspirin, Lipitor 2. Hypertension. Patient is off clevidipine. Currently hypotensive patient did receive Lopressor and Lasix this morning hold antihypertensives. Status post 1 L of IV fluid in the night followed by Lasix 3. Dementia. Hold Aricept. 4. Glaucoma. Continue eyedrops. 5. A-V dissociation s/p pacemaker placed on 01/28. The pressure continues to be low. Echocardiogram was limited chest x-ray positive for apical small pneumothorax with the perihilar and bibasilar edema and infiltrates redemonstrated 6. DVT prophylaxis. Heparin subcu. 7. GI prophylaxis. Tenex. 8 Hyperglycemia continue sliding scale as needed and as mentioned drip discontinued. Lantus Lantus initiated at 5 units at bedtime 9. Hypotension plan for pacemaker interrogation continue metoprolol at low dose and hold if systolic blood pressure less than 90 Hold hydralazine 10 acute hypoxic respiratory failure post thoracotomy weaned off mechanical ventilator currently on 8 L of high flow oxygen when necessary Lasix last dose 01/28
[2019-01-29 16:45] LABS: Glucose,Whole Blood 158 mg/dL (75-99)
[2019-01-29] MEDS: DEXTROSE/WATER 1 250ML.BAG with DOPamine DRIP 800 MG IV SCH (16:57)
--- NOTE | 2019-01-29 18:23 | PN ---
PROGRESS NOTE 78-year-old lady status post mitral and tricuspid valve repair, developed complete heart block and underwent a permanent pacemaker yesterday. Pacemaker is functioning normally. She is hypotensive primarily due to intravascular volume depletion. EXAM: Today heart rate is 70 beats per minute. Blood pressure is 85/46, respiratory rate is 17. Chest exam reveals diminished air entry at the bases. Heart exam reveals first and second heart sounds. No gallop. Exam of extremities did not reveal any edema. LAB: Show that the BUN is 39, creatinine is 0.5. BUN was at 16 on her initial presentation and has gradually gone up. ASSESSMENT: 1. Status post mitral and tricuspid valve repair. 2. Complete heart block status post permanent pacemaker. 3. Hypotension secondary to intravascular volume depletion. The patient had a limited echo that did not reveal any pericardial effusion. The patient needs IV fluids. Strongly recommend a bolus of 250 mL of 0.9 normal saline. MMODL / IJN: [id number] /
[2019-01-29] MEDS: DONEPEZIL 10 MG TAB PO SCH (20:37)
[2019-01-29] MEDS: INSULIN DETEMIR (LEVEMIR) 100 UNIT/ML SYR SQ SCH (20:37)
[2019-01-29] MEDS: LATANOPROST 0.005% OPHTH DROPS 2.5 ML BTL BOTH EYES SCH (20:38)
[2019-01-29] MEDS: SENNOSIDES-DOCUSATE SODIUM 1 EACH TAB PO SCH (20:39)
[2019-01-29 20:41] LABS: Glucose,Whole Blood 117 mg/dL (75-99)
[2019-01-30] MEDS: HEPARIN SODIUM,PORCINE 5,000 UNIT/ML 1 ML VIAL SQ SCH ×3 (00:51→17:08)
[2019-01-30 05:27] LABS: Basophils % (A) 0 %; Eosinophils # (A) 0.1 k/uL (0-0.7); Eosinophils % (A) 0 %; HCT 29.2 % (34.0-46.0); HGB 9.4 gm/dL (11.4-16.0); Lymphocytes # (A) 1.7 k/uL (1.0-4.8); Lymphocytes % (A) 13 %; MCH 32.5 pg (25.0-35.0); MCHC 32.2 g/dL (31.0-37.0); Macrocytosis Slight; Mean Platelet Volume 7.3; Monocytes # (A) 0.5 k/uL (0-1.0); Monocytes % (A) 4 %; Neutrophils # (A) 10.2 k/uL (1.3-7.7); Neutrophils % (A) 82 %; Platelet Count 196 k/uL (150-450); RBC 2.89 m/uL (3.80-5.40); RDW 13.5 % (11.5-15.5); WBC 12.5 k/uL (3.8-10.6)
[2019-01-30 06:16] LABS: African American GFR (CKD) >90 (>60 ml/min/1.73 sqM); Anion Gap 5 mmol/L; Blood Urea Nitrogen 42 mg/dL (7-17); Calcium 8.4 mg/dL (8.4-10.2); Carbon Dioxide 29 mmol/L (22-30); Chloride 102 mmol/L (98-107); Glucose 111 mg/dL (74-99); Non-African American GFR(CKD) 85 (>60 ml/min/1.73 sqM); Potassium 4.1 mmol/L (3.5-5.1); Sodium 136 mmol/L (137-145)
[2019-01-30 06:46] LABS: Glucose,Whole Blood 118 mg/dL (75-99)
[2019-01-30] MEDS: INSULIN ASPART (NovoLOG) 100 UNIT/ML VIAL SQ SCH ×4 (06:49→20:36)
[2019-01-30] MEDS: PANTOPRAZOLE 40 MG TABLET PO SCH (06:51)
[2019-01-30] MEDS: IPRATROPIUM-ALBUTEROL 3 ML NEB INHALATION SCH ×4 (07:39→19:52)
--- NOTE | 2019-01-30 08:46 | XR ---
EXAMINATION TYPE: XR chest 1V portable DATE OF EXAM: 01/30/2019 CLINICAL HISTORY: Difficulty breathing progress study. Post open cardiac surgery. TECHNIQUE: Single AP portable semiupright view of the chest is obtained. COMPARISON: Chest x-ray from one day earlier FINDINGS: Persistent bilateral chest tubes with tiny left greater than right biapical pneumothoraces seen on current study. Persistent cardiac valvular rings along with closure device and dual lead pac emaker along with cardiomegaly. Overlying inferior pericardial wires and EKG leads again seen. Background chronic parenchymal change with ectatic and atherosclerotic aorta. Persistent diffuse bila teral opacities with relative sparing of upper lungs improved from most recent study. Osseous structu res are intact. IMPRESSION: Tiny left greater than right biapical pneumothoraces despite bilateral chest tubes seen o n current study. Chronic parenchymal changes and cardiomegaly redemonstrated with bilateral mid to lo wer lung edema and/or infiltrates, findings improvement in bilateral upper lungs from most recent stewart or..
[2019-01-30] MEDS: ASCORBIC ACID 500 MG TAB PO SCH (08:47)
[2019-01-30] MEDS: TIMOLOL 0.5% OPHTH DROPS 5 ML BTL BOTH EYES SCH ×2 (08:48→21:50)
[2019-01-30] MEDS: ATORVASTATIN 40 MG TAB PO SCH (08:48)
[2019-01-30] MEDS: ASPIRIN 81 MG PO SCH (08:48)
[2019-01-30] MEDS: METOPROLOL TARTRATE 12.5 MG TAB PO SCH ×2 (08:49→21:50)
[2019-01-30] MEDS ORDERED: SERTRALINE 50 MG TAB PO SCH (09:00)
[2019-01-30] MEDS: AMIODARONE 200 MG TAB PO SCH ×2 (09:12→21:51)
[2019-01-30] MEDS: BRIMONIDINE TARTRATE 0.2% DROPS 5 ML BTL BOTH EYES SCH ×2 (09:13→21:51)
[2019-01-30] MEDS: CHOLECALCIFEROL 400 UNIT TAB PO SCH (09:14)
--- NOTE | 2019-01-30 09:20 | PN ---
PROGRESS NOTE Mrs. Lawson is a 78-year-old female with status post aortic and mitral valve repair who had evidence of complete heart block, underwent permanent pacemaker implantation on 01/28. She had a repeat echocardiogram on the same date that revealed no evidence of significant pericardial effusion. She is awake but feels tired. She is not active physically. She feels mildly dyspneic. She has no anginal symptoms. She is in sinus mechanism with paced rhythm. She had short bursts of atrial fibrillation but back in sinus mechanism at this time. She received amiodarone. She continues to have chest tube and still has drainage from the chest to the her. Her urine output is stable at this time. She continues to be on IV amiodarone. She is on low-dose IV dopamine, she is on aspirin 81 mg daily, Aricept, metoprolol tartrate 12.5 mg twice a day, Timolol eye drops. PHYSICAL EXAMINATION: Blood pressure 115/40 with a heart rate in the 60s. Lungs with mild decrease in breath sounds at both bases, no wheezes. HEART: Regular rate and rhythm. S1, S2. No S3. No rub. ABDOMEN: Soft, nontender. EXTREMITIES: No edema. LAB DATA: Revealed BUN and creatinine 42 and 0.66, potassium 4.1, hemoglobin of 9.4. IMPRESSION: 1. Status post mitral and tricuspid valve repair, stable. 2. Status post permanent pacemaker implantation for complete heart block. 3. Hypertension, resolved. 4. Paroxysmal atrial fibrillation. 5. Physical deconditioning. RECOMMENDATION: We will continue present therapy. If stable, the IV amiodarone will be stopped today. Will continue to increase her level of activity. The patient would benefit from inpatient rehab. Depending on her progress, further recommendations will be made. MMODL / IJN: [id number] /
--- NOTE | 2019-01-30 11:00 | P.PN ---
Subjective Progress Note Date: 01/30/19 Principal diagnosis: status post mitral valve repair and tricuspid valve repair postoperative day # 78-year-old female patient is currently postop from cardiac surgery as the bruce ent underwent a mitral valve repair and a tricuspid valve repair. Currently she is postop day #0. Note that preoperatively, the patient was found to have severe mitral regurgitation and moderate TR and mild aortic insufficiency. Her coronary angiogram was within normal limits. She is known to have hypertension, early onset dementia, and previous history of breast cancer. Currently, the patient is postop. She is on a assist-control mode of ventilation at the rate of 12 with a tidal volume of 350 and FiO2 was dropped down to 50% with a PEEP of 5. The blood gases showed a pH of 7.32 with a pCO2 of 43 and pO2 of found and 13 and this was done immediately postop. The chest x-ray showed adequate expansion of both lungs. The patient has 2 mediastinal chest tubes 1 right- sided and 1 left-sided pleural chest tube. The output from the chest tubes have been in the order of 200 mL of bloody output/serosanguineous from the mediastinal chest tube and 100 mL from the pleural chest tubes. H emodynamically, the patient is doing well. Her cardiac index is at 2 with an output of 3.3. The patient has a PA pressure of 37/20. She is on Catapres for blood pressure control. She is not requiring any inotropes. She is producing adequate urine output in the order of 150 mL an hour. She is on IV fluids and she is receiving lactated Ringer at the rate of an hour. She received a total of 2 units of packed RBC intraoperatively and a unit of packed RBC. The patient for now is off sedation and when the process of weaning the sedation off and assessing the patient neurologic status. On today's evaluation of 01/25/2019 the patient is looking well. She is a bit sleepy. I was able to wean off the mechanical ventilator and extubated around 11:30 PM yesterday. She is currently on oxygen at 3 L. [place]-Opal catheter is in place. Cardiac index is at 2.4 with an output of 4.1. PA pressures are 30/9 and his CVP is around 7. She has the tubes in place with a right pleural and left pleural and 2 mediastinal chest tubes. Output is around 30-50 mL an hour and there is no evidence of any air leak. The chest x-ray from today shows what especially of both lungs. She is hemodynamically stable. She wasn't Cleviprex for blood pressure control that This continues. She is awake and alert and she is following commands. Her underlying cardiac rhythm was asystole. The patient is currently AV paced at the rate of 80. Afebrile. Using incentive spirometer and she is pulling approximately 500 mL. ON 01/26/2019 the patient is resting comfortably in bed. She was moved to a chair and after being there for few minutes she started developing ectopies mainly ventricular ectopies while her cardiac rhythm was still paced at the rate of 70. Her underlying rhythm is abnormal and that only P waves without any significant ventricular bases were noted earlier. However, she is producing some ventricular ectopies for now on the rhythm strips. She was unable to tolerate lower heart rate and heart rate was maintained at the rate of 70. Output from the chest tubes are minimal. The patient has right pleural and the left pleural chest tube and mediastinal chest tubes. The based on chest tubes will be taken out today. Her urine output is in order of 30 mL an hour. She got a dose of Lasix at 5 AM this morning. She is using incentive spirometer and she is pulling approximately 500. Tiny apical pneumothorax on today's chest x- ray. No evidence of any air leaks. [place]-Opal catheter removed. Cordis is in place. Sternum stable clean and intact. No fever or chills. The hemoglobin is stable at 9.4. Creatinine is at 0.8. On today's evaluation of 01/27/2019 the patient is postop day #3. She is looking well. Her underlying rhythm is still third-degree ventricular rhythm and the patient is going to have a pacemaker inserted tomorrow. Overnight she had had a low urine output. She was given albumin 5% to 50 mL and she was also given a bolus of 500 mL of normal saline. She did improve her urine output. This morning she is slightly running low at 20 mL an hour. She will be given a dose of Lasix 40 mg IV push. The chest tubes are in place and there are being . Output remains considerably high and we are going to monitor the output. The chest x-ray from today shows small tiny biapical pneumothoraces. Nevertheless, there is no evidence of air leak and the chest tube. The patient is currently paced and she is AV paced at the rate of 70. Sternum is stable clean and intact. She does have some increased lower extremity edema. No other significant events overnight. On today's evaluation of 01/28/2019 the patient is post pacemaker insertion. The patient had A-V dissociation following bowel surgery and she underwent a dual-chamber pacemaker implantation. She is doing well. Chest x-ray shows to her chest tubes right pleural and left pleural. Output from the right chest tube has been 200 mL over the past 4 hours, and similar output for the left. Her chest x-ray shows questionable tiny apical pneumothoraces. Otherwise no evidence of air leak. There is some mild pulmonary vascular congestion. Urine output is in order of 30 she is an hour and the patient is producing adequate amount of urine output for now and she was given Lasix 20 mg IV. No respiratory distress. She is using incentive spirometer. She is taking a short On today's evaluation of 01/29/2019 the patient is postop day #4 following mitral valve repair and tricuspid valve repair. The patient is laying comfortably in bed. The pleural chest tubes are still in place and the output remains considerably high in the form of serosanguineous drainage. The right- sided chest tube has drained around 650 on the right over the past 24 hours and 350 over the past 8 hours and the left has put out 38 over the past [address] over the past 8 hours. The chest x-ray still consistent with bilateral pulmonary infiltrates consistent with edema. No evidence of a significant pneumothorax. The patient is currently paced at the rate of 60. A permanent pacemaker was inserted yesterday without any complication. Note that she developed postop complete A-V dissociation. Her urine output is in order of 30 mL an hour. She was having some issues with low urine output and hypotension yesterday and currently she is on dopamine at 3 g per KG per minute. Current oxygen level is at 8 L by nasal cannula to maintain a saturation above 92-93%. The patient's hemoglobin is at 9.5. Renal function is stable at creatinine of 0.5 with a BUN of 39. She will go 4 extremities. She is following commands pH is awake and alert and oriented. Reevaluated today on 01/30/2019, patient is postoperative day #6. She is status post mitral valve repair and tricuspid valve repair. Remains in congestive heart failure based on the chest x-ray findings, continues to have pleural chest tubes in place,she is also status post post-pacemaker implantation, permanent 2 days ago, and this was done because the patient developed complete AV disassociation. Urine output is acceptable, patient receives Lasix on when necessary basis by cardiothoracic surgery. Remains on dopamine at 4 mcg/kg/m, she is also on amiodarone at present. She is on 6 L nasal cannula, maintaining O2 saturation in the low 90s.CBC is relatively normal hemoglobin is 9.4 lites are normal BUN is 42 creatinine 0.66.chest x-ray continues to show evidence of pulmonary edema Objective - Vital Signs Vital signs: Vital Signs Temp 98.1 F 01/30/19 05:00 Pulse 60 01/30/19 10:30 Resp 13 01/30/19 10:30 BP 129/77 01/30/19 10:30 Pulse Ox 94 L 01/30/19 10:30 Intake & Output 01/29/19 01/30/19 01/30/19 18:59 06:59 18:59 Intake Total 280.08 225.46 80 Output Total 710 860 120 Balance -429.92 -634.54 -40 Weight 75 kg Intake: IV 280.08 225.46 80 Dextrose/Water 1 250ml. 60.08 5.46 20 bag @ 4 MCG/KG/MIN 5.468 mls/hr IV .Q24H GIOVANNY with DOPamine DRIP 800 mg Rx#: [id number] Lactated Ringers 1,000 ml 220 220 60 @ 20 mls/hr IV .Q24H GIOVANNY Rx#:[id number] Output: Chest Tube Drainage 300 340 Pleural Catheter Left 130 230 Pleural Catheter Right 170 110 Urine 410 520 120 Other: Voiding Method Indwelling Catheter Indwelling Catheter ABP, PAP, CO, CI - Last Documented Arterial Blood Pressure 138/59 Pulmonary Artery Pressure 31/9 Cardiac Output 4.1 Cardiac Index 2.4 - Exam Physical Exam: Revealed a 78-year-old female in no distress.presently on 6 L nasal cannula. head: Atraumatic, normocephalic HEENT:[Neck is supple.] [No neck masses.] [No thyromegaly.] [No JVD.] Chest: [symmetrical chest expansion, crackles at the bases, no rhonchi and no wheezes. Cardiac Exam: [Normal S1 and S2, no S3 gallop, no murmur.] Abdomen: [Soft, nontender, no megaly, no rebound, no guarding, normal bowel sounds.] Extremities: [No clubbing, trace of bipedaledema, no cyanosis.] Neurological Exam: [No focal neurologic deficit.]alert oriented 3. Psychiatric: Normal mood affect and normal mental status examination. Skin: No rashes. Lymphatics: No lymphadenopathy. - Labs CBC & Chem 7: 01/30/19 05:00 01/30/19 04:57 Labs: Abnormal Lab Results - Last 24 Hours (Table) 01/29/19 01/29/19 01/29/19 Range/Units 11:47 16:33 20:30 WBC (3.8-10.6) k/uL RBC (3.80-5.40) m/uL Hgb (11.4-16.0) gm/dL Hct (34.0-46.0) % MCV (80.0-100.0) fL Neutrophils # (1.3-7.7) k/uL Sodium (137-145) mmol/L BUN (7-17) mg/dL Glucose (74-99) mg/dL POC Glucose (mg/dL) 141 H 158 H 117 H (75-99) mg/dL 01/30/19 01/30/19 01/30/19 Range/Units 04:57 05:00 06:35 WBC 12.5 H (3.8-10.6) k/uL RBC 2.89 L (3.80-5.40) m/uL Hgb 9.4 L (11.4-16.0) gm/dL Hct 29.2 L (34.0-46.0) % MCV 101.0 H (80.0-100.0) fL Neutrophils # 10.2 H (1.3-7.7) k/uL Sodium 136 L (137-145) mmol/L BUN 42 H (7-17) mg/dL Glucose 111 H (74-99) mg/dL POC Glucose (mg/dL) 118 H (75-99) mg/dL Assessment and Plan Assessment: impression: Status post mitral and tricuspid valve repair, postoperative day #6. A-V dissociation, status post permanent pacemaker implantation/a dual-chamber. bilateral pneumothoraces, expected after surgery, no evidence of air leak. Early onset dementia History of breast cancer History of hypertension. Suspect some component of diastolic congestive heart failure based on her chest x-ray findings. Hence the patient is receiving diuretics on when necessary basis by cardiothoracic surgery. Recommendation: Continue diuretics, incentive spirometry, bronchodilators, dopamine for blood pressure support, she is presently on 4 mcg/kg/m, continue diuretics on when necessary basis, continue amiodarone will follow closely. Pat ient will remain in the ICU for now. Prognosis remains definitely guarded. Continue GI and DVT prophylaxis.continue beta blockers.continue statins. Continue aspirin. Time with Patient: Less than 30
[2019-01-30 12:01] LABS: Glucose,Whole Blood 106 mg/dL (75-99)
--- NOTE | 2019-01-30 12:25 | P.PN ---
Subjective Progress Note Date: 01/30/19 This is a 78-year-old female patient of Dr. Monteiro with past medical history of breast cancer in 2002, dementia, hypertension, osteoarthritis, glaucoma. Patient is seen on postop day #1 following a mitral valve repair and a tricuspid valve repair. Patient is seen in the intensive care unit. She has been successfully extubated last evening is currently on 2 L nasal cannula. She is using incentive spirometer reaching 500 mL. She is currently on insulin 1 unit per hour and does not have history of diabetes. Patient has had good urine output but has decreased to 30-40 mL per hour this morning. She is currently on O2 at 2 L. Blood pressure is stable. Patient did stand with physical therapy may require subacute or inpatient rehab. Patient examined sitting comfortably in bed. Denies any acute distress. He saturating well at 95% on 2 L of oxygen. She currently has 2 mediastinal chest tube in place had low continuous wall suction. Did receive a dose of Lasix overnight continues to have 30 to 40 mL of urine output per of her. Patient was noted to have bradycardia consistent with third-degree block and atrial ventricular epicardial pacemaker wires were kept in place with a plan to place pacemaker. Mediastinal chest tube drained 120 mL output in the last 8 hours 250 mL output in the last 24 hours with a right chest tube draining 320 mL output in 8 hours and 6 for urine output in the last 24 hours. No evidence of any air leaks. [place]-Opal catheter removed. Cordis is in place 01/27: Patient has developed third degree AV block for which her heart rate was running in the 30s and 40s. Heart rate is currently in the 60s with bedside pacemaker generator on DDD mode, blood pressure 139/63, pulse ox 91-95% on 6 L nasal cannula. Patient is scheduled for pacemaker implantation for tomorrow. Patient has had mediastinal chest tubes removed. 2 bilateral pleural chest tub es remain in place draining serous fluid. Repeat chest x-ray last evening revealed stable tiny left greater than right bilateral apical pneumothoraces. Cardiomegaly and chronic parenchymal change with left greater than right bibasilar acute infiltrate and/or atelectasis. The patient is found sitting up in a chair and appears to be comfortable and in no acute distress, no respiratory distress is noted. 01/28 appears very tired on examination. Overnight patient and decreased urine output and was given 1 L of IV fluid followed by a dose of Lasix. This morning patient went for pacemaker placement and postoperatively patient was noted to have a low blood pressure 79/49. Patient did receive a 20 mg of IV Lasix and Lopressor 12.5 mg this morning. Patient will be initiated on dopamine drip until blood pressure stabilizes. Pacemaker need to be interrogated as patient currently still has atrial and ventricular epicardial pacemaker wires to maintain the rate of 70-80. Urine output maintained at 30 mL per hour. Her pleural chest tubes draining thin serosanguineous drainage with 2:30 mL output in the last 8 hours from the right pleural chest tube and to 90 output in the last 8 hours from the left pleural chest tube labs suggestive leukocytosis with a WBC of 13 hemoglobin 9.2 platelet 132 chloride 110 blood sugar 103 and will continue sliding scale for blood sugar more than 120. Patient in the [place] discontinuance currently patient is very fatigued and tired. Over this illness patient is medically stable 01/29 patient examined bedside appears lethargic but is able to answer questions appropriately. Patient's afebrile blood pressure 95/57 currently on 8 L of high flow chest x-ray consistent with bilateral pulmonary infiltrate with chest tube in place. Apical pneumothorax seen small in size. Chest tube drainage from left is 70 mL in the past 8 hours and 80 mL in the right pleural catheter. Patient currently paced at rate of 60 urine output maintained at 30 mL per hour blood sugar ranged from 116-141. We will add a dose of Lantus 5 units at bedtime continue sliding scale with meals 01/30: Blood sugars are running between 106 and 117. Creatinine 0.66, hemoglobin 9.4, WBC 12.5. Patient remains afebrile, heart rate in the 60s, blood pressure 100/57, pulse ox 96% on room air. Repeat chest x-ray reveals tiny left greater than right biapical pneumothoraces despite bilateral chest tubes seen in current study. Chronic vaginal changes and cardiomegaly redemonstrated with bilateral mid to lower lung edema and or infiltrates, findings improvement in bilateral upper lungs from most recent prior. Bilateral pleural chest tubes remain in place. Permanent pacemaker was placed on Wednesday. There is concern for depression and patient is eating very little and states she has no appetite. Cardiothoracic surgery started Zoloft and we will transition this to Remeron to help with both the depression and appetite. Steward catheter remains in place which is scheduled to be removed later today. Patient had episode of atrial fibrillation, paroxysmal. She is now on Lopressor 12.5 mg twice daily and oral amiodarone at 400 mg twice daily. Patient states that her discharge plan will be to go to [facility] for subacute rehab.. Review of Systems Constitutional: Reports fatigue, Reports poor appetite, Reports weakness, Denies anorexia, Denies chills, Denies fever Ears, nose, mouth and throat: Denies dental pain, Denies dysphagia, Denies headache, Denies sore throat, Denies vertigo Cardiovascular: Denies chest pain, Denies decreased exercise tolerance, Denies dyspnea on exertion, Denies shortness of breath, Denies syncope Respiratory: Denies cough, Denies cough with sputum, Denies dyspnea, Denies respiratory infections Gastrointestinal: Denies abdominal pain, Denies diarrhea, Denies nausea, Denies vomiting Genitourinary: Denies dysuria, Denies hematuria, Denies urinary frequency Musculoskeletal: Reports muscle weakness, Denies myalgias Integumentary: Denies pruritus, Denies rash Neurological: Denies change in mentation, Denies change in speech, Denies numbness, Denies seizures, Denies weakness Psychiatric: Denies anxiety, reports depression, reports poor appetite Endocrine: Denies fatigue, Denies weight change Objective - Vital Signs Vital signs: Vital Signs Temp 98.1 F 01/30/19 05:00 Pulse 71 01/30/19 09:00 Resp 12 01/30/19 09:00 BP 120/85 01/30/19 09:00 Pulse Ox 96 01/30/19 09:00 Intake & Output 01/29/19 01/30/19 01/30/19 18:59 06:59 18:59 Intake Total 280.08 225.46 20 Output Total 710 860 25 Balance -429.92 -634.54 -5 Weight 75 kg Intake: IV 280.08 225.46 20 Dextrose/Water 1 250ml. 60.08 5.46 20 bag @ 4 MCG/KG/MIN 5.468 mls/hr IV .Q24H GIOVANNY with DOPamine DRIP 800 mg Rx#: [id number] Lactated Ringers 1,000 ml 220 220 @ 20 mls/hr IV .Q24H GIOVANNY Rx#:[id number] Output: Chest Tube Drainage 300 340 Pleural Catheter Left 130 230 Pleural Catheter Right 170 110 Urine 410 520 25 Other: Voiding Method Indwelling Catheter Indwelling Catheter ABP, PAP, CO, CI - Last Documented Arterial Blood Pressure 138/59 Pulmonary Artery Pressure 31/9 Cardiac Output 4.1 Cardiac Index 2.4 - Exam Gen: This is a 78-year-old female. She is sitting in bed in the intensive care unit appears to be comfortable and in no acute distress. HEENT: Head is atraumatic, normocephalic. Pupils equal, round. Sclerae is anicteric. NECK: Supple. No JVD. No lymphadenopathy. No thyromegaly. LUNGS: Diminished bilaterally. No wheezes or rhonchi. No intercostal retractions. Bilateral pleural chest tubes in place. HEART: Regular rate and rhythm. No murmur. Chest tubes in place. ABDOMEN: Soft. Bowel sounds are present. No masses. No tenderness. Steward catheter in place with clear catrachito urine. EXTREMITIES: No pedal edema. No calf tenderness. NEUROLOGICAL: Patient is awake, alert and oriented x3. Cranial nerves 2 through 12 are grossly intact. - Labs CBC & Chem 7: 01/30/19 05:00 01/30/19 04:57 Labs: Abnormal Lab Results - Last 24 Hours (Table) 01/29/19 01/29/19 01/29/19 Range/Units 11:47 16:33 20:30 WBC (3.8-10.6) k/uL RBC (3.80-5.40) m/uL Hgb (11.4-16.0) gm/dL Hct (34.0-46.0) % MCV (80.0-100.0) fL Neutrophils # (1.3-7.7) k/uL Sodium (137-145) mmol/L BUN (7-17) mg/dL Glucose (74-99) mg/dL POC Glucose (mg/dL) 141 H 158 H 117 H (75-99) mg/dL 01/30/19 01/30/19 01/30/19 Range/Units 04:57 05:00 06:35 WBC 12.5 H (3.8-10.6) k/uL RBC 2.89 L (3.80-5.40) m/uL Hgb 9.4 L (11.4-16.0) gm/dL Hct 29.2 L (34.0-46.0) % MCV 101.0 H (80.0-100.0) fL Neutrophils # 10.2 H (1.3-7.7) k/uL Sodium 136 L (137-145) mmol/L BUN 42 H (7-17) mg/dL Glucose 111 H (74-99) mg/dL POC Glucose (mg/dL) 118 H (75-99) mg/dL Assessment and Plan Plan: 1. Valvular heart disease status post mitral valve repair and tricuspid valve repair, postop day #6. Continue current management per cardiothoracic surgery, intensive care management continues incentive spirometry to reduce incidence of atelectasis and hospital-acquired pneumonia. Continue aspirin, Lipitor. 2. Third-degree AV block status post permanent pacemaker on January 28. 3. Hypertension. Hydralazine discontinued due to hypotension. 4. Dementia. Continue Aricept, hold Namenda. 5. Glaucoma. Continue eyedrops. 6. DVT prophylaxis. Heparin subcu. 7. GI prophylaxis. Protonix. 8. Hyperglycemia. Lantus started at 5 units at bedtime and NovoLog scale. 9. Postoperative hypotension, expected. Continue to monitor closely. Discontinue hydralazine. 10. Episode of paroxysmal atrial fibrillation, expected. Continue amiodarone oral, Lopressor. 11. Situational depression and anorexia. Patient started on Remeron 15 mg at bedtime. Discharge plan: [facility] Impression and plan of care have been directed as dictated by the signing physician. Noris Gonzales nurse practitioner acting as scribe for signing physician.
[2019-01-30] MEDS ORDERED: ALBUMIN HUMAN 25% 50 ML in EMPTY BAG 1 BAG IVPB STA (13:02)
[2019-01-30] MEDS ORDERED: FUROSEMIDE 10 MG/ML 4 ML VIAL IV STA (13:02)
--- NOTE | 2019-01-30 13:09 | P.PN ---
Subjective Progress Note Date: 01/30/19 Principal diagnosis: Severe mitral valve regurgitation with moderate tricuspid valve regurgitation, mild aortic insufficiency and ascending aortic aneurysm. Past medical history s ignificant for hypertension, early onset dementia, depression, osteoarthritis, remote history of hepatitis A and breast cancer with radiation 17 years ago. POD #5 mitral valve repair with a 26mm annuloflex ring, tricuspid valve repair with a 26mm MC3 tricuspid ring, ascending aortic aortoplasty, ligation of the left atrial appendage with a 35mm Atriclip, Epiaortic ultrasound, intraoperative ELLYN. Postoperative bradycardia, unexpected finding. Postoperative acute blood loss anemia, expected, secondary to cardiopulmonary bypass pump and hemodilution. Postoperative complete A-V dissociation, an unexpected the potential outcome of surgery. POD #2 dual-chamber pacemaker implantation, axillary venography completed by Dr. Perez. The patient is sitting up to the bedside chair in the intensive care unit. She is in no acute distress. Currently denies any complaints of pain or shortness of breath. Her night nurse reports that the patient has been having some feelings of depression. Oxygen saturation are 98% on 10 L high flow nasal cannula. She is achieving 500 mL with much encouragement on her incentive spirometry. The patient is complaining of generalized weakness. Left and right pleural chest tubes remain in place to low continuous wall suction -20 cm H2O. No air leak is present. Draining thin serous drainage. Her left pleural chest tubes drained 220 mL output in the last 8 hours, 380 mL in 24 hours. Right pleural chest tubes drained 320 mL output in the last 8 hours, 650 mL output in the last 24 hours. She remains afebrile last 24 hours, lab results this morning show a WBC count 12.5, hemoglobin 9.4, BUN 42, creatinine 0.66. Bedside telemetry showing a ventricular paced rhythm with a heart rate of 70. Her night RN reports that she went into atrial fibrillation around 10 PM last evening and is currently on amiodarone 0.5 mg/m IV. Objective - Vital Signs Vital signs: Vital Signs Temp 98.1 F 01/30/19 05:00 Pulse 68 01/30/19 07:53 Resp 16 01/30/19 07:00 BP 115/47 01/30/19 07:00 Pulse Ox 92 L 01/30/19 07:00 Intake & Output 01/29/19 01/30/19 01/30/19 18:59 06:59 18:59 Intake Total 280.08 225.46 20 Output Total 710 860 25 Balance -429.92 -634.54 -5 Weight 75 kg Intake: IV 280.08 225.46 20 Dextrose/Water 1 250ml. 60.08 5.46 20 bag @ 4 MCG/KG/MIN 5.468 mls/hr IV .Q24H GIOVANNY with DOPamine DRIP 800 mg Rx#: [id number] Lactated Ringers 1,000 ml 220 220 @ 20 mls/hr IV .Q24H GIOVANNY Rx#:[id number] Output: Chest Tube Drainage 300 340 Pleural Catheter Left 130 230 Pleural Catheter Right 170 110 Urine 410 520 25 Other: Voiding Method Indwelling Catheter Indwelling Catheter ABP, PAP, CO, CI - Last Documented Arterial Blood Pressure 138/59 Pulmonary Artery Pressure 31/9 Cardiac Output 4.1 Cardiac Index 2.4 - Constitutional General appearance: Present: cooperative, no acute distress, obese - Respiratory Details: Lungs sounds essentially clear to bilateral upper lobes, few scattered crackles throughout bilateral bases. No wheezes or rhonchi present. Respirations are symmetrical and nonlabored. Oxygen saturation is 94% 10 L high flow nasal cannula. Achieving 500 mL on her incentive spirometry with much encouragement. Right and left pleural chest tubes remain in place to low continuous wall suction -20 cm H2O. Draining thin serous drainage. No air leak is present. Ramus the - Cardiovascular Details: Regular rhythm and rate. S1 and S2 present, negative for S3, gallop or murmur. Sternum is stable. +1 to +2 generalized edema. Atrial and ventricular epicardial pacemaker wires in place and grounded. Left anterior chest permanent pacemaker in place. Knee-high MU hose and sequential compression devices in place to bilateral lower extremities. Heart hugger is in place and she is demonstrating appropriate use with encouragement. Bedside telemetry showing ventricular paced rhythm heart rate 70. - Gastrointestinal Gastrointestinal Comment(s): Abdomen soft, nontender and nondistended. Active bowel sounds present all 4 abdominal quadrants. No guarding or rigidity. No organomegaly appreciated. Tolerating oral intake. Bowel movement this a.m. - Genitourinary Genitourinary Comment(s): Steward catheter for accurate I&O. Draining clear yellow urine. - Integumentary Integumentary Comment(s): Skin is warm and dry. No clubbing or cyanosis is present. Midline sternal incision is clean, dry and approximated. No drainage or redness is present. Left chest permanent pacemaker site incision clean, dry and approximately. Dressing is clean and dry. - Neurologic Neurologic: Present: CNII-XII intact - Musculoskeletal Musculoskeletal: Present: generalized weakness, strength equal bilaterally - Psychiatric Psychiatric Comment(s): Periods of forgetfulness. Flat affect. Psychiatric: Present: A&O x's 3, intact judgment & insight - Allied health notes Allied health notes reviewed: nursing - Labs CBC & Chem 7: 01/30/19 05:00 01/30/19 04:57 Labs: Abnormal Lab Results - Last 24 Hours (Table) 01/29/19 01/29/19 01/29/19 Range/Units 11:47 16:33 20:30 WBC (3.8-10.6) k/uL RBC (3.80-5.40) m/uL Hgb (11.4-16.0) gm/dL Hct (34.0-46.0) % MCV (80.0-100.0) fL Neutrophils # (1.3-7.7) k/uL Sodium (137-145) mmol/L BUN (7-17) mg/dL Glucose (74-99) mg/dL POC Glucose (mg/dL) 141 H 158 H 117 H (75-99) mg/dL 01/30/19 01/30/19 01/30/19 Range/Units 04:57 05:00 06:35 WBC 12.5 H (3.8-10.6) k/uL RBC 2.89 L (3.80-5.40) m/uL Hgb 9.4 L (11.4-16.0) gm/dL Hct 29.2 L (34.0-46.0) % MCV 101.0 H (80.0-100.0) fL Neutrophils # 10.2 H (1.3-7.7) k/uL Sodium 136 L (137-145) mmol/L BUN 42 H (7-17) mg/dL Glucose 111 H (74-99) mg/dL POC Glucose (mg/dL) 118 H (75-99) mg/dL - Imaging and Cardiology Chest x-ray: image reviewed Assessment and Plan Assessment: 1. Severe mitral valve regurgitation, moderate tricuspid valve regurgitation, aortic valve insufficiency and ascending aortic aneurysm. Status post mitral valve repair with 26mm annuloflex ring, tricuspid valve repair with 26mm M3 tricuspid ring, ascending aorta aortoplasty, ligation of the left atrial appendage with 35mm Atriclip. 2. Post operative bradycardia 3. Post operative acute blood loss anemia secondary to cardiopulmonary bypass pump and hemodilution 4. Hypertension 5. History of early-onset dementia 6. Depression 7. Osteoarthritis 8. Remote history of Hepatitis A 9. History of breast cancer with radiation 17 years ago 10. Postoperative complete A-V dissociation, unexpected Plan: 1. Optimize medical management with low-dose asprin, beta ollie and statin. We will increase her beta ollie as tolerated. 2. Wean oxygen as tolerated. Encourage incentive spirometer as tolerated. Bronchodilators per pulmonology. 3. Remove atrial and ventricular epicardial pacemaker wires in today, bed rest for one hour post maker wire removal. 4. Increase activity as tolerated, out of bed to chair. PT/OT/cardiac rehab following. 5. Will monitor daily labs and chest xrays. Electrolyte replacement per protocol. 6. Insulin management per primary care service. 7. Continue pain management per when necessary orders. Avoid narcotics. 8. GI/DVT prophylaxis. 9. Continue dopamine at 4 mcg/kg/m. 10. Keep left and right pleural chest tubes and keep them in place to low continuous wall suction -20 cm H2O. Continue accurate I & O. 11. Continue amiodarone for atrial fibrillation prophylaxis. Start amiodarone 400 mg by mouth twice a day. 12. Albumin 25% IV piggyback 1 now, and then Lasix 40 mg IV 1 post albumin infusion. 13. More recommendations to follow on patient's clinical course. Time with Patient: Greater than 30
[2019-01-30 17:07] LABS: Glucose,Whole Blood 147 mg/dL (75-99)
[2019-01-30 20:37] LABS: Glucose,Whole Blood 116 mg/dL (75-99)
[2019-01-30] MEDS: INSULIN DETEMIR (LEVEMIR) 100 UNIT/ML SYR SQ SCH (20:38)
[2019-01-30] MEDS: MIRTAZAPINE 15 MG TAB PO SCH (21:50)
[2019-01-30] MEDS: DONEPEZIL 10 MG TAB PO SCH (21:50)
[2019-01-30] MEDS: LATANOPROST 0.005% OPHTH DROPS 2.5 ML BTL BOTH EYES SCH (21:51)
[2019-01-31] MEDS: HEPARIN SODIUM,PORCINE 5,000 UNIT/ML 1 ML VIAL SQ SCH ×4 (00:36→23:37)
[2019-01-31 04:46] LABS: Basophils % (A) 0 %; Eosinophils # (A) 0.1 k/uL (0-0.7); Eosinophils % (A) 1 %; HCT 28.1 % (34.0-46.0); HGB 9.3 gm/dL (11.4-16.0); Lymphocytes # (A) 2.7 k/uL (1.0-4.8); Lymphocytes % (A) 22 %; MCH 33.2 pg (25.0-35.0); MCHC 33.3 g/dL (31.0-37.0); MCV 99.7 fL (80.0-100.0); Mean Platelet Volume 7.4; Monocytes # (A) 0.5 k/uL (0-1.0); Monocytes % (A) 4 %; Neutrophils # (A) 8.7 k/uL (1.3-7.7); Neutrophils % (A) 72 %; Platelet Count 236 k/uL (150-450); RBC 2.81 m/uL (3.80-5.40); RDW 13.6 % (11.5-15.5); WBC 12.1 k/uL (3.8-10.6)
[2019-01-31 05:03] LABS: ALT 44 U/L (9-52); AST 43 U/L (14-36); African American GFR (CKD) >90 (>60 ml/min/1.73 sqM); Albumin 2.7 g/dL (3.5-5.0); Alkaline Phosphatase 55 U/L (38-126); Anion Gap 6 mmol/L; Blood Urea Nitrogen 40 mg/dL (7-17); Calcium 8.4 mg/dL (8.4-10.2); Carbon Dioxide 28 mmol/L (22-30); Chloride 102 mmol/L (98-107); Glucose 89 mg/dL (74-99); Non-African American GFR(CKD) 84 (>60 ml/min/1.73 sqM); Potassium 3.7 mmol/L (3.5-5.1); Sodium 136 mmol/L (137-145); Total Bilirubin 0.7 mg/dL (0.2-1.3); Total Protein 4.8 g/dL (6.3-8.2)
[2019-01-31] MEDS ORDERED: POTASSIUM CHLORIDE ER 20 MEQ TAB.ER PO SCH (06:00)
[2019-01-31] MEDS: INSULIN ASPART (NovoLOG) 100 UNIT/ML VIAL SQ SCH ×4 (06:46→20:42)
[2019-01-31] MEDS: PANTOPRAZOLE 40 MG TABLET PO SCH (06:48)
[2019-01-31] MEDS: IPRATROPIUM-ALBUTEROL 3 ML NEB INHALATION SCH ×4 (07:37→20:00)
[2019-01-31] MEDS ORDERED: POTASSIUM CHLORIDE ER 20 MEQ TAB.ER PO STA (08:09)
--- NOTE | 2019-01-31 08:15 | P.PN ---
Subjective Progress Note Date: 01/31/19 Principal diagnosis: Severe mitral valve regurgitation with moderate tricuspid valve regurgitation, mild aortic insufficiency and ascending aortic aneurysm. Past medical history significant for hypertension, early onset dementia, depression, osteoarthritis, remote history of hepatitis A and breast cancer with radiation 17 years ago. POD #6 mitral valve repair with a 26mm annuloflex ring, tricuspid valve repair with a 26mm MC3 tricuspid ring, ascending aortic aortoplasty, ligation of the left atrial appendage with a 35mm Atriclip, Epiaortic ultrasound, intraoperative ELLYN. Postoperative bradycardia, unexpected Postoperative hypotension, expected Postoperative acute blood loss anemia, expected secondary to cardiopulmonary bypass pump and hemodilution. Postoperative bilateral pneumothoraces, expected Postoperative complete A-V dissociation, unexpected the potential outcome of surgery. POD #3 dual-chamber pacemaker implantation, axillary venography completed by Dr. Perez. Postoperative paroxysmal atrial fibrillation, unexpected but common outcome of open heart surgery The patient is currently sitting up in the recliner in no acute distress in the ICU. She states pain is controlled with current medication regimen, complains of shortness of breath with ambulation. She has ambulated in the hallway already this morning with assist but constantly complains she "can't do it", need much encouragement. Currently AV paced on telemetry, on no IV pressors or inotropes, oxygen continues to be weaned down, bilateral chest tubes remain in place draining serous fluid. Steward catheter was discontinued this morning. No new concerns. Objective - Vital Signs Vital signs: Vital Signs Temp 98.3 F 01/31/19 04:00 Pulse 60 01/31/19 07:00 Resp 17 01/31/19 07:00 BP 112/56 01/31/19 07:00 Pulse Ox 94 L 01/31/19 07:00 Intake & Output 01/30/19 01/31/19 01/31/19 18:59 06:59 18:59 Intake Total 160 Output Total 1155 1231 0 Balance -995 -1231 0 Weight 72.7 kg Intake: IV 160 Dextrose/Water 1 250ml. 20 bag @ 4 MCG/KG/MIN 5.468 mls/hr IV .Q24H GIOVANNY with DOPamine DRIP 800 mg Rx#: [id number] Lactated Ringers 1,000 ml 140 @ 20 mls/hr IV .Q24H GIOVANNY Rx#:[id number] Output: Chest Tube Drainage 350 750 Pleural Catheter Left 125 400 Pleural Catheter Right 225 350 Urine 805 481 0 Other: Voiding Method Indwelling Catheter Indwelling Catheter ABP, PAP, CO, CI - Last Documented Arterial Blood Pressure 138/59 Pulmonary Artery Pressure 31/9 Cardiac Output 4.1 Cardiac Index 2.4 - Constitutional General appearance: Present: cooperative, no acute distress - Respiratory Details: Lung sounds diminished bilaterally with faint crackles in the bases. Respirations even, non-labored. Currently on 4 LPM NC with oxygen saturation 96%. Only able to achieve 500 mL on incentive spirometry with poor effort. Weak cough. Left pleural chest tube present to continuous wall suction, 30 mL serous output overnight, 250 mL in the last 24 hours. Right pleural chest tube to continuous wall suction, 100 mL serous output overnight, 675 mL in the last 24 hours. No air leaks present. - Cardiovascular Details: S1/S2 present. Regular rate and rhythm, AV paced on telemetry with heart rate 60 BPM. Sternum stable. Palpable peripheral pulses bilaterally. Trace generalized edema present. No calf pain or tenderness noted. Heart hugger in place with patient demonstrating appropriate use with much encouragement. Anti- embolism stockings, SCDs present. - Gastrointestinal Gastrointestinal Comment(s): Abdomen soft, non-tender, non-distended. Active bowel sounds present x 4 quadrants. Tolerating minimal diet. Positive bowel movement 01/30 - Genitourinary Genitourinary Comment(s): Steward discontinued this morning, due to void. Urine output overnight 30-35 mL/hr with 450 mL diuresis after lasix IV yesterday. - Integumentary Integumentary Comment(s): Skin is warm and dry with evidence of good perfusion. Anterior chest incision well approximated and covered with dry, intact dressing. Left anterior chest PPM incision covered with dry intact dressing. - Neurologic Neurologic: Present: CNII-XII intact - Musculoskeletal Musculoskeletal: Present: generalized weakness, strength equal bilaterally - Psychiatric Psychiatric Comment(s): Appears depressed, wants to sleep all day, needs constant encouragement and stimulation Psychiatric: Present: A&O x's 3 - Allied health notes Allied health notes reviewed: nursing - Labs CBC & Chem 7: 01/31/19 04:13 01/31/19 04:15 Labs: Abnormal Lab Results - Last 24 Hours (Table) 01/30/19 01/30/19 01/30/19 Range/Units 11:48 16:55 20:25 WBC (3.8-10.6) k/uL RBC (3.80-5.40) m/uL Hgb (11.4-16.0) gm/dL Hct (34.0-46.0) % Neutrophils # (1.3-7.7) k/uL Sodium (137-145) mmol/L BUN (7-17) mg/dL POC Glucose (mg/dL) 106 H 147 H 116 H (75-99) mg/dL AST (14-36) U/L Total Protein (6.3-8.2) g/dL Albumin (3.5-5.0) g/dL 01/31/19 01/31/19 Range/Units 04:13 04:15 WBC 12.1 H (3.8-10.6) k/uL RBC 2.81 L (3.80-5.40) m/uL Hgb 9.3 L (11.4-16.0) gm/dL Hct 28.1 L (34.0-46.0) % Neutrophils # 8.7 H (1.3-7.7) k/uL Sodium 136 L (137-145) mmol/L BUN 40 H (7-17) mg/dL POC Glucose (mg/dL) (75-99) mg/dL AST 43 H (14-36) U/L Total Protein 4.8 L (6.3-8.2) g/dL Albumin 2.7 L (3.5-5.0) g/dL - Imaging and Cardiology Chest x-ray: image reviewed Assessment and Plan Assessment: 1. Severe mitral regurgitation, moderate tricuspid regurgitation, and mild aortic insufficiency, status post mitral valve repair, tricuspid valve repair 2. Ascending aortic aneurysm, status post aortoplasty 3. Postoperative bradycardia, complete A-V dissociation, status post dual- chamber permanent pacemaker implantation 4. Postoperative hypotension, resolved 5. Postoperative acute blood loss anemia 6. Postoperative bilateral pneumothoraces 7. Postoperative paroxysmal atrial fibrillation, status post ligation of the left atrial appendage 8. Hypertension 9. Dementia 10. Depression 11. Osteoarthritis 12. Remote history of Hepatitis A 13. History of breast cancer with radiation 17 years ago Plan: 1. Optimize medical management with full strength asprin, statin, beta ollie therapy. Will increase beta ollie as tolerated. 2. Continue amiodarone for afib prophylaxis. No anticoagulation unless in afib >24 hours. 3. Wean oxygen as tolerated. Encourage incentive spirometer 10x every hour while awake. Bronchodilators per pulmonology. 4. Increase activity as tolerated, ambulate in hallway minimum 4x daily, out of bed for all meals. PT/OT/cardiac rehab following. 5. Will monitor daily labs and xrays. Electrolyte replacement per protocol. 6. Insulin management per primary care service. 7. Pain control with current medication regimen. No narcotics. 8. GI/DVT prophylaxis 9. Will give IV lasix 40 mg twice daily x 48 hours 10. Steward catheter was discontinued. May bladder scan every 6 hours, straight cath for >300 mL residual 11. Will discontinue left pleural chest tube. Will leave right pleural chest tube for another 24 hours. 12. Discharge planning in progress. Anticipate discharge to [facility] for subacute rehab. 13. More recommendations to follow based on patient's clinical course. Time with Patient: Greater than 30
[2019-01-31] MEDS: ATORVASTATIN 40 MG TAB PO SCH (08:50)
[2019-01-31] MEDS: AMIODARONE 200 MG TAB PO SCH ×2 (08:50→20:40)
[2019-01-31] MEDS: ASCORBIC ACID 500 MG TAB PO SCH (08:50)
[2019-01-31] MEDS: ASPIRIN 81 MG PO SCH (08:50)
[2019-01-31] MEDS: METOPROLOL TARTRATE 12.5 MG TAB PO SCH ×2 (08:50→20:40)
[2019-01-31] MEDS: CHOLECALCIFEROL 400 UNIT TAB PO SCH (08:51)
[2019-01-31] MEDS: BRIMONIDINE TARTRATE 0.2% DROPS 5 ML BTL BOTH EYES SCH ×2 (08:51→20:40)
--- NOTE | 2019-01-31 08:51 | XR ---
EXAMINATION TYPE: XR chest 1V portable DATE OF EXAM: 01/31/2019 CLINICAL HISTORY: Difficulty breathing progress study. Postopen cardiac surgery. TECHNIQUE: Single AP portable upright view of the chest is obtained. COMPARISON: Chest x-ray from one day earlier and older studies. FINDINGS: Persistent bilateral chest tubes with tiny left apical pneumothorax seen on current stud y. Tiny right apical pneumothorax now not well seen. Persistent cardiac valvular rings along with kirsten sure device and dual lead pacemaker along with cardiomegaly. Interval removal overlying inferior elizabeth cardial wires. Overlying EKG leads are again seen. Background chronic parenchymal change with ectatic and atherosclerotic aorta. Persistent diffuse bila teral mid to lower lung opacities with relative sparing of upper lungs not significantly changed from most recent study. Osseous structures are intact. IMPRESSION: Stable tiny left apical pneumothorax. Right pneumothorax not identified on current study. Bilateral chest tubes remain in place. Chronic parenchymal changes and cardiomegaly redemonstrated w ith bilateral mid to lower lung acute edema and/or infiltrates redemonstrated, no significant change from prior. IMPRESSION: Overall stable findings,
[2019-01-31] MEDS: TIMOLOL 0.5% OPHTH DROPS 5 ML BTL BOTH EYES SCH ×2 (08:52→20:40)
[2019-01-31] MEDS: FUROSEMIDE 10 MG/ML 4 ML VIAL IV SCH ×2 (08:53→20:40)
--- NOTE | 2019-01-31 08:56 | PN ---
PROGRESS NOTE Mrs. Lawson is a 78-year-old female who presented to undergo mitral and tricuspid valve repair. She underwent permanent pacemaker implantation because of complete heart block. She feels slightly better today. Her breathing is better. She denies any symptoms of chest pain. She denies any dizziness or palpitation. She continues to feel weak. She is not doing too well with the incentive spirometry. She ambulated a little bit yesterday in the room. She continued to be in sinus mechanism. She needs to be on amiodarone 400 mg twice a day, Lipitor 40 mg daily, aspirin once a day. She received 1 dose of IV Lasix yesterday. She is on metoprolol tartrate 12.5 mg twice a day. PHYSICAL EXAMINATION: Blood pressure 112/60 with a heart rate in 60s. LUNGS: With decreased breath sounds at the bases, no wheezes. HEART: Regular rate and rhythm, S1, S2. No S3. No rub appreciated. ABDOMEN: Soft, nontender. Positive bowel sounds. No organomegaly. EXTREMITIES: No significant edema. LAB DATA: Lab data revealed BUN and creatinine 14 and 0.69, potassium 3.7, hemoglobin of 9.3, white blood cells 12.1. Her chest x-ray revealed bilateral congestion with no significant changes compared to yesterday. The possibility of infiltrate cannot be totally excluded. IMPRESSION: 1. Status post mitral and tricuspid valve repair. 2. Complete heart block with permanent pacemaker implantation. 3. Evidence of fluid overload with good urine output. 4. Episode of paroxysmal fibrillation remains sinus mechanism. 5. Prior history of breast cancer. RECOMMENDATION: From the cardiac standpoint, we will continue present therapy. Continue incentive spirometry. Continue on the IV Lasix as needed. Increase her level activity and depending on her progress, further recommendation will be made. MMODL / IJN: [id number] /
--- NOTE | 2019-01-31 11:17 | P.PN ---
Subjective Progress Note Date: 01/31/19 Principal diagnosis: status post mitral valve repair and tricuspid valve repair postoperative day #7 78-year-old female patient is currently postop from cardiac surgery as the pat ient underwent a mitral valve repair and a tricuspid valve repair. Currently she is postop day #0. Note that preoperatively, the patient was found to have severe mitral regurgitation and moderate TR and mild aortic insufficiency. Her coronary angiogram was within normal limits. She is known to have hypertension, early onset dementia, and previous history of breast cancer. Currently, the patient is postop. She is on a assist-control mode of ventilation at the rate of 12 with a tidal volume of 350 and FiO2 was dropped down to 50% with a PEEP of 5. The blood gases showed a pH of 7.32 with a pCO2 of 43 and pO2 of found and 13 and this was done immediately postop. The chest x-ray showed adequate expansion of both lungs. The patient has 2 mediastinal chest tubes 1 right- sided and 1 left-sided pleural chest tube. The output from the chest tubes have been in the order of 200 mL of bloody output/serosanguineous from the mediastinal chest tube and 100 mL from the pleural chest tubes. Hemodynamically, the patient is doing well. Her cardiac index is at 2 with an output of 3.3. The patient has a PA pressure of 37/20. She is on Catapres for blood pressure control. She is not requiring any inotropes. She is producing adequate urine output in the order of 150 mL an hour. She is on IV fluids and she is receiving lactated Ringer at the rate of an hour. She received a total of 2 units of packed RBC intraoperatively and a unit of packed RBC. The patient for now is off sedation and when the process of weaning the sedation off and assessing the patient neurologic status. On today's evaluation of 01/25/2019 the patient is looking well. She is a bit sleepy. I was able to wean off the mechanical ventilator and extubated around 11:30 PM yesterday. She is currently on oxygen at 3 L. [place]-Opal catheter is in place. Cardiac index is at 2.4 with an output of 4.1. PA pressures are 30/9 and his CVP is around 7. She has the tubes in place with a right pleural and left pleural and 2 mediastinal chest tubes. Output is around 30-50 mL an hour and there is no evidence of any air leak. The chest x-ray from today shows what especially of both lungs. She is hemodynamically stable. She wasn't Cleviprex for blood pressure control that This continues. She is awake and alert and she is following commands. Her underlying cardiac rhythm was asystole. The patient is currently AV paced at the rate of 80. Afebrile. Using incentive spirometer and she is pulling approximately 500 mL. ON 01/26/2019 the patient is resting comfortably in bed. She was moved to a chair and after being there for few minutes she started developing ectopies mainly ventricular ectopies while her cardiac rhythm was still paced at the rate of 70. Her underlying rhythm is abnormal and that only P waves without any significant ventricular bases were noted earlier. However, she is producing some ventricular ectopies for now on the rhythm strips. She was unable to tolerate lower heart rate and heart rate was maintained at the rate of 70. Output from the chest tubes are minimal. The patient has right pleural and the left pleural chest tube and mediastinal chest tubes. The based on chest tubes will be taken out today. Her urine output is in order of 30 mL an hour. She got a dose of Lasix at 5 AM this morning. She is using incentive spirometer and she is pulling approximately 500. Tiny apical pneumothorax on today's chest x- ray. No evidence of any air leaks. [place]-Opal catheter removed. Cordis is in place. Sternum stable clean and intact. No fever or chills. The hemoglobin is stable at 9.4. Creatinine is at 0.8. On today's evaluation of 01/27/2019 the patient is postop day #3. She is looking well. Her underlying rhythm is still third-degree ventricular rhythm and the patient is going to have a pacemaker inserted tomorrow. Overnight she had had a low urine output. She was given albumin 5% to 50 mL and she was also given a bolus of 500 mL of normal saline. She did improve her urine output. This morning she is slightly running low at 20 mL an hour. She will be given a dose of Lasix 40 mg IV push. The chest tubes are in place and there are being . Output remains considerably high and we are going to monitor the output. The chest x-ray from today shows small tiny biapical pneumothoraces. Nevertheless, there is no evidence of air leak and the chest tube. The patient is currently paced and she is AV paced at the rate of 70. Sternum is stable clean and intact. She does have some increased lower extremity edema. No other significant events overnight. On today's evaluation of 01/28/2019 the patient is post pacemaker insertion. The patient had A-V dissociation following bowel surgery and she underwent a dual-chamber pacemaker implantation. She is doing well. Chest x-ray shows to her chest tubes right pleural and left pleural. Output from the right chest tube has been 200 mL over the past 4 hours, and similar output for the left. Her chest x-ray shows questionable tiny apical pneumothoraces. Otherwise no evidence of air leak. There is some mild pulmonary vascular congestion. Urine output is in order of 30 she is an hour and the patient is producing adequate amount of urine output for now and she was given Lasix 20 mg IV. No respiratory distress. She is using incentive spirometer. She is taking a short On today's evaluation of 01/29/2019 the patient is postop day #4 following mitral valve repair and tricuspid valve repair. The patient is laying comfortably in bed. The pleural chest tubes are still in place and the output remains considerably high in the form of serosanguineous drainage. The right- sided chest tube has drained around 650 on the right over the past 24 hours and 350 over the past 8 hours and the left has put out 38 over the past [address] over the past 8 hours. The chest x-ray still consistent with bilateral pulmonary infiltrates consistent with edema. No evidence of a significant pneumothorax. The patient is currently paced at the rate of 60. A permanent pacemaker was inserted yesterday without any complication. Note that she developed postop complete A-V dissociation. Her urine output is in order of 30 mL an hour. She was having some issues with low urine output and hypotension yesterday and currently she is on dopamine at 3 g per KG per minute. Current oxygen level is at 8 L by nasal cannula to maintain a saturation above 92-93%. The patient's hemoglobin is at 9.5. Renal function is stable at creatinine of 0.5 with a BUN of 39. She will go 4 extremities. She is following commands pH is awake and alert and oriented. Reevaluated today on 01/30/2019, patient is postoperative day #5. She is status post mitral valve repair and tricuspid valve repair. Remains in congestive heart failure based on the chest x-ray findings, continues to have pleural chest tubes in place,she is also status post post-pacemaker implantation, permanent 2 days ago, and this was done because the patient developed complete AV disassociation. Urine output is acceptable, patient receives Lasix on when necessary basis by cardiothoracic surgery. Remains on dopamine at 4 mcg/kg/m, she is also on amiodarone at present. She is on 6 L nasal cannula, maintaining O2 saturation in the low 90s.CBC is relatively normal hemoglobin is 9.4 lites are normal BUN is 42 creatinine 0.66.chest x-ray continues to show evidence of pulmonary edema Reevaluated today on 01/31/19 patient is post mitral valve and tricuspid valve repair, postoperative day #6, patient is currently sitting in a recliner, in no distress, remains on 4 L nasal cannula. She is doing poorly with incentive spirometry, she is ambulating with assistance, but keeps complaining that she cannot do what, she needs significant amount of encouragement. Chest x-ray continues to show evidence of interstitial edema, strongly doubt pneumonia she may have some component of atelectasis and interstitial edema. Did receive Lasix today. WBC count is 12.1 hemoglobin is 9.3 Electrolytesenc normal BUN is 40 creatinine is 0.69. Objective - Vital Signs Vital signs: Vital Signs Temp 97.0 F L 01/31/19 08:00 Pulse 60 01/31/19 10:00 Resp 15 01/31/19 10:00 BP 96/57 01/31/19 10:00 Pulse Ox 94 L 01/31/19 10:00 Intake & Output 01/30/19 01/31/19 01/31/19 18:59 06:59 18:59 Intake Total 160 100 Output Total 1155 1231 150 Balance -995 -1231 -50 Weight 72.7 kg Intake: IV 160 Dextrose/Water 1 250ml. 20 bag @ 4 MCG/KG/MIN 5.468 mls/hr IV .Q24H GIOVANNY with DOPamine DRIP 800 mg Rx#: [id number] Lactated Ringers 1,000 ml 140 @ 20 mls/hr IV .Q24H GIOVANNY Rx#:[id number] Oral 100 Output: Chest Tube Drainage 350 750 Pleural Catheter Left 125 400 Pleural Catheter Right 225 350 Urine 805 481 150 Other: Voiding Method Indwelling Catheter Indwelling Catheter Bedside Commode # Voids 2 # Bowel Movements 1 ABP, PAP, CO, CI - Last Documented Arterial Blood Pressure 138/59 Pulmonary Artery Pressure 31/9 Cardiac Output 4.1 Cardiac Index 2.4 - Exam Physical Exam: Revealed a 78-year-old female in no distress. Sitting in a recliner, on 4 L nasal cannula. head: Atraumatic, normocephalic HEENT:[Neck is supple.] [No neck masses.] [No thyromegaly.] [No JVD.] Chest: [symmetrical chest expansion, crackles and rhonchi bilaterally. Cardiac Exam: [Normal S1 and S2, no S3 gallop, no murmur.] Abdomen: [Soft, nontender, no megaly, no rebound, no guarding, normal bowel sounds.] Extremities: [No clubbing, trace of bipedaledema, no cyanosis.] Neurological Exam: [No focal neurologic deficit.]alert oriented 3. Psychiatric: Normal mood affect and normal mental status examination. Skin: No rashes. Lymphatics: No lymphadenopathy. - Labs CBC & Chem 7: 01/31/19 04:13 01/31/19 04:15 Labs: Abnormal Lab Results - Last 24 Hours (Table) 01/30/19 01/30/19 01/30/19 Range/Units 11:48 16:55 20:25 WBC (3.8-10.6) k/uL RBC (3.80-5.40) m/uL Hgb (11.4-16.0) gm/dL Hct (34.0-46.0) % Neutrophils # (1.3-7.7) k/uL Sodium (137-145) mmol/L BUN (7-17) mg/dL POC Glucose (mg/dL) 106 H 147 H 116 H (75-99) mg/dL AST (14-36) U/L Total Protein (6.3-8.2) g/dL Albumin (3.5-5.0) g/dL 01/31/19 01/31/19 Range/Units 04:13 04:15 WBC 12.1 H (3.8-10.6) k/uL RBC 2.81 L (3.80-5.40) m/uL Hgb 9.3 L (11.4-16.0) gm/dL Hct 28.1 L (34.0-46.0) % Neutrophils # 8.7 H (1.3-7.7) k/uL Sodium 136 L (137-145) mmol/L BUN 40 H (7-17) mg/dL POC Glucose (mg/dL) (75-99) mg/dL AST 43 H (14-36) U/L Total Protein 4.8 L (6.3-8.2) g/dL Albumin 2.7 L (3.5-5.0) g/dL Assessment and Plan Assessment: impression: Status post mitral and tricuspid valve repair, postoperative day #6. A-V dissociation, status post permanent pacemaker implantation/a dual-chamber. bilateral pneumothoraces, expected after surgery, no evidence of air leak. Early onset dementia History of breast cancer History of hypertension. Suspect some component of diastolic congestive heart failure, remains on diuretics. Recommendation: Continue cardiac meds including beta blockers statins aspirin. Continue amiodarone. Continue to encourage incentive spirometry, ambulation, and continue bronchodilators. Increase activity as tolerated. Continue insulin as per protocol Continue pain management and pain control. Continue GI and DVT prophylaxis Continue diuretics Discontinue Steward catheter. Continue to monitor output from chest tubes, significant output noted in the last 24 hours. Patient will definitely need rehab placement. We'll continue to follow. Time with Patient: Less than 30
--- NOTE | 2019-01-31 12:47 | P.PN ---
Subjective Progress Note Date: 01/31/19 This is a 78-year-old female patient of Dr. Monteiro with past medical history of breast cancer in 2002, dementia, hypertension, osteoarthritis, glaucoma. Patient is seen on postop day #1 following a mitral valve repair and a tricuspid valve repair. Patient is seen in the intensive care unit. She has been successfully extubated last evening is currently on 2 L nasal cannula. She is using incentive spirometer reaching 500 mL. She is currently on insulin 1 unit per hour and does not have history of diabetes. Patient has had good urine output but has decreased to 30-40 mL per hour this morning. She is currently on O2 at 2 L. Blood pressure is stable. Patient did stand with physical therapy may require subacute or inpatient rehab. Patient examined sitting comfortably in bed. Denies any acute distress. He saturating well at 95% on 2 L of oxygen. She currently has 2 mediastinal chest tube in place had low continuous wall suction. Did receive a dose of Lasix overnight continues to have 30 to 40 mL of urine output per of her. Patient was noted to have bradycardia consistent with third-degree block and atrial ventricular epicardial pacemaker wires were kept in place with a plan to place pacemaker. Mediastinal chest tube drained 120 mL output in the last 8 hours 250 mL output in the last 24 hours with a right chest tube draining 320 mL output in 8 hours and 6 for urine output in the last 24 hours. No evidence of any air leaks. [place]-Opal catheter removed. Cordis is in place 01/27: Patient has developed third degree AV block for which her heart rate was running in the 30s and 40s. Heart rate is currently in the 60s with bedside pacemaker generator on DDD mode, blood pressure 139/63, pulse ox 91-95% on 6 L nasal cannula. Patient is scheduled for pacemaker implantation for tomorrow. Patient has had mediastinal chest tubes removed. 2 bilateral pleural chest tub es remain in place draining serous fluid. Repeat chest x-ray last evening revealed stable tiny left greater than right bilateral apical pneumothoraces. Cardiomegaly and chronic parenchymal change with left greater than right bibasilar acute infiltrate and/or atelectasis. The patient is found sitting up in a chair and appears to be comfortable and in no acute distress, no respiratory distress is noted. 01/28 appears very tired on examination. Overnight patient and decreased urine output and was given 1 L of IV fluid followed by a dose of Lasix. This morning patient went for pacemaker placement and postoperatively patient was noted to have a low blood pressure 79/49. Patient did receive a 20 mg of IV Lasix and Lopressor 12.5 mg this morning. Patient will be initiated on dopamine drip until blood pressure stabilizes. Pacemaker need to be interrogated as patient currently still has atrial and ventricular epicardial pacemaker wires to maintain the rate of 70-80. Urine output maintained at 30 mL per hour. Her pleural chest tubes draining thin serosanguineous drainage with 2:30 mL output in the last 8 hours from the right pleural chest tube and to 90 output in the last 8 hours from the left pleural chest tube labs suggestive leukocytosis with a WBC of 13 hemoglobin 9.2 platelet 132 chloride 110 blood sugar 103 and will continue sliding scale for blood sugar more than 120. Patient in the [place] discontinuance currently patient is very fatigued and tired. Over this illness patient is medically stable 01/29 patient examined bedside appears lethargic but is able to answer questions appropriately. Patient's afebrile blood pressure 95/57 currently on 8 L of high flow chest x-ray consistent with bilateral pulmonary infiltrate with chest tube in place. Apical pneumothorax seen small in size. Chest tube drainage from left is 70 mL in the past 8 hours and 80 mL in the right pleural catheter. Patient currently paced at rate of 60 urine output maintained at 30 mL per hour blood sugar ranged from 116-141. We will add a dose of Lantus 5 units at bedtime continue sliding scale with meals 01/30: Blood sugars are running between 106 and 117. Creatinine 0.66, hemoglobin 9.4, WBC 12.5. Patient remains afebrile, heart rate in the 60s, blood pressure 100/57, pulse ox 96% on room air. Repeat chest x-ray reveals tiny left greater than right biapical pneumothoraces despite bilateral chest tubes seen in current study. Chronic vaginal changes and cardiomegaly redemonstrated with bilateral mid to lower lung edema and or infiltrates, findings improvement in bilateral upper lungs from most recent prior. Bilateral pleural chest tubes remain in place. Permanent pacemaker was placed on Wednesday. There is concern for depression and patient is eating very little and states she has no appetite. Cardiothoracic surgery started Zoloft and we will transition this to Remeron to help with both the depression and appetite. Steward catheter remains in place which is scheduled to be removed later today. Patient had episode of atrial fibrillation, paroxysmal. She is now on Lopressor 12.5 mg twice daily and oral amiodarone at 400 mg twice daily. Patient states that her discharge plan will be to go to [facility] for subacute rehab.. 01/31: Patient remains in the intensive care unit. She is sitting up and recliner appears to be quite comfortable. No respiratory distress is noted. She is currently pulse oxing 94% on 2 L. (Steward catheter has been removed and patient has been up to the commode chair voiding 3 times after receiving Lasix. I1 chest tube has been removed. Patient is anticipating to ambulate with physical therapy today WBC 12.1, hemoglobin 9.3, BUN 40 creatinine 0.69. Patient has been afebrile. Blood sugars are running between 89 and 147. C ardiac monitor is paced rhythm. Patient is reaching 500 on incentive spirometry. Review of Systems Constitutional: Reports fatigue, Reports poor appetite, Reports weakness, Denies anorexia, Denies chills, Denies fever Ears, nose, mouth and throat: Denies dental pain, Denies dysphagia, Denies headache, Denies sore throat, Denies vertigo Cardiovascular: Denies chest pain, Denies decreased exercise tolerance, Denies dyspnea on exertion, Denies shortness of breath, Denies syncope Respiratory: Denies cough, Denies cough with sputum, Denies dyspnea, Denies respiratory infections Gastrointestinal: Denies abdominal pain, Denies diarrhea, Denies nausea, Denies vomiting Genitourinary: Denies dysuria, Denies hematuria, Denies urinary frequency Musculoskeletal: Reports muscle weakness, Denies myalgias Integumentary: Denies pruritus, Denies rash Neurological: Denies change in mentation, Denies change in speech, Denies numbness, Denies seizures, reports weakness Psychiatric: Denies anxiety, reports depression, reports poor appetite Endocrine: Denies fatigue, Denies weight change Objective - Vital Signs Vital signs: Vital Signs Temp 97.0 F L 01/31/19 08:00 Pulse 60 01/31/19 10:00 Resp 15 01/31/19 10:00 BP 96/57 01/31/19 10:00 Pulse Ox 94 L 01/31/19 10:00 Intake & Output 01/30/19 01/31/19 01/31/19 18:59 06:59 18:59 Intake Total 160 100 Output Total 1155 1231 150 Balance -995 -1231 -50 Weight 72.7 kg Intake: IV 160 Dextrose/Water 1 250ml. 20 bag @ 4 MCG/KG/MIN 5.468 mls/hr IV .Q24H GIOVANNY with DOPamine DRIP 800 mg Rx#: [id number] Lactated Ringers 1,000 ml 140 @ 20 mls/hr IV .Q24H GIOVANNY Rx#:[id number] Oral 100 Output: Chest Tube Drainage 350 750 Pleural Catheter Left 125 400 Pleural Catheter Right 225 350 Urine 805 481 150 Other: Voiding Method Indwelling Catheter Indwelling Catheter Bedside Commode # Voids 2 # Bowel Movements 1 ABP, PAP, CO, CI - Last Documented Arterial Blood Pressure 138/59 Pulmonary Artery Pressure 31/9 Cardiac Output 4.1 Cardiac Index 2.4 - Exam Gen: This is a 78-year-old female. She is sitting in a recliner in the intensive care unit appears to be comfortable and in no acute distress. HEENT: Head is atraumatic, normocephalic. Pupils equal, round. Sclerae is ani cteric. NECK: Supple. No JVD. No lymphadenopathy. No thyromegaly. LUNGS: Diminished bilaterally. No wheezes or rhonchi. No intercostal retractions. One pleural chest tube in place. HEART: Regular rate and rhythm. No murmur. Chest tubes in place. ABDOMEN: Soft. Bowel sounds are present. No masses. No tenderness. EXTREMITIES: No pedal edema. No calf tenderness. NEUROLOGICAL: Patient is awake, alert and oriented x3. Cranial nerves 2 through 12 are grossly intact. - Labs CBC & Chem 7: 01/31/19 04:13 01/31/19 04:15 Labs: Abnormal Lab Results - Last 24 Hours (Table) 01/30/19 01/30/19 01/30/19 Range/Units 11:48 16:55 20:25 WBC (3.8-10.6) k/uL RBC (3.80-5.40) m/uL Hgb (11.4-16.0) gm/dL Hct (34.0-46.0) % Neutrophils # (1.3-7.7) k/uL Sodium (137-145) mmol/L BUN (7-17) mg/dL POC Glucose (mg/dL) 106 H 147 H 116 H (75-99) mg/dL AST (14-36) U/L Total Protein (6.3-8.2) g/dL Albumin (3.5-5.0) g/dL 01/31/19 01/31/19 Range/Units 04:13 04:15 WBC 12.1 H (3.8-10.6) k/uL RBC 2.81 L (3.80-5.40) m/uL Hgb 9.3 L (11.4-16.0) gm/dL Hct 28.1 L (34.0-46.0) % Neutrophils # 8.7 H (1.3-7.7) k/uL Sodium 136 L (137-145) mmol/L BUN 40 H (7-17) mg/dL POC Glucose (mg/dL) (75-99) mg/dL AST 43 H (14-36) U/L Total Protein 4.8 L (6.3-8.2) g/dL Albumin 2.7 L (3.5-5.0) g/dL Assessment and Plan Plan: 1. Valvular heart disease status post mitral valve repair and tricuspid valve repair, postop day #7. Continue current management per cardiothoracic surgery, intensive care management continues incentive spirometry to reduce incidence of atelectasis and hospital-acquired pneumonia. Continue aspirin, Lipitor. 2. Third-degree AV block status post permanent pacemaker on January 28. 3. Hypertension. Hydralazine discontinued due to hypotension. 4. Dementia. Continue Aricept, hold Namenda. 5. Glaucoma. Continue eyedrops. 6. DVT prophylaxis. Heparin subcu. 7. GI prophylaxis. Protonix. 8. Hyperglycemia. Lantus started at 5 units at bedtime and NovoLog scale. 9. Postoperative hypotension, expected. Continue to monitor closely. Discontinue hydralazine. 10. Episode of paroxysmal atrial fibrillation, expected. Continue amiodarone oral, Lopressor. 11. Situational depression and anorexia. Continue Remeron 15 mg at bedtime. Discharge plan: [facility] Impression and plan of care have been directed as dictated by the signing physician. Noris Gonzales nurse practitioner acting as scribe for signing phys ician.
[2019-01-31 16:59] LABS: Glucose,Whole Blood 89 mg/dL (75-99)
[2019-01-31] MEDS: DONEPEZIL 10 MG TAB PO SCH (20:39)
[2019-01-31] MEDS: MIRTAZAPINE 15 MG TAB PO SCH (20:39)
[2019-01-31] MEDS: LATANOPROST 0.005% OPHTH DROPS 2.5 ML BTL BOTH EYES SCH (20:41)
[2019-01-31] MEDS: INSULIN DETEMIR (LEVEMIR) 100 UNIT/ML SYR SQ SCH (20:41)
[2019-01-31 20:43] LABS: Glucose,Whole Blood 102 mg/dL (75-99)
[2019-01-31 23:51] LABS: Hemoglobin A1C 5.2 % (4.0-6.0)
[2019-02-01 04:46] LABS: HCT 28.5 % (34.0-46.0); HGB 9.7 gm/dL (11.4-16.0); MCH 33.9 pg (25.0-35.0); MCHC 34.1 g/dL (31.0-37.0); MCV 99.6 fL (80.0-100.0); Mean Platelet Volume 6.5; Platelet Count 236 k/uL (150-450); RBC 2.86 m/uL (3.80-5.40); RDW 13.6 % (11.5-15.5); WBC 12.6 k/uL (3.8-10.6)
[2019-02-01 05:04] LABS: African American GFR (CKD) >90 (>60 ml/min/1.73 sqM); Anion Gap 5 mmol/L; Blood Urea Nitrogen 38 mg/dL (7-17); Calcium 8.3 mg/dL (8.4-10.2); Carbon Dioxide 31 mmol/L (22-30); Chloride 103 mmol/L (98-107); Glucose 97 mg/dL (74-99); Magnesium 2.1 mg/dL (1.6-2.3); Non-African American GFR(CKD) 83 (>60 ml/min/1.73 sqM); Potassium 3.9 mmol/L (3.5-5.1); Sodium 139 mmol/L (137-145)
[2019-02-01 06:59] LABS: Glucose,Whole Blood 102 mg/dL (75-99)
[2019-02-01 07:30] LABS: Glucose,Whole Blood 96 mg/dL (75-99)
[2019-02-01 07:30] LABS: Glucose,Whole Blood 93 mg/dL (75-99)
--- NOTE | 2019-02-01 07:31 | XR ---
EXAMINATION TYPE: XR chest 1V portable DATE OF EXAM: 02/01/2019 COMPARISON: 01/31/2019 HISTORY: Status post cardiac surgery TECHNIQUE: Single frontal view of the chest is obtained. FINDINGS: There is improved aeration of the lungs overall with patchy areas of probable atelectasis and mild interstitial pulmonary edema. Right-sided thoracostomy tube remains in place with a small re sidual right pneumothorax. Pleural thickening is seen of the left lung apex with stable tiny left api zoila pneumothorax. Heart is enlarged with annuloplasty rings and dual-lead left-sided cardiac device. Diffuse osseous demineralization is seen. IMPRESSION: Improved aeration of the lungs is stable bilateral pneumothoraces. Mild interstitial pul monary edema and scattered opacities likely representing atelectasis to remain.
--- NOTE | 2019-02-01 08:03 | PN ---
PROGRESS NOTE Mrs. Lawson is a 78-year-old female, status post mitral and tricuspid valve repair who postoperatively had complete heart block and underwent permanent pacemaker implantation. She looks and feels better today. Her breathing is better. Her energy is better. She is paced 100%. She denies any chest pain. No dizziness. No palpitation. Hemodynamically, she has had no evidence of recurrent atrial fibrillation. She continues to be on amiodarone 40 mg twice a day, aspirin once a day, Lipitor 40 mg daily today, donepezil, Lasix 40 mg IV q.12 hours for 4 doses, metoprolol tartrate 12.5 mg twice a day. PHYSICAL EXAMINATION: Blood pressure in running in the one teens with a heart in 60. LUNGS: With mild decrease in breath sounds, no wheezes. HEART: Regular rate and rhythm. S1, S2. No S3. No rub. ABDOMEN: Soft, nontender. EXTREMITIES: No significant edema. LAB DATA: Revealed a hemoglobin of 9.7. BUN and creatinine 38 and 0.7. IMPRESSION: 1. Status post mitral and tricuspid valve repair. 2. Complete heart block with permanent pacemaker implantation. 3. Paroxysmal atrial fibrillation remains in sinus mechanism. 4. Prior history of hypertension. RECOMMENDATION: Patient will continue present therapy. Her chest x-ray shows improvement compared to the chest x-ray of yesterday. Hemodynamically stable. Will continue to increase her level of activity. Continue incentive spirometry and hopefully being able to be transferred to telemetry floor in the next 24 hours. MMODL / JOHNNAN: [id number] /
[2019-02-01] MEDS: IPRATROPIUM-ALBUTEROL 3 ML NEB INHALATION SCH ×4 (08:16→20:14)
[2019-02-01] MEDS: INSULIN ASPART (NovoLOG) 100 UNIT/ML VIAL SQ SCH ×4 (08:45→21:00)
[2019-02-01] MEDS: BRIMONIDINE TARTRATE 0.2% DROPS 5 ML BTL BOTH EYES SCH ×2 (08:50→21:02)
[2019-02-01] MEDS: ASCORBIC ACID 500 MG TAB PO SCH (08:50)
[2019-02-01] MEDS: TIMOLOL 0.5% OPHTH DROPS 5 ML BTL BOTH EYES SCH ×2 (08:50→21:03)
[2019-02-01] MEDS: ATORVASTATIN 40 MG TAB PO SCH (08:51)
[2019-02-01] MEDS: ASPIRIN 81 MG PO SCH (08:51)
[2019-02-01] MEDS: PANTOPRAZOLE 40 MG TABLET PO SCH (08:51)
[2019-02-01] MEDS: METOPROLOL TARTRATE 12.5 MG TAB PO SCH ×2 (08:51→21:01)
[2019-02-01] MEDS: AMIODARONE 200 MG TAB PO SCH ×2 (08:51→21:01)
[2019-02-01] MEDS: HEPARIN SODIUM,PORCINE 5,000 UNIT/ML 1 ML VIAL SQ SCH ×2 (08:51→15:46)
[2019-02-01] MEDS: FUROSEMIDE 10 MG/ML 4 ML VIAL IV SCH ×2 (08:51→21:01)
[2019-02-01] MEDS: CHOLECALCIFEROL 400 UNIT TAB PO SCH (08:52)
[2019-02-01] MEDS ORDERED: POTASSIUM BICARBONATE/CIT AC 20 MEQ TABLET.EFF NG-TUBE SCH (09:00)
[2019-02-01 09:06] VITALS: BMI 28.1
[2019-02-01] MEDS: ASPIRIN 325 MG TAB PO SCH (09:10)
--- NOTE | 2019-02-01 10:27 | P.PN ---
Subjective Progress Note Date: 02/01/19 Principal diagnosis: Severe mitral valve regurgitation with moderate tricuspid valve regurgitation, mild aortic insufficiency and ascending aortic aneurysm. Past medical history s ignificant for hypertension, early onset dementia, depression, osteoarthritis, remote history of hepatitis A and breast cancer with radiation 17 years ago. POD #7 mitral valve repair with a 26mm annuloflex ring, tricuspid valve repair with a 26mm MC3 tricuspid ring, ascending aortic aortoplasty, ligation of the left atrial appendage with a 35mm Atriclip, Epiaortic ultrasound, intraoperative ELLYN. Postoperative bradycardia, unexpected. Postoperative acute blood loss anemia, expected, secondary to cardiopulmonary bypass pump and hemodilution. Postoperative complete A-V dissociation, an unexpected the potential outcome of surgery. Postoperative hypertension, expected. Postoperative bilateral pneumothoraces, expected. Postoperative paroxysmal atrial fibrillation, unexpected but common outcome of open heart surgery. POD #2 dual-chamber pacemaker implantation, axillary venography completed by Dr. Perez. The patient is sitting up to the bedside chair in the intensive care unit. She is in no acute distress. Currently denies any complaints of pain, although she has complaints of some shortness of breath when ambulating. She is making improvements daily and has been ambulating in the intensive care unit hallway with assistance from nursing staff, physical and occupational therapy. She remained hemodynamically stable and is currently on no inotropic or pressor support. Oxygen saturations are 95% on 2 L nasal cannula and she is achieving 750 mL on her incentive spirometry. Bedside telemetry showing ventricular paced rhythm at 62. She remains afebrile, WBC count today is 12.6. She remains on Lasix 40 mg every 12 hours IV and her urine output in the last 8 hours was 875 mL. She has a right pleural chest tube remains in place to low continuous wall suction -20 cm H2O. Draining thin serous drainage with 65 mL output in the last 8 hours, 300 mL output in the last 24 hours. Her chest x-ray today shows improved aeration of the lungs. Objective - Vital Signs Vital signs: Vital Signs Temp 98.0 F 01/31/19 16:00 Pulse 61 02/01/19 07:00 Resp 16 02/01/19 07:00 BP 94/43 02/01/19 07:00 Pulse Ox 95 02/01/19 07:00 Intake & Output 01/31/19 02/01/19 02/01/19 18:59 06:59 18:59 Intake Total 550 250 Output Total 640 1380 0 Balance -90 -1130 0 Weight 69.9 kg Intake: Oral 550 250 Output: Chest Tube Drainage 140 105 Pleural Catheter Right 140 105 Urine 500 1275 0 Other: Voiding Method Bedside Commode Bedside Commode # Voids 3 # Bowel Movements 1 ABP, PAP, CO, CI - Last Documented Arterial Blood Pressure 138/59 Pulmonary Artery Pressure 31/9 Cardiac Output 4.1 Cardiac Index 2.4 - Constitutional General appearance: Present: cooperative, no acute distress, obese - Respiratory Details: Lung sounds with few scattered crackles throughout right greater than left. Respirations are symmetrical and nonlabored. Oxygen saturation is 95% on 2 L nasal cannula. Achieving 750 mL on her incentive spirometry. Right pleural chest tube remains in place to low continuous wall suction -20 cm H2O. Draining thin serous drainage. - Cardiovascular Details: Regular rhythm and rate. S1 and S2 present, negative for S3, gallop or murmur. Sternum is stable. Bedside telemetry showing V paced rhythm heart rate 62. Heart hugger is in place and she is demonstrating appropriate use. Knee-high MU hose and sequential compression devices in place to bilateral lower extremities. +1 generalized edema. - Gastrointestinal Gastrointestinal Comment(s): Abdomen is soft, nontender and nondistended. Active bowel sounds present all 4 abdominal quadrants. Bowel movement yesterday. Tolerating oral intake. - Genitourinary Genitourinary Comment(s): Voiding clear yellow urine with 875 mL output in the last 8 hours. - Integumentary Integumentary Comment(s): Skin is warm and dry. No clubbing or cyanosis is present. Midline sternal incision is clean, dry and approximated. No drainage or redness is present. Gauze dressing is clean and intact. Left anterior chest permanent pacemaker site incision clean, dry and approximated. No drainage or redness present. - Neurologic Neurologic: Present: CNII-XII intact - Musculoskeletal Musculoskeletal: Present: gait normal, generalized weakness, strength equal bilaterally - Psychiatric Psychiatric Comment(s): Flat affect, periods of forgetfulness. Psychiatric: Present: A&O x's 3, intact judgment & insight - Allied health notes Allied health notes reviewed: nursing - Labs CBC & Chem 7: 02/01/19 04:35 02/01/19 04:34 Labs: Abnormal Lab Results - Last 24 Hours (Table) 01/31/19 02/01/19 02/01/19 Range/Units 20:31 04:34 04:35 WBC 12.6 H (3.8-10.6) k/uL RBC 2.86 L (3.80-5.40) m/uL Hgb 9.7 L (11.4-16.0) gm/dL Hct 28.5 L (34.0-46.0) % Carbon Dioxide 31 H (22-30) mmol/L BUN 38 H (7-17) mg/dL POC Glucose (mg/dL) 102 H (75-99) mg/dL Calcium 8.3 L (8.4-10.2) mg/dL 02/01/19 Range/Units 06:47 WBC (3.8-10.6) k/uL RBC (3.80-5.40) m/uL Hgb (11.4-16.0) gm/dL Hct (34.0-46.0) % Carbon Dioxide (22-30) mmol/L BUN (7-17) mg/dL POC Glucose (mg/dL) 102 H (75-99) mg/dL Calcium (8.4-10.2) mg/dL - Imaging and Cardiology Chest x-ray: report reviewed, image reviewed Assessment and Plan Assessment: 1. Severe mitral valve regurgitation, moderate tricuspid valve regurgitation, aortic valve insufficiency and ascending aortic aneurysm. Status post mitral valve repair with 26mm annuloflex ring, tricuspid valve repair with 26mm M3 tricuspid ring, ascending aorta aortoplasty, ligation of the left atrial appendage with 35mm Atriclip. 2. Post operative bradycardia 3. Post operative acute blood loss anemia secondary to cardiopulmonary bypass pump and hemodilution 4. Hypertension 5. History of early-onset dementia 6. Depression 7. Osteoarthritis 8. Remote history of Hepatitis A 9. History of breast cancer with radiation 17 years ago 10. Postoperative complete A-V dissociation, status post permanent pacemaker placement 11. Postoperative paroxysmal atrial fibrillation, unexpected Plan: 1. Optimize medical management with asprin, beta ollie and statin. We will increase her beta ollie as tolerated. 2. Wean oxygen as tolerated. Encourage incentive spirometer as tolerated. Bronchodilators per pulmonology. 3. Increase activity as tolerated, out of bed to chair. PT/OT/cardiac rehab following. 4. Continue to monitor daily labs and chest xrays. Electrolyte replacement per protocol. 5. Remove right pleural chest tube. Right pleural chest tube was removed today at 10:20 AM without incident. 4 x 4 gauze to cover, Vaseline impregnated gauze to cover and secured with tape. 6. Insulin management per primary care service. 7. Continue pain management per when necessary orders. Avoid narcotics. 8. GI/DVT prophylaxis. 9. Continue Lasix 40 mg IV twice a day as ordered. 10. Discharge planning is in place, anticipate discharge to [facility] for further rehabilitation needs. 11. Continue amiodarone for atrial fibrillation prophylaxis. 12. Social work has been consulted and following for discharge planning. 13. Transfer orders placed to the cardiac stepdown unit today. 14. More recommendations to follow on patient's clinical course. Time with Patient: Greater than 30
--- NOTE | 2019-02-01 11:32 | P.PN ---
Subjective Progress Note Date: 02/01/19 Principal diagnosis: status post mitral valve repair and tricuspid valve repair postoperative day #7 78-year-old female patient is currently postop from cardiac surgery as the pat ient underwent a mitral valve repair and a tricuspid valve repair. Currently she is postop day #0. Note that preoperatively, the patient was found to have severe mitral regurgitation and moderate TR and mild aortic insufficiency. Her coronary angiogram was within normal limits. She is known to have hypertension, early onset dementia, and previous history of breast cancer. Currently, the patient is postop. She is on a assist-control mode of ventilation at the rate of 12 with a tidal volume of 350 and FiO2 was dropped down to 50% with a PEEP of 5. The blood gases showed a pH of 7.32 with a pCO2 of 43 and pO2 of found and 13 and this was done immediately postop. The chest x-ray showed adequate expansion of both lungs. The patient has 2 mediastinal chest tubes 1 right- sided and 1 left-sided pleural chest tube. The output from the chest tubes have been in the order of 200 mL of bloody output/serosanguineous from the mediastinal chest tube and 100 mL from the pleural chest tubes. Hemodynamically, the patient is doing well. Her cardiac index is at 2 with an output of 3.3. The patient has a PA pressure of 37/20. She is on Catapres for blood pressure control. She is not requiring any inotropes. She is producing adequate urine output in the order of 150 mL an hour. She is on IV fluids and she is receiving lactated Ringer at the rate of an hour. She received a total of 2 units of packed RBC intraoperatively and a unit of packed RBC. The patient for now is off sedation and when the process of weaning the sedation off and assessing the patient neurologic status. On today's evaluation of 01/25/2019 the patient is looking well. She is a bit sleepy. I was able to wean off the mechanical ventilator and extubated around 11:30 PM yesterday. She is currently on oxygen at 3 L. [place]-Opal catheter is in place. Cardiac index is at 2.4 with an output of 4.1. PA pressures are 30/9 and his CVP is around 7. She has the tubes in place with a right pleural and left pleural and 2 mediastinal chest tubes. Output is around 30-50 mL an hour and there is no evidence of any air leak. The chest x-ray from today shows what especially of both lungs. She is hemodynamically stable. She wasn't Cleviprex for blood pressure control that This continues. She is awake and alert and she is following commands. Her underlying cardiac rhythm was asystole. The patient is currently AV paced at the rate of 80. Afebrile. Using incentive spirometer and she is pulling approximately 500 mL. ON 01/26/2019 the patient is resting comfortably in bed. She was moved to a chair and after being there for few minutes she started developing ectopies mainly ventricular ectopies while her cardiac rhythm was still paced at the rate of 70. Her underlying rhythm is abnormal and that only P waves without any significant ventricular bases were noted earlier. However, she is producing some ventricular ectopies for now on the rhythm strips. She was unable to tolerate lower heart rate and heart rate was maintained at the rate of 70. Output from the chest tubes are minimal. The patient has right pleural and the left pleural chest tube and mediastinal chest tubes. The based on chest tubes will be taken out today. Her urine output is in order of 30 mL an hour. She got a dose of Lasix at 5 AM this morning. She is using incentive spirometer and she is pulling approximately 500. Tiny apical pneumothorax on today's chest x- ray. No evidence of any air leaks. [place]-Opal catheter removed. Cordis is in place. Sternum stable clean and intact. No fever or chills. The hemoglobin is stable at 9.4. Creatinine is at 0.8. On today's evaluation of 01/27/2019 the patient is postop day #3. She is looking well. Her underlying rhythm is still third-degree ventricular rhythm and the patient is going to have a pacemaker inserted tomorrow. Overnight she had had a low urine output. She was given albumin 5% to 50 mL and she was also given a bolus of 500 mL of normal saline. She did improve her urine output. This morning she is slightly running low at 20 mL an hour. She will be given a dose of Lasix 40 mg IV push. The chest tubes are in place and there are being . Output remains considerably high and we are going to monitor the output. The chest x-ray from today shows small tiny biapical pneumothoraces. Nevertheless, there is no evidence of air leak and the chest tube. The patient is currently paced and she is AV paced at the rate of 70. Sternum is stable clean and intact. She does have some increased lower extremity edema. No other significant events overnight. On today's evaluation of 01/28/2019 the patient is post pacemaker insertion. The patient had A-V dissociation following bowel surgery and she underwent a dual-chamber pacemaker implantation. She is doing well. Chest x-ray shows to her chest tubes right pleural and left pleural. Output from the right chest tube has been 200 mL over the past 4 hours, and similar output for the left. Her chest x-ray shows questionable tiny apical pneumothoraces. Otherwise no evidence of air leak. There is some mild pulmonary vascular congestion. Urine output is in order of 30 she is an hour and the patient is producing adequate amount of urine output for now and she was given Lasix 20 mg IV. No respiratory distress. She is using incentive spirometer. She is taking a short On today's evaluation of 01/29/2019 the patient is postop day #4 following mitral valve repair and tricuspid valve repair. The patient is laying comfortably in bed. The pleural chest tubes are still in place and the output remains considerably high in the form of serosanguineous drainage. The right- sided chest tube has drained around 650 on the right over the past 24 hours and 350 over the past 8 hours and the left has put out 38 over the past [address] over the past 8 hours. The chest x-ray still consistent with bilateral pulmonary infiltrates consistent with edema. No evidence of a significant pneumothorax. The patient is currently paced at the rate of 60. A permanent pacemaker was inserted yesterday without any complication. Note that she developed postop complete A-V dissociation. Her urine output is in order of 30 mL an hour. She was having some issues with low urine output and hypotension yesterday and currently she is on dopamine at 3 g per KG per minute. Current oxygen level is at 8 L by nasal cannula to maintain a saturation above 92-93%. The patient's hemoglobin is at 9.5. Renal function is stable at creatinine of 0.5 with a BUN of 39. She will go 4 extremities. She is following commands pH is awake and alert and oriented. Reevaluated today on 01/30/2019, patient is postoperative day #5. She is status post mitral valve repair and tricuspid valve repair. Remains in congestive heart failure based on the chest x-ray findings, continues to have pleural chest tubes in place,she is also status post post-pacemaker implantation, permanent 2 days ago, and this was done because the patient developed complete AV disassociation. Urine output is acceptable, patient receives Lasix on when necessary basis by cardiothoracic surgery. Remains on dopamine at 4 mcg/kg/m, she is also on amiodarone at present. She is on 6 L nasal cannula, maintaining O2 saturation in the low 90s.CBC is relatively normal hemoglobin is 9.4 lites are normal BUN is 42 creatinine 0.66.chest x-ray continues to show evidence of pulmonary edema Reevaluated today on 01/31/19 patient is post mitral valve and tricuspid valve repair, postoperative day #6, patient is currently sitting in a recliner, in no distress, remains on 4 L nasal cannula. She is doing poorly with incentive spirometry, she is ambulating with assistance, but keeps complaining that she cannot do what, she needs significant amount of encouragement. Chest x-ray continues to show evidence of interstitial edema, strongly doubt pneumonia she may have some component of atelectasis and interstitial edema. Did receive Lasix today. WBC count is 12.1 hemoglobin is 9.3 Electrolytesenc normal BUN is 40 creatinine is 0.69. Reevaluated today on 02/01/2019, patient remains in the ICU, sitting at a bedside chair, asymptomatic, on 2 L nasal cannula, O2 saturation is 95%, patient is achieving 750 ML via incentive spirometry. Patient continues to have a ventricular paced rhythm. He is afebrile, remains on Lasix, and her chest x-ray is showing definite improvement. Continues to have right-sided pleural chest tube in place, drained 65 ML in the last 8 hours, 300 MLS the last 24 hours. No air leak noted in the chest tube. Chest x-ray again is improved labs are basically unremarkable. Objective - Vital Signs Vital signs: Vital Signs Temp 97.5 F L 02/01/19 08:00 Pulse 60 02/01/19 11:23 Resp 24 02/01/19 10:07 BP 108/59 02/01/19 10:07 Pulse Ox 94 L 02/01/19 10:07 Intake & Output 01/31/19 02/01/19 02/01/19 18:59 06:59 18:59 Intake Total 550 250 200 Output Total 640 1380 100 Balance -90 -1130 100 Weight 69.9 kg 69.9 kg Intake: Oral 550 250 200 Output: Chest Tube Drainage 140 105 Pleural Catheter Right 140 105 Urine 500 1275 100 Other: Voiding Method Bedside Commode Bedside Commode Bedside Commode # Voids 3 1 # Bowel Movements 1 1 ABP, PAP, CO, CI - Last Documented Arterial Blood Pressure 138/59 Pulmonary Artery Pressure 31/9 Cardiac Output 4.1 Cardiac Index 2.4 - Exam Physical Exam: Revealed a 78-year-old female in no distress. On 2 L nasal cannula, asymptomatic. head: Atraumatic, normocephalic HEENT:[Neck is supple.] [No neck masses.] [No thyromegaly.] [No JVD.] Chest: [symmetrical chest expansion, crackles and rhonchi bilaterally. Cardiac Exam: [Normal S1 and S2, no S3 gallop, no murmur.] Abdomen: [Soft, nontender, no megaly, no rebound, no guarding, normal bowel sounds.] Extremities: [No clubbing, trace of bipedaledema, no cyanosis.] Neurological Exam: [No focal neurologic deficit.]alert oriented 3. Psychiatric: Normal mood affect and normal mental status examination. Skin: No rashes. Lymphatics: No lymphadenopathy. - Labs CBC & Chem 7: 02/01/19 04:35 02/01/19 04:34 Labs: Abnormal Lab Results - Last 24 Hours (Table) 01/31/19 02/01/19 02/01/19 Range/Units 20:31 04:34 04:35 WBC 12.6 H (3.8-10.6) k/uL RBC 2.86 L (3.80-5.40) m/uL Hgb 9.7 L (11.4-16.0) gm/dL Hct 28.5 L (34.0-46.0) % Carbon Dioxide 31 H (22-30) mmol/L BUN 38 H (7-17) mg/dL POC Glucose (mg/dL) 102 H (75-99) mg/dL Calcium 8.3 L (8.4-10.2) mg/dL 02/01/19 Range/Units 06:47 WBC (3.8-10.6) k/uL RBC (3.80-5.40) m/uL Hgb (11.4-16.0) gm/dL Hct (34.0-46.0) % Carbon Dioxide (22-30) mmol/L BUN (7-17) mg/dL POC Glucose (mg/dL) 102 H (75-99) mg/dL Calcium (8.4-10.2) mg/dL Assessment and Plan Assessment: impression;Severe mitral valve regurgitation, moderate tricuspid valve regurgitation, aortic valve insufficiency and ascending aortic aneurysm. Status post mitral valve repair with 26mm annuloflex ring, tricuspid valve repair with 26mm M3 tricuspid ring, ascending aorta aortoplasty, ligation of the left atrial appendage with 35mm Atriclip. Postoperative day #7. A-V dissociation, status post permanent pacemaker implantation/a dual-chamber. bilateral pneumothoraces, expected after surgery, no evidence of air leak. Early onset dementia History of breast cancer History of hypertension. Suspect some component of diastolic congestive heart failure, remains on diuretics. Recommendation: Continue cardiac meds including beta blockers statins aspirin.Continue diuretics Continue amiodarone. Continue to encourage incentive spirometry, ambulation, and continue bronchodilators. Increase activity as tolerated. Continue insulin as per protocol Continue pain management and pain control. Continue GI and DVT prophylaxis Continue diuretics Transfer patient to a monitor bed on selective today. Patient will definitely need rehab placement. We'll continue to follow. Time with Patient: Less than 30
[2019-02-01 11:45] LABS: Glucose,Whole Blood 123 mg/dL (75-99)
--- NOTE | 2019-02-01 13:52 | P.PN ---
Subjective Progress Note Date: 02/01/19 This is a 78-year-old female patient of Dr. Monteiro with past medical history of breast cancer in 2002, dementia, hypertension, osteoarthritis, glaucoma. Patient is seen on postop day #1 following a mitral valve repair and a tricuspid valve repair. Patient is seen in the intensive care unit. She has been successfully extubated last evening is currently on 2 L nasal cannula. She is using incentive spirometer reaching 500 mL. She is currently on insulin 1 unit per hour and does not have history of diabetes. Patient has had good urine output but has decreased to 30-40 mL per hour this morning. She is currently on O2 at 2 L. Blood pressure is stable. Patient did stand with physical therapy may require subacute or inpatient rehab. Patient examined sitting comfortably in bed. Denies any acute distress. He saturating well at 95% on 2 L of oxygen. She currently has 2 mediastinal chest tube in place had low continuous wall suction. Did receive a dose of Lasix overnight continues to have 30 to 40 mL of urine output per of her. Patient was noted to have bradycardia consistent with third-degree block and atrial ventricular epicardial pacemaker wires were kept in place with a plan to place pacemaker. Mediastinal chest tube drained 120 mL output in the last 8 hours 250 mL output in the last 24 hours with a right chest tube draining 320 mL output in 8 hours and 6 for urine output in the last 24 hours. No evidence of any air leaks. [place]-Opal catheter removed. Cordis is in place 01/27: Patient has developed third degree AV block for which her heart rate was running in the 30s and 40s. Heart rate is currently in the 60s with bedside pacemaker generator on DDD mode, blood pressure 139/63, pulse ox 91-95% on 6 L nasal cannula. Patient is scheduled for pacemaker implantation for tomorrow. Patient has had mediastinal chest tubes removed. 2 bilateral pleural chest tub es remain in place draining serous fluid. Repeat chest x-ray last evening revealed stable tiny left greater than right bilateral apical pneumothoraces. Cardiomegaly and chronic parenchymal change with left greater than right bibasilar acute infiltrate and/or atelectasis. The patient is found sitting up in a chair and appears to be comfortable and in no acute distress, no respiratory distress is noted. 01/28 appears very tired on examination. Overnight patient and decreased urine output and was given 1 L of IV fluid followed by a dose of Lasix. This morning patient went for pacemaker placement and postoperatively patient was noted to have a low blood pressure 79/49. Patient did receive a 20 mg of IV Lasix and Lopressor 12.5 mg this morning. Patient will be initiated on dopamine drip until blood pressure stabilizes. Pacemaker need to be interrogated as patient currently still has atrial and ventricular epicardial pacemaker wires to maintain the rate of 70-80. Urine output maintained at 30 mL per hour. Her pleural chest tubes draining thin serosanguineous drainage with 2:30 mL output in the last 8 hours from the right pleural chest tube and to 90 output in the last 8 hours from the left pleural chest tube labs suggestive leukocytosis with a WBC of 13 hemoglobin 9.2 platelet 132 chloride 110 blood sugar 103 and will continue sliding scale for blood sugar more than 120. Patient in the [place] discontinuance currently patient is very fatigued and tired. Over this illness patient is medically stable 01/29 patient examined bedside appears lethargic but is able to answer questions appropriately. Patient's afebrile blood pressure 95/57 currently on 8 L of high flow chest x-ray consistent with bilateral pulmonary infiltrate with chest tube in place. Apical pneumothorax seen small in size. Chest tube drainage from left is 70 mL in the past 8 hours and 80 mL in the right pleural catheter. Patient currently paced at rate of 60 urine output maintained at 30 mL per hour blood sugar ranged from 116-141. We will add a dose of Lantus 5 units at bedtime continue sliding scale with meals 01/30: Blood sugars are running between 106 and 117. Creatinine 0.66, hemoglobin 9.4, WBC 12.5. Patient remains afebrile, heart rate in the 60s, blood pressure 100/57, pulse ox 96% on room air. Repeat chest x-ray reveals tiny left greater than right biapical pneumothoraces despite bilateral chest tubes seen in current study. Chronic vaginal changes and cardiomegaly redemonstrated with bilateral mid to lower lung edema and or infiltrates, findings improvement in bilateral upper lungs from most recent prior. Bilateral pleural chest tubes remain in place. Permanent pacemaker was placed on Wednesday. There is concern for depression and patient is eating very little and states she has no appetite. Cardiothoracic surgery started Zoloft and we will transition this to Remeron to help with both the depression and appetite. Steward catheter remains in place which is scheduled to be removed later today. Patient had episode of atrial fibrillation, paroxysmal. She is now on Lopressor 12.5 mg twice daily and oral amiodarone at 400 mg twice daily. Patient states that her discharge plan will be to go to [facility] for subacute rehab.. 01/31: Patient remains in the intensive care unit. She is sitting up and recliner appears to be quite comfortable. No respiratory distress is noted. She is currently pulse oxing 94% on 2 L. (Steward catheter has been removed and patient has been up to the commode chair voiding 3 times after receiving Lasix. I1 chest tube has been removed. Patient is anticipating to ambulate with physical therapy today WBC 12.1, hemoglobin 9.3, BUN 40 creatinine 0.69. Patient has been afebrile. Blood sugars are running between 89 and 147. C ardiac monitor is paced rhythm. Patient is reaching 500 on incentive spirometry. 02/01: Patient remains in the intensive care unit. Patient did ambulate well in the hallway today on 2 occasions. Her final chest tube was removed this morning. She has been voiding on her own without difficulty. Blood sugars are running between 102 and 123. Hemoglobin 9.7, WBC 12.6, creatinine 0.70.pulse ox is 95% on 2 L nasal cannula, heart rate 60, afebrile, blood pressure 103/59. Chest x-ray is showing improvement. Discharge plan is for [facility] most likely tomorrow. Review of Systems Constitutional: Reports fatigue, Reports poor appetite, Reports weakness, Denies anorexia, Denies chills, Denies fever Ears, nose, mouth and throat: Denies dental pain, Denies dysphagia, Denies headache, Denies sore throat, Denies vertigo Cardiovascular: Denies chest pain, Denies decreased exercise tolerance, Denies dyspnea on exertion, Denies shortness of breath, Denies syncope Respiratory: Denies cough, Denies cough with sputum, Denies dyspnea, Denies respiratory infections Gastrointestinal: Denies abdominal pain, Denies diarrhea, Denies nausea, Denies vomiting Genitourinary: Denies dysuria, Denies hematuria, Denies urinary frequency Musculoskeletal: Reports muscle weakness, Denies myalgias Integumentary: Denies pruritus, Denies rash Neurological: Denies change in mentation, Denies change in speech, Denies numbness, reports weakness Psychiatric: Denies anxiety, reports depression, reports poor appetite Endocrine: Denies fatigue, Denies weight change Objective - Vital Signs Vital signs: Vital Signs Temp 98.4 F 02/01/19 12:00 Pulse 60 02/01/19 12:00 Resp 14 02/01/19 12:00 BP 103/59 02/01/19 12:00 Pulse Ox 95 02/01/19 12:00 Intake & Output 01/31/19 02/01/19 02/01/19 18:59 06:59 18:59 Intake Total 550 250 350 Output Total 640 1380 550 Balance -90 -1130 -200 Weight 69.9 kg 69.9 kg Intake: Oral 550 250 350 Output: Chest Tube Drainage 140 105 Pleural Catheter Right 140 105 Urine 500 1275 550 Other: Voiding Method Bedside Commode Bedside Commode Bedside Commode # Voids 3 1 # Bowel Movements 1 1 ABP, PAP, CO, CI - Last Documented Arterial Blood Pressure 138/59 Pulmonary Artery Pressure 31/9 Cardiac Output 4.1 Cardiac Index 2.4 - Exam Gen: This is a 78-year-old female. She is sitting in bed eating lunch the intensive care unit. She appears to be comfortable and in no acute distress. HEENT: Head is atraumatic, normocephalic. Pupils equal, round. Sclerae is anicteric. NECK: Supple. No JVD. No lymphadenopathy. No thyromegaly. LUNGS: Diminished bilaterally. No wheezes or rhonchi. No intercostal retractions. HEART: Regular rate and rhythm. No murmur. ABDOMEN: Soft. Bowel sounds are present. No masses. No tenderness. EXTREMITIES: No pedal edema. No calf tenderness. NEUROLOGICAL: Patient is awake, alert and oriented x3. Cranial nerves 2 through 12 are grossly intact. - Labs CBC & Chem 7: 02/01/19 04:35 02/01/19 04:34 Labs: Abnormal Lab Results - Last 24 Hours (Table) 01/31/19 02/01/19 02/01/19 Range/Units 20:31 04:34 04:35 WBC 12.6 H (3.8-10.6) k/uL RBC 2.86 L (3.80-5.40) m/uL Hgb 9.7 L (11.4-16.0) gm/dL Hct 28.5 L (34.0-46.0) % Carbon Dioxide 31 H (22-30) mmol/L BUN 38 H (7-17) mg/dL POC Glucose (mg/dL) 102 H (75-99) mg/dL Calcium 8.3 L (8.4-10.2) mg/dL 02/01/19 02/01/19 Range/Units 06:47 11:33 WBC (3.8-10.6) k/uL RBC (3.80-5.40) m/uL Hgb (11.4-16.0) gm/dL Hct (34.0-46.0) % Carbon Dioxide (22-30) mmol/L BUN (7-17) mg/dL POC Glucose (mg/dL) 102 H 123 H (75-99) mg/dL Calcium (8.4-10.2) mg/dL Assessment and Plan Plan: 1. Valvular heart disease status post mitral valve repair and tricuspid valve repair, postop day #8. Continue current management per cardiothoracic surgery, intensive care management continues incentive spirometry to reduce incidence of atelectasis and hospital-acquired pneumonia. Continue aspirin, Lipitor. 2. Third-degree AV block status post permanent pacemaker on January 28. 3. Hypertension. Hydralazine discontinued due to hypotension. 4. Dementia. Continue Aricept, hold Namenda. 5. Glaucoma. Continue eyedrops. 6. DVT prophylaxis. Heparin subcu. 7. GI prophylaxis. Protonix. 8. Hyperglycemia. Lantus started at 5 units at bedtime and NovoLog scale. 9. Postoperative hypotension, expected. Continue to monitor closely. 10. Episode of paroxysmal atrial fibrillation, expected. Continue amiodarone oral, Lopressor. 11. Situational depression and anorexia. Continue Remeron 15 mg at bedtime. Discharge plan: on under the care of Dr. Monteiro Impression and plan of care have been directed as dictated by the signing physician. Noris Gonzales nurse practitioner acting as scribe for signing physician.
[2019-02-01 16:57] LABS: Glucose,Whole Blood 112 mg/dL (75-99)
[2019-02-01] MEDS: INSULIN DETEMIR (LEVEMIR) 100 UNIT/ML SYR SQ SCH (20:58)
[2019-02-01] MEDS: DONEPEZIL 10 MG TAB PO SCH (21:02)
[2019-02-01] MEDS: MIRTAZAPINE 15 MG TAB PO SCH (21:02)
[2019-02-01] MEDS: LATANOPROST 0.005% OPHTH DROPS 2.5 ML BTL BOTH EYES SCH (21:03)
[2019-02-01 21:06] LABS: Glucose,Whole Blood 141 mg/dL (75-99)
[2019-02-02] MEDS: HEPARIN SODIUM,PORCINE 5,000 UNIT/ML 1 ML VIAL SQ SCH ×2 (00:42→09:47)
[2019-02-02 05:41] LABS: Basophils % (A) 0 %; Eosinophils # (A) 0.2 k/uL (0-0.7); Eosinophils % (A) 2 %; HCT 28.5 % (34.0-46.0); HGB 9.3 gm/dL (11.4-16.0); Hypochromasia Slight; Lymphocytes # (A) 3.2 k/uL (1.0-4.8); Lymphocytes % (A) 23 %; MCH 32.5 pg (25.0-35.0); MCHC 32.7 g/dL (31.0-37.0); MCV 99.5 fL (80.0-100.0); Mean Platelet Volume 6.6; Monocytes # (A) 0.6 k/uL (0-1.0); Monocytes % (A) 4 %; Neutrophils # (A) 9.6 k/uL (1.3-7.7); Neutrophils % (A) 70 %; Platelet Count 316 k/uL (150-450); RBC 2.87 m/uL (3.80-5.40); RDW 13.7 % (11.5-15.5); WBC 13.7 k/uL (3.8-10.6)
[2019-02-02 05:54] LABS: African American GFR (CKD) >90 (>60 ml/min/1.73 sqM); Anion Gap 5 mmol/L; Blood Urea Nitrogen 34 mg/dL (7-17); Calcium 8.2 mg/dL (8.4-10.2); Carbon Dioxide 32 mmol/L (22-30); Chloride 100 mmol/L (98-107); Glucose 105 mg/dL (74-99); Non-African American GFR(CKD) 82 (>60 ml/min/1.73 sqM); Potassium 3.8 mmol/L (3.5-5.1); Sodium 137 mmol/L (137-145)
[2019-02-02] MEDS: INSULIN ASPART (NovoLOG) 100 UNIT/ML VIAL SQ SCH ×2 (05:55→12:30)
[2019-02-02] MEDS ORDERED: POTASSIUM CHLORIDE ER 20 MEQ TAB.ER PO SCH ×2 (07:00→09:00)
[2019-02-02 07:58] LABS: Glucose,Whole Blood 127 mg/dL (75-99)
[2019-02-02] MEDS: IPRATROPIUM-ALBUTEROL 3 ML NEB INHALATION SCH ×2 (08:29→11:41)
--- NOTE | 2019-02-02 08:32 | P.PN ---
Subjective Progress Note Date: 02/02/19 Principal diagnosis: Severe mitral valve regurgitation with moderate tricuspid valve regurgitation, mild aortic insufficiency and ascending aortic aneurysm. Past medical history significant for hypertension, early onset dementia, depression, osteoarthritis, remote history of hepatitis A and breast cancer with radiation 17 years ago. POD #8 mitral valve repair with a 26mm annuloflex ring, tricuspid valve repair with a 26mm MC3 tricuspid ring, ascending aortic aortoplasty, ligation of the left atrial appendage with a 35mm Atriclip, Epiaortic ultrasound, intraoperative ELLYN. Postoperative bradycardia, unexpected Postoperative hypotension, expected Postoperative acute blood loss anemia, expected secondary to cardiopulmonary bypass pump and hemodilution. Postoperative bilateral pneumothoraces, expected Postoperative complete A-V dissociation, unexpected the potential outcome of surgery. POD #5 dual-chamber pacemaker implantation, axillary venography completed by Dr. Perez. Postoperative paroxysmal atrial fibrillation, unexpected but common outcome of open heart surgery The patient is currently sitting up in the recliner in no acute distress in the ICU. She states pain is controlled with current medication regimen, complains of shortness of breath with ambulation. She has ambulated in the hallway already this morning with assist, has showered already. Currently V paced on telemetry, oxygen continues to be weaned down. No new concerns. Objective - Vital Signs Vital signs: Vital Signs Temp 98.4 F 02/02/19 04:00 Pulse 63 02/02/19 05:00 Resp 14 02/02/19 04:00 BP 117/53 02/02/19 04:00 Pulse Ox 94 L 02/02/19 04:00 Intake & Output 02/01/19 02/02/19 02/02/19 18:59 06:59 18:59 Intake Total 500 Output Total 751 700 Balance -251 -700 Weight 69.9 kg 68.3 kg Intake: Oral 500 Output: Urine 750 700 Urine/Stool Mix 1 0 Other: Voiding Method Bedside Commode Bedside Commode # Voids 1 2 # Bowel Movements 1 ABP, PAP, CO, CI - Last Documented Arterial Blood Pressure 138/59 Pulmonary Artery Pressure 31/9 Cardiac Output 4.1 Cardiac Index 2.4 - Constitutional General appearance: Present: cooperative, no acute distress - Respiratory Details: Lung sounds diminished bilaterally. Respirations even, non-labored. Currently on 2 LPM NC with oxygen saturation 94%. Only able to achieve 750 mL on incentive spirometry with poor effort. Weak cough. - Cardiovascular Details: S1/S2 present. Regular rate and rhythm, V paced on telemetry. Sternum stable. Palpable peripheral pulses bilaterally. Trace generalized edema present. No calf pain or tenderness noted. Heart hugger in place with patient demonstrating appropriate use with much encouragement. Anti-embolism stockings, SCDs present. - Gastrointestinal Gastrointestinal Comment(s): Abdomen soft, non-tender, non-distended. Active bowel sounds present x 4 quadrants. Tolerating minimal diet. Positive bowel movement 02/01 - Genitourinary Genitourinary Comment(s): Continues to void, sometimes incontinent - Integumentary Integumentary Comment(s): Skin is warm and dry with evidence of good perfusion. Anterior chest incision well approximated and covered with dry, intact dressing. Left anterior chest PPM incision covered with dry intact dressing. - Neurologic Neurologic: Present: CNII-XII intact - Musculoskeletal Musculoskeletal: Present: gait normal, generalized weakness, strength equal bilaterally - Psychiatric Psychiatric: Present: A&O x's 3, appropriate affect, intact judgment & insight - Allied health notes Allied health notes reviewed: nursing - Labs CBC & Chem 7: 02/02/19 05:06 02/02/19 05:06 Labs: Abnormal Lab Results - Last 24 Hours (Table) 02/01/19 02/01/19 02/01/19 Range/Units 11:33 16:44 20:55 WBC (3.8-10.6) k/uL RBC (3.80-5.40) m/uL Hgb (11.4-16.0) gm/dL Hct (34.0-46.0) % Neutrophils # (1.3-7.7) k/uL Carbon Dioxide (22-30) mmol/L BUN (7-17) mg/dL Glucose (74-99) mg/dL POC Glucose (mg/dL) 123 H 112 H 141 H (75-99) mg/dL Calcium (8.4-10.2) mg/dL 02/02/19 02/02/19 Range/Units 05:06 05:06 WBC 13.7 H (3.8-10.6) k/uL RBC 2.87 L (3.80-5.40) m/uL Hgb 9.3 L (11.4-16.0) gm/dL Hct 28.5 L (34.0-46.0) % Neutrophils # 9.6 H (1.3-7.7) k/uL Carbon Dioxide 32 H (22-30) mmol/L BUN 34 H (7-17) mg/dL Glucose 105 H (74-99) mg/dL POC Glucose (mg/dL) (75-99) mg/dL Calcium 8.2 L (8.4-10.2) mg/dL - Imaging and Cardiology Chest x-ray: pending Assessment and Plan Assessment: 1. Severe mitral regurgitation, moderate tricuspid regurgitation, and mild aortic insufficiency, status post mitral valve repair, tricuspid valve repair 2. Ascending aortic aneurysm, status post aortoplasty 3. Postoperative bradycardia, complete A-V dissociation, status post dual- chamber permanent pacemaker implantation 4. Postoperative hypotension, resolved 5. Postoperative acute blood loss anemia 6. Postoperative bilateral pneumothoraces 7. Postoperative paroxysmal atrial fibrillation, status post ligation of the left atrial appendage 8. Hypertension 9. Dementia 10. Depression 11. Osteoarthritis 12. Remote history of Hepatitis A 13. History of breast cancer with radiation 17 years ago Plan: 1. Optimize medical management with full strength asprin, statin, beta ollie therapy. 2. Continue amiodarone for afib prophylaxis. No anticoagulation unless in afib >24 hours. Wean to 200 mg twice daily 02/06, 200 mg daily 02/13 3. Wean oxygen as tolerated. Encourage incentive spirometer 10x every hour while awake. Bronchodilators per pulmonology. 4. Increase activity as tolerated, ambulate in hallway minimum 4x daily, out of bed for all meals. PT/OT/cardiac rehab following. 5. Will monitor daily labs and xrays. Electrolyte replacement per protocol. 6. Insulin management per primary care service. 7. Pain control with current medication regimen. No narcotics. 8. GI/DVT prophylaxis 9. Ordered Lasix 40 mg by mouth daily along with potassium supplement 20 meq daily 10. Discharge planning in progress. Anticipate discharge to [facility] for [facility] later today. 11. More recommendations to follow based on patient's clinical course. Time with Patient: Greater than 30
[2019-02-02] MEDS ORDERED: FUROSEMIDE 40 MG TAB PO SCH (09:00)
--- NOTE | 2019-02-02 09:07 | PN ---
PROGRESS NOTE Mrs. Lawson is a 78-year-old female, status post mitral and tricuspid valve repair, closure of the left atrial appendage since yesterday. She is doing well. Her breathing is better. She feels stronger. She is denying any chest pain. She denies any dizziness or palpitation. She continues to be 100% paced with underlying complete heart block. There is no evidence of malignant arrhythmia. She continues to be on amiodarone 40 mg twice a day, aspirin once a day, Lipitor 40 mg daily, Aricept, insulin, metoprolol tartrate 12.5 mg twice a day. PHYSICAL EXAMINATION: Blood pressure 117/50 with a heart rate in the 60s. LUNGS: No wheezes or rales. HEART: Regular rate and rhythm. S1, S2. No S3. No rub appreciated with a systolic ejection murmur heard at the base, no diastolic murmur. ABDOMEN: Soft, nontender. EXTREMITIES: No edema. IMPRESSION: 1. Status post mitral and tricuspid valve repair with ascending aorta arthroplasty and ligation left atrial appendage. 2. Status post permanent pacemaker implantation for complete heart block. 3. History of hypertension. 4. Hyperlipidemia. RECOMMENDATION: From the cardiac standpoint, she is feeling better. Will continue to increase her level activity. Patient will most likely benefit from outpatient rehab. MMODL / IJN: [id number] /
[2019-02-02] MEDS: CHOLECALCIFEROL 400 UNIT TAB PO SCH (09:46)
[2019-02-02] MEDS: ASPIRIN 325 MG TAB PO SCH (09:46)
[2019-02-02] MEDS: METOPROLOL TARTRATE 12.5 MG TAB PO SCH (09:46)
[2019-02-02] MEDS: AMIODARONE 200 MG TAB PO SCH (09:47)
[2019-02-02] MEDS: PANTOPRAZOLE 40 MG TABLET PO SCH (09:47)
[2019-02-02] MEDS: ASCORBIC ACID 500 MG TAB PO SCH (09:48)
[2019-02-02] MEDS: ATORVASTATIN 40 MG TAB PO SCH (09:48)
[2019-02-02] MEDS: TIMOLOL 0.5% OPHTH DROPS 5 ML BTL BOTH EYES SCH (09:49)
[2019-02-02] MEDS: BRIMONIDINE TARTRATE 0.2% DROPS 5 ML BTL BOTH EYES SCH (09:49)
--- NOTE | 2019-02-02 10:58 | XR ---
EXAMINATION TYPE: XR chest 2V DATE OF EXAM: 02/02/2019 COMPARISON: 02/01/2019 INDICATION: Postoperative cardiac surgery TECHNIQUE: Frontal and lateral views of the chest are obtained. FINDINGS: The heart size is normal. The pulmonary vasculature is normal. Mild infiltrate is at the right base. Small right pleural effusion is present. Small left pleural eff usion is present.. Pneumothorax is not identified on the current exam. Right-sided chest tube is bee n removed. Surgical changes are within the mediastinum. IMPRESSION: 1. Bibasilar infiltrates. Correlate for subsegmental atelectasis. 2. Small right pleural effusion. Minimal left pleural effusion may be present.
[2019-02-02] MEDS: DEXTROSE/WATER 1 250ML.BAG with DOPamine DRIP 800 MG IV SCH (11:06)
[2019-02-02 11:15] VITALS: BP 97/59; RESP 18; TEMP 98.1
--- NOTE | 2019-02-02 11:33 | P.PN ---
Subjective Progress Note Date: 02/02/19 Principal diagnosis: status post mitral valve repair and tricuspid valve repair postoperative day #8 78-year-old female patient is currently postop from cardiac surgery as the pat ient underwent a mitral valve repair and a tricuspid valve repair. Currently she is postop day #0. Note that preoperatively, the patient was found to have severe mitral regurgitation and moderate TR and mild aortic insufficiency. Her coronary angiogram was within normal limits. She is known to have hypertension, early onset dementia, and previous history of breast cancer. Currently, the patient is postop. She is on a assist-control mode of ventilation at the rate of 12 with a tidal volume of 350 and FiO2 was dropped down to 50% with a PEEP of 5. The blood gases showed a pH of 7.32 with a pCO2 of 43 and pO2 of found and 13 and this was done immediately postop. The chest x-ray showed adequate expansion of both lungs. The patient has 2 mediastinal chest tubes 1 right- sided and 1 left-sided pleural chest tube. The output from the chest tubes have been in the order of 200 mL of bloody output/serosanguineous from the mediastinal chest tube and 100 mL from the pleural chest tubes. Hemodynamically, the patient is doing well. Her cardiac index is at 2 with an output of 3.3. The patient has a PA pressure of 37/20. She is on Catapres for blood pressure control. She is not requiring any inotropes. She is producing adequate urine output in the order of 150 mL an hour. She is on IV fluids and she is receiving lactated Ringer at the rate of an hour. She received a total of 2 units of packed RBC intraoperatively and a unit of packed RBC. The patient for now is off sedation and when the process of weaning the sedation off and assessing the patient neurologic status. On today's evaluation of 01/25/2019 the patient is looking well. She is a bit sleepy. I was able to wean off the mechanical ventilator and extubated around 11:30 PM yesterday. She is currently on oxygen at 3 L. [place]-Opal catheter is in place. Cardiac index is at 2.4 with an output of 4.1. PA pressures are 30/9 and his CVP is around 7. She has the tubes in place with a right pleural and left pleural and 2 mediastinal chest tubes. Output is around 30-50 mL an hour and there is no evidence of any air leak. The chest x-ray from today shows what especially of both lungs. She is hemodynamically stable. She wasn't Cleviprex for blood pressure control that This continues. She is awake and alert and she is following commands. Her underlying cardiac rhythm was asystole. The patient is currently AV paced at the rate of 80. Afebrile. Using incentive spirometer and she is pulling approximately 500 mL. ON 01/26/2019 the patient is resting comfortably in bed. She was moved to a chair and after being there for few minutes she started developing ectopies mainly ventricular ectopies while her cardiac rhythm was still paced at the rate of 70. Her underlying rhythm is abnormal and that only P waves without any significant ventricular bases were noted earlier. However, she is producing some ventricular ectopies for now on the rhythm strips. She was unable to tolerate lower heart rate and heart rate was maintained at the rate of 70. Output from the chest tubes are minimal. The patient has right pleural and the left pleural chest tube and mediastinal chest tubes. The based on chest tubes will be taken out today. Her urine output is in order of 30 mL an hour. She got a dose of Lasix at 5 AM this morning. She is using incentive spirometer and she is pulling approximately 500. Tiny apical pneumothorax on today's chest x- ray. No evidence of any air leaks. [place]-Opal catheter removed. Cordis is in place. Sternum stable clean and intact. No fever or chills. The hemoglobin is stable at 9.4. Creatinine is at 0.8. On today's evaluation of 01/27/2019 the patient is postop day #3. She is looking well. Her underlying rhythm is still third-degree ventricular rhythm and the patient is going to have a pacemaker inserted tomorrow. Overnight she had had a low urine output. She was given albumin 5% to 50 mL and she was also given a bolus of 500 mL of normal saline. She did improve her urine output. This morning she is slightly running low at 20 mL an hour. She will be given a dose of Lasix 40 mg IV push. The chest tubes are in place and there are being . Output remains considerably high and we are going to monitor the output. The chest x-ray from today shows small tiny biapical pneumothoraces. Nevertheless, there is no evidence of air leak and the chest tube. The patient is currently paced and she is AV paced at the rate of 70. Sternum is stable clean and intact. She does have some increased lower extremity edema. No other significant events overnight. On today's evaluation of 01/28/2019 the patient is post pacemaker insertion. The patient had A-V dissociation following bowel surgery and she underwent a dual-chamber pacemaker implantation. She is doing well. Chest x-ray shows to her chest tubes right pleural and left pleural. Output from the right chest tube has been 200 mL over the past 4 hours, and similar output for the left. Her chest x-ray shows questionable tiny apical pneumothoraces. Otherwise no evidence of air leak. There is some mild pulmonary vascular congestion. Urine output is in order of 30 she is an hour and the patient is producing adequate amount of urine output for now and she was given Lasix 20 mg IV. No respiratory distress. She is using incentive spirometer. She is taking a short On today's evaluation of 01/29/2019 the patient is postop day #4 following mitral valve repair and tricuspid valve repair. The patient is laying comfortably in bed. The pleural chest tubes are still in place and the output remains considerably high in the form of serosanguineous drainage. The right- sided chest tube has drained around 650 on the right over the past 24 hours and 350 over the past 8 hours and the left has put out 38 over the past [address] over the past 8 hours. The chest x-ray still consistent with bilateral pulmonary infiltrates consistent with edema. No evidence of a significant pneumothorax. The patient is currently paced at the rate of 60. A permanent pacemaker was inserted yesterday without any complication. Note that she developed postop complete A-V dissociation. Her urine output is in order of 30 mL an hour. She was having some issues with low urine output and hypotension yesterday and currently she is on dopamine at 3 g per KG per minute. Current oxygen level is at 8 L by nasal cannula to maintain a saturation above 92-93%. The patient's hemoglobin is at 9.5. Renal function is stable at creatinine of 0.5 with a BUN of 39. She will go 4 extremities. She is following commands pH is awake and alert and oriented. Reevaluated today on 01/30/2019, patient is postoperative day #5. She is status post mitral valve repair and tricuspid valve repair. Remains in congestive heart failure based on the chest x-ray findings, continues to have pleural chest tubes in place,she is also status post post-pacemaker implantation, permanent 2 days ago, and this was done because the patient developed complete AV disassociation. Urine output is acceptable, patient receives Lasix on when necessary basis by cardiothoracic surgery. Remains on dopamine at 4 mcg/kg/m, she is also on amiodarone at present. She is on 6 L nasal cannula, maintaining O2 saturation in the low 90s.CBC is relatively normal hemoglobin is 9.4 lites are normal BUN is 42 creatinine 0.66.chest x-ray continues to show evidence of pulmonary edema Reevaluated today on 01/31/19 patient is post mitral valve and tricuspid valve repair, postoperative day #6, patient is currently sitting in a recliner, in no distress, remains on 4 L nasal cannula. She is doing poorly with incentive spirometry, she is ambulating with assistance, but keeps complaining that she cannot do what, she needs significant amount of encouragement. Chest x-ray continues to show evidence of interstitial edema, strongly doubt pneumonia she may have some component of atelectasis and interstitial edema. Did receive Lasix today. WBC count is 12.1 hemoglobin is 9.3 Electrolytesenc normal BUN is 40 creatinine is 0.69. Reevaluated today on 02/01/2019, patient remains in the ICU, sitting at a bedside chair, asymptomatic, on 2 L nasal cannula, O2 saturation is 95%, patient is achieving 750 ML via incentive spirometry. Patient continues to have a ventricular paced rhythm. He is afebrile, remains on Lasix, and her chest x-ray is showing definite improvement. Continues to have right-sided pleural chest tube in place, drained 65 ML in the last 8 hours, 300 MLS the last 24 hours. No air leak noted in the chest tube. Chest x-ray again is improved labs are basically unremarkable. Reevaluated today on 06/2018, patient is doing great, relatively asymptomatic. Discharge planning is in progress to go to a rehab facility today. All labs and chest x-ray were reviewed Objective - Vital Signs Vital signs: Vital Signs Temp 98.1 F 02/02/19 11:13 Pulse 60 02/02/19 11:13 Resp 18 02/02/19 11:13 BP 97/59 02/02/19 11:13 Pulse Ox 97 02/02/19 11:13 Intake & Output 02/01/19 02/02/19 02/02/19 18:59 06:59 18:59 Intake Total 500 Output Total 751 700 Balance -251 -700 Weight 69.9 kg 68.3 kg Intake: Oral 500 Output: Urine 750 700 Urine/Stool Mix 1 0 Other: Voiding Method Bedside Commode Bedside Commode Bedside Commode # Voids 1 1 # Bowel Movements 1 ABP, PAP, CO, CI - Last Documented Arterial Blood Pressure 138/59 Pulmonary Artery Pressure 31/9 Cardiac Output 4.1 Cardiac Index 2.4 - Exam Physical Exam: Revealed a 78-year-old female in no distress. On 2 L nasal cannula, asymptomatic. head: Atraumatic, normocephalic HEENT:[Neck is supple.] [No neck masses.] [No thyromegaly.] [No JVD.] Chest: [symmetrical chest expansion, no crackles nor rhonchi no wheezes Cardiac Exam: [Normal S1 and S2, no S3 gallop, no murmur.] Abdomen: [Soft, nontender, no megaly, no rebound, no guarding, normal bowel sounds.] Extremities: [No clubbing, trace of bipedaledema, no cyanosis.] Neurological Exam: [No focal neurologic deficit.]alert oriented 3. Psychiatric: Normal mood affect and normal mental status examination. Skin: No rashes. Lymphatics: No lymphadenopathy. - Labs CBC & Chem 7: 02/02/19 05:06 02/02/19 05:06 Labs: Abnormal Lab Results - Last 24 Hours (Table) 02/01/19 02/01/19 02/01/19 Range/Units 11:33 16:44 20:55 WBC (3.8-10.6) k/uL RBC (3.80-5.40) m/uL Hgb (11.4-16.0) gm/dL Hct (34.0-46.0) % Neutrophils # (1.3-7.7) k/uL Carbon Dioxide (22-30) mmol/L BUN (7-17) mg/dL Glucose (74-99) mg/dL POC Glucose (mg/dL) 123 H 112 H 141 H (75-99) mg/dL Calcium (8.4-10.2) mg/dL 02/02/19 02/02/19 02/02/19 Range/Units 05:06 05:06 07:47 WBC 13.7 H (3.8-10.6) k/uL RBC 2.87 L (3.80-5.40) m/uL Hgb 9.3 L (11.4-16.0) gm/dL Hct 28.5 L (34.0-46.0) % Neutrophils # 9.6 H (1.3-7.7) k/uL Carbon Dioxide 32 H (22-30) mmol/L BUN 34 H (7-17) mg/dL Glucose 105 H (74-99) mg/dL POC Glucose (mg/dL) 127 H (75-99) mg/dL Calcium 8.2 L (8.4-10.2) mg/dL Assessment and Plan Assessment: impression;Severe mitral valve regurgitation, moderate tricuspid valve regurgitation, aortic valve insufficiency and ascending aortic aneurysm. Status post mitral valve repair with 26mm annuloflex ring, tricuspid valve repair with 26mm M3 tricuspid ring, ascending aorta aortoplasty, ligation of the left atrial appendage with 35mm Atriclip. Postoperative day #8 A-V dissociation, status post permanent pacemaker implantation/a dual-chamber. bilateral pneumothoraces, expected after surgery, no evidence of air leak. Early onset dementia History of breast cancer History of hypertension. Suspect some component of diastolic congestive heart failure, remains on diuretics. Recommendation: Continue cardiac meds including beta blockers statins aspirin.Continue diuretics Continue amiodarone. Continue to encourage incentive spirometry, ambulation, and continue bronchodilators. Increase activity as tolerated. Continue insulin as per protocol Continue pain management and pain control. Continue GI and DVT prophylaxis Continue diuretics Transfer patient to a monitor bed on selective today. Patient will definitely need rehab placement. Agree with discharge planning today. Time with Patient: Less than 30
[2019-02-02 11:59] LABS: Glucose,Whole Blood 105 mg/dL (75-99)
--- NOTE | 2019-02-02 12:05 | P.DS ---
Providers Date of admission: 01/24/19 05:51 Expected date of discharge: 02/02/19 Attending physician: Josep Tolliver Consults: 01/24/19 15:17 Consult Physician Routine Consulting Provider: Emi Coyne Consult Reason/Comments: Forestry Engineer Consult: post cardiac surgery Do you want consulting provider notified?: Yes Consult Physician Routine Consulting Provider: Sunny Monteiro Consult Reason/Comments: medical managment Do you want consulting provider notified?: Yes Consult Physician Routine Consulting Provider: Osmel Harman Consult Reason/Comments: Military Communications Specialist Consult: post cardiac surgery Do you want consulting provider notified?: Yes Primary care physician: [facility] Course: FINAL DIAGNOSIS: 1. Severe mitral valve regurgitation 2. Moderate tricuspid regurgitation 3. Mild aortic insufficiency 4. Ascending aortic aneurysm 5. Hypertension 6. Early onset dementia 7. Depression 8. Osteoporosis 9. Remote history of hepatitis a 10. History of breast cancer with radiation 17 years ago 11. Postoperative bradycardia with complete AV disassociation 12. Postoperative hypotension 13. Postoperative acute blood loss anemia 14. Postoperative bilateral pneumothoraces 15. Postoperative paroxysmal atrial fibrillation PRINCIPAL PROCEDURE: 1. Mitral valve repair with 26 mm AnnuloFlex ring 2. Tricuspid valve repair with 26 mm MC 3 tricuspid ring 3. Ascending aortic aortoplasty 4. Ligation of the left atrial appendage with a 35 mm AtriClip 5. Epi-aortic ultrasound 6. Intraoperative transesophageal echocardiogram 7. Dual-chamber Medtronic pacemaker implantation, axillary venography HISTORY OF PRESENT ILLNESS: This is a 78-year-old frail female who follows on an outpatient basis with Dr. Monteiro. She had been experiencing progressive fatigue and dyspnea on exertion over a several month period. She presented to her art conservator's office and an echocardiogram was performed demonstrating severe mitral regurgitation with moderate tricuspid regurgitation and mild aortic insufficiency. She was then recommended to undergo heart catheterization and transesophageal echocardiogram. The heart catheterization demonstrated no significant coronary artery disease. The transesophageal echocardiogram confirmed severe central mitral regurgitation with bileaflet prolapse without flail, moderate central regurgitation of the tricuspid valve, mild central regurgitation of the aortic valve, and preserved left ventricular function. Of note, the patient had a long-standing history of mitral valve prolapse which had not required any treatment. The patient was referred to Dr. Tolliver from cardiothoracic surgery. She was recommended to undergo mitral and tricuspid valve repair. The usual perioperative course was discussed in detail with the patient and her family, all risks and benefits were explained, all questions were answered, and consent was obtained to proceed with surgery. Surgery was scheduled at the earliest possible date. HOSPITAL COURSE: The patient was brought to the hospital on 01/25/2019 , taken to the preoperative area, prepared in the usual fashion, and subsequently taken to the operating room where Dr. Tolliver performed mitral and tricuspid valve repair along with ascending aortic aortoplasty as she was found intraoperatively to have a markedly dilated ascending aorta. Upon completion of surgery the patient was transferred to the cardiovascular intensive care unit where she was recovered, monitored hemodynamically, and where she progressed to cardiac rehabilitation phase 1. She was extubated, all lines, tubes, and drips were discontinued when appropriate. Despite recovery she continued to have complete A-V dissociation and had pacemaker placement by cardiology. She continued to progress with her recovery and she was eventually transferred to [facility] cardiac stepdown unit for further monitoring and rehabilitation. Her oxygen was titrated down although she was still requiring 2 L nasal cannula , she continued to work with physical and occupational therapy, she was tolerating oral diet, her pain was controlled, and she was ready to be discharged to [facility] for subacute rehab on postoperative day #8. She received written and verbal instruction regarding her medications, activity restrictions, signs and symptoms requiring physician notification, and follow-up appointments. COMPLICATIONS: The patient experienced postoperative bradycardia with complete A-V dissociation, hypotension, blood loss anemia, bilateral pneumothoraces, and paroxysmal atrial fibrillation, all of which were treated accordingly. Patient Condition at Discharge: Stable Plan - Discharge Summary Discharge Rx Participant: No New Discharge Prescriptions: New Aspirin 325 mg PO DAILY tab Benzocaine/Menthol Lozeng [Cepacol lozenge] 1 each MUCOUS MEM Q2H PRN lozenge PRN Reason: Sore Throat Amiodarone [Cordarone] 400 mg PO BID tab Bisacodyl [Dulcolax] 10 mg RECTAL DAILY PRN supp PRN Reason: Constipation Ipratropium-Albuterol Nebulize [Duoneb 0.5 mg-3 mg/3 ml Soln] 3 ml INHALATION RT-QID ampul.neb Ipratropium-Albuterol Nebulize [Duoneb 0.5 mg-3 mg/3 ml Soln] 3 ml INHALATION RT-Q2H PRN ampul.neb PRN Reason: Shortness Of Breath Or Wheezing Heparin Sodium,Porcine [Heparin Sodium] 5,000 unit SQ Q8HR vial Potassium Chloride ER [K-Dur 20] 20 meq PO DAILY tab.er.prt Furosemide [Lasix] 40 mg PO DAILY tab Insulin Detemir (Levemir) [Levemir] 5 unit SQ HS syr Atorvastatin [Lipitor] 40 mg PO DAILY tab Metoprolol Tartrate [Lopressor] 12.5 mg PO BID tab Magnesium Hydroxide [Milk of Magnesia Concentrate] 2,400 mg PO BID PRN ml PRN Reason: Constipation INSULIN ASPART (NovoLOG) [NovoLOG (formulary)] 0 unit SQ ACHS vial Pantoprazole [Protonix] 40 mg PO AC-BRKFST tablet. Mirtazapine [Remeron] 15 mg PO HS tab Timolol 0.5% Ophth Soln [Timoptic 0.5% Ophth Soln] 1 drops BOTH EYES BID ml Acetaminophen Tab [Tylenol] 1,000 mg PO Q6HR PRN tab PRN Reason: Fever And/ Or Pain Continue Donepezil [Aricept] 10 mg PO HS Glucos Sul 2Kcl/MSM/Chond/C/Mn [Glucosamine Chondroitin Cap] 1 tab PO DAILY Calcium Carbonate/Vitamin D3 [Calcium 600-Vit D3 800 Caplet] 2 tab PO HS Zinc 25 mg PO DAILY Ascorbic Acid [Vitamin C] 1,000 mg PO DAILY Magnesium Oxide [Mag-Ox] 250 mg PO DAILY Multivit-Min/FA/Lycopen/Lutein [Centrum Silver Tablet] 1 tab PO DAILY Lysine HCl [l-Lysine] 1,000 mg PO DAILY Vitamin B Complex 1 cap PO DAILY Brimonidine Tartrate/Timolol [Combigan 0.2%-0.5% Eye Drops] 1 drop BOTH EYES BID Latanoprost Ophth [Xalatan 0.005%] 1 drops BOTH EYES HS Discontinued Ramipril [Altace] 5 mg PO DAILY Raloxifene [Evista] 60 mg PO DAILY Memantine [Namenda] 10 mg PO HS Aspirin [Adult Low Dose Aspirin EC] 81 mg PO HS Sulfamethox-Tmp 400-80Mg [Bactrim SS 400-80 mg] 1 tab PO Q12HR Discharge Medication List Ascorbic Acid [Vitamin C] 1,000 mg PO DAILY 12/14/18 [History] Calcium Carbonate/Vitamin D3 [Calcium 600-Vit D3 800 Caplet] 2 tab PO HS 12/14/18 [History] Donepezil [Aricept] 10 mg PO HS 12/14/18 [History] Glucos Sul 2Kcl/MSM/Chond/C/Mn [Glucosamine Chondroitin Cap] 1 tab PO DAILY 12/14/18 [History] Lysine HCl [l-Lysine] 1,000 mg PO DAILY 12/14/18 [History] Magnesium Oxide [Mag-Ox] 250 mg PO DAILY 12/14/18 [History] Multivit-Min/FA/Lycopen/Lutein [Centrum Silver Tablet] 1 tab PO DAILY 12/14/18 [History] Zinc 25 mg PO DAILY 12/14/18 [History] Brimonidine Tartrate/Timolol [Combigan 0.2%-0.5% Eye Drops] 1 drop BOTH EYES BID 01/07/19 [History] Vitamin B Complex 1 cap PO DAILY 01/07/19 [History] Latanoprost Ophth [Xalatan 0.005%] 1 drops BOTH EYES HS 01/23/19 [History] Acetaminophen Tab [Tylenol] 1,000 mg PO Q6HR PRN tab 02/02/19 [Rx] Amiodarone [Cordarone] 400 mg PO BID tab 02/02/19 [Rx] Aspirin 325 mg PO DAILY tab 02/02/19 [Rx] Atorvastatin [Lipitor] 40 mg PO DAILY tab 02/02/19 [Rx] Benzocaine/Menthol Lozeng [Cepacol lozenge] 1 each MUCOUS MEM Q2H PRN lozenge 02/02/19 [Rx] Bisacodyl [Dulcolax] 10 mg RECTAL DAILY PRN supp 02/02/19 [Rx] Furosemide [Lasix] 40 mg PO DAILY tab 02/02/19 [Rx] Heparin Sodium,Porcine [Heparin Sodium] 5,000 unit SQ Q8HR vial 02/02/19 [Rx] INSULIN ASPART (NovoLOG) [NovoLOG (formulary)] 0 unit SQ ACHS vial 02/02/19 [Rx] Insulin Detemir (Levemir) [Levemir] 5 unit SQ HS syr 02/02/19 [Rx] Ipratropium-Albuterol Nebulize [Duoneb 0.5 mg-3 mg/3 ml Soln] 3 ml INHALATION RT-Q2H PRN ampul.neb 02/02/19 [Rx] Ipratropium-Albuterol Nebulize [Duoneb 0.5 mg-3 mg/3 ml Soln] 3 ml INHALATION RT-QID ampul.neb 02/02/19 [Rx] Magnesium Hydroxide [Milk of Magnesia Concentrate] 2,400 mg PO BID PRN ml 02/02/19 [Rx] Metoprolol Tartrate [Lopressor] 12.5 mg PO BID tab 02/02/19 [Rx] Mirtazapine [Remeron] 15 mg PO HS tab 02/02/19 [Rx] Pantoprazole [Protonix] 40 mg PO AC-BRKFST tablet. 02/02/19 [Rx] Potassium Chloride ER [K-Dur 20] 20 meq PO DAILY tab.er.prt 02/02/19 [Rx] Timolol 0.5% Ophth Soln [Timoptic 0.5% Ophth Soln] 1 drops BOTH EYES BID ml 02/02/19 [Rx] Follow up Appointment(s)/Referral(s): Sunny Monteiro MD [Primary Care Provider] - 1 Week (at [facility]) Osmel Harman MD [STAFF PHYSICIAN] - 1 Week (please make appointment once discharged from [facility]) Emi Coyne MD [STAFF PHYSICIAN] - 1 Week (please make appointment once discharged from [facility]) Josep Tolliver MD [STAFF PHYSICIAN] - 03/09/19 1:00 pm Ambulatory/Diagnostic Orders: Complete Blood Count w/diff [LAB.AMB] Time Frame: 3 Days, Location: None Selected Comprehensive Metabolic Panel [LAB.AMB] Time Frame: 3 Days, Location: None Selected Activity/Diet/Wound Care/Special Instructions: DISCHARGE INSTRUCTIONS: 1. No driving for 4 weeks, or until physician gives their ok. 2. The patient should sleep in their own bed, no medical bed needed. 3. Stairs are not an issue. If the bedroom is upstairs, it is advised that the patient go up at night and down in the morning for the first week. Go slowly, using handrail and take 1 step at a time. 4. MU hose are to be worn for 30 days or until physician discontinues. 5. Heart hugger is to be worn 100% of the time until physician discontinues.(except when showering) 6. No lifting, pushing, or pulling more than 10 pounds for 12 weeks. The physician will advise of any restriction changes. 7. The patient is expected to continue the prescribed walking program. 8. Continue pain control per as needed orders. 9. Continue with incentive spirometry and splinting/heart hugger until otherwise directed by the physician. 10. Must shower daily using liquid antibacterial soap and a separate white washcloth for each individual incision. 11. Routine sternal incision care. No powders, lotions, ointments on incisions. 12. Please call surgeon/ANIMATOR for temp greater than 101 F or purulent drainage from incisions. 13. No narcotics to be given without discussing with cardiothoracic surgery 14. All prescriptions given by surgeon for 30 days. Refills need to be filled through art conservator/primary care physician. 15. A Red armband has been placed on the patient. It should be worn for 30 days post surgery and will be removed by the cardiac surgeons. If an ER visit is necessary, please make sure the number on the Red armband is called. 16. Amiodarone is to be tapered as follows: 400 mg twice daily until February 06, then 200 mg twice daily until February 13, then 200 mg daily until February 21, then stop medication [facility]/HOME HEALTH SERVICES TO PROVIDE: RN SKILLED HOME CARE SERVICES FOR POST-OP SURGICAL PATIENTS WITH THE FOLLOWING: Coronary Artery Bypass Surgery (CABG), Mitral Valve Replacement/Repair ( MVR), Aortic Valve Replacement/Repair (AVR) RN TO CONTINUE EDUCATION FROM ``ROAD TO A HEALTH HEART PATIENT EDUCATION MANUAL (GIVEN TO PATIENT IN THE HOSPITAL) MEDICATION RECONCILIATION WITH EDUCATION NEEDED ON FIRST HOME VISIT EMPHASIZE IMPORTANCE OF WEARING BREAST SUPPORT/HEART HUGGER ENCOURAGE USE OF INCENTIVE SPIROMETER 10 X EVERY HOUR WHILE AWAKE ENCOURAGE UTILIZATION OF LOWER EXTREMITY COMPRESSION STOCKINGS/MU HOSE and ELEVATE LEGS ABOVE LEVEL OF HEART WHILE AT REST. ENCOURAGE AMBULATION 3-5x/day INCREASING TOLERATES, WHILE AVOID EXTREMES IN TEMPERATURE FREQUENCY: AUDIO VIDEO MECHANIC TO OPEN THE PATIENT WITHIN 24 HOURS OF DISCHARGE FROM [facility] WITH TELEHEALTH INSTALLED AT [facility] [place], RN TO VISIT 2-3 X A WEEK FOR 4 WEEKS ESTABLISHED BY PATIENT NEEDS. LABORATORY: CBC, CMP TO BE DRAWN ON THE THIRD DAY AT REHAB, (RAN STAT) FAX RESULTS TO [phone]. TELEHEALTH PARAMETERS: WEIGHT: NOTIFY MD OF WEIGHT GAIN OF 2 LBS IN 24 HOURS OR 5 LBS IN ONE WEEK HR: NOTIFY MD OF HR <55 BPM OR HR>100 BPM BP: NOTIFY MD IF BP <90/55 OR BP>140/100 O2 SAT: NOTIFY MD IF PO2<93% ON ROOM AIR SEND TELEHEALTH REPORT TO HAND III CUTTER AND CARDIOVASCULAR SURGEON THE FIRST WEEK OF CARE AND THEN BI-WEEKLY. PLEASE ADDITIONALLY COMMUNICATE ANY ABNORMALS AND NEW FINDINGS TO THE SURGEONS OFFICE.
[2019-02-02 12:39] VITALS: PULSE 60
--- NOTE | 2019-02-02 13:33 | P.PN ---
Subjective Progress Note Date: 02/02/19 Principal diagnosis: Valvular heart disease post mitral repair and tricuspid valve repair, third degree AV block post pacemaker, hypertension, dementia, hyperglycemia This is a 78-year-old female patient of Dr. Monteiro with past medical history of breast cancer in 2001, dementia, hypertension, osteoarthritis, glaucoma. Patient is seen on postop day #1 following a mitral valve repair and a tricuspid valve repair. Patient is seen in the intensive care unit. She has been succ essfully extubated last evening is currently on 2 L nasal cannula. She is using incentive spirometer reaching 500 mL. She is currently on insulin 1 unit per hour and does not have history of diabetes. Patient has had good urine output but has decreased to 30-40 mL per hour this morning. She is currently on O2 at 2 L. Blood pressure is stable. Patient did stand with physical therapy may require subacute or inpatient rehab. Patient examined sitting comfortably in bed. Denies any acute distress. He saturating well at 95% on 2 L of oxygen. She currently has 2 mediastinal chest tube in place had low continuous wall suction. Did receive a dose of Lasix overnight continues to have 30 to 40 mL of urine output per of her. Patient was noted to have bradycardia consistent with third-degree block and atrial ventricular epicardial pacemaker wires were kept in place with a plan to place pacemaker. Mediastinal chest tube drained 120 mL output in the last 8 hours 250 mL output in the last 24 hours with a right chest tube draining 320 mL output in 8 hours and 6 for urine output in the last 24 hours. No evidence of any air leaks. [place]-Opal catheter removed. Cordis is in place 01/27: Patient has developed third degree AV block for which her heart rate was running in the 30s and 40s. Heart rate is currently in the 60s with bedside pacemaker generator on DDD mode, blood pressure 139/63, pulse ox 91-95% on 6 L nasal cannula. Patient is scheduled for pacemaker implantation for tomorrow. Patient has had mediastinal chest tubes removed. 2 bilateral pleural chest tubes remain in place draining serous fluid. Repeat chest x-ray last evening revealed stable tiny left greater than right bilateral apical pneumothoraces. Cardiomegaly and chronic parenchymal change with left greater than right bibasilar acute infiltrate and/or atelectasis. The patient is found sitting up in a chair and appears to be comfortable and in no acute distress, no respiratory distress is noted. 01/28 appears very tired on examination. Overnight patient and decreased urine output and was given 1 L of IV fluid followed by a dose of Lasix. This morning patient went for pacemaker placement and postoperatively patient was noted to have a low blood pressure 79/49. Patient did receive a 20 mg of IV Lasix and Lopressor 12.5 mg this morning. Patient will be initiated on dopamine drip unt il blood pressure stabilizes. Pacemaker need to be interrogated as patient currently still has atrial and ventricular epicardial pacemaker wires to maintain the rate of 70-80. Urine output maintained at 30 mL per hour. Her pleural chest tubes draining thin serosanguineous drainage with 2:30 mL output in the last 8 hours from the right pleural chest tube and to 90 output in the last 8 hours from the left pleural chest tube labs suggestive leukocytosis with a WBC of 13 hemoglobin 9.2 platelet 132 chloride 110 blood sugar 103 and will continue sliding scale for blood sugar more than 120. Patient in the Cardenas discontinuance currently patient is very fatigued and tired. Over this illness patient is medically stable 01/29 patient examined bedside appears lethargic but is able to answer questions appropriately. Patient's afebrile blood pressure 95/57 currently on 8 L of high flow chest x-ray consistent with bilateral pulmonary infiltrate with chest tube in place. Apical pneumothorax seen small in size. Chest tube drainage from left is 70 mL in the past 8 hours and 80 mL in the right pleural catheter. Patient currently paced at rate of 60 urine output maintained at 30 mL per hour blood sugar ranged from 116-141. We will add a dose of Lantus 5 units at bedtime continue sliding scale with meals 01/30: Blood sugars are running between 106 and 117. Creatinine 0.66, hemoglobin 9.4, WBC 12.5. Patient remains afebrile, heart rate in the 60s, blood pressure 100/57, pulse ox 96% on room air. Repeat chest x-ray reveals tiny left greater than right biapical pneumothoraces despite bilateral chest tubes seen in current study. Chronic vaginal changes and cardiomegaly redemonstrated with bilateral mid to lower lung edema and or infiltrates, findings improvement in bilateral upper lungs from most recent prior. Bilateral pleural chest tubes remain in place. Permanent pacemaker was placed on Wednesday. There is concern for depression and patient is eating very little and states she has no appetite. Cardiothoracic surgery started Zoloft and we will transition this to Remeron to help with both the depression and appetite. Steward catheter remains in place which is scheduled to be removed later today. Patient had episode of atrial fibrillation, paroxysmal. She is now on Lopressor 12.5 mg twice daily and oral amiodarone at 400 mg twice daily. Patient states that her discharge plan will be to go to [facility] for subacute rehab.. 01/31: Patient remains in the intensive care unit. She is sitting up and recliner appears to be quite comfortable. No respiratory distress is noted. She is currently pulse oxing 94% on 2 L. (Steward catheter has been removed and patient has been up to the commode chair voiding 3 times after receiving Lasix. I1 chest tube has been removed. Patient is anticipating to ambulate with physical therapy today WBC 12.1, hemoglobin 9.3, BUN 40 creatinine 0.69. Patient has been afebrile. Blood sugars are running between 89 and 147. Cardia c monitor is paced rhythm. Patient is reaching 500 on incentive spirometry. 02/01: Patient remains in the intensive care unit. Patient did ambulate well in the hallway today on 2 occasions. Her final chest tube was removed this morning. She has been voiding on her own without difficulty. Blood sugars are running between 102 and 123. Hemoglobin 9.7, WBC 12.6, creatinine 0.70.pulse ox is 95% on 2 L nasal cannula, heart rate 60, afebrile, blood pressure 103/59. Chest x-ray is showing improvement. Discharge plan is for [facility] most likely tomorrow. 02/02: Patient is doing very well was transfer out of the ICU and she'll be going to [facility] for rehab today. Objective - Vital Signs Vital signs: Vital Signs Temp 98.1 F 02/02/19 11:13 Pulse 60 02/02/19 12:00 Resp 18 02/02/19 12:00 BP 97/59 02/02/19 11:13 Pulse Ox 97 02/02/19 11:13 Intake & Output 02/01/19 02/02/19 02/02/19 18:59 06:59 18:59 Intake Total 500 Output Total 751 700 100 Balance -251 -700 -100 Weight 69.9 kg 68.3 kg Intake: Oral 500 Output: Urine 750 700 100 Urine/Stool Mix 1 0 Other: Voiding Method Bedside Commode Bedside Commode Bedside Commode # Voids 1 1 # Bowel Movements 1 ABP, PAP, CO, CI - Last Documented Arterial Blood Pressure 138/59 Pulmonary Artery Pressure 31/9 Cardiac Output 4.1 Cardiac Index 2.4 - Exam Review of Systems Constitutional: Reports fatigue, Reports poor appetite, Reports weakness, Denies anorexia, Denies chills, Denies fever Ears, nose, mouth and throat: Denies dental pain, Denies dysphagia, Denies headache, Denies sore throat, Denies vertigo Cardiovascular: Denies chest pain, Denies decreased exercise tolerance, Denies dyspnea on exertion, Denies shortness of breath, Denies syncope Respiratory: Denies cough, Denies cough with sputum, Denies dyspnea, Denies respiratory infections Gastrointestinal: Denies abdominal pain, Denies diarrhea, Denies nausea, Denies vomiting Genitourinary: Denies dysuria, Denies hematuria, Denies urinary frequency Musculoskeletal: Reports muscle weakness, Denies myalgias Integumentary: Denies pruritus, Denies rash Neurological: Denies change in mentation, Denies change in speech, Denies numbness, reports weakness Psychiatric: Denies anxiety, reports depression, reports poor appetite Endocrine: Denies fatigue, Denies weight change - Exam Gen: This is a 78-year-old female. She is sitting in bed eating lunch the intensive care unit. She appears to be comfortable and in no acute distress. HEENT: Head is atraumatic, normocephalic. Pupils equal, round. Sclerae is anicteric. NECK: Supple. No JVD. No lymphadenopathy. No thyromegaly. LUNGS: Diminished bilaterally. No wheezes or rhonchi. No intercostal retractions. HEART: Regular rate and rhythm. No murmur. ABDOMEN: Soft. Bowel sounds are present. No masses. No tenderness. EXTREMITIES: No pedal edema. No calf tenderness. NEUROLOGICAL: Patient is awake, alert and oriented x3. Cranial nerves 2 through 12 are grossly intact. - Labs - Labs CBC & Chem 7: 02/02/19 05:06 02/02/19 05:06 Labs: Abnormal Lab Results - Last 24 Hours (Table) 02/01/19 02/01/19 02/02/19 Range/Units 16:44 20:55 05:06 WBC 13.7 H (3.8-10.6) k/uL RBC 2.87 L (3.80-5.40) m/uL Hgb 9.3 L (11.4-16.0) gm/dL Hct 28.5 L (34.0-46.0) % Neutrophils # 9.6 H (1.3-7.7) k/uL Carbon Dioxide (22-30) mmol/L BUN (7-17) mg/dL Glucose (74-99) mg/dL POC Glucose (mg/dL) 112 H 141 H (75-99) mg/dL Calcium (8.4-10.2) mg/dL 02/02/19 02/02/19 02/02/19 Range/Units 05:06 07:47 11:38 WBC (3.8-10.6) k/uL RBC (3.80-5.40) m/uL Hgb (11.4-16.0) gm/dL Hct (34.0-46.0) % Neutrophils # (1.3-7.7) k/uL Carbon Dioxide 32 H (22-30) mmol/L BUN 34 H (7-17) mg/dL Glucose 105 H (74-99) mg/dL POC Glucose (mg/dL) 127 H 105 H (75-99) mg/dL Calcium 8.2 L (8.4-10.2) mg/dL Assessment and Plan Plan: 1. Valvular heart disease status post mitral valve repair and tricuspid valve repair, postop day #8. Continue current management per cardiothoracic surgery, intensive care management continues incentive spirometry to reduce incidence of atelectasis and hospital-acquired pneumonia. Continue aspirin, Lipitor. 2. Third-degree AV block status post permanent pacemaker on January 28. 3. Hypertension. Hydralazine discontinued due to hypotension. 4. Dementia. Continue Aricept, hold Namenda. 5. Glaucoma. Continue eyedrops. 6. DVT prophylaxis. Heparin subcu. 7. GI prophylaxis. Protonix. 8. Hyperglycemia. Lantus started at 5 units at bedtime and NovoLog scale. 9. Postoperative hypotension, expected. Continue to monitor closely. 10. Episode of paroxysmal atrial fibrillation, expected. Continue amiodarone oral, Lopressor. 11. Situational depression and anorexia. Continue Remeron 15 mg at bedtime. Discharge planning: Patient is going to [facility] rehab today.
== END 2019-02-02 13:50 | DRG 219 ==
LOC: 2ORMAIN 05:51 → 2SICU 15:04 → 3SCARD 02-02 10:40
PROVIDERS: ADMIT Thoracic Surgery (Cardiothoracic Vascular Surgery); ATTEND Thoracic Surgery (Cardiothoracic Vascular Surgery)
PROC: 02UG0JZ Supplement Mitral Valve with Synthetic Substitute, Open Approach (ICD-10-PCS; principal; 2019-01-25)
PROC: 02RX0JZ Replacement of Thoracic Aorta, Ascending/Arch with Synthetic Substitute, Open Approach (ICD-10-PCS; principal; 2019-01-25)
PROC: 5A1221Z Performance of Cardiac Output, Continuous (ICD-10-PCS; principal; 2019-01-25)
PROC: 02U Heart and Great Vessels, Supplement (ICD-10-PCS; principal; 2019-01-25)
PROC: 0JH606Z Insertion of Pacemaker, Dual Chamber into Chest Subcutaneous Tissue and Fascia, Open Approach (ICD-10-PCS; 2019-01-28)
PROC: 02H63JZ Insertion of Pacemaker Lead into Right Atrium, Percutaneous Approach (ICD-10-PCS; 2019-01-28)
PROC: 02HL3JZ Insertion of Pacemaker Lead into Left Ventricle, Percutaneous Approach (ICD-10-PCS; 2019-01-28)
DX: I08.3 Combined rheumatic disorders of mitral, aortic and tricuspid valves (principal); I46.9 Cardiac arrest, cause unspecified; J96.01 Acute respiratory failure with hypoxia; D62 Acute posthemorrhagic anemia; I44.2 Atrioventricular block, complete; I45.89 Other specified conduction disorders; J93.9 Pneumothorax, unspecified; I50.32 Chronic diastolic (congestive) heart failure; E78.5 Hyperlipidemia, unspecified; E86.9 Volume depletion, unspecified; I95.9 Hypotension, unspecified; F03.90 Unspecified dementia, unspecified severity, without behavioral disturbance, psychotic disturbance, mood disturbance, and anxiety; H91.90 Unspecified hearing loss, unspecified ear; I11.0 Hypertensive heart disease with heart failure; I48.0 Paroxysmal atrial fibrillation; I71.2 Thoracic aortic aneurysm, without rupture; M19.90 Unspecified osteoarthritis, unspecified site; M81.0 Age-related osteoporosis without current pathological fracture; Z79.4 Long term (current) use of insulin; Z79.82 Long term (current) use of aspirin; Z79.899 Other long term (current) drug therapy; Z85.3 Personal history of malignant neoplasm of breast; Z86.19 Personal history of other infectious and parasitic diseases; Z97.4 Presence of external hearing-aid; R00.1 Bradycardia, unspecified; H40.9 Unspecified glaucoma; R73.9 Hyperglycemia, unspecified; F32.89 Other specified depressive episodes; R63.0 Anorexia; Z98.42 Cataract extraction status, left eye; Z98.41 Cataract extraction status, right eye; Z88.0 Allergy status to penicillin
CPT/HCPCS: 33208; 71045; 71046; 80048; 80053; 82330; 82805; 83036; 83735; 84132; 85025; 85027; 85520; 85610; 85730; 86850; 86891; 86900; 86901; 86920; 88304; 93308; 94002; 94640

== ENCOUNTER 2019-02-15 12:46 | Observation (INO) | payer MEDICARE, OTHER ==
[2019-02-15 13:50] LABS: Basophils % (A) 0 %; Eosinophils # (A) 0.6 k/uL (0-0.7); Eosinophils % (A) 8 %; HCT 33.7 % (34.0-46.0); HGB 10.8 gm/dL (11.4-16.0); Hypochromasia Slight; Lymphocytes # (A) 1.8 k/uL (1.0-4.8); Lymphocytes % (A) 25 %; MCH 32.8 pg (25.0-35.0); MCHC 32.1 g/dL (31.0-37.0); MCV 102.4 fL (80.0-100.0); Macrocytosis Slight; Mean Platelet Volume 8.9; Monocytes # (A) 0.4 k/uL (0-1.0); Monocytes % (A) 6 %; Neutrophils # (A) 4.2 k/uL (1.3-7.7); Neutrophils % (A) 59 %; Platelet Count 193 k/uL (150-450); RBC 3.29 m/uL (3.80-5.40); RDW 13.9 % (11.5-15.5); WBC 7.2 k/uL (3.8-10.6)
--- NOTE | 2019-02-15 13:55 | ED ---
Dizziness HPI - General Chief Complaint: Dizziness Stated Complaint: Hypotension Time Seen by Provider: 02/15/19 12:50 Source: EMS Mode of arrival: EMS Limitations: no limitations - History of Present Illness Initial Comments: The patient is a 70-year-old female with past history of dementia, mitral and tricuspid regurgitation who presents to the emergency room with reported presyncopal episode. She is from [facility] where she is receiving rehab. She recently had a mitral tricuspid valve repair done on January [address] Tolliver. She has been at rehab and doing well. Today seemed related for approximately 200 yards when she ended up feeling very lightheaded and as if she was cannot vomit. Checked the patient's blood pressure and it was 72/42. He has a recent open heart surgery did recommend transfer to the hospital for further evaluation. Patient arrives and blood pressures are in the 90 systolic. She states that she feels much improved sitting down. She denies any vomiting. No chest pain or shortness of breath. Denies abdominal pain. No recent medication changes. Family states that the patient has had low blood pressures since her surgery. Melanotic stools or hematochezia. Patient has had a good appetite. There are no alleviating, precipitating or modifying factors - Related Data Home Medications Medication Instructions Recorded Confirmed Ascorbic Acid [Vitamin C] 1,000 mg PO DAILY@1700 12/14/18 02/15/19 Calcium Carbonate/Vitamin D3 2 tab PO HS 12/14/18 02/15/19 [Calcium 600-Vit D3 800 Caplet] Glucos Sul 2Kcl/MSM/Chond/C/Mn 1 tab PO DAILY@1700 12/14/18 02/15/19 [Glucosamine Chondroitin Cap] Lysine HCl [l-Lysine] 1,000 mg PO DAILY@1700 12/14/18 02/15/19 Multivit-Min/FA/Lycopen/Lutein 1 tab PO DAILY@1700 12/14/18 02/15/19 [Centrum Silver Tablet] Zinc 25 mg PO DAILY@1700 12/14/18 02/15/19 Brimonidine Tartrate/Timolol 1 drop BOTH EYES BID@0800,1700 01/07/19 02/15/19 [Combigan 0.2%-0.5% Eye Drops] Vitamin B Complex 1 cap PO DAILY@1700 01/07/19 02/15/19 Latanoprost Ophth [Xalatan 0.005%] 1 drops BOTH EYES HS 01/23/19 02/15/19 Aspirin EC [Ecotrin] 325 mg PO DAILY@1700 02/15/19 02/15/19 Atorvastatin [Lipitor] 40 mg PO HS 02/15/19 02/15/19 Benzocaine/Menthol Lozeng [Cepacol 1 lozenge MUCOUS MEM Q2H PRN 02/15/19 02/15/19 lozenge] Heparin Sodium,Porcine [Heparin 5,000 unit SQ TID@0600,1400,2200 02/15/19 02/15/19 Sodium] INSULIN ASPART (NovoLOG) [NovoLOG See Protocol SQ ACHS 02/15/19 02/15/19 (formulary)] Insulin Detemir (Levemir) [Levemir] 5 unit SQ HS@2130 02/15/19 02/15/19 Lactose-Reduced Food [Ensure Plus] 237 ml PO BID@0800,1200 02/15/19 02/15/19 Magnesium Oxide [Mag-Ox] 250 mg PO DAILY@1700 02/15/19 02/15/19 Metoprolol Tartrate [Lopressor] 12.5 mg PO BID@0800,1700 02/15/19 02/15/19 Na Phos,M-B/Na Phos,Di-Ba [Fleet 133 ml RECTAL DAILY PRN 02/15/19 02/15/19 Adult] Pantoprazole [Protonix] 40 mg PO DAILY@0600 02/15/19 02/15/19 Raloxifene [Evista] 60 mg PO DAILY 02/15/19 02/15/19 Previous Rx's Medication Instructions Recorded Acetaminophen Tab [Tylenol] 1,000 mg PO Q6HR PRN tab 02/02/19 Bisacodyl [Dulcolax] 10 mg RECTAL DAILY PRN supp 02/02/19 Ipratropium-Albuterol Nebulize 3 ml INHALATION RT-Q2H PRN 02/02/19 [Duoneb 0.5 mg-3 mg/3 ml Soln] ampul.neb Ipratropium-Albuterol Nebulize 3 ml INHALATION RT-QID ampul.neb 02/02/19 [Duoneb 0.5 mg-3 mg/3 ml Soln] Magnesium Hydroxide [Milk of 2,400 mg PO BID PRN ml 02/02/19 Magnesia Concentrate] Mirtazapine [Remeron] 15 mg PO HS tab 02/02/19 Potassium Chloride ER [K-Dur 20] 20 meq PO DAILY tab.er.prt 02/02/19 Amiodarone [Cordarone] 200 mg PO DAILY #0 02/16/19 Allergies Allergy/AdvReac Type Severity Reaction Status Date / Time Penicillins Allergy Unknown Verified 02/15/19 14:09 Childhood Review of Systems ROS Statement: Those systems with pertinent positive or pertinent negative responses have been documented in the HPI. ROS Other: All systems not noted in ROS Statement are negative. Past Medical History Past Medical History: Cancer, Dementia, Eye Disorder, Hearing Disorder / Deafness, Hypertension, Liver Disease, Memory Impairment, Musculoskeletal Disorder, Syncope Additional Past Medical History / Comment(s): Hx heart murmur; Breast CA 2001; Hep A 1970's. Glaucoma. Wears hearing aids. "Recent EKG changes, Echo shows severe MV regurg," per daughter. Recent falls, has fx lt clavicle. History of Any Multi-Drug Resistant Organisms: None Reported Past Surgical History: Breast Surgery, Section Additional Past Surgical History / Comment(s): left breast Lumpectomy. Cataracts. Mitral valve repair and tricuspid valve repair 01/25/2019. Past Anesthesia/Blood Transfusion Reactions: No Reported Reaction Past Psychological History: No Psychological Hx Reported Smoking Status: Never smoker - Past Family History Mother Family Medical History: Cancer Additional Family Medical History / Comment(s): . Mother at age 90. Possible breast CA Father Additional Family Medical History / Comment(s): Father at age 90 from old age. Brother(s) Additional Family Medical History / Comment(s): Patient has 1 brother with no known medical problems. Patient does not have any sisters. Patient has 2 daughters with no major medical problems. General Exam Limitations: no limitations General appearance: alert, in no apparent distress Head exam: Present: atraumatic, normocephalic, normal inspection Eye exam: Present: normal appearance, PERRL, EOMI. Absent: scleral icterus, conjunctival injection, periorbital swelling ENT exam: Present: normal exam, mucous membranes moist Neck exam: Present: normal inspection. Absent: tenderness, meningismus, lymphadenopathy Respiratory exam: Present: normal lung sounds bilaterally. Absent: respiratory distress, wheezes, rales, rhonchi, stridor Cardiovascular Exam: Present: regular rate, normal rhythm, normal heart sounds. Absent: systolic murmur, diastolic murmur, rubs, gallop, clicks GI/Abdominal exam: Present: soft, normal bowel sounds. Absent: distended, tenderness, guarding, rebound, rigid Extremities exam: Present: normal inspection, full ROM, normal capillary refill, pedal edema. Absent: tenderness, joint swelling, calf tenderness Back exam: Present: normal inspection Neurological exam: Present: alert, oriented X3, CN II-XII intact Psychiatric exam: Present: normal affect, normal mood Skin exam: Present: warm, dry, intact, normal color. Absent: rash Course Vital Signs 02/15/19 02/15/19 02/15/19 12:48 13:52 14:43 Temperature 97.7 F Pulse Rate 67 60 61 Pulse Rate [ Sitting Pulse Oximetery] Pulse Rate [ Standing Pulse Oximetery] Pulse Rate [ Supine Pulse Oximetery] Respiratory 16 18 16 Rate Blood Pressure 120/69 119/66 101/59 Blood Pressure [Left Arm Sitting] Blood Pressure [Left Arm Standing] Blood Pressure [Left Arm Supine] O2 Sat by Pulse 96 96 95 Oximetry 02/15/19 02/15/19 02/15/19 15:27 17:00 20:00 Temperature 98.0 F 98 F Pulse Rate 60 64 Pulse Rate [ 69 Sitting Pulse Oximetery] Pulse Rate [ 72 Standing Pulse Oximetery] Pulse Rate [ 69 Supine Pulse Oximetery] Respiratory 16 16 18 Rate Blood Pressure 93/54 107/77 Blood Pressure 117/61 [Left Arm Sitting] Blood Pressure 106/58 [Left Arm Standing] Blood Pressure 121/69 [Left Arm Supine] O2 Sat by Pulse 95 95 94 L Oximetry 02/15/19 20:19 Temperature 98.0 F Pulse Rate 71 Pulse Rate [ Sitting Pulse Oximetery] Pulse Rate [ Standing Pulse Oximetery] Pulse Rate [ Supine Pulse Oximetery] Respiratory 18 Rate Blood Pressure 113/62 Blood Pressure [Left Arm Sitting] Blood Pressure [Left Arm Standing] Blood Pressure [Left Arm Supine] O2 Sat by Pulse 97 Oximetry EKG Findings - EKG Comments: EKG Findings:: EKG demonstrates a dual paced rhythm. Rate of 61. WA interval 184. QRS 166. QTC of 505. Pacemaker captures appropriately. No Norah's criteria Medical Decision Making - Medical Decision Making Upon arrival the patient was placed into room trauma 1. She is hooked up to continuous pulse ox and cardiac monitoring. A thorough history and physical exam was performed. Peripheral IV was established. I did give the patient gentle fluid hydration as I'm concerned about her recent open heart surgery. I did conduct laboratory studies and a chest x-ray. CBC and coags are normal. CMP shows a troponin of 0.071. Nothing previous to compare to. BNP is 807 however daughter bedside reports the patient's swelling is improved. Urinalysis shows few bacteria. Chest x-ray does demonstrate overall stable findings from most recent x-ray. Cardiomegaly with small bilateral pleural effusions and associated bibasilar atelectasis. I reevaluated the patient's. Blood pressures are maintaining around 90. I did recommend hospital admission for her presyncopal episode with low blood pressures. I did call discuss case with Costa Lam. I also called and discussed the case with Dr. Lundberg who accepted admission. The patient remained in stable condition awaiting a bed on the floor - Lab Data Result diagrams: 02/15/19 13:02 02/15/19 13:02 Lab Results 02/15/19 02/15/19 02/15/19 Range/Units 13:02 13:02 13:02 WBC 7.2 (3.8-10.6) k/uL RBC 3.29 L (3.80-5.40) m/uL Hgb 10.8 L (11.4-16.0) gm/dL Hct 33.7 L (34.0-46.0) % MCV 102.4 H (80.0-100.0) fL MCH 32.8 (25.0-35.0) pg MCHC 32.1 (31.0-37.0) g/dL RDW 13.9 (11.5-15.5) % Plt Count 193 (150-450) k/uL Neutrophils % 59 % Lymphocytes % 25 % Monocytes % 6 % Eosinophils % 8 % Basophils % 0 % Neutrophils # 4.2 (1.3-7.7) k/uL Lymphocytes # 1.8 (1.0-4.8) k/uL Monocytes # 0.4 (0-1.0) k/uL Eosinophils # 0.6 (0-0.7) k/uL Basophils # 0.0 (0-0.2) k/uL Hypochromasia Slight Macrocytosis Slight PT (9.0-12.0) sec INR (<1.2) APTT (22.0-30.0) sec Sodium 140 (137-145) mmol/L Potassium 4.6 (3.5-5.1) mmol/L Chloride 103 (98-107) mmol/L Carbon Dioxide 27 (22-30) mmol/L Anion Gap 10 mmol/L BUN 19 H (7-17) mg/dL Creatinine 0.86 (0.52-1.04) mg/dL Est GFR (CKD-EPI)AfAm 75 (>60 ml/min/1.73 sqM) Est GFR (CKD-EPI)NonAf 65 (>60 ml/min/1.73 sqM) Glucose 105 H (74-99) mg/dL Plasma Lactic Acid Messi 2.0 (0.7-2.0) mmol/L Calcium 9.5 (8.4-10.2) mg/dL Magnesium (1.6-2.3) mg/dL Total Bilirubin 0.5 (0.2-1.3) mg/dL AST 32 (14-36) U/L ALT 18 (4-34) U/L Alkaline Phosphatase 87 (38-126) U/L Troponin I (0.000-0.034) ng/mL NT-Pro-B Natriuret Pep pg/mL Total Protein 7.0 (6.3-8.2) g/dL Albumin 4.0 (3.5-5.0) g/dL Urine Color Urine Appearance (Clear) Urine pH (5.0-8.0) Ur Specific [place] (1.001-1.035) Urine Protein (Negative) Urine Glucose (UA) (Negative) Urine Ketones (Negative) Urine Blood (Negative) Urine Nitrite (Negative) Urine Bilirubin (Negative) Urine Urobilinogen (<2.0) mg/dL Ur Leukocyte Esterase (Negative) Urine RBC (0-5) /hpf Urine WBC (0-5) /hpf Ur Squamous Epith Cells (0-4) /hpf Urine Bacteria (None) /hpf Hyaline Casts (0-2) /lpf Urine Mucus (None) /hpf 02/15/19 02/15/19 02/15/19 Range/Units 13:02 13:35 13:35 WBC (3.8-10.6) k/uL RBC (3.80-5.40) m/uL Hgb (11.4-16.0) gm/dL Hct (34.0-46.0) % MCV (80.0-100.0) fL MCH (25.0-35.0) pg MCHC (31.0-37.0) g/dL RDW (11.5-15.5) % Plt Count (150-450) k/uL Neutrophils % % Lymphocytes % % Monocytes % % Eosinophils % % Basophils % % Neutrophils # (1.3-7.7) k/uL Lymphocytes # (1.0-4.8) k/uL Monocytes # (0-1.0) k/uL Eosinophils # (0-0.7) k/uL Basophils # (0-0.2) k/uL Hypochromasia Macrocytosis PT (9.0-12.0) sec INR (<1.2) APTT (22.0-30.0) sec Sodium (137-145) mmol/L Potassium (3.5-5.1) mmol/L Chloride (98-107) mmol/L Carbon Dioxide (22-30) mmol/L Anion Gap mmol/L BUN (7-17) mg/dL Creatinine (0.52-1.04) mg/dL Est GFR (CKD-EPI)AfAm (>60 ml/min/1.73 sqM) Est GFR (CKD-EPI)NonAf (>60 ml/min/1.73 sqM) Glucose (74-99) mg/dL Plasma Lactic Acid Messi (0.7-2.0) mmol/L Calcium (8.4-10.2) mg/dL Magnesium 2.2 (1.6-2.3) mg/dL Total Bilirubin (0.2-1.3) mg/dL AST (14-36) U/L ALT (4-34) U/L Alkaline Phosphatase (38-126) U/L Troponin I 0.071 H* (0.000-0.034) ng/mL NT-Pro-B Natriuret Pep 807 pg/mL Total Protein (6.3-8.2) g/dL Albumin (3.5-5.0) g/dL Urine Color Urine Appearance (Clear) Urine pH (5.0-8.0) Ur Specific [place] (1.001-1.035) Urine Protein (Negative) Urine Glucose (UA) (Negative) Urine Ketones (Negative) Urine Blood (Negative) Urine Nitrite (Negative) Urine Bilirubin (Negative) Urine Urobilinogen (<2.0) mg/dL Ur Leukocyte Esterase (Negative) Urine RBC (0-5) /hpf Urine WBC (0-5) /hpf Ur Squamous Epith Cells (0-4) /hpf Urine Bacteria (None) /hpf Hyaline Casts (0-2) /lpf Urine Mucus (None) /hpf 02/15/19 02/15/19 Range/Units 13:35 13:44 WBC (3.8-10.6) k/uL RBC (3.80-5.40) m/uL Hgb (11.4-16.0) gm/dL Hct (34.0-46.0) % MCV (80.0-100.0) fL MCH (25.0-35.0) pg MCHC (31.0-37.0) g/dL RDW (11.5-15.5) % Plt Count (150-450) k/uL Neutrophils % % Lymphocytes % % Monocytes % % Eosinophils % % Basophils % % Neutrophils # (1.3-7.7) k/uL Lymphocytes # (1.0-4.8) k/uL Monocytes # (0-1.0) k/uL Eosinophils # (0-0.7) k/uL Basophils # (0-0.2) k/uL Hypochromasia Macrocytosis PT 10.4 (9.0-12.0) sec INR 1.0 (<1.2) APTT 26.1 (22.0-30.0) sec Sodium (137-145) mmol/L Potassium (3.5-5.1) mmol/L Chloride (98-107) mmol/L Carbon Dioxide (22-30) mmol/L Anion Gap mmol/L BUN (7-17) mg/dL Creatinine (0.52-1.04) mg/dL Est GFR (CKD-EPI)AfAm (>60 ml/min/1.73 sqM) Est GFR (CKD-EPI)NonAf (>60 ml/min/1.73 sqM) Glucose (74-99) mg/dL Plasma Lactic Acid Emssi (0.7-2.0) mmol/L Calcium (8.4-10.2) mg/dL Magnesium (1.6-2.3) mg/dL Total Bilirubin (0.2-1.3) mg/dL AST (14-36) U/L ALT (4-34) U/L Alkaline Phosphatase (38-126) U/L Troponin I (0.000-0.034) ng/mL NT-Pro-B Natriuret Pep pg/mL Total Protein (6.3-8.2) g/dL Albumin (3.5-5.0) g/dL Urine Color Light Yellow Urine Appearance Clear (Clear) Urine pH 6.5 (5.0-8.0) Ur Specific [place] 1.006 (1.001-1.035) Urine Protein Negative (Negative) Urine Glucose (UA) Negative (Negative) Urine Ketones Negative (Negative) Urine Blood Negative (Negative) Urine Nitrite Negative (Negative) Urine Bilirubin Negative (Negative) Urine Urobilinogen <2.0 (<2.0) mg/dL Ur Leukocyte Esterase Trace H (Negative) Urine RBC <1 (0-5) /hpf Urine WBC 1 (0-5) /hpf Ur Squamous Epith Cells 2 (0-4) /hpf Urine Bacteria Few H (None) /hpf Hyaline Casts 1 (0-2) /lpf Urine Mucus Rare H (None) /hpf Disposition Clinical Impression: Pre-syncope, Mitral valve regurgitation, Tricuspid valve regurgitation, Hypotension Disposition: ADMITTED IP TO THIS [facility] Condition: Stable Is patient prescribed a controlled substance at d/c from ED?: No Decision to Admit Reason: Admit from EC Decision Date: 02/15/19 Decision Time: 14:55
[2019-02-15 14:19] LABS: Appearance,Urine Clear (Clear); Bacteria,Urine Few /hpf; Bilirubin,Urine Negative (Negative); Blood,Urine Negative (Negative); Color,Urine Light Yellow; Glucose,Urine (UA) Negative (Negative); Hyaline Casts,Urine 1 /lpf (0-2); Ketones,Urine Negative (Negative); Leukocyte Esterase,Urine Trace (Negative); Mucus,Urine Rare /hpf; Nitrite,Urine Negative (Negative); PH, Urine 6.5 (5.0-8.0); Protein,Urine Negative (Negative); RBC,Urine <1 /hpf (0-5); Specific Gravity,Urine 1.006 (1.001-1.035); Squamous Epithelial Cell,Urine 2 /hpf (0-4); Urobilinogen,Urine <2.0 mg/dL (<2.0); WBC,Urine 1 /hpf (0-5)
[2019-02-15 14:21] LABS: Calcium 9.5 mg/dL (8.4-10.2); Potassium 4.6 mmol/L (3.5-5.1); Total Bilirubin 0.5 mg/dL (0.2-1.3)
[2019-02-15 14:26] LABS: Partial Thromboplastin Time 26.1 sec (22.0-30.0); Prothrombin Time 10.4 sec (9.0-12.0)
[2019-02-15] MEDS ORDERED: NALOXONE 0.4 MG/ML 1 ML VIAL IV PRN (14:56)
--- NOTE | 2019-02-15 14:57 | XR ---
EXAMINATION TYPE: XR chest 2V DATE OF EXAM: 02/15/2019 COMPARISON: Chest x-ray February 02, 2019. HISTORY: Dizziness and hypotension. Difficulty breathing. TECHNIQUE: Frontal and lateral views of the chest are obtained. FINDINGS: There is persistent cardiomegaly with dual-lead pacemaker. Cardiac valvular rings and closu re device are redemonstrated. Persistent small bilateral pleural effusions and associated bibasilar a telectasis and/or infiltrate. Osseous structures are intact. IMPRESSION: Overall stable findings from most recent x-ray, cardiomegaly with small bilateral pleura l effusions and associated bibasilar atelectasis and/or infiltrate are all redemonstrated
--- NOTE | 2019-02-15 16:22 | P.GSCN ---
History of Present Illness Consult date: 02/15/19 Reason for Consult: Recent heart surgery, presyncope Requesting physician: Leeanna Pope History of present illness: This is a 78-year-old female patient who is followed by Dr. Sunny Monteiro an outpatient basis. 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 The patient underwent a recent mitral valve repair, tricuspid valve repair and repair of an ascending aortic aneurysm performed by Dr. Josep Tolliver on 01/25/2019. She post discharge to [facility] on 02/02/2019 for further rehabilitation needs. According to the patient and her daughter present at her bedside she has been doing quite well with her recovery, although today she had a hypotensive episode while at a family meeting. The patient's daughter reports that her mom became pale with cold sweats and when they checked her blood pressure it was 70/40 mmHg. She denies any recent fevers, cough, diarrhea, nausea or vomiting. The patient also reports that she has been eating and drinking okay. She was seen and examined by the nurse practitioner at [facility] and it was felt that she needed to be seen at the emergency department for further evaluation and treatment recommendations. Currently her room air oxygen saturations are 95% and her blood pressure is 101/59. Her admitting temperature was 97.7F. Initial lab results were WBC 7.2, hemoglobin 10.8, BUN 19, creatinine 0.86 and glucose 105. A chest x-ray was completed in the emergency department at which demonstrated stable findings from her most recent x-ray, cardiomegaly with small bilateral pleural effusions and associated atelectasis. A 12-lead EKG was completed which showed a heart rate of 60 BPM with an AV paced rhythm. Review of Systems a 14 point review of systems was completed was negative except as mentioned in HPI. Past Medical History Past Medical History: Atrial Fibrillation (postoperative paroxysmal atrial fibrillation), Cancer, Dementia, Eye Disorder, Hearing Disorder / Deafness, Hypertension, Liver Disease, Memory Impairment, Musculoskeletal Disorder, Syncope Additional Past Medical History / Comment(s): Hx heart murmur; Breast CA 2001; Hep A 1969's. Glaucoma. Wears hearing aids. "Recent EKG changes, Echo shows severe MV regurg," per daughter. Recent falls, has fx lt clavicle.history of severe mitral valve regurgitation, moderate tricuspid valve regurgitation, mild aortic valve insufficiency, and ascending aortic aneurysm. History of Any Multi-Drug Resistant Organisms: None Reported Past Surgical History: Breast Surgery, Section Additional Past Surgical History / Comment(s): left breast Lumpectomy. Cataracts. Mitral valve repair, tricuspid valve repair, and ascending aortic aneurysm repair 01/25/2019. Past Anesthesia/Blood Transfusion Reactions: No Reported Reaction Type of Cardiac Device: Permanent Pacemaker (history of complete AV dissociation with dual-chamber pacemaker implantation on 01/28/2019.) Past Psychological History: No Psychological Hx Reported Smoking Status: Never smoker Past Alcohol Use History: None Reported Past Drug Use History: None Reported - Past Family History Mother Family Medical History: Cancer Additional Family Medical History / Comment(s): . Mother at age 90. Possible breast CA Father Additional Family Medical History / Comment(s): Father at age 90 from old age. Brother(s) Additional Family Medical History / Comment(s): Patient has 1 brother with no known medical problems. Patient does not have any sisters. Patient has 2 daughters with no major medical problems. Medications and Allergies Home Medications Medication Instructions Recorded Confirmed Type Ascorbic Acid [Vitamin C] 1,000 mg PO DAILY@1700 12/14/18 02/15/19 History Calcium Carbonate/Vitamin D3 2 tab PO HS 12/14/18 02/15/19 History [Calcium 600-Vit D3 800 Caplet] Donepezil [Aricept] 10 mg PO DAILY 12/14/18 02/15/19 History Glucos Sul 2Kcl/MSM/Chond/C/Mn 1 tab PO DAILY@1700 12/14/18 02/15/19 History [Glucosamine Chondroitin Cap] Lysine HCl [l-Lysine] 1,000 mg PO DAILY@1700 12/14/18 02/15/19 History Multivit-Min/FA/Lycopen/Lutein 1 tab PO DAILY@1700 12/14/18 02/15/19 History [Centrum Silver Tablet] Zinc 25 mg PO DAILY@1700 12/14/18 02/15/19 History Brimonidine Tartrate/Timolol 1 drop BOTH EYES BID@0800,1700 01/07/19 02/15/19 History [Combigan 0.2%-0.5% Eye Drops] Vitamin B Complex 1 cap PO DAILY@1700 01/07/19 02/15/19 History Latanoprost Ophth [Xalatan 0.005%] 1 drops BOTH EYES HS 01/23/19 02/15/19 History Acetaminophen Tab [Tylenol] 1,000 mg PO Q6HR PRN tab 02/02/19 02/15/19 Rx Bisacodyl [Dulcolax] 10 mg RECTAL DAILY PRN supp 02/02/19 02/15/19 Rx Furosemide [Lasix] 40 mg PO DAILY tab 02/02/19 02/15/19 Rx Ipratropium-Albuterol Nebulize 3 ml INHALATION RT-Q2H PRN 02/02/19 02/15/19 Rx [Duoneb 0.5 mg-3 mg/3 ml Soln] ampul.neb Ipratropium-Albuterol Nebulize 3 ml INHALATION RT-QID ampul.neb 02/02/19 02/15/19 Rx [Duoneb 0.5 mg-3 mg/3 ml Soln] Magnesium Hydroxide [Milk of 2,400 mg PO BID PRN ml 02/02/19 02/15/19 Rx Magnesia Concentrate] Mirtazapine [Remeron] 15 mg PO HS tab 02/02/19 02/15/19 Rx Potassium Chloride ER [K-Dur 20] 20 meq PO DAILY tab.er.prt 02/02/19 02/15/19 Rx Amiodarone [Cordarone] 200 mg PO DAILY 02/15/19 02/15/19 History Aspirin EC [Ecotrin] 325 mg PO DAILY@1700 02/15/19 02/15/19 History Atorvastatin [Lipitor] 40 mg PO HS 02/15/19 02/15/19 History Benzocaine/Menthol Lozeng [Cepacol 1 lozenge MUCOUS MEM Q2H PRN 02/15/19 02/15/19 History lozenge] Heparin Sodium,Porcine [Heparin 5,000 unit SQ TID@0600,1400,2200 02/15/19 02/15/19 History Sodium] INSULIN ASPART (NovoLOG) [NovoLOG See Protocol SQ ACHS 02/15/19 02/15/19 History (formulary)] Insulin Detemir (Levemir) [Levemir] 5 unit SQ HS@2130 02/15/19 02/15/19 History Lactose-Reduced Food [Ensure Plus] 237 ml PO BID@0800,1200 02/15/19 02/15/19 History Magnesium Oxide [Mag-Ox] 250 mg PO DAILY@1700 02/15/19 02/15/19 History Memantine [Namenda] 10 mg PO HS 02/15/19 02/15/19 History Metoprolol Tartrate [Lopressor] 12.5 mg PO BID@0800,1700 02/15/19 02/15/19 History Na Phos,M-B/Na Phos,Di-Ba [Fleet 133 ml RECTAL DAILY PRN 02/15/19 02/15/19 History Adult] Pantoprazole [Protonix] 40 mg PO DAILY@0600 02/15/19 02/15/19 History Raloxifene [Evista] 60 mg PO DAILY 02/15/19 02/15/19 History Allergies Allergy/AdvReac Type Severity Reaction Status Date / Time Penicillins Allergy Unknown Verified 02/15/19 14:09 Childhood Surgical - Exam Vital Signs Temp Pulse Resp BP Pulse Ox 97.7 F 67 16 120/69 96 02/15/19 12:48 02/15/19 12:48 02/15/19 12:48 02/15/19 12:48 02/15/19 12:48 - General well developed, well nourished, no distress, no pain - Eyes PERRL, normal ocular movement - ENT normal pinna, normal nares, normal mucosa, no hearing loss, no congestion - Neck no masses, no bruits, trachea midline, no venous distension - Respiratory lungs essentially clear throughout, diminished to her bilateral bases. R espirations are symmetrical and nonlabored. Oxygen saturation is 95% on room air. - Cardiovascular regular rhythm and rate. S1 and S2 present, negative for S3, gallop or murmur. +1 edema to her bilateral lower extremities. Knee-high MU hose in place to her bilateral lower extremities. Heart hugger is in place and she is demonstrating appropriate use. Left upper chest permanent pacemaker. - Abdomen abdomen is soft, nontender and nondistended. Active bowel sounds present for abdominal quadrants. No guarding or rigidity. No organomegaly appreciated. - Genitourinary deferred - Rectum deferred - Integumentary midline sternal incision is clean, dry and approximated. No drainage or redness present. Left upper chest pacemaker site incision clean, dry and approximated. no rash, no growths, no abnormal pigmentation - Neurologic normal coordination, normal sensation - Musculoskeletal normal gait, normal posture - Psychiatric oriented to time, oriented to person, oriented to place, speech is normal, memory intact Results - Labs 02/15/19 13:02 02/15/19 13:02 Abnormal Lab Results - Last 24 Hours (Table) 02/15/19 02/15/19 02/15/19 Range/Units 13:02 13:02 13:02 RBC 3.29 L (3.80-5.40) m/uL Hgb 10.8 L (11.4-16.0) gm/dL Hct 33.7 L (34.0-46.0) % MCV 102.4 H (80.0-100.0) fL BUN 19 H (7-17) mg/dL Glucose 105 H (74-99) mg/dL Troponin I 0.071 H* (0.000-0.034) ng/mL Ur Leukocyte Esterase (Negative) Urine Bacteria (None) /hpf Urine Mucus (None) /hpf 02/15/19 Range/Units 13:44 RBC (3.80-5.40) m/uL Hgb (11.4-16.0) gm/dL Hct (34.0-46.0) % MCV (80.0-100.0) fL BUN (7-17) mg/dL Glucose (74-99) mg/dL Troponin I (0.000-0.034) ng/mL Ur Leukocyte Esterase Trace H (Negative) Urine Bacteria Few H (None) /hpf Urine Mucus Rare H (None) /hpf Diabetes panel 02/15/19 Range/Units 13:02 Sodium 140 (137-145) mmol/L Potassium 4.6 (3.5-5.1) mmol/L Chloride 103 (98-107) mmol/L Carbon Dioxide 27 (22-30) mmol/L BUN 19 H (7-17) mg/dL Creatinine 0.86 (0.52-1.04) mg/dL Glucose 105 H (74-99) mg/dL Calcium 9.5 (8.4-10.2) mg/dL AST 32 (14-36) U/L ALT 18 (4-34) U/L Alkaline Phosphatase 87 (38-126) U/L Total Protein 7.0 (6.3-8.2) g/dL Albumin 4.0 (3.5-5.0) g/dL Calcium panel 02/15/19 Range/Units 13:02 Calcium 9.5 (8.4-10.2) mg/dL Albumin 4.0 (3.5-5.0) g/dL Pituitary panel 02/15/19 Range/Units 13:02 Sodium 140 (137-145) mmol/L Potassium 4.6 (3.5-5.1) mmol/L Chloride 103 (98-107) mmol/L Carbon Dioxide 27 (22-30) mmol/L BUN 19 H (7-17) mg/dL Creatinine 0.86 (0.52-1.04) mg/dL Glucose 105 H (74-99) mg/dL Calcium 9.5 (8.4-10.2) mg/dL Adrenal panel 02/15/19 Range/Units 13:02 Sodium 140 (137-145) mmol/L Potassium 4.6 (3.5-5.1) mmol/L Chloride 103 (98-107) mmol/L Carbon Dioxide 27 (22-30) mmol/L BUN 19 H (7-17) mg/dL Creatinine 0.86 (0.52-1.04) mg/dL Glucose 105 H (74-99) mg/dL Calcium 9.5 (8.4-10.2) mg/dL Total Bilirubin 0.5 (0.2-1.3) mg/dL AST 32 (14-36) U/L ALT 18 (4-34) U/L Alkaline Phosphatase 87 (38-126) U/L Total Protein 7.0 (6.3-8.2) g/dL Albumin 4.0 (3.5-5.0) g/dL - Imaging Chest x-ray: report reviewed, image reviewed Assessment and Plan Assessment: 1. Hypotension 2. History of severe mitral valve regurgitation, status post mitral valve repair 3. Moderate tricuspid valve regurgitation, status post tricuspid valve repair 4. Mild aortic valve insufficiency 5. History of ascending aortic aneurysm, status post ascending aortic aneurysm repair 6. History of hypertension 7. Early onset dementia 8. History of depression 9. Osteoporosis 10. Remote history of hepatitis A 11. History of breast cancer with radiation 17 years ago 12. History of complete A-V dissociation, status post permanent pacemaker placement 13. History of paroxysmal atrial fibrillation Plan: The patient was seen and examined in the emergency department, her daughter was present at her bedside. Her chart and diagnostics were reviewed. Her case was discussed with Dr. Tolliver from cardiothoracic surgery. The patient is going to be admitted for a 23 hour observation due to her hypotensive episode. Continue maximize her medical therapy and postoperative open heart orders. Continue her beta ollie,amiodarone as ordered, aspirin and statin. GI and DVT prophylaxis. Continue to encourage use of her heart hugger and maintain her lifting, pushing and pulling restrictions of less than 10 pounds or jug of milk for 12 weeks. Routine incision care. Medical management recommendations per primary care service. Thank you Dr. Pope for this consult and we look for to working with you in the care of this patient. Time with Patient: Greater than 30
[2019-02-15] MEDS ORDERED: BISACODYL 10 MG SUPP RECTAL PRN (16:47)
[2019-02-15] MEDS ORDERED: BENZOCAINE/MENTHOL LOZENG 1 EACH LOZENGE MUCOUS MEM PRN (16:47)
[2019-02-15] MEDS ORDERED: ACETAMINOPHEN TAB 500 MG TAB PO PRN (16:47)
[2019-02-15] MEDS ORDERED: IPRATROPIUM-ALBUTEROL 3 ML NEB INHALATION PRN (16:47)
[2019-02-15] MEDS ORDERED: MAGNESIUM HYDROXIDE 2,400 MG/10 ML CUP PO PRN (16:47)
[2019-02-15] MEDS ORDERED: GLUCOS SUL PO SCH (17:00)
[2019-02-15] MEDS ORDERED: ASPIRIN 325 MG TAB PO SCH (17:00)
[2019-02-15] MEDS ORDERED: [UNRECOGNIZED DRUG - OTHER] PO SCH (17:00)
[2019-02-15] MEDS ORDERED: MAGNESIUM OXIDE 400 MG TAB PO SCH (17:00)
[2019-02-15] MEDS ORDERED: MEMANTINE 10 MG TAB PO SCH (21:00)
[2019-02-15] MEDS ORDERED: ATORVASTATIN 40 MG TAB PO SCH (21:00)
[2019-02-15] MEDS ORDERED: LATANOPROST 0.005% OPHTH DROPS 2.5 ML BTL BOTH EYES SCH (21:00)
[2019-02-15] MEDS ORDERED: CALCIUM CARB-VIT D 500MG-200UN 1 EACH TAB PO SCH (21:00)
[2019-02-15] MEDS: BRIMONIDINE TARTRATE 0.2% DROPS 5 ML BTL BOTH EYES SCH (21:28)
[2019-02-15] MEDS: TIMOLOL 0.5% OPHTH DROPS 5 ML BTL BOTH EYES SCH (21:28)
[2019-02-15] MEDS ORDERED: INSULIN DETEMIR (LEVEMIR) 100 UNIT/ML SYR SQ SCH (21:30)
[2019-02-15 21:40] LABS: Glucose,Whole Blood 148 mg/dL (75-99)
[2019-02-15] MEDS: IPRATROPIUM-ALBUTEROL 3 ML NEB INHALATION SCH (21:49)
[2019-02-15] MEDS: METOPROLOL TARTRATE 12.5 MG TAB PO SCH (21:56)
[2019-02-16 00:49] VITALS: RESP 16
[2019-02-16 06:23] LABS: Glucose,Whole Blood 107 mg/dL (75-99)
[2019-02-16] MEDS: INSULIN ASPART (NovoLOG) 100 UNIT/ML VIAL SQ SCH ×2 (06:23→11:38)
[2019-02-16] MEDS: IPRATROPIUM-ALBUTEROL 3 ML NEB INHALATION SCH ×2 (07:36→11:22)
[2019-02-16 08:20] VITALS: TEMP 97.7
[2019-02-16] MEDS: BRIMONIDINE TARTRATE 0.2% DROPS 5 ML BTL BOTH EYES SCH ×2 (08:37→08:41)
[2019-02-16] MEDS: TIMOLOL 0.5% OPHTH DROPS 5 ML BTL BOTH EYES SCH (08:37)
[2019-02-16] MEDS: METOPROLOL TARTRATE 12.5 MG TAB PO SCH (08:37)
[2019-02-16] MEDS ORDERED: AMIODARONE 200 MG TAB PO SCH (09:00)
[2019-02-16] MEDS ORDERED: DONEPEZIL 10 MG TAB PO SCH (09:00)
--- NOTE | 2019-02-16 09:05 | P.PN ---
Subjective Progress Note Date: 02/16/19 Principal diagnosis: Hypotension and dizziness. 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 The patient is laying in bed on the cardiac stepdown unit, she is in no acute distress. She denies any complaints of pain or shortness of breath this time. Reports that she has had no further episodes of feeling dizzy in the last 24 hours. She remains afebrile and hemodynamically stable, her blood pressure this morning is 100/55 mm/Hg. Her oxygen saturations are 93% on room air. Objective - Vital Signs Vital signs: Vital Signs Temp 97.7 F 02/16/19 07:15 Pulse 65 02/16/19 08:00 Resp 16 02/16/19 08:00 BP 91/59 02/16/19 07:15 Pulse Ox 93 L 02/16/19 07:15 Intake & Output 02/15/19 02/16/19 02/16/19 18:59 06:59 18:59 Intake Total 150 270 Output Total 240 300 Balance -90 -30 Weight 62.596 kg 62 kg Intake: IV 10 Invasive Line 1 10 Oral 150 260 Output: Urine 240 300 Other: Voiding Method Toilet Toilet # Voids 1 - Constitutional General appearance: Present: cooperative, no acute distress - Respiratory Details: lungs sounds are essentially clear throughout, diminished bilateral bases. Respirations are symmetrical and nonlabored. Oxygen saturation are 93% on room air. - Cardiovascular Details: regular rhythm and rate. S1 and S2 present. Negative for S3, gallop or murmur. +1 edema to her bilateral lower extremities. Knee-high MU hose in place to bilateral lower extremities. Sternum is stable. Heart hugger is in place and she is demonstrating appropriate use. - Gastrointestinal Gastrointestinal Comment(s): abdomen is soft, nontender and nondistended. Active bowel sounds present all 4 abdominal quadrants. No guarding or rigidity. Passing flatus. Tolerating oral intake. - Genitourinary Genitourinary Comment(s): voiding clear yellow urine. 300 mL output in the last 8 hours. - Integumentary Integumentary Comment(s): skin is warm and dry. No clubbing or cyanosis is present. Midline sternal incision is clean, dry and approximated. No drainage or redness is present. - Neurologic Neurologic Comment(s): no focal deficits. Neurologic: Present: CNII-XII intact - Musculoskeletal Musculoskeletal: Present: gait normal, generalized weakness, strength equal bilaterally - Psychiatric Psychiatric: Present: A&O x's 3, appropriate affect, intact judgment & insight - Allied health notes Allied health notes reviewed: nursing - Labs CBC & Chem 7: 02/15/19 13:02 02/15/19 13:02 Labs: Abnormal Lab Results - Last 24 Hours (Table) 02/15/19 02/15/19 02/15/19 Range/Units 13:02 13:02 13:02 RBC 3.29 L (3.80-5.40) m/uL Hgb 10.8 L (11.4-16.0) gm/dL Hct 33.7 L (34.0-46.0) % MCV 102.4 H (80.0-100.0) fL BUN 19 H (7-17) mg/dL Glucose 105 H (74-99) mg/dL POC Glucose (mg/dL) (75-99) mg/dL Troponin I 0.071 H* (0.000-0.034) ng/mL Ur Leukocyte Esterase (Negative) Urine Bacteria (None) /hpf Urine Mucus (None) /hpf 02/15/19 02/15/19 02/15/19 Range/Units 13:44 21:37 22:30 RBC (3.80-5.40) m/uL Hgb (11.4-16.0) gm/dL Hct (34.0-46.0) % MCV (80.0-100.0) fL BUN (7-17) mg/dL Glucose (74-99) mg/dL POC Glucose (mg/dL) 148 H (75-99) mg/dL Troponin I 0.068 H* (0.000-0.034) ng/mL Ur Leukocyte Esterase Trace H (Negative) Urine Bacteria Few H (None) /hpf Urine Mucus Rare H (None) /hpf 02/16/19 02/16/19 Range/Units 05:29 06:21 RBC (3.80-5.40) m/uL Hgb (11.4-16.0) gm/dL Hct (34.0-46.0) % MCV (80.0-100.0) fL BUN (7-17) mg/dL Glucose (74-99) mg/dL POC Glucose (mg/dL) 107 H (75-99) mg/dL Troponin I 0.081 H* (0.000-0.034) ng/mL Ur Leukocyte Esterase (Negative) Urine Bacteria (None) /hpf Urine Mucus (None) /hpf Assessment and Plan Assessment: 1. Hypotension 2. History of severe mitral valve regurgitation, status post mitral valve repair 3. Moderate tricuspid valve regurgitation, status post tricuspid valve repair 4. Mild aortic valve insufficiency 5. History of ascending aortic aneurysm, status post ascending aortic aneurysm repair 6. History of hypertension 7. Early onset dementia 8. History of depression 9. Osteoporosis 10. Remote history of hepatitis A 11. History of breast cancer with radiation 17 years ago 12. History of complete A-V dissociation, status post permanent pacemaker placement 13. History of paroxysmal atrial fibrillation Plan: 1. Continue to optimize medical management with aspirin, statin, and beta ollie. 2. Continue amiodarone 200 mg by mouth daily as ordered and discontinue on 02/21/2019, for paroxysmal atrial fibrillation prophylaxis. 3. Discontinue Lasix. 4. May transfer back to [facility] for further rehabilitation needs per the cardiothoracic surgery standpoint. 5. Continue post cardiac surgery discharge orders as to discussed. 6. Medical management recommendations per primary care service. Time with Patient: Greater than 30
[2019-02-16 11:36] LABS: Glucose,Whole Blood 114 mg/dL (75-99)
--- NOTE | 2019-02-16 13:00 | P.HPIM ---
History of Present Illness H&P Date: 02/16/19 (discharge minerals of bortezomib H&P and discharge summary) This is a 78-year-old female patient of Dr. Monteiro with past medical history of breast cancer in 2001, dementia, hypertension, osteoarthritis, glaucoma with recent mitral valve repair and tricuspid valve repair on 01/25 Patient was noted to have bradycardia consistent with third-degree block post surgery- permanent pacemaker was placed on 01/28 . She was also monitored for bilateral apical pneumothorax but no intervention was done. Patient came in yesterday when she had a pre-syncopal event at [facility]. patient endorses drop in her blood pressure to 70/40 associated with sweating. She denies any fever cough diarrhea nausea or vomiting. Patient denies any dizziness lightheadedness, chest pain, palpitation.on evaluation patient's blood workpatient had a hemoglobin of 10.8 stable as compared to the discharge hemoglobin urine creatinine is normatroponin was mildly elevated at 0.068 increased to 0.081UA was negative for UTIpatient's blood pressure [id number]. Blood pressure this morning is 91/59. Repeat blood pressure check will be done if systolic above 90 patient name discharge. Lasix will be held with follow-up as outpatient with cardiothoracic surgery Review of Systems Constitutional: Denies chills, Denies fever, Denies lethargy, Denies malaise, Denies poor appetite, Denies weakness, Denies weight loss Eyes: denies decreased vision, denies diplopia, denies discharge, denies pain Ears: deny: decreased hearing Ears, nose, mouth and throat: Denies dental pain, Denies headache, Denies nasal discharge, Denies nose pain Cardiovascular: Denies chest pain, Denies decreased exercise tolerance, Denies edema, Denies high blood pressure, Denies irregular heart beat, Denies palpitations, Denies paroxysmal nocturnal dyspnea, Denies rapid heart beat, Denies shortness of breath Respiratory: Denies congestion, Denies cough, Denies cough with sputum, Denies dyspnea, Denies home oxygen, Denies wheezing Gastrointestinal: Denies abdominal pain, Denies change in bowel habits, Denies coffee ground emesis, Denies early satiety, Denies excessive gas, Denies heartburn, Denies hematemesis, Denies hematochezia, Denies loss of appetite, Denies nausea, Denies vomiting Genitourinary: Denies dysuria, Denies flank pain, Denies kidney stones, Denies menorrhagia, Denies urgency, Denies urinary frequency Musculoskeletal: Denies gait dysfunction, Denies limitation of motion, Denies morning stiffness, Denies muscle cramps Integumentary: Denies rash, Denies wounds, Denies brittle nails, Denies change in hair/nails, Denies darkening of skin Neurological: Denies balance difficulties, Denies change in speech, Denies double vision, Denies gait dysfunction, Denies loss of vision, Denies motor dis turbance, Denies numbness, Denies paralysis, Denies paresthesias, Denies seizures Psychiatric: Denies anxiety, Denies depression Endocrine: Denies excessive sweating, Denies excessive thirst, Denies high blood sugars, Denies palpitations Hematologic/Lymphatic: Denies easy bruising, Denies lymphadenopathy Past Medical History Past Medical History: Cancer, Dementia, Eye Disorder, Hearing Disorder / Deafness, Hypertension, Liver Disease, Memory Impairment, Musculoskeletal Disorder, Syncope Additional Past Medical History / Comment(s): Hx heart murmur; Breast CA 2001; Hep A . Glaucoma. Wears hearing aids. "Recent EKG changes, Echo shows severe MV regurg," per daughter. Recent falls, has fx lt clavicle. History of Any Multi-Drug Resistant Organisms: None Reported Past Surgical History: Breast Surgery, Section, Pacemaker Additional Past Surgical History / Comment(s): left breast Lumpectomy. Cataracts. Mitral valve repair and tricuspid valve repair 01/25/2019. Past Anesthesia/Blood Transfusion Reactions: No Reported Reaction Type of Cardiac Device: Permanent Pacemaker Device Placement Date:: 12/2018 Past Psychological History: No Psychological Hx Reported Smoking Status: Never smoker Past Alcohol Use History: None Reported Additional Past Alcohol Use History / Comment(s): Patient is a lifelong nonsmoker, no marijuana or illicit drug use. She drink alcohol occasionally. Past Drug Use History: None Reported - Past Family History Mother Family Medical History: Cancer Additional Family Medical History / Comment(s): . Mother at age 90. Po ssible breast CA Father Additional Family Medical History / Comment(s): Father at age 90 from old age. Brother(s) Additional Family Medical History / Comment(s): Patient has 1 brother with no known medical problems. Patient does not have any sisters. Patient has 2 daughters with no major medical problems. Medications and Allergies Home Medications Medication Instructions Recorded Confirmed Type Ascorbic Acid [Vitamin C] 1,000 mg PO DAILY@1700 12/14/18 02/15/19 History Calcium Carbonate/Vitamin D3 2 tab PO HS 12/14/18 02/15/19 History [Calcium 600-Vit D3 800 Caplet] Donepezil [Aricept] 10 mg PO DAILY 12/14/18 02/15/19 History Glucos Sul 2Kcl/MSM/Chond/C/Mn 1 tab PO DAILY@1700 12/14/18 02/15/19 History [Glucosamine Chondroitin Cap] Lysine HCl [l-Lysine] 1,000 mg PO DAILY@1700 12/14/18 02/15/19 History Multivit-Min/FA/Lycopen/Lutein 1 tab PO DAILY@1700 12/14/18 02/15/19 History [Centrum Silver Tablet] Zinc 25 mg PO DAILY@1700 12/14/18 02/15/19 History Brimonidine Tartrate/Timolol 1 drop BOTH EYES BID@0800,1700 01/07/19 02/15/19 History [Combigan 0.2%-0.5% Eye Drops] Vitamin B Complex 1 cap PO DAILY@1700 01/07/19 02/15/19 History Latanoprost Ophth [Xalatan 0.005%] 1 drops BOTH EYES HS 01/23/19 02/15/19 History Acetaminophen Tab [Tylenol] 1,000 mg PO Q6HR PRN tab 02/02/19 02/15/19 Rx Bisacodyl [Dulcolax] 10 mg RECTAL DAILY PRN supp 02/02/19 02/15/19 Rx Ipratropium-Albuterol Nebulize 3 ml INHALATION RT-Q2H PRN 02/02/19 02/15/19 Rx [Duoneb 0.5 mg-3 mg/3 ml Soln] ampul.neb Ipratropium-Albuterol Nebulize 3 ml INHALATION RT-QID ampul.neb 02/02/19 02/15/19 Rx [Duoneb 0.5 mg-3 mg/3 ml Soln] Magnesium Hydroxide [Milk of 2,400 mg PO BID PRN ml 02/02/19 02/15/19 Rx Magnesia Concentrate] Mirtazapine [Remeron] 15 mg PO HS tab 02/02/19 02/15/19 Rx Potassium Chloride ER [K-Dur 20] 20 meq PO DAILY tab.er.prt 02/02/19 02/15/19 Rx Aspirin EC [Ecotrin] 325 mg PO DAILY@1700 02/15/19 02/15/19 History Atorvastatin [Lipitor] 40 mg PO HS 02/15/19 02/15/19 History Benzocaine/Menthol Lozeng [Cepacol 1 lozenge MUCOUS MEM Q2H PRN 02/15/19 02/15/19 History lozenge] Heparin Sodium,Porcine [Heparin 5,000 unit SQ TID@0600,1400,2200 02/15/19 02/15/19 History Sodium] INSULIN ASPART (NovoLOG) [NovoLOG See Protocol SQ ACHS 02/15/19 02/15/19 History (formulary)] Insulin Detemir (Levemir) [Levemir] 5 unit SQ HS@2130 02/15/19 02/15/19 History Lactose-Reduced Food [Ensure Plus] 237 ml PO BID@0800,1200 02/15/19 02/15/19 History Magnesium Oxide [Mag-Ox] 250 mg PO DAILY@1700 02/15/19 02/15/19 History Memantine [Namenda] 10 mg PO HS 02/15/19 02/15/19 History Metoprolol Tartrate [Lopressor] 12.5 mg PO BID@0800,1700 02/15/19 02/15/19 History Na Phos,M-B/Na Phos,Di-Ba [Fleet 133 ml RECTAL DAILY PRN 02/15/19 02/15/19 History Adult] Pantoprazole [Protonix] 40 mg PO DAILY@0600 02/15/19 02/15/19 History Raloxifene [Evista] 60 mg PO DAILY 02/15/19 02/15/19 History Amiodarone [Cordarone] 200 mg PO DAILY #0 02/16/19 02/15/19 Rx Allergies Allergy/AdvReac Type Severity Reaction Status Date / Time Penicillins Allergy Unknown Verified 02/15/19 14:09 Childhood Physical Exam Vitals: Vital Signs Temp Pulse Pulse Pulse Pulse Resp BP 02/16/19 11:35 65 16 02/16/19 08:00 65 16 02/16/19 07:15 97.7 F 65 16 02/16/19 04:00 97.6 F 62 16 02/16/19 00:00 98.2 F 61 16 02/15/19 20:19 98.0 F 71 18 113/62 02/15/19 20:00 98 F 69 72 69 18 02/15/19 17:00 98.0 F 64 16 107/77 02/15/19 15:27 60 16 93/54 02/15/19 14:43 61 16 101/59 02/15/19 13:52 60 18 119/66 BP BP BP Pulse Ox 02/16/19 11:35 02/16/19 08:00 02/16/19 07:15 91/59 93 L 02/16/19 04:00 100/55 92 L 02/16/19 00:00 118/64 92 L 02/15/19 20:19 97 02/15/19 20:00 117/61 106/58 121/69 94 L 02/15/19 17:00 95 02/15/19 15:27 95 02/15/19 14:43 95 02/15/19 13:52 96 Intake and Output 02/15/19 02/16/19 02/16/19 22:59 06:59 14:59 Intake Total 150 280 Output Total 240 500 Balance -90 -220 Intake: IV 20 Invasive Line 1 20 Oral 150 260 Output: Urine 240 500 Other: Voiding Method Toilet Toilet Toilet # Voids 1 1 Weight 62.596 kg 62 kg - Constitutional General appearance: cooperative, no acute distress, obese - EENT Eyes: anicteric sclerae, PERRLA, normal appearance ENT: hearing grossly normal - Neck Neck: no lymphadenopathy, normal ROM, no other, no rigidity, no stridor, no thyromegaly - Respiratory Respiratory: bilateral: CTA, negative: diminished, dullness, rales, rhonchi - Cardiovascular Rhythm: regular Heart sounds: normal: S1, S2 Abnormal Heart Sounds: no systolic murmur, no diastolic murmur, no rub, no S3 Gallop, no S4 Gallop, no click, no other - Gastrointestinal General gastrointestinal: normal bowel sounds, soft - Integumentary Integumentary: no rash - Neurologic Neurologic: CNII-XII intact. no sensory or motor deficit. Coordination intact no nystagmus on examination - Musculoskeletal Musculoskeletal: gait normal, strength equal bilaterally - Psychiatric Psychiatric: A&O x's 3, appropriate affect Results CBC & Chem 7: 02/15/19 13:02 02/15/19 13:02 Labs: Abnormal Lab Results - Last 24 Hours (Table) 02/15/19 02/15/19 02/15/19 Range/Units 13:02 13:02 13:02 RBC 3.29 L (3.80-5.40) m/uL Hgb 10.8 L (11.4-16.0) gm/dL Hct 33.7 L (34.0-46.0) % MCV 102.4 H (80.0-100.0) fL BUN 19 H (7-17) mg/dL Glucose 105 H (74-99) mg/dL POC Glucose (mg/dL) (75-99) mg/dL Troponin I 0.071 H* (0.000-0.034) ng/mL Ur Leukocyte Esterase (Negative) Urine Bacteria (None) /hpf Urine Mucus (None) /hpf 02/15/19 02/15/19 02/15/19 Range/Units 13:44 21:37 22:30 RBC (3.80-5.40) m/uL Hgb (11.4-16.0) gm/dL Hct (34.0-46.0) % MCV (80.0-100.0) fL BUN (7-17) mg/dL Glucose (74-99) mg/dL POC Glucose (mg/dL) 148 H (75-99) mg/dL Troponin I 0.068 H* (0.000-0.034) ng/mL Ur Leukocyte Esterase Trace H (Negative) Urine Bacteria Few H (None) /hpf Urine Mucus Rare H (None) /hpf 02/16/19 02/16/19 02/16/19 Range/Units 05:29 06:21 11:34 RBC (3.80-5.40) m/uL Hgb (11.4-16.0) gm/dL Hct (34.0-46.0) % MCV (80.0-100.0) fL BUN (7-17) mg/dL Glucose (74-99) mg/dL POC Glucose (mg/dL) 107 H 114 H (75-99) mg/dL Troponin I 0.081 H* (0.000-0.034) ng/mL Ur Leukocyte Esterase (Negative) Urine Bacteria (None) /hpf Urine Mucus (None) /hpf Thrombosis Risk Factor Assmnt - DVT/VTE Prophylaxis DVT/VTE Prophylaxis: Pharmacologic Prophylaxis ordered - Choose All That Apply Each Risk Factor Represents 3 Points: Age 75 years or older Thrombosis Risk Factor Assessment Total Risk Factor Score: 3 Thrombosis Risk Factor Assessment Level: Moderate Risk Assessment and Plan Plan: #1 hypotension likely secondary to hypovolemia from diuresis. Hold Lasix. 6 CMP in 1 week. Continue metoprolol 12.5 twice a day with systolic more than 90. She is currently asymptomatic blood pressure improved without IV fluids #2 Valvular heart disease status post mitral valve repair and tricuspid valve repair on 01/25 Continue aspirin, Lipitor. metoprolol 12.5 twice a day 2. Third-degree AV block status post permanent pacemaker on January 28. 3. Hypertension. Hydralazine discontinued due to hypotension.continue metoprolol 12.5 twice a day for systolic more than90 4. Dementia. Continue Aricept,continue Namenda. 5. Glaucoma. Continue eyedrops. 6. DVT prophylaxis. Heparin subcu. 7. GI prophylaxis. Protonix. 8. Hyperglycemia. Lantus 5 units at bedtime and NovoLog scale. 9. Postoperative hypotension, expected. Continue to monitor closely. 10. Episode of paroxysmal atrial fibrillation, expected. Continue amiodarone oralto be stopped on 02/21, Lopressor. 11. Situational depression and anorexia. Continue Remeron 15 mg at bedtime. 12 disposition patient to be transferred back to [facility]
[2019-02-16] MEDS ORDERED: SODIUM CHLORIDE 0.9% 1,000 ML IV ONE (14:01)
[2019-02-16 15:11] LABS: Hemoglobin A1C 4.9 % (4.0-6.0)
[2019-02-16 15:22] VITALS: BP 128/62; PULSE 67
--- NOTE | 2019-02-16 15:48 | P.DS ---
Providers Date of admission: 02/15/19 14:56 Attending physician: Bladimir Lundberg MD Consults: 02/15/19 14:56 Consult Physician Urgent Consulting Provider: Josep Tolliver Consult Reason/Comments: presyncope, recent heart surgery Do you want consulting provider notified?: Yes Primary care physician: Sunny Monteiro [facility] Course: his is a 78-year-old female patient of Dr. Monteiro with past medical history of breast cancer in 2001, dementia, hypertension, osteoarthritis, glaucoma with recent mitral valve repair and tricuspid valve repair on 01/25 Patient was noted to have bradycardia consistent with third-degree block post surgery- permanent pacemaker was placed on 01/28 . She was also monitored for bilateral apical pneumothorax but no intervention was done. Patient came in yesterday when she had a pre-syncopal event at [facility]. patient endorses drop in her blood pressure to 70/40 associated with sweating. She denies any fever cough diarrhea nausea or vomiting. Patient denies any dizziness lightheadedness, chest pain, palpitation.on evaluation patient's blood workpatient had a hemoglobin of 10.8 stable as compared to the discharge hemoglobin urine creatinine is normatroponin was mildly elevated at 0.068 increased to 0.081UA was negative for UTIpatient's blood pressure [id number]. Blood pressure this morning is 91/59. Repeat blood pressure check will be done if systolic above 90 patient name discharge. Lasix will be held with follow-up as outpatient with cardiothoracic surgery Discharge diagnosis #1 hypotension likely secondary to hypovolemia from diuresis. #2 Valvular heart disease status post mitral valve repair and tricuspid valve repair on 01/25 2. Third-degree AV block status post permanent pacemaker on January 28. 3. Hypertension 4. Dementia. 5. Glaucoma. 6. Hyperglycemia. 7. Postoperative hypotension, expected. 8 Episode of paroxysmal atrial fibrillation, expected. Continue amiodarone oralto be stopped on 02/21 9. Situational depression and anorexia. discharge to [facility] Patient Condition at Discharge: Stable Plan - Discharge Summary Discharge Rx Participant: Yes New Discharge Prescriptions: Continue Glucos Sul 2Kcl/MSM/Chond/C/Mn [Glucosamine Chondroitin Cap] 1 tab PO DAILY@1700 Calcium Carbonate/Vitamin D3 [Calcium 600-Vit D3 800 Caplet] 2 tab PO HS Zinc 25 mg PO DAILY@1700 Ascorbic Acid [Vitamin C] 1,000 mg PO DAILY@1700 Multivit-Min/FA/Lycopen/Lutein [Centrum Silver Tablet] 1 tab PO DAILY@1700 Lysine HCl [l-Lysine] 1,000 mg PO DAILY@1700 Vitamin B Complex 1 cap PO DAILY@1700 Brimonidine Tartrate/Timolol [Combigan 0.2%-0.5% Eye Drops] 1 drop BOTH EYES BID@0800,1700 Latanoprost Ophth [Xalatan 0.005%] 1 drops BOTH EYES HS Bisacodyl [Dulcolax] 10 mg RECTAL DAILY PRN supp PRN Reason: Constipation Ipratropium-Albuterol Nebulize [Duoneb 0.5 mg-3 mg/3 ml Soln] 3 ml INHALATION RT-QID ampul.neb Ipratropium-Albuterol Nebulize [Duoneb 0.5 mg-3 mg/3 ml Soln] 3 ml INHALATION RT-Q2H PRN ampul.neb PRN Reason: Shortness Of Breath Or Wheezing Potassium Chloride ER [K-Dur 20] 20 meq PO DAILY tab.er.prt Magnesium Hydroxide [Milk of Magnesia Concentrate] 2,400 mg PO BID PRN ml PRN Reason: Constipation Mirtazapine [Remeron] 15 mg PO HS tab Acetaminophen Tab [Tylenol] 1,000 mg PO Q6HR PRN tab PRN Reason: Fever And/ Or Pain Aspirin EC [Ecotrin] 325 mg PO DAILY@1700 Atorvastatin [Lipitor] 40 mg PO HS Benzocaine/Menthol Lozeng [Cepacol lozenge] 1 lozenge MUCOUS MEM Q2H PRN PRN Reason: Sore Throat Heparin Sodium,Porcine [Heparin Sodium] 5,000 unit SQ TID@0600,1400,2200 INSULIN ASPART (NovoLOG) [NovoLOG (formulary)] See Protocol SQ ACHS Insulin Detemir (Levemir) [Levemir] 5 unit SQ HS@2130 Lactose-Reduced Food [Ensure Plus] 237 ml PO BID@0800,1200 Magnesium Oxide [Mag-Ox] 250 mg PO DAILY@1700 Metoprolol Tartrate [Lopressor] 12.5 mg PO BID@0800,1700 Na Phos,M-B/Na Phos,Di-Ba [Fleet Adult] 133 ml RECTAL DAILY PRN PRN Reason: Constipation Pantoprazole [Protonix] 40 mg PO DAILY@0600 Raloxifene [Evista] 60 mg PO DAILY Amiodarone [Cordarone] 200 mg PO DAILY #0 Discontinued Donepezil [Aricept] 10 mg PO DAILY Furosemide [Lasix] 40 mg PO DAILY tab Memantine [Namenda] 10 mg PO HS Discharge Medication List Ascorbic Acid [Vitamin C] 1,000 mg PO DAILY@1700 12/14/18 [History] Calcium Carbonate/Vitamin D3 [Calcium 600-Vit D3 800 Caplet] 2 tab PO HS 12/14/18 [History] Glucos Sul 2Kcl/MSM/Chond/C/Mn [Glucosamine Chondroitin Cap] 1 tab PO DAILY@1700 12/14/18 [History] Lysine HCl [l-Lysine] 1,000 mg PO DAILY@17012/14/18 [History] Multivit-Min/FA/Lycopen/Lutein [Centrum Silver Tablet] 1 tab PO DAILY@1700 12/14/18 [History] Zinc 25 mg PO DAILY@17012/14/18 [History] Brimonidine Tartrate/Timolol [Combigan 0.2%-0.5% Eye Drops] 1 drop BOTH EYES BID@0800,1700 01/07/19 [History] Vitamin B Complex 1 cap PO DAILY@1700 01/07/19 [History] Latanoprost Ophth [Xalatan 0.005%] 1 drops BOTH EYES HS 01/23/19 [History] Acetaminophen Tab [Tylenol] 1,000 mg PO Q6HR PRN tab 02/02/19 [Rx] Bisacodyl [Dulcolax] 10 mg RECTAL DAILY PRN supp 02/02/19 [Rx] Ipratropium-Albuterol Nebulize [Duoneb 0.5 mg-3 mg/3 ml Soln] 3 ml INHALATION RT-Q2H PRN ampul.neb 02/02/19 [Rx] Ipratropium-Albuterol Nebulize [Duoneb 0.5 mg-3 mg/3 ml Soln] 3 ml INHALATION RT-QID ampul.neb 02/02/19 [Rx] Magnesium Hydroxide [Milk of Magnesia Concentrate] 2,400 mg PO BID PRN ml 02/02/19 [Rx] Mirtazapine [Remeron] 15 mg PO HS tab 02/02/19 [Rx] Potassium Chloride ER [K-Dur 20] 20 meq PO DAILY tab.er.prt 02/02/19 [Rx] Aspirin EC [Ecotrin] 325 mg PO DAILY@1700 02/15/19 [History] Atorvastatin [Lipitor] 40 mg PO HS 02/15/19 [History] Benzocaine/Menthol Lozeng [Cepacol lozenge] 1 lozenge MUCOUS MEM Q2H PRN 02/15/19 [History] Heparin Sodium,Porcine [Heparin Sodium] 5,000 unit SQ TID@0600,1400,2200 02/15/19 [History] INSULIN ASPART (NovoLOG) [NovoLOG (formulary)] See Protocol SQ ACHS 02/15/19 [History] Insulin Detemir (Levemir) [Levemir] 5 unit SQ HS@2130 02/15/19 [History] Lactose-Reduced Food [Ensure Plus] 237 ml PO BID@0800,1200 02/15/19 [History] Magnesium Oxide [Mag-Ox] 250 mg PO DAILY@1700 02/15/19 [History] Metoprolol Tartrate [Lopressor] 12.5 mg PO BID@0800,1700 02/15/19 [History] Na Phos,M-B/Na Phos,Di-Ba [Fleet Adult] 133 ml RECTAL DAILY PRN 02/15/19 [History] Pantoprazole [Protonix] 40 mg PO DAILY@0600 02/15/19 [History] Raloxifene [Evista] 60 mg PO DAILY 02/15/19 [History] Amiodarone [Cordarone] 200 mg PO DAILY #0 02/16/19 [Rx] Follow up Appointment(s)/Referral(s): Sunny Monteiro MD [Primary Care Provider] - 1-2 days Discharge Disposition: TRANSFER TO SNF/ECF
== END 2019-02-16 16:38 ==
LOC: EC 12:46 → 3SCARD 14:56
PROVIDERS: ADMIT Internal Medicine; ATTEND Internal Medicine
DX: I95.9 Hypotension, unspecified (principal); F03.90 Unspecified dementia, unspecified severity, without behavioral disturbance, psychotic disturbance, mood disturbance, and anxiety; F43.21 Adjustment disorder with depressed mood; H40.9 Unspecified glaucoma; H91.90 Unspecified hearing loss, unspecified ear; I08.1 Rheumatic disorders of both mitral and tricuspid valves; I10 Essential (primary) hypertension; I48.0 Paroxysmal atrial fibrillation; J98.11 Atelectasis; M81.0 Age-related osteoporosis without current pathological fracture; Z79.4 Long term (current) use of insulin; Z79.82 Long term (current) use of aspirin; Z79.899 Other long term (current) drug therapy; Z85.3 Personal history of malignant neoplasm of breast; Z86.19 Personal history of other infectious and parasitic diseases; Z95.0 Presence of cardiac pacemaker; Z97.4 Presence of external hearing-aid; Z98.49 Cataract extraction status, unspecified eye; Z88.0 Allergy status to penicillin; R73.9 Hyperglycemia, unspecified; R63.0 Anorexia
CPT/HCPCS: 96360; 99285; 36415; 93005; 83880; 80053; 83605; 83735; 84484 ×2; 85025; 85610; 85730; 81001; 83036; 71046; G0378 ×2

== ENCOUNTER 2019-03-02 17:26 | Emergency (ER) | payer MEDICARE ==
[2019-03-02 17:35] VITALS: RESP 17
[2019-03-02] MEDS ORDERED: DIPH,PERTUS(ACELL)TETVAC-LF 0.5 ML VIAL IM ONE (17:35)
--- NOTE | 2019-03-02 19:18 | CT ---
EXAMINATION TYPE: CT brain cspine wo con DATE OF EXAM: 03/02/2019 COMPARISON: 01/07/2019 HISTORY: Fall today with posterior injury. Head and neck pain CT DLP: 1329.2 mGycm Automated exposure control for dose reduction was used. Exam performed without contrast. There is cerebral cortical atrophy. There is no mass effect nor midline shift. There is no sign of in tracranial hemorrhage. Calvarium is intact. Cervical vertebra have normal alignment. Disc spaces are fairly normal for age. Posterior elements ar e intact. There is mild hypertrophic left-sided facet arthropathy in the mid cervical spine. Skull ba se appears intact. I see no bony destructive process. IMPRESSION: Cerebral atrophy. No acute intracranial abnormality. Mild degenerative hypertrophic changes in the ce rvical spine. No fracture. No adverse change compared to old exam. Cervical vertebra have improved alignment compared to old prabha bashir
--- NOTE | 2019-03-02 19:34 | ED ---
Fall HPI - General Chief Complaint: Fall Stated Complaint: FALL, HEAD INJURY Time Seen by Provider: 03/02/19 17:32 Source: patient Mode of arrival: EMS - History of Present Illness Initial Comments: 70-year-old female presenting today for chief complaint of fall after tripping while moving a chair. Patient states she is status post open heart surgery and is a subacute rehab. She states she had the procedure initially performed in December. Patient denies a chest pain or shortness of breath. She states she was moving a chair today when she tripped and fell backward hitting her head. Patient denies loss of consciousness. Patient states she is on heparin. Patient denies any headache neck pain nausea vomiting visual changes because of the upper or lower extremities or sensation deficits. Patient states she feels fine. Patient states she is bleeding from the back of her head she is unsure if she is laceration and was sent from by EMS for further evaluation. Upon arrival patient is pleasant she appears well no signs of altered mentation. Alert and oriented 3. - Related Data Home Medications Medication Instructions Recorded Confirmed Ascorbic Acid [Vitamin C] 1,000 mg PO DAILY@1700 12/14/18 02/15/19 Calcium Carbonate/Vitamin D3 2 tab PO HS 12/14/18 02/15/19 [Calcium 600-Vit D3 800 Caplet] Glucos Sul 2Kcl/MSM/Chond/C/Mn 1 tab PO DAILY@1700 12/14/18 02/15/19 [Glucosamine Chondroitin Cap] Lysine HCl [l-Lysine] 1,000 mg PO DAILY@1700 12/14/18 02/15/19 Multivit-Min/FA/Lycopen/Lutein 1 tab PO DAILY@1700 12/14/18 02/15/19 [Centrum Silver Tablet] Zinc 25 mg PO DAILY@1700 12/14/18 02/15/19 Brimonidine Tartrate/Timolol 1 drop BOTH EYES BID@0800,1700 01/07/19 02/15/19 [Combigan 0.2%-0.5% Eye Drops] Vitamin B Complex 1 cap PO DAILY@1700 01/07/19 02/15/19 Latanoprost Ophth [Xalatan 0.005%] 1 drops BOTH EYES HS 01/23/19 02/15/19 Aspirin EC [Ecotrin] 325 mg PO DAILY@1700 02/15/19 02/15/19 Atorvastatin [Lipitor] 40 mg PO HS 02/15/19 02/15/19 Benzocaine/Menthol Lozeng [Cepacol 1 lozenge MUCOUS MEM Q2H PRN 02/15/19 02/15/19 lozenge] Heparin Sodium,Porcine [Heparin 5,000 unit SQ TID@0600,1400,2200 02/15/19 02/15/19 Sodium] INSULIN ASPART (NovoLOG) [NovoLOG See Protocol SQ ACHS 02/15/19 02/15/19 (formulary)] Insulin Detemir (Levemir) [Levemir] 5 unit SQ HS@2130 02/15/19 02/15/19 Lactose-Reduced Food [Ensure Plus] 237 ml PO BID@0800,1200 02/15/19 02/15/19 Magnesium Oxide [Mag-Ox] 250 mg PO DAILY@1700 02/15/19 02/15/19 Metoprolol Tartrate [Lopressor] 12.5 mg PO BID@0800,1700 02/15/19 02/15/19 Na Phos,M-B/Na Phos,Di-Ba [Fleet 133 ml RECTAL DAILY PRN 02/15/19 02/15/19 Adult] Pantoprazole [Protonix] 40 mg PO DAILY@0600 02/15/19 02/15/19 Raloxifene [Evista] 60 mg PO DAILY 02/15/19 02/15/19 Previous Rx's Medication Instructions Recorded Acetaminophen Tab [Tylenol] 1,000 mg PO Q6HR PRN tab 02/02/19 Bisacodyl [Dulcolax] 10 mg RECTAL DAILY PRN supp 02/02/19 Ipratropium-Albuterol Nebulize 3 ml INHALATION RT-Q2H PRN 02/02/19 [Duoneb 0.5 mg-3 mg/3 ml Soln] ampul.neb Ipratropium-Albuterol Nebulize 3 ml INHALATION RT-QID ampul.neb 02/02/19 [Duoneb 0.5 mg-3 mg/3 ml Soln] Magnesium Hydroxide [Milk of 2,400 mg PO BID PRN ml 02/02/19 Magnesia Concentrate] Mirtazapine [Remeron] 15 mg PO HS tab 02/02/19 Potassium Chloride ER [K-Dur 20] 20 meq PO DAILY tab.er.prt 02/02/19 Amiodarone [Cordarone] 200 mg PO DAILY #0 02/16/19 Allergies Allergy/AdvReac Type Severity Reaction Status Date / Time Penicillins Allergy Unknown Verified 02/15/19 14:09 Childhood Review of Systems ROS Statement: Those systems with pertinent positive or pertinent negative responses have been documented in the HPI. ROS Other: All systems not noted in ROS Statement are negative. Past Medical History Past Medical History: Cancer, Dementia, Eye Disorder, Hearing Disorder / Deafness, Hypertension, Liver Disease, Memory Impairment, Musculoskeletal Disorder, Syncope Additional Past Medical History / Comment(s): Hx heart murmur; Breast CA 2001; Hep A 1969's. Glaucoma. Wears hearing aids. "Recent EKG changes, Echo shows severe MV regurg," per daughter. Recent falls, has fx lt clavicle. History of Any Multi-Drug Resistant Organisms: None Reported Past Surgical History: Breast Surgery, Section Additional Past Surgical History / Comment(s): left breast Lumpectomy. Cataracts. Mitral valve repair and tricuspid valve repair 01/25/2019. Past Anesthesia/Blood Transfusion Reactions: No Reported Reaction Type of Cardiac Device: Permanent Pacemaker Device Placement Date:: 12/2018 Past Psychological History: No Psychological Hx Reported Smoking Status: Never smoker Past Alcohol Use History: None Reported Past Drug Use History: None Reported - Past Family History Mother Family Medical History: Cancer Additional Family Medical History / Comment(s): . Mother at age 90. Possible breast CA Father Additional Family Medical History / Comment(s): Father at age 90 from old age. Brother(s) Additional Family Medical History / Comment(s): Patient has 1 brother with no known medical problems. Patient does not have any sisters. Patient has 2 daughters with no major medical problems. General Exam - General Exam Comments Initial Comments: General: The patient is awake and alert, in no distress, and does not appear acutely ill. Eye: +3 mm pupils are equal, round and reactive to light, extra-ocular movements are intact. No nystagmus. There is normal conjunctiva bilaterally. No signs of icterus. Ears, nose, mouth and throat: There are moist mucous membranes and no oral lesions. No raccoon or Torres sign. There is small hematoma noted over the occipital region. There is superficial abrasion have it after extensive cleansing I do not note any large lacerations. Neck: The neck is supple, there is no tenderness or JVD. No midline tenderness to patient the cervicothoracic or lumbar spine. Cardiovascular: There is a regular rate and rhythm. No murmur, rub or gallop is appreciated. Respiratory: Lungs are clear to auscultation, respirations are non-labored, breath sounds are equal. No wheezes, stridor, rales, or rhonchi. Gastrointestinal: Soft, non-distended, non-tender abdomen without masses or organomegaly noted. There is no rebound or guarding present. Musculoskeletal: Normal ROM, no tenderness of the UE and LE b/l. Strength 5/5 of the UE and LE b/l. Sensation intact of the UE and LE b/l. Radial pulses equal bilaterally 2+. Neurological: A&O x 3. CN II-XII intact, There are no obvious motor or sensory deficits. Coordination appears grossly intact. Speech is normal. Skin: Skin is warm and dry and no rashes or lesions are noted. Psychiatric: Cooperative, appropriate mood & affect, normal judgment. Limitations: no limitations Course Vital Signs 03/02/19 03/02/19 17:31 20:39 Temperature 98.2 F 98.1 F Pulse Rate 76 75 Respiratory 17 17 Rate Blood Pressure 131/74 129/84 O2 Sat by Pulse 96 100 Oximetry Medical Decision Making - Medical Decision Making 78-year-old female presenting for fall, mechanical . Patient is on heparin. CT revealed no acute process noted imaging of the cervical spine. Patient has no focal neurological deficits. No noted laceration deformity. After extensive cleansing and investigation. Patient denies any other focalized symptoms is no evidence of trauma on physical examination aside from the a subdural hematoma and abrasion. Patient appears well Patient requesting discharge tetanus is updated. Patient was transferred back to [facility] via EMS. Disposition Clinical Impression: Fall, Scalp abrasion, Hematoma of occipital surface of head, Head injury Disposition: HOME SELF-CARE Condition: Good Instructions (If sedation given, give patient instructions): Fall Prevention for Older Adults (ED) Additional Instructions: Please use medication as discussed. Please follow-up with family doctor in the next 2 days. Please return to emergency room if the symptoms increase or worsen or for any other concerns. Is patient prescribed a controlled substance at d/c from ED?: No Referrals: Sunny Monteiro MD [Primary Care Provider] - 1-2 days Time of Disposition: 19:33
[2019-03-02 20:40] VITALS: BP 129/84; PULSE 75; TEMP 98.1
== END 2019-03-02 20:40 | disposition home or self-care (01) ==
LOC: EC 17:26
DX: S00.03XA Contusion of scalp, initial encounter (principal); S06.5X0A Traumatic subdural hemorrhage without loss of consciousness, initial encounter; F03.90 Unspecified dementia, unspecified severity, without behavioral disturbance, psychotic disturbance, mood disturbance, and anxiety; H91.90 Unspecified hearing loss, unspecified ear; I10 Essential (primary) hypertension; H40.9 Unspecified glaucoma; Z88.0 Allergy status to penicillin; Z79.4 Long term (current) use of insulin; Z79.01 Long term (current) use of anticoagulants; Z79.82 Long term (current) use of aspirin; Z79.899 Other long term (current) drug therapy; Z85.3 Personal history of malignant neoplasm of breast; Z97.4 Presence of external hearing-aid; Z98.890 Other specified postprocedural states; Z23 Encounter for immunization; W01.0XXA Fall on same level from slipping, tripping and stumbling without subsequent striking against object, initial encounter; Y92.199 Unspecified place in other specified residential institution as the place of occurrence of the external cause
CPT/HCPCS: 70450; 72125; 90471; 90715; 99284

== ENCOUNTER 2019-04-05 19:14 | Emergency (ER) | payer MEDICARE ==
--- NOTE | 2019-04-05 19:36 | ED ---
Fall HPI - General Chief Complaint: Fall Stated Complaint: Fall/Head Injury Time Seen by Provider: 04/05/19 19:26 Source: patient, EMS Mode of arrival: EMS - History of Present Illness Initial Comments: This is a 70-year-old female presenting for evalation from fall with head injury and laceration. Patient fell backward hitting had hitting head on the door frame with significant bleeding. No loss of consciousness fall was mechanical in nature patient denying any other complaints or injury. MD Complaint: fall -: hour(s) Fall From: wheelchair When Fall Occurred: unsure Fall Witnessed: no Place Fall Occurred: home Loss of Consciousness: none Prolonged Down Time?: no Symptoms Prior to Fall: none Location: head (back of head) Severity: moderate Severity scale (1-10): 4 Quality: burning Context: tripped/slipped Associated Symptoms: denies - Related Data Home Medications Medication Instructions Recorded Confirmed Ascorbic Acid [Vitamin C] 1,000 mg PO DAILY@1700 12/14/18 02/15/19 Calcium Carbonate/Vitamin D3 2 tab PO HS 12/14/18 02/15/19 [Calcium 600-Vit D3 800 Caplet] Glucos Sul 2Kcl/MSM/Chond/C/Mn 1 tab PO DAILY@1700 12/14/18 02/15/19 [Glucosamine Chondroitin Cap] Lysine HCl [l-Lysine] 1,000 mg PO DAILY@1700 12/14/18 02/15/19 Multivit-Min/FA/Lycopen/Lutein 1 tab PO DAILY@1700 12/14/18 02/15/19 [Centrum Silver Tablet] Zinc 25 mg PO DAILY@1700 12/14/18 02/15/19 Brimonidine Tartrate/Timolol 1 drop BOTH EYES BID@0800,1700 01/07/19 02/15/19 [Combigan 0.2%-0.5% Eye Drops] Vitamin B Complex 1 cap PO DAILY@1700 01/07/19 02/15/19 Latanoprost Ophth [Xalatan 0.005%] 1 drops BOTH EYES HS 01/23/19 02/15/19 Aspirin EC [Ecotrin] 325 mg PO DAILY@1700 02/15/19 02/15/19 Atorvastatin [Lipitor] 40 mg PO HS 02/15/19 02/15/19 Benzocaine/Menthol Lozeng [Cepacol 1 lozenge MUCOUS MEM Q2H PRN 02/15/19 02/15/19 lozenge] Heparin Sodium,Porcine [Heparin 5,000 unit SQ TID@0600,1400,2200 02/15/19 02/15/19 Sodium] INSULIN ASPART (NovoLOG) [NovoLOG See Protocol SQ ACHS 02/15/19 02/15/19 (formulary)] Insulin Detemir (Levemir) [Levemir] 5 unit SQ HS@2130 02/15/19 02/15/19 Lactose-Reduced Food [Ensure Plus] 237 ml PO BID@0800,1200 02/15/19 02/15/19 Magnesium Oxide [Mag-Ox] 250 mg PO DAILY@1700 02/15/19 02/15/19 Metoprolol Tartrate [Lopressor] 12.5 mg PO BID@0800,1700 02/15/19 02/15/19 Na Phos,M-B/Na Phos,Di-Ba [Fleet 133 ml RECTAL DAILY PRN 02/15/19 02/15/19 Adult] Pantoprazole [Protonix] 40 mg PO DAILY@0600 02/15/19 02/15/19 Raloxifene [Evista] 60 mg PO DAILY 02/15/19 02/15/19 Previous Rx's Medication Instructions Recorded Acetaminophen Tab [Tylenol] 1,000 mg PO Q6HR PRN tab 02/02/19 Bisacodyl [Dulcolax] 10 mg RECTAL DAILY PRN supp 02/02/19 Ipratropium-Albuterol Nebulize 3 ml INHALATION RT-Q2H PRN 02/02/19 [Duoneb 0.5 mg-3 mg/3 ml Soln] ampul.neb Ipratropium-Albuterol Nebulize 3 ml INHALATION RT-QID ampul.neb 02/02/19 [Duoneb 0.5 mg-3 mg/3 ml Soln] Magnesium Hydroxide [Milk of 2,400 mg PO BID PRN ml 02/02/19 Magnesia Concentrate] Mirtazapine [Remeron] 15 mg PO HS tab 02/02/19 Potassium Chloride ER [K-Dur 20] 20 meq PO DAILY tab.er.prt 02/02/19 Amiodarone [Cordarone] 200 mg PO DAILY #0 02/16/19 Allergies Allergy/AdvReac Type Severity Reaction Status Date / Time Penicillins Allergy Unknown Verified 02/15/19 14:09 Childhood Review of Systems ROS Statement: Those systems with pertinent positive or pertinent negative responses have been documented in the HPI. ROS Other: All systems not noted in ROS Statement are negative. Past Medical History Past Medical History: Cancer, Dementia, Eye Disorder, Hearing Disorder / Deafness, Hypertension, Liver Disease, Memory Impairment, Musculoskeletal Disorder, Syncope Additional Past Medical History / Comment(s): Hx heart murmur; Breast CA 2001; Hep A . Glaucoma. Wears hearing aids. "Recent EKG changes, Echo shows severe MV regurg," per daughter. Recent falls, has fx lt clavicle. History of Any Multi-Drug Resistant Organisms: None Reported Past Surgical History: Breast Surgery, Section Additional Past Surgical History / Comment(s): left breast Lumpectomy. Cataracts. Mitral valve repair and tricuspid valve repair 01/25/2019. Past Anesthesia/Blood Transfusion Reactions: No Reported Reaction Type of Cardiac Device: Permanent Pacemaker Device Placement Date:: 12/2018 Past Psychological History: No Psychological Hx Reported Smoking Status: Never smoker Past Alcohol Use History: None Reported Past Drug Use History: None Reported - Past Family History Mother Family Medical History: Cancer Additional Family Medical History / Comment(s): . Mother at age 90. Possible breast CA Father Additional Family Medical History / Comment(s): Father at age 90 from old age. Brother(s) Additional Family Medical History / Comment(s): Patient has 1 brother with no known medical problems. Patient does not have any sisters. Patient has 2 daughters with no major medical problems. General Exam Limitations: no limitations General appearance: alert, in no apparent distress Head exam: Present: normocephalic, normal inspection. Absent: atraumatic (laceration) Eye exam: Present: normal appearance, PERRL, EOMI. Absent: scleral icterus, conjunctival injection, periorbital swelling ENT exam: Present: normal exam, mucous membranes moist Neck exam: Present: normal inspection. Absent: tenderness, meningismus, ly mphadenopathy Respiratory exam: Present: normal lung sounds bilaterally. Absent: respiratory distress, wheezes, rales, rhonchi, stridor Cardiovascular Exam: Present: regular rate, normal rhythm, normal heart sounds. Absent: systolic murmur, diastolic murmur, rubs, gallop, clicks GI/Abdominal exam: Present: soft, normal bowel sounds. Absent: distended, tenderness, guarding, rebound, rigid Extremities exam: Present: normal inspection, full ROM, normal capillary refill. Absent: tenderness, pedal edema, joint swelling, calf tenderness Back exam: Present: normal inspection Neurological exam: Present: alert, oriented X3, CN II-XII intact Psychiatric exam: Present: normal affect, normal mood Skin exam: Present: warm, dry, intact, normal color. Absent: rash Course Vital Signs 04/05/19 04/05/19 19:20 21:34 Temperature 98.2 F 97.3 F L Pulse Rate 79 77 Respiratory 18 17 Rate Blood Pressure 150/86 147/84 O2 Sat by Pulse 97 96 Oximetry - Reevaluation(s) Reevaluation #1: 04/05/19 19:36 medical record is reviewed Reevaluation #2: 04/05/19 21:46 Patient feeling improved no headache laceration repair here in the ER Procedures - Laceration Laceration #1 Consent Obtained: verbal consent Indication: laceration Site: scalp Size (cm): 3 Description: linear Depth: simple, single layer (lianna) Pre-repair: wound explored Type of Sutures: nylon Size of Sutures: other (lianna) Patient Tolerated Procedure: well Medical Decision Making - Medical Decision Making 70 female to the ER for evaluation patient is safe for evaluation with head laceration. Patient lacerations. Here in the ER. Patient also fall no injuries otherwise noted from fall patient can be discharged home - Radiology Data Radiology results: report reviewed (CT brain Cspine negative for acute disease), image reviewed Disposition Clinical Impression: Head injury, Occipital scalp laceration, Fall Disposition: HOME SELF-CARE Condition: Good Instructions (If sedation given, give patient instructions): Fall Prevention for Older Adults (ED), Laceration (ED) Is patient prescribed a controlled substance at d/c from ED?: No Referrals: Sunny Monteiro MD [Primary Care Provider] - 1-2 days
--- NOTE | 2019-04-05 20:08 | CT ---
EXAMINATION TYPE: CT brain cspine wo con DATE OF EXAM: 04/05/2019 COMPARISON: March 02, 2019 HISTORY: PT fall, hitting LT side head/laceration CT DLP: 1348.2 mGycm Automated exposure control for dose reduction was used. Multiple axial sections were obtained of the brain without contrast. Multiple axial sections were obt ained from the skull base to T1 vertebra without contrast. FINDINGS: There is cerebral cortical atrophy. There is no mass effect nor midline shift. There is no sign of in tracranial hemorrhage. Calvarium is intact. There is mild disc space narrowing in the cervical spine. Vertebra have fairly normal alignment. Ther e is multilevel moderate hypertrophic facet arthropathy. This appears worse on the left side. [facility] is intact. IMPRESSION: Cerebral atrophy. No acute intracranial abnormality. Left parietal scalp soft tissue swelling. Mild multilevel spondylotic changes in the cervical spine. No fracture. No change.
[2019-04-05 21:35] VITALS: BP 147/84; PULSE 77; RESP 17; TEMP 97.3
== END 2019-04-05 22:13 | disposition home or self-care (01) ==
LOC: EC 19:14
DX: S01.01XA Laceration without foreign body of scalp, initial encounter (principal); F03.90 Unspecified dementia, unspecified severity, without behavioral disturbance, psychotic disturbance, mood disturbance, and anxiety; H40.9 Unspecified glaucoma; H91.90 Unspecified hearing loss, unspecified ear; I10 Essential (primary) hypertension; Z88.0 Allergy status to penicillin; Z79.4 Long term (current) use of insulin; Z79.82 Long term (current) use of aspirin; Z79.899 Other long term (current) drug therapy; Z79.810 Long term (current) use of selective estrogen receptor modulators (SERMs); Z85.3 Personal history of malignant neoplasm of breast; Z97.4 Presence of external hearing-aid; Z98.890 Other specified postprocedural states; W05.0XXA Fall from non-moving wheelchair, initial encounter; Y92.009 Unspecified place in unspecified non-institutional (private) residence as the place of occurrence of the external cause
CPT/HCPCS: 12002; 70450; 72125; 99284

== ENCOUNTER 2019-12-30 21:36 | Emergency (ER) | payer MEDICARE ==
--- NOTE | 2019-12-30 23:03 | ED ---
General Adult HPI - General Chief complaint: Fall Stated complaint: Fall Time Seen by Provider: 12/30/19 21:48 Source: patient, EMS Mode of arrival: EMS Limitations: physical limitation - History of Present Illness Initial comments: 79-year-old female presents to the emergency department via EMS this evening status post fall with complaints of laceration to the scalp. Patient is unable to recall the exact events surrounding her fall but she was tripped up by her walker. Family reports her there was a splatter of blood on the closet door in her apartment which appears to be the site of impact. Patient states she had to crawl over to the phone because she was unable to get back up on her feet. C- collar was applied per EMS due to her fall, however, the patient denies neck or back pain. Family at bedside reports patient has had multiple falls over the past several months and is being closely followed by neurology. Daughter states patient's current behavior and cognition is baseline for her. Bleeding controlled prior to arrival. Patient denies any chest pain, shortness of breath, dizziness, weakness, abdominal pain, nausea, vomiting, or difficulties with bowel movements or urination. - Related Data Home Medications Medication Instructions Recorded Confirmed Ascorbic Acid [Vitamin C] 1,000 mg PO DAILY@1700 12/14/18 02/15/19 Calcium Carbonate/Vitamin D3 2 tab PO HS 12/14/18 02/15/19 [Calcium 600-Vit D3 800 Caplet] Glucos Sul 2Kcl/MSM/Chond/C/Mn 1 tab PO DAILY@1700 12/14/18 02/15/19 [Glucosamine Chondroitin Cap] Lysine HCl [l-Lysine] 1,000 mg PO DAILY@1700 12/14/18 02/15/19 Multivit-Min/FA/Lycopen/Lutein 1 tab PO DAILY@1700 12/14/18 02/15/19 [Centrum Silver Tablet] Zinc 25 mg PO DAILY@1700 12/14/18 02/15/19 Brimonidine Tartrate/Timolol 1 drop BOTH EYES BID@0800,1700 01/07/19 02/15/19 [Combigan 0.2%-0.5% Eye Drops] Vitamin B Complex 1 cap PO DAILY@1700 01/07/19 02/15/19 Latanoprost Ophth [Xalatan 0.005%] 1 drops BOTH EYES HS 01/23/19 02/15/19 Aspirin EC [Ecotrin] 325 mg PO DAILY@1700 02/15/19 02/15/19 Atorvastatin [Lipitor] 40 mg PO HS 02/15/19 02/15/19 Benzocaine/Menthol Lozeng [Cepacol 1 lozenge MUCOUS MEM Q2H PRN 02/15/19 02/15/19 lozenge] Heparin Sodium,Porcine [Heparin 5,000 unit SQ TID@0600,1400,2200 02/15/19 02/15/19 Sodium] INSULIN ASPART (NovoLOG) [NovoLOG See Protocol SQ ACHS 02/15/19 02/15/19 (formulary)] Insulin Detemir (Levemir) [Levemir] 5 unit SQ HS@2130 02/15/19 02/15/19 Lactose-Reduced Food [Ensure Plus] 237 ml PO BID@0800,1200 02/15/19 02/15/19 Magnesium Oxide [Mag-Ox] 250 mg PO DAILY@1700 02/15/19 02/15/19 Metoprolol Tartrate [Lopressor] 12.5 mg PO BID@0800,1700 02/15/19 02/15/19 Na Phos,M-B/Na Phos,Di-Ba [Fleet 133 ml RECTAL DAILY PRN 02/15/19 02/15/19 Adult] Pantoprazole [Protonix] 40 mg PO DAILY@0600 02/15/19 02/15/19 Raloxifene [Evista] 60 mg PO DAILY 02/15/19 02/15/19 Previous Rx's Medication Instructions Recorded Acetaminophen Tab [Tylenol] 1,000 mg PO Q6HR PRN tab 02/02/19 Ipratropium-Albuterol Nebulize 3 ml INHALATION RT-Q2H PRN 02/02/19 [Duoneb 0.5 mg-3 mg/3 ml Soln] ampul.neb Ipratropium-Albuterol Nebulize 3 ml INHALATION RT-QID ampul.neb 02/02/19 [Duoneb 0.5 mg-3 mg/3 ml Soln] Magnesium Hydroxide [Milk of 2,400 mg PO BID PRN ml 02/02/19 Magnesia Concentrate] Mirtazapine [Remeron] 15 mg PO HS tab 02/02/19 Potassium Chloride ER [K-Dur 20] 20 meq PO DAILY tab.er.prt 02/02/19 bisacodyL [Dulcolax] 10 mg RECTAL DAILY PRN supp 02/02/19 Amiodarone [Cordarone] 200 mg PO DAILY #0 02/16/19 Allergies Allergy/AdvReac Type Severity Reaction Status Date / Time Penicillins Allergy Unknown Verified 12/30/19 21:44 Childhood Review of Systems ROS Statement: Those systems with pertinent positive or pertinent negative responses have been documented in the HPI. ROS Other: All systems not noted in ROS Statement are negative. Past Medical History Past Medical History: Cancer, Dementia, Eye Disorder, Hearing Disorder / Deafness, Hypertension, Liver Disease, Memory Impairment, Musculoskeletal Disorder, Syncope Additional Past Medical History / Comment(s): Hx heart murmur; Breast CA 2001; Hep A 1969'. Glaucoma. Wears hearing aids. "Recent EKG changes, Echo shows severe MV regurg," per daughter. Recent falls, has fx lt clavicle, parkinson's disease History of Any Multi-Drug Resistant Organisms: None Reported Past Surgical History: Breast Surgery, Section Additional Past Surgical History / Comment(s): left breast Lumpectomy. Cataracts. Mitral valve repair and tricuspid valve repair 01/25/2019. Past Anesthesia/Blood Transfusion Reactions: No Reported Reaction Type of Cardiac Device: Permanent Pacemaker Device Placement Date:: 12/2018 Past Psychological History: No Psychological Hx Reported Smoking Status: Never smoker Past Alcohol Use History: None Reported, Rare Past Drug Use History: None Reported - Past Family History Mother Family Medical History: Cancer Additional Family Medical History / Comment(s): . Mother at age 90. Possible breast CA Father Additional Family Medical History / Comment(s): Father at age 90 from old age. Brother(s) Additional Family Medical History / Comment(s): Patient has 1 brother with no known medical problems. Patient does not have any sisters. Patient has 2 daugh ters with no major medical problems. General Exam Limitations: physical limitation General appearance: alert, in no apparent distress (Well-developed, well- nourished female in no acute distress. Initial temperature 97.4F, pulse 83, respirations 16, blood pressure 142/81, pulse ox 97% on room air.) Expanded Head exam: Present: laceration (Approximately 6 cm linear laceration, right frontoparietal area). Absent: contusion, hematoma Eye exam: Present: normal appearance, PERRL, EOMI. Absent: scleral icterus, conjunctival injection, periorbital swelling Neck exam: Present: other (Spinal precautions maintained; pt able to tolerate C- Collar which was placed per EMS d/t mechanism of injury). Absent: tenderness, meningismus, lymphadenopathy Respiratory exam: Present: normal lung sounds bilaterally. Absent: respiratory distress, wheezes, rales, rhonchi, stridor Cardiovascular Exam: Present: regular rate, normal rhythm, normal heart sounds, systolic murmur. Absent: diastolic murmur, rubs, gallop, clicks GI/Abdominal exam: Present: soft, normal bowel sounds. Absent: distended, tenderness, guarding, rebound, rigid Neurological exam: Present: alert, oriented X3 Psychiatric exam: Present: normal mood, flat affect (baseline for patient) Skin exam: Present: warm, dry, intact, other (contusion and tenderness, left mid anterior chest wall) Course Vital Signs 12/30/19 12/30/19 12/31/19 21:38 22:44 00:17 Temperature 97.4 F L 97.5 F L Pulse Rate 83 79 78 Respiratory 16 18 18 Rate Blood Pressure 142/81 155/77 O2 Sat by Pulse 97 99 99 Oximetry Procedures - Laceration Laceration #1 Consent Obtained: verbal consent Indication: laceration Site: scalp Size (cm): 6 Description: linear Depth: simple, single layer Type of Sutures: other (lianna) Number of Sutures: 8 Patient Tolerated Procedure: well, no complications Medical Decision Making - Medical Decision Making 79-year-old female presents emergency department this evening for evaluation and treatment of 6 cm head laceration. Patient is unable to recall exactly how or why she fell but states she tripped over her walker and family reports patient struck her head on the closet door. EMS was called and applied a c-collar prior to transporting patient to the hospital. Upon arrival patient complains of left anterior chest wall contusion and tenderness in addition to the injury on her head. Patient denied need for any pain medication. Scalp wound cleansed, irrigated, and closed with 8 lianna. Patient tolerated procedure well. Wound care discussed with patient and daughter. Instructed to follow-up with her primary care provider in the next 1-2 days for recheck and to have lianna removed in 7 days. Return parameters discussed. Patient and daughter verbalized understanding and agreement with this plan. - Radiology Data Radiology results: report reviewed X-ray of the left shoulder was obtained due to mechanism of injury. No fracture or dislocation was seen. Spurring at the AC joint. Left axillary pacemaker visualized. Glenohumeral joint is intact. Impression per Dr. Magaña includes no acute abnormality of the left shoulder. No change. Chest x-ray was obtained. Findings include some mild infiltrates at both lung bases. Left axillary pacemaker visualized. No hilar masses. Thoracic aorta is currently anxious. There is very slight blunting of the costophrenic angles. Impression per Dr. Magaña includes mild basilar pulmonary interstitial infiltrates improved compared to old exam. No obvious heart failure. There is clearing of the pulmonary congestion compared to old exam. There is partial clearing of pleural fluid compared to old exam. CT of the brain and C-spine without contrast was obtained due to head injury from fall. Impression per Dr. Magaña includes cerebral atrophy. No acute intracranial abnormality. Mild spondylotic changes in the cervical spine. No fracture. No change compared to old exam. Disposition Clinical Impression: Head injury, Scalp laceration, Chest wall contusion Disposition: HOME SELF-CARE Condition: Good Instructions (If sedation given, give patient instructions): Laceration (ED), H ead Injury (ED), Staple Care (ED) Additional Instructions: Follow-up with primary care provider in the next 1-2 days for a recheck. Gently cleanse the wound with mild soap and water. Lianna may be removed in 7 days; this can be done at the emergency Department, urgent care, or by the primary care provider. Return to the emergency department with any new, worsening, or concerning symptoms including worsening head injury including persistent dizziness, nausea and vomiting, severe headache, or increased confusion. Is patient prescribed a controlled substance at d/c from ED?: No Referrals: Sunny Monteiro MD [Primary Care Provider] - 1-2 days
[2019-12-30 23:31] VITALS: RESP 18
--- NOTE | 2019-12-30 23:31 | CT ---
EXAMINATION TYPE: CT brain cspine wo con DATE OF EXAM: 12/30/2019 COMPARISON: 04/05/2019 HISTORY: Head injury/ Fall CT DLP: 1339.7 mGycm Automated exposure control for dose reduction was used. There is cerebral cortical atrophy. There is no mass effect nor midline shift. There is no sign of in tracranial hemorrhage. The calvarium is intact. Cervical vertebra have normal alignment. There is spurring of the endplates. Posterior elements are i ntact. There is multilevel mild cervical hypertrophic facet arthropathy. IMPRESSION: Cerebral atrophy. No acute intracranial abnormality. Mild spondylotic changes in the cervical spine. No fracture. No change compared to old exam.
--- NOTE | 2019-12-30 23:34 | XR ---
EXAMINATION TYPE: XR chest 1V portable DATE OF EXAM: 12/30/2019 COMPARISON: 02/15/2019 HISTORY: Chest pain TECHNIQUE: FINDINGS: There is some mild infiltrate at both lung bases. There is no gross heart failure. There is left axillary pacemaker. There are no hilar masses. Thoracic aorta is atheromatous. There is very slight blunting of the costophrenic angles. IMPRESSION: Mild basilar pulmonary interstitial infiltrates improved compared to old exam. No obvious heart failure. There is clearing of the pulmonary congestion compared to old exam. There is partial clearing of pleural fluid compared to old exam.
--- NOTE | 2019-12-30 23:35 | XR ---
EXAMINATION TYPE: XR shoulder complete LT DATE OF EXAM: 12/30/2019 COMPARISON: 11/27/2018 HISTORY: Pain TECHNIQUE: FINDINGS: I see no fracture nor dislocation. There is spurring at the AC joint. Scapula is intact. Th ere is left axillary pacemaker. Glenohumeral joint is intact. IMPRESSION: No acute abnormality of the left shoulder. No change.
[2019-12-31 00:30] VITALS: BP 155/77; PULSE 78; TEMP 97.5
== END 2019-12-31 00:20 | disposition home or self-care (01) ==
LOC: EC 21:36
DX: S01.01XA Laceration without foreign body of scalp, initial encounter (principal); S20.212A Contusion of left front wall of thorax, initial encounter; H91.90 Unspecified hearing loss, unspecified ear; I10 Essential (primary) hypertension; H40.9 Unspecified glaucoma; Z79.01 Long term (current) use of anticoagulants; Z79.4 Long term (current) use of insulin; Z79.899 Other long term (current) drug therapy; Z79.82 Long term (current) use of aspirin; Z88.0 Allergy status to penicillin; Z85.3 Personal history of malignant neoplasm of breast; W01.198A Fall on same level from slipping, tripping and stumbling with subsequent striking against other object, initial encounter; Y92.009 Unspecified place in unspecified non-institutional (private) residence as the place of occurrence of the external cause
CPT/HCPCS: 12002; 70450; 71045; 72125; 99284

== ENCOUNTER 2020-01-04 12:03 | Emergency (ER) | payer MEDICARE ==
--- NOTE | 2020-01-04 12:27 | ED ---
Fall HPI - General Chief Complaint: Fall Stated Complaint: FALL Time Seen by Provider: 01/04/20 12:18 Source: patient, EMS, RN notes reviewed, old records reviewed Mode of arrival: EMS Limitations: no limitations - History of Present Illness Initial Comments: course this is a 79-year-old female poor historian. Patient comes in with falls multiple recent falls falls or she hit her head with no loss of consciousness. No blood thinners. Patient is a borderline Parkinson's diagnosisand has had multiple recent falls as of late. MD Complaint: fall -: hour(s) Fall From: standing When Fall Occurred: 1 hour INSOLE TAP[employer] Fall Witnessed: yes, by bystander Place Fall Occurred: other (grocery store) Loss of Consciousness: none Prolonged Down Time?: no Symptoms Prior to Fall: none Location: head Severity: mild Context: tripped/slipped Associated Symptoms: denies - Related Data Home Medications Medication Instructions Recorded Confirmed Ascorbic Acid [Vitamin C] 1,000 mg PO DAILY@1700 12/14/18 02/15/19 Calcium Carbonate/Vitamin D3 2 tab PO HS 12/14/18 02/15/19 [Calcium 600-Vit D3 800 Caplet] Glucos Sul 2Kcl/MSM/Chond/C/Mn 1 tab PO DAILY@1700 12/14/18 02/15/19 [Glucosamine Chondroitin Cap] Lysine HCl [l-Lysine] 1,000 mg PO DAILY@1700 12/14/18 02/15/19 Multivit-Min/FA/Lycopen/Lutein 1 tab PO DAILY@1700 12/14/18 02/15/19 [Centrum Silver Tablet] Zinc 25 mg PO DAILY@1700 12/14/18 02/15/19 Brimonidine Tartrate/Timolol 1 drop BOTH EYES BID@0800,1700 01/07/19 02/15/19 [Combigan 0.2%-0.5% Eye Drops] Vitamin B Complex 1 cap PO DAILY@1700 01/07/19 02/15/19 Latanoprost Ophth [Xalatan 0.005%] 1 drops BOTH EYES HS 01/23/19 02/15/19 Aspirin EC [Ecotrin] 325 mg PO DAILY@1700 02/15/19 02/15/19 Atorvastatin [Lipitor] 40 mg PO HS 02/15/19 02/15/19 Benzocaine/Menthol Lozeng [Cepacol 1 lozenge MUCOUS MEM Q2H PRN 02/15/19 02/15/19 lozenge] Heparin Sodium,Porcine [Heparin 5,000 unit SQ TID@0600,1400,2200 02/15/19 02/15/19 Sodium] INSULIN ASPART (NovoLOG) [NovoLOG See Protocol SQ ACHS 02/15/19 02/15/19 (formulary)] Insulin Detemir (Levemir) [Levemir] 5 unit SQ HS@2130 02/15/19 02/15/19 Lactose-Reduced Food [Ensure Plus] 237 ml PO BID@0800,1200 02/15/19 02/15/19 Magnesium Oxide [Mag-Ox] 250 mg PO DAILY@1700 02/15/19 02/15/19 Metoprolol Tartrate [Lopressor] 12.5 mg PO BID@0800,1700 02/15/19 02/15/19 Na Phos,M-B/Na Phos,Di-Ba [Fleet 133 ml RECTAL DAILY PRN 02/15/19 02/15/19 Adult] Pantoprazole [Protonix] 40 mg PO DAILY@0600 02/15/19 02/15/19 Raloxifene [Evista] 60 mg PO DAILY 02/15/19 02/15/19 Previous Rx's Medication Instructions Recorded Acetaminophen Tab [Tylenol] 1,000 mg PO Q6HR PRN tab 02/02/19 Ipratropium-Albuterol Nebulize 3 ml INHALATION RT-Q2H PRN 02/02/19 [Duoneb 0.5 mg-3 mg/3 ml Soln] ampul.neb Ipratropium-Albuterol Nebulize 3 ml INHALATION RT-QID ampul.neb 02/02/19 [Duoneb 0.5 mg-3 mg/3 ml Soln] Magnesium Hydroxide [Milk of 2,400 mg PO BID PRN ml 02/02/19 Magnesia Concentrate] Mirtazapine [Remeron] 15 mg PO HS tab 02/02/19 Potassium Chloride ER [K-Dur 20] 20 meq PO DAILY tab.er.prt 02/02/19 bisacodyL [Dulcolax] 10 mg RECTAL DAILY PRN supp 02/02/19 Amiodarone [Cordarone] 200 mg PO DAILY #0 02/16/19 Allergies Allergy/AdvReac Type Severity Reaction Status Date / Time Penicillins Allergy Unknown Verified 12/30/19 21:44 Childhood Review of Systems ROS Statement: Those systems with pertinent positive or pertinent negative responses have been documented in the HPI. ROS Other: All systems not noted in ROS Statement are negative. Past Medical History Past Medical History: Cancer, Dementia, Eye Disorder, Hearing Disorder / Deafness, Hypertension, Liver Disease, Memory Impairment, Musculoskeletal Disorder, Syncope Additional Past Medical History / Comment(s): Hx heart murmur; Breast CA 2001; Hep A . Glaucoma. Wears hearing aids. "Recent EKG changes, Echo shows severe MV regurg," per daughter. Recent falls, has fx lt clavicle, parkinson's disease History of Any Multi-Drug Resistant Organisms: None Reported Past Surgical History: Breast Surgery, Section, Pacemaker Additional Past Surgical History / Comment(s): left breast Lumpectomy. Cataracts. Mitral valve repair and tricuspid valve repair 01/25/2019. Past Anesthesia/Blood Transfusion Reactions: No Reported Reaction Type of Cardiac Device: Permanent Pacemaker Device Placement Date:: 12/2018 Past Psychological History: No Psychological Hx Reported Smoking Status: Never smoker Past Alcohol Use History: None Reported, Rare Past Drug Use History: None Reported - Past Family History Mother Family Medical History: Cancer Additional Family Medical History / Comment(s): . Mother at age 90. Possible breast CA Father Additional Family Medical History / Comment(s): Father at age 90 from old age. Brother(s) Additional Family Medical History / Comment(s): Patient has 1 brother with no known medical problems. Patient does not have any sisters. Patient has 2 daughters with no major medical problems. General Exam General appearance: alert, in no apparent distress Head exam: Present: normocephalic, normal inspection. Absent: atraumatic (left calp parietald laceration) Eye exam: Present: normal appearance, PERRL, EOMI. Absent: scleral icterus, conjunctival injection, periorbital swelling ENT exam: Present: normal exam, mucous membranes moist Neck exam: Present: normal inspection. Absent: tenderness, meningismus, lymphadenopathy Respiratory exam: Present: normal lung sounds bilaterally. Absent: respiratory distress, wheezes, rales, rhonchi, stridor Cardiovascular Exam: Present: regular rate, normal rhythm, normal heart sounds. Absent: systolic murmur, diastolic murmur, rubs, gallop, clicks GI/Abdominal exam: Present: soft, normal bowel sounds. Absent: distended, tenderness, guarding, rebound, rigid Extremities exam: Present: normal inspection, full ROM, normal capillary refill. Absent: tenderness, pedal edema, joint swelling, calf tenderness Back exam: Present: normal inspection Neurological exam: Present: alert, oriented X3, CN II-XII intact Psychiatric exam: Present: normal affect, normal mood Skin exam: Present: warm, dry, intact, normal color. Absent: rash Course Vital Signs 01/04/20 12:08 Temperature 97.9 F Pulse Rate 81 Respiratory 16 Rate Blood Pressure 120/78 O2 Sat by Pulse 96 Oximetry - Reevaluation(s) Reevaluation #1: 01/04/20 13:30 edical record is reviewed Reevaluation #2: 01/04/20 13:30 patient's daughter is at bedside, not wishing for inpatient hospitalization at this time Reevaluation #3: 01/04/20 13:30 patient without complaint Procedures - Laceration Laceration #1 Consent Obtained: verbal consent Indication: laceration Site: scalp Size (cm): 5 Description: linear Depth: simple, single layer Type of Sutures: other (lianna) Size of Sutures: other (lianna) Technique: simple, interrupted Patient Tolerated Procedure: well Medical Decision Making - Medical Decision Making 79 female presents today for evaluation patient hasfall history of falls. No injury from fall aside from head laceration which is repaired. Patient can be discharged home - Lab Data Result diagrams: 01/04/20 12:43 01/04/20 12:43 Lab Results 01/04/20 01/04/20 01/04/20 Range/Units 12:43 12:43 12:43 WBC 6.4 (3.8-10.6) k/uL RBC 3.67 L (3.80-5.40) m/uL Hgb 12.2 (11.4-16.0) gm/dL Hct 38.0 (34.0-46.0) % MCV 103.7 H (80.0-100.0) fL MCH 33.2 (25.0-35.0) pg MCHC 32.0 (31.0-37.0) g/dL RDW 12.4 (11.5-15.5) % Plt Count 213 (150-450) k/uL Neutrophils % 50 % Lymphocytes % 42 % Monocytes % 5 % Eosinophils % 1 % Basophils % 1 % Neutrophils # 3.2 (1.3-7.7) k/uL Lymphocytes # 2.6 (1.0-4.8) k/uL Monocytes # 0.3 (0-1.0) k/uL Eosinophils # 0.1 (0-0.7) k/uL Basophils # 0.0 (0-0.2) k/uL Macrocytosis Slight PT 10.1 (9.0-12.0) sec INR 1.0 (<1.2) APTT 23.5 (22.0-30.0) sec Sodium 140 (137-145) mmol/L Potassium 4.2 (3.5-5.1) mmol/L Chloride 106 (98-107) mmol/L Carbon Dioxide 26 (22-30) mmol/L Anion Gap 8 mmol/L BUN 22 H (7-17) mg/dL Creatinine 1.00 (0.52-1.04) mg/dL Est GFR (CKD-EPI)AfAm 62 (>60 ml/min/1.73 sqM) Est GFR (CKD-EPI)NonAf 54 (>60 ml/min/1.73 sqM) Glucose 114 H (74-99) mg/dL Calcium 9.2 (8.4-10.2) mg/dL Phosphorus 4.0 (2.5-4.5) mg/dL Magnesium 2.0 (1.6-2.3) mg/dL Total Bilirubin 0.5 (0.2-1.3) mg/dL AST 25 (14-36) U/L ALT 18 (4-34) U/L Alkaline Phosphatase 66 (38-126) U/L Creatine Kinase 38 (30-135) U/L Troponin I (0.000-0.034) ng/mL NT-Pro-B Natriuret Pep pg/mL Total Protein 6.9 (6.3-8.2) g/dL Albumin 4.1 (3.5-5.0) g/dL TSH 2.340 (0.465-4.680) mIU/L 01/04/20 01/04/20 Range/Units 12:43 12:43 WBC (3.8-10.6) k/uL RBC (3.80-5.40) m/uL Hgb (11.4-16.0) gm/dL Hct (34.0-46.0) % MCV (80.0-100.0) fL MCH (25.0-35.0) pg MCHC (31.0-37.0) g/dL RDW (11.5-15.5) % Plt Count (150-450) k/uL Neutrophils % % Lymphocytes % % Monocytes % % Eosinophils % % Basophils % % Neutrophils # (1.3-7.7) k/uL Lymphocytes # (1.0-4.8) k/uL Monocytes # (0-1.0) k/uL Eosinophils # (0-0.7) k/uL Basophils # (0-0.2) k/uL Macrocytosis PT (9.0-12.0) sec INR (<1.2) APTT (22.0-30.0) sec Sodium (137-145) mmol/L Potassium (3.5-5.1) mmol/L Chloride (98-107) mmol/L Carbon Dioxide (22-30) mmol/L Anion Gap mmol/L BUN (7-17) mg/dL Creatinine (0.52-1.04) mg/dL Est GFR (CKD-EPI)AfAm (>60 ml/min/1.73 sqM) Est GFR (CKD-EPI)NonAf (>60 ml/min/1.73 sqM) Glucose (74-99) mg/dL Calcium (8.4-10.2) mg/dL Phosphorus (2.5-4.5) mg/dL Magnesium (1.6-2.3) mg/dL Total Bilirubin (0.2-1.3) mg/dL AST (14-36) U/L ALT (4-34) U/L Alkaline Phosphatase (38-126) U/L Creatine Kinase (30-135) U/L Troponin I <0.012 (0.000-0.034) ng/mL NT-Pro-B Natriuret Pep 241 pg/mL Total Protein (6.3-8.2) g/dL Albumin (3.5-5.0) g/dL TSH (0.465-4.680) mIU/L - EKG Data -: EKG Interpreted by Me (EKG is sinus 81, AK 1-10 QRS 88 QTc 432) - Radiology Data Radiology results: report reviewed (CT brain C-spine chest x-ray pelvis x-ray negative for traumatic injury), image reviewed Disposition Clinical Impression: Scalp laceration, Fall Disposition: HOME SELF-CARE Condition: Good Instructions (If sedation given, give patient instructions): Fall Prevention for Older Adults (ED) Is patient prescribed a controlled substance at d/c from ED?: No Referrals: Sunny Monteiro MD [Primary Care Provider] - 1-2 days
[2020-01-04] MEDS ORDERED: SODIUM CHLORIDE 0.9% 1,000 ML IV STA (12:37)
[2020-01-04] MEDS ORDERED: SODIUM CHLORIDE 0.9% 500 ML 500 ML IV STA (12:37)
[2020-01-04 12:59] LABS: Basophils % (A) 1 %; Eosinophils # (A) 0.1 k/uL (0-0.7); Eosinophils % (A) 1 %; HGB 12.2 gm/dL (11.4-16.0); Lymphocytes # (A) 2.6 k/uL (1.0-4.8); Lymphocytes % (A) 42 %; MCH 33.2 pg (25.0-35.0); MCV 103.7 fL (80.0-100.0); Macrocytosis Slight; Mean Platelet Volume 8.5; Monocytes # (A) 0.3 k/uL (0-1.0); Monocytes % (A) 5 %; Neutrophils # (A) 3.2 k/uL (1.3-7.7); Neutrophils % (A) 50 %; Platelet Count 213 k/uL (150-450); RBC 3.67 m/uL (3.80-5.40); RDW 12.4 % (11.5-15.5); WBC 6.4 k/uL (3.8-10.6)
[2020-01-04 13:09] LABS: Partial Thromboplastin Time 23.5 sec (22.0-30.0); Prothrombin Time 10.1 sec (9.0-12.0)
[2020-01-04 13:20] LABS: Albumin 4.1 g/dL (3.5-5.0); Calcium 9.2 mg/dL (8.4-10.2); Potassium 4.2 mmol/L (3.5-5.1); Total Bilirubin 0.5 mg/dL (0.2-1.3); Total Protein 6.9 g/dL (6.3-8.2)
--- NOTE | 2020-01-04 13:38 | CT ---
EXAMINATION TYPE: CT brain dominickine wo con DATE OF EXAM: 01/04/2020 COMPARISON: 12/30/2019 HISTORY: 79-year-old female with pain after Fall and left sided injury. CT DLP: 1273.4 mGycm Automated exposure control for dose reduction was used. Technique: Examination of the head was done in axial plane without intravenous contrast. Coronal and sagittal reconstructions performed. CT of the cervical spine was obtained in axial plane without intravenous injection of contrast mater ial. Coronal and sagittal reformatted images were obtained from the axial views for evaluation of f ractures, spinal alignment and canal. FINDINGS: Head: There is no evidence of acute intracranial hemorrhage, acute ischemic changes, mass, mass-effect, or extra-axial fluid collection. There is no effacement of cerebral sulci or basal subarachnoid cister ns. There is no hydrocephalus. There is no midline shift. Simon-white matter distinction is preserv ed. There is left posterior scalp injury. No underlying calvarial fracture. Small amount of fluid retaine d within the inferior right mastoid air cells. Paranasal sinuses appear clear. Mild ventriculomegaly is unchanged likely secondary to central cerebral atrophy. Additional mild cere bral cortical volume loss. Cervical spine: No craniocervical junction are noted, predental space widening, or prevertebral soft tissue swelling. Degenerative grade 1 anterolisthesis at C3-C4, C4-C5, and C5-C6 are unchanged. Mild compression deformity of T4 is unchanged. Mild multilevel degenerative disc disease and scattered hypertrophic facet and uncovertebral joint ar thropathy. No acute fracture of the cervical spine. Vertebral mild neuroforaminal stenoses throughout. Left lobe of the thyroid gland appears to be surgically absent. Ectatic upper descending thoracic aorta measured at at least 3.2 cm. Biapical pleural parenchymal sca rring. Bovine configuration to the aortic arch. Left-sided pacemaker generator. Old healed fracture deformity distal left clavicle. Sagittal and coronal reformatted images confirm above findings. COMBINED IMPRESSION: 1. Left posterior scalp injury. Mild ventriculomegaly likely secondary to central cerebral atrophy. N o acute intracranial abnormality seen. 2. Mild to moderate multilevel spondylotic change of the cervical spine. Degenerative grade 1 anterol isthesis from C3 through C6 levels, unchanged. No acute fracture.
--- NOTE | 2020-01-04 14:34 | XR ---
EXAMINATION TYPE: XR chest 1V DATE OF EXAM: 01/04/2020 COMPARISON: Prior chest x-ray 12/30/2019 CT 12/30/2019 HISTORY: Trauma and pain TECHNIQUE: Single frontal view of the chest is obtained. FINDINGS: The patient is rotated. There is a generator in the left pectoral region, leads are present in the right atrium and ventricle. Interstitium appears mildly prominent. Patient shows post cardiac valve replacement, left atrial appendage clipping placement change. Lung volumes are low. There is n o focal air space opacity, pleural effusion, or pneumothorax seen. The cardiac silhouette size is st able, enlarged. Biapical pleural thickening noted. The osseous structures are intact. There is aorti c aneurysm. IMPRESSION: Expiratory rotated exam. Interstitial changes may be due to technique.
--- NOTE | 2020-01-04 14:40 | XR ---
AP pelvis HISTORY: Trauma and pain Single frontal view of the pelvis, correlation to prior exam 01/07/2019 Bone mineralization is reduced, joint spaces and alignment are maintained. Probable phleboliths withi n the pelvis. Degenerative disc changes are present within the lower lumbar spine. IMPRESSION: No fracture or dislocation is evident.
[2020-01-04 15:10] LABS: Appearance,Urine Clear (Clear); Bacteria,Urine Many /hpf; Bilirubin,Urine Negative (Negative); Blood,Urine Negative (Negative); Color,Urine Light Yellow; Glucose,Urine (UA) Negative (Negative); Ketones,Urine Negative (Negative); Leukocyte Esterase,Urine Negative (Negative); Mucus,Urine Rare /hpf; Nitrite,Urine Positive (Negative); PH, Urine 6.5 (5.0-8.0); Protein,Urine Negative (Negative); RBC,Urine 1 /hpf (0-5); Squamous Epithelial Cell,Urine <1 /hpf (0-4); Urobilinogen,Urine <2.0 mg/dL (<2.0); WBC,Urine 13 /hpf (0-5)
[2020-01-04 15:36] VITALS: BP 132/78; PULSE 72; RESP 18; TEMP 98
== END 2020-01-04 15:36 | disposition home or self-care (01) ==
LOC: EC 12:03
DX: S01.01XA Laceration without foreign body of scalp, initial encounter (principal); I10 Essential (primary) hypertension; H40.9 Unspecified glaucoma; H91.90 Unspecified hearing loss, unspecified ear; Z79.82 Long term (current) use of aspirin; Z79.01 Long term (current) use of anticoagulants; Z79.4 Long term (current) use of insulin; Z79.899 Other long term (current) drug therapy; Z88.0 Allergy status to penicillin; Z85.3 Personal history of malignant neoplasm of breast; W18.30XA Fall on same level, unspecified, initial encounter; Y92.512 Supermarket, store or market as the place of occurrence of the external cause
CPT/HCPCS: 12002; 36415; 70450; 71045; 72125; 72170; 80053; 81001; 82550; 83735; 83880; 84100; 84443; 84484; 85025; 85610; 85730; 87086; 93005; 99285

== ENCOUNTER 2020-01-05 09:09 | Inpatient (IN) | payer MEDICARE ==
--- NOTE | 2020-01-05 09:55 | ED ---
Fall HPI - General Chief Complaint: Fall Stated Complaint: fall Time Seen by Provider: 01/05/20 09:31 Source: patient, EMS Mode of arrival: EMS - History of Present Illness Initial Comments: This is a 79-year-old female presents emergency department via EMS from the [facility] with chief complaint of a fall. Patient's had multiple falls and which have been increasing lately. She's had 2 prior ER visits in the last week. Patient states that she has lianna in her head, recent fall and has a new laceration today. Patient states that she went to put her mouthwash back and states that she fell backwards striking her head. Patient states that she's been falling backward more recently. Patient states that they've question if she has some sort of Parkinson disease though it is unclear. She denies any others complain of pain today including back, extremities, hip, neck. - Related Data Home Medications Medication Instructions Recorded Confirmed Ascorbic Acid [Vitamin C] 1,000 mg PO DAILY@1700 12/14/18 02/15/19 Calcium Carbonate/Vitamin D3 2 tab PO HS 12/14/18 02/15/19 [Calcium 600-Vit D3 800 Caplet] Glucos Sul 2Kcl/MSM/Chond/C/Mn 1 tab PO DAILY@1700 12/14/18 02/15/19 [Glucosamine Chondroitin Cap] Lysine HCl [l-Lysine] 1,000 mg PO DAILY@1700 12/14/18 02/15/19 Multivit-Min/FA/Lycopen/Lutein 1 tab PO DAILY@1700 12/14/18 02/15/19 [Centrum Silver Tablet] Zinc 25 mg PO DAILY@1700 12/14/18 02/15/19 Brimonidine Tartrate/Timolol 1 drop BOTH EYES BID@0800,1700 01/07/19 02/15/19 [Combigan 0.2%-0.5% Eye Drops] Vitamin B Complex 1 cap PO DAILY@1700 01/07/19 02/15/19 Latanoprost Ophth [Xalatan 0.005%] 1 drops BOTH EYES HS 01/23/19 02/15/19 Aspirin EC [Ecotrin] 325 mg PO DAILY@1700 02/15/19 02/15/19 Atorvastatin [Lipitor] 40 mg PO HS 02/15/19 02/15/19 Benzocaine/Menthol Lozeng [Cepacol 1 lozenge MUCOUS MEM Q2H PRN 02/15/19 02/15/19 lozenge] Heparin Sodium,Porcine [Heparin 5,000 unit SQ TID@0600,1400,2200 02/15/19 02/15/19 Sodium] INSULIN ASPART (NovoLOG) [NovoLOG See Protocol SQ ACHS 02/15/19 02/15/19 (formulary)] Insulin Detemir (Levemir) [Levemir] 5 unit SQ HS@2130 02/15/19 02/15/19 Lactose-Reduced Food [Ensure Plus] 237 ml PO BID@0800,1200 02/15/19 02/15/19 Magnesium Oxide [Mag-Ox] 250 mg PO DAILY@1700 02/15/19 02/15/19 Metoprolol Tartrate [Lopressor] 12.5 mg PO BID@0800,1700 02/15/19 02/15/19 Na Phos,M-B/Na Phos,Di-Ba [Fleet 133 ml RECTAL DAILY PRN 02/15/19 02/15/19 Adult] Pantoprazole [Protonix] 40 mg PO DAILY@0600 02/15/19 02/15/19 Raloxifene [Evista] 60 mg PO DAILY 02/15/19 02/15/19 Previous Rx's Medication Instructions Recorded Acetaminophen Tab [Tylenol] 1,000 mg PO Q6HR PRN tab 02/02/19 Ipratropium-Albuterol Nebulize 3 ml INHALATION RT-Q2H PRN 02/02/19 [Duoneb 0.5 mg-3 mg/3 ml Soln] ampul.neb Ipratropium-Albuterol Nebulize 3 ml INHALATION RT-QID ampul.neb 02/02/19 [Duoneb 0.5 mg-3 mg/3 ml Soln] Magnesium Hydroxide [Milk of 2,400 mg PO BID PRN ml 02/02/19 Magnesia Concentrate] Mirtazapine [Remeron] 15 mg PO HS tab 02/02/19 Potassium Chloride ER [K-Dur 20] 20 meq PO DAILY tab.er.prt 02/02/19 bisacodyL [Dulcolax] 10 mg RECTAL DAILY PRN supp 12/05/19 Amiodarone [Cordarone] 200 mg PO DAILY #0 02/16/19 Allergies Allergy/AdvReac Type Severity Reaction Status Date / Time Penicillins Allergy Unknown Verified 01/05/20 09:23 Childhood Review of Systems ROS Statement: Those systems with pertinent positive or pertinent negative responses have been documented in the HPI. ROS Other: All systems not noted in ROS Statement are negative. Past Medical History Past Medical History: Cancer, Dementia, Eye Disorder, Hearing Disorder / Deafness, Hypertension, Liver Disease, Memory Impairment, Musculoskeletal Disorder, Syncope Additional Past Medical History / Comment(s): Hx heart murmur; Breast CA 2001; Hep A 1969'. Glaucoma. Wears hearing aids. "Recent EKG changes, Echo shows severe MV regurg," per daughter. Recent falls, has fx lt clavicle, parkinson's disease History of Any Multi-Drug Resistant Organisms: None Reported Past Surgical History: Breast Surgery, Section, Pacemaker Additional Past Surgical History / Comment(s): left breast Lumpectomy. Cataracts. Mitral valve repair and tricuspid valve repair 01/25/2019. Past Anesthesia/Blood Transfusion Reactions: No Reported Reaction Type of Cardiac Device: Permanent Pacemaker Device Placement Date:: 12/2018 Past Psychological History: No Psychological Hx Reported Smoking Status: Never smoker Past Alcohol Use History: None Reported, Rare Past Drug Use History: None Reported - Past Family History Mother Family Medical History: Cancer Additional Family Medical History / Comment(s): . Mother at age 90. Possible breast CA Father Additional Family Medical History / Comment(s): Father at age 90 from old age. Brother(s) Additional Family Medical History / Comment(s): Patient has 1 brother with no known medical problems. Patient does not have any sisters. Patient has 2 daughters with no major medical problems. General Exam Limitations: no limitations General appearance: alert, in no apparent distress Head exam: Present: atraumatic, normocephalic. Absent: normal inspection (Posterior scalp laceration) Eye exam: Present: normal appearance, PERRL, EOMI. Absent: scleral icterus, conjunctival injection, periorbital swelling ENT exam: Present: normal exam, normal oropharynx, mucous membranes moist Neck exam: Present: normal inspection, full ROM. Absent: tenderness, meningismus, lymphadenopathy Respiratory exam: Present: normal lung sounds bilaterally. Absent: respiratory distress, wheezes, rales, rhonchi, stridor Cardiovascular Exam: Present: regular rate, normal rhythm, normal heart sounds. Absent: systolic murmur, diastolic murmur, rubs, gallop, clicks GI/Abdominal exam: Present: soft, normal bowel sounds. Absent: distended, tenderness, guarding, rebound, rigid Neurological exam: Present: alert, oriented X3, CN II-XII intact, reflexes normal. Absent: motor sensory deficit Skin exam: Present: warm, dry, intact, normal color. Absent: rash Course Vital Signs 01/05/20 09:24 Temperature 98.1 F Pulse Rate 75 Respiratory 18 Rate Blood Pressure 116/77 O2 Sat by Pulse 98 Oximetry Procedures - Laceration Laceration #1 Consent Obtained: verbal consent Indication: laceration Site: scalp Size (cm): 1 Description: linear Depth: simple, single layer Pre-repair: wound explored, irrigated extensively, deep structures intact Type of Sutures: other (Dermal lianna) Number of Sutures: 2 Patient Tolerated Procedure: well, no complications Medical Decision Making - Medical Decision Making 79-year-old female presented from for multiple falls. Patient has unsteady gait, difficulty with balance. Patient CT does not reveal any acute changes she's had multiple CTs recently. She has no evidence of CVA. Patient was evaluated by PCP in which the patient will be admitted for further evaluation and workup. Disposition Clinical Impression: Multiple falls, Scalp laceration, Unsteady gait, Balance problem Disposition: ADMITTED IP TO THIS [facility] Condition: Fair Referrals: Sunny Monteiro MD [Primary Care Provider] - 1-2 days
[2020-01-05] MEDS ORDERED: ONDANSETRON 4 MG/2 ML VIAL IVP PRN (10:15)
[2020-01-05] MEDS ORDERED: NALOXONE 0.4 MG/ML 1 ML VIAL IV PRN (10:15)
[2020-01-05] MEDS ORDERED: ACETAMINOPHEN TAB 325 MG TAB PO PRN (10:15)
--- NOTE | 2020-01-05 10:26 | CT ---
EXAMINATION TYPE: CT brain cspine wo con DATE OF EXAM: 01/05/2020 COMPARISON: CT brain and cervical spine 01/04/2020 HISTORY: Fall. Laceration on posterior head CT DLP: 1286.4 mGycm Automated exposure control for dose reduction was used. TECHNIQUE: CT scan of the head and cervical spine are performed without contrast. FINDINGS: There is no acute intracranial hemorrhage, mass effect, or midline shift identified. No e xtra-axial fluid collection. There is redemonstrated ex vacuo dilatation of the ventricles concordant with generalized volume loss. There are no depressed calvarial fractures. Mastoid air cells and para nasal sinuses are clear. Extracranial soft tissue lianna are seen over the right frontal and left pa rietal scalp, with left parietal hematoma. Cervical spine is visualized in its entirety from C1 through upper thoracic levels and demonstrates s atisfactory alignment without evidence of acute fracture or dislocation. Prevertebral soft tissue ap pears within normal limits. The C1-C2 articulation is intact. Degenerative changes of the spine. Redemonstrated apparent left thyroid lobectomy with coarse calcification within the right thyroid lob e. Old healed fracture deformity of the left clavicle. IMPRESSION: 1. There is no acute fracture or dislocation evident in the cervical spine. 2. No acute intracranial hemorrhage, mass effect, or midline shift is seen. 3. Right frontal and left posterior scalp cutaneous lianna, with mild left posterior scalp hematoma.
[2020-01-05 11:00] LABS: Basophils % (A) 0 %; Eosinophils % (A) 0 %; HCT 37.9 % (34.0-46.0); HGB 12.5 gm/dL (11.4-16.0); Lymphocytes # (A) 2.2 k/uL (1.0-4.8); Lymphocytes % (A) 26 %; MCH 34.3 pg (25.0-35.0); MCHC 33.1 g/dL (31.0-37.0); MCV 103.6 fL (80.0-100.0); Macrocytosis Slight; Monocytes # (A) 0.4 k/uL (0-1.0); Monocytes % (A) 5 %; Neutrophils # (A) 5.6 k/uL (1.3-7.7); Neutrophils % (A) 67 %; Platelet Count 190 k/uL (150-450); RBC 3.66 m/uL (3.80-5.40); WBC 8.4 k/uL (3.8-10.6)
[2020-01-05 11:18] LABS: Albumin 3.8 g/dL (3.5-5.0); Magnesium 1.9 mg/dL (1.6-2.3); Potassium 4.4 mmol/L (3.5-5.1); Total Bilirubin 0.7 mg/dL (0.2-1.3); Total Protein 6.6 g/dL (6.3-8.2)
--- NOTE | 2020-01-05 14:12 | P.HPIM ---
History of Present Illness H&P Date: 01/05/20 HISTORY OF PRESENT ILLNESS This is a 79-year-old female patient of Dr. Monteiro with past medical history of breast cancer in 2002 status post lumpectomy and radiation therapy, mild dementia, Parkinson's, hypertension, osteoarthritis, glaucoma, status post mitral valve repair and tricuspid valve repair. Patient has been under the care of Dr. Marroquin and recently taken off Sinemet on a tapering dose and started on Exelon 4.6 patch. Daughter is at bedside and states she has had falls 1-2 times per day with worsening falls and more frequency. She has balance issues possibly related to medication changes. She was seen on December 29 after a fall and had laceration repair with lianna to the right frontoparietal area. Patient presented to the emergency room on January 03 again with a fall and laceration repair. Patient presented on the third time following a fall with third laceration repair. Patient's vital signs were stable. CAT scan of the brain and cervical spine revealed no acute fracture-dislocation of the cervical spine. No acute intracranial hemorrhage, mass effect or midline shift seen. Right frontal and left posterior scalp cutaneous lianna with mild left posterior scalp hematoma. Patient admitted to the [facility] floor. She will be started back on Sinemet and off Exelon. REVIEW OF SYSTEMS Constitutional: No fever, no chills, no night sweats. No weight change. No weakness, fatigue or lethargy. No daytime sleepiness. EENT: No headache. No blurred vision or double vision, no loss of vision. No loss of Hearing, no ringing in the ears, no dizziness. No nasal drainage or congestion. No epistaxis. No sore throat. Lungs: No shortness of breath, cough, no sputum production. No wheezing. Cardiovascular: No chest pain, no lower extremity edema. No palpitations. No paroxysmal nocturnal dyspnea. No orthopnea. No lightheadedness or dizziness. No syncopal episodes. Abdominal: No abdominal pain. No nausea, vomiting. No diarrhea. No constipation. No bloody or tarry stools.. No loss of appetite. Genitourinary: No dysuria, increased frequency, urgency. No urinary retention. Musculoskeletal: No myalgias. No muscle weakness, no gait dysfunction, no frequent falls. No back pain. No neck pain. Integumentary: No wounds, no lesions. No rash or pruritus. No unusual bruising. No change in hair or nails. Neurologic: No aphasia. No facial droop. No change in mentation. No head injury. No headache. No paralysis. No paresthesia. Psychiatric: No depression. No anxiety. No mood swings. Endocrine: No abnormal blood sugars. No weight change. No excessive sweating or thirst. No cold intolerance. SOCIAL HISTORY Patient is a lifelong nonsmoker, no marijuana or illicit drug use. She drink alcohol occasionally. She is and resides at [facility]. FAMILY HISTORY Mother at age 90 from stroke. Father in his 90s from possible stroke. She has 1 brother with no major medical problems. She does not have any sisters. She has 2 daughters with no major medical problems. PHYSICAL EXAMINATION Gen: This is a 79-year-old female. She is sitting up in the stretcher in the ER and appears to be in no acute distress. HEENT: Head has 3 lacerations one on the left parietal area of 3 inches, one on the occipital region of 2 inches and one on the right parietal region of 3 inches. Please see nursing documentation for measurements. Normocephalic. Pupils equal, round. Sclerae is anicteric. NECK: Supple. No JVD. No lymphadenopathy. No thyromegaly. LUNGS: Clear to auscultation. No wheezes or rhonchi. No intercostal retractions. HEART: Regular rate and rhythm. No murmur. ABDOMEN: Soft. Bowel sounds are present. No masses. No tenderness. EXTREMITIES: No pedal edema. No calf tenderness. Dorsalis pedis palpable bilaterally. NEUROLOGICAL: Patient is awake, alert and oriented x3. Cranial nerves 2 through 12 are grossly intact. Mild tremor noted. Speech is slow and deliberate. ASSESSMENT AND PLAN 1. Frequent falls with metabolic encephalopathy and concussion. Consult with neurology. 2. Parkinson with worsening balance and falls with recent transition off Sinemet and started on Exelon patch. Patient will be resumed on Sinemet 25/100 one half tablet twice daily. Patient follows with Dr. Marroquin in the outpatient setting. 3. Mild dementia. Patient has been on Aricept in the past. 4. Hypertension. Continue Lopressor 12.5 mg twice daily. 5. Valvular heart disease status post mitral valve repair and tricuspid valve repair, stable. 6. Hyperlipidemia. Continue Lipitor 40 mg at bedtime. 7. Diabetes mellitus type 2, insulin requiring. Continue Levemir 5 units at bedtime and NovoLog scale before meals and at bedtime. 8. Status post pacemaker for third-degree heart block. 9. GERD and GI prophylaxis. Continue Protonix. 10. Recurrent depression. Continue Remeron 15 mg at bedtime. 11. History of breast cancer status post lumpectomy and radiation therapy. 12. Glaucoma. Continue eyedrops. 13. DVT prophylaxis. Heparin subcu. Patient will be admitted to the hospital for a minimum of 2 night stay. DISCHARGE PLAN She most likely will require subacute rehab. PT and OT consults added. Social work consult for [place] early next week. Impression and plan of care have been directed as dictated by the signing physician. Noris Gonzales nurse practitioner acting as scribe for signing phys ician. Past Medical History Past Medical History: Cancer, Dementia, Eye Disorder, Hearing Disorder / Deafness, Hypertension, Liver Disease, Memory Impairment, Musculoskeletal Disorder, Syncope Additional Past Medical History / Comment(s): Hx heart murmur; Breast CA 2001; Hep A . Glaucoma. Wears hearing aids. "Recent EKG changes, Echo shows severe MV regurg," per daughter. Recent falls, has fx lt clavicle, parkinson's disease History of Any Multi-Drug Resistant Organisms: None Reported Past Surgical History: Breast Surgery, Section, Pacemaker Additional Past Surgical History / Comment(s): left breast Lumpectomy. Cataracts. Mitral valve repair and tricuspid valve repair 01/25/2019. Past Anesthesia/Blood Transfusion Reactions: No Reported Reaction Type of Cardiac Device: Permanent Pacemaker Device Placement Date:: 12/2018 Past Psychological History: No Psychological Hx Reported Smoking Status: Never smoker Past Alcohol Use History: None Reported, Rare Past Drug Use History: None Reported - Past Family History Mother Family Medical History: Cancer Additional Family Medical History / Comment(s): . Mother at age 90. Possible breast CA Father Additional Family Medical History / Comment(s): Father at age 90 from old age. Brother(s) Additional Family Medical History / Comment(s): Patient has 1 brother with no known medical problems. Patient does not have any sisters. Patient has 2 daughters with no major medical problems. Medications and Allergies Home Medications Medication Instructions Recorded Confirmed Type Ascorbic Acid [Vitamin C] 1,000 mg PO DAILY 12/14/18 01/05/20 History Calcium Carbonate/Vitamin D3 1 tab PO DAILY 12/14/18 01/05/20 History [Calcium 600-Vit D3 800 Caplet] Lysine HCl [l-Lysine] 1,000 mg PO DAILY 12/14/18 01/05/20 History Multivit-Min/FA/Lycopen/Lutein 1 tab PO DAILY 12/14/18 01/05/20 History [Centrum Silver Tablet] Zinc 25 mg PO DAILY 12/14/18 01/05/20 History Brimonidine Tartrate/Timolol 1 drop BOTH EYES BID 01/07/19 01/05/20 History [Combigan 0.2%-0.5% Eye Drops] Latanoprost Ophth [Xalatan 0.005%] 1 drops BOTH EYES HS 01/23/19 01/05/20 History Mirtazapine [Remeron] 15 mg PO HS tab 02/02/19 01/05/20 Rx Atorvastatin [Lipitor] 40 mg PO HS 02/15/19 01/05/20 History Magnesium Oxide [Mag-Ox] 250 mg PO DAILY 02/15/19 01/05/20 History Metoprolol Tartrate [Lopressor] 12.5 mg PO BID 02/15/19 01/05/20 History Raloxifene [Evista] 60 mg PO DAILY 02/15/19 01/05/20 History Aspirin EC [Ecotrin Low Dose] 81 mg PO DAILY 01/05/20 01/05/20 History Psyllium Husk [Metamucil] 0.4 gm PO DAILY 01/05/20 01/05/20 History Rivastigmine 4.6MG/24Hr Patch 1 patch TRANSDERM DAILY 01/05/20 01/05/20 History [Exelon 4.6MG/24Hr Patch] Allergies Allergy/AdvReac Type Severity Reaction Status Date / Time Penicillins Allergy Unknown Verified 01/05/20 11:33 Childhood Physical Exam Vitals: Vital Signs Temp Pulse Resp BP Pulse Ox 01/05/20 09:24 98.1 F 75 18 116/77 98 Intake and Output 01/04/20 01/05/20 01/05/20 22:59 06:59 14:59 Other: Weight 68.039 kg Results CBC & Chem 7: 01/05/20 10:22 01/05/20 10:22
[2020-01-05 15:03] LABS: Appearance,Urine Cloudy (Clear); Bacteria,Urine Many /hpf; Bilirubin,Urine Negative (Negative); Blood,Urine Negative (Negative); Color,Urine Yellow; Glucose,Urine (UA) Negative (Negative); Ketones,Urine Negative (Negative); Leukocyte Esterase,Urine Negative (Negative); Mucus,Urine Few /hpf; Nitrite,Urine Negative (Negative); Protein,Urine Negative (Negative); RBC,Urine 1 /hpf (0-5); Specific Gravity,Urine 1.017 (1.001-1.035); Squamous Epithelial Cell,Urine 1 /hpf (0-4); Urobilinogen,Urine <2.0 mg/dL (<2.0); WBC,Urine 3 /hpf (0-5)
--- NOTE | 2020-01-05 16:46 | P.CNNES ---
History of Present Illness Consult date: 01/05/20 Requesting physician: Noris Gonzales Reason for Consult: falls with history of Parkinson's History of Present Illness: This is a 79-year-old woman with medical history of ?Parkinson's disease, mild dementia, hypertension, glaucoma, status post post-mitral valve repair and tricuspid valve repair breast cancer in 2001 status post lumpectomy and radiation therapy who presented to the emergency department on 01/05/2020 for multiple falls. History is obtained from medical records since patient unable to tell me exact details. According the patient she is following-up with Dr. Marroquin her neurologist who is taking care. There is questionable Parkinson's diagnosis but not sure exactly her diagnosis. Per medical records, the daughter stated She's been having 1-2 falls a day and they've become more frequent. She's been having more balance problems. Patient was about to put her mouthwash back and she stated that she fell backwards striking her head. She recently had taken her off Sinemet and placed her on Exelon patch in last two month according to patient. She denied any side-effect with Sinemet and said was on it for 2 month and her falls were less. Not sure why she on Exelon. Patient states she feels light-headed upon walking around. She denies of feeling dizzy. She did acknowledge falling backward. She denied any resting tremor. Denies urinary or bowel incontinence. She said she seen Dr. Marroquin on 3 different occasions. She had multiple visits to the ED because of falls and laceration to the head. In 12/30/2019 and she had a fall that she had a laceration repair with lianna in the right frontal parietal area. She presented to the emergency department again in January 03 with a fall and also had laceration repair. Work-up in the ED consisted of: Initial vital signs: Blood pressure of 116/77, heart rate of the 75, respiratory of 18, temperature of 98.1 Fahrenheit oral and pulse ox of 98% on room air. CT of the brain and cervical spine was reported as there is no acute fracture or dislocation evident in the cervical spine. No acute intracranial hemorrhage, mass effect or midline shift is seen. Right frontal and left posterior scalp cutaneous lianna, with mild left posterior scalp hematoma. I personally reviewed the CT of the head and I felt the ventricles lateral third were somewhat dilated the in regards to the atrophy in my opinion the posterior horn of lateral ventricle seems more dilated than the anterior horn. Review of Systems Review of system: The 12 point system was reviewed and apparent positive and negative per HPI. Past Medical History Past Medical History: Cancer, Dementia, Eye Disorder, Hearing Disorder / Deafness, Hypertension, Liver Disease, Memory Impairment, Musculoskeletal Disorder, Syncope Additional Past Medical History / Comment(s): Hx heart murmur; Breast CA 2001; Hep A 1970's. Glaucoma. Wears hearing aids. "Recent EKG changes, Echo shows severe MV regurg," per daughter. Recent falls, has fx lt clavicle, parkinson's disease History of Any Multi-Drug Resistant Organisms: None Reported Past Surgical History: Breast Surgery, Section, Pacemaker Additional Past Surgical History / Comment(s): left breast Lumpectomy. Cataracts. Mitral valve repair and tricuspid valve repair 01/25/2019. Past Anesthesia/Blood Transfusion Reactions: No Reported Reaction Type of Cardiac Device: Permanent Pacemaker Device Placement Date:: 12/2018 Past Psychological History: No Psychological Hx Reported Smoking Status: Never smoker Past Alcohol Use History: None Reported, Rare Past Drug Use History: None Reported - Past Family History Mother Family Medical History: Cancer Additional Family Medical History / Comment(s): . Mother at age 90. Possible breast CA Father Additional Family Medical History / Comment(s): Father at age 90 from old age. Brother(s) Additional Family Medical History / Comment(s): Patient has 1 brother with no known medical problems. Patient does not have any sisters. Patient has 2 daug hters with no major medical problems. Medications and Allergies Home Medications Medication Instructions Recorded Confirmed Type Ascorbic Acid [Vitamin C] 1,000 mg PO DAILY 12/14/18 01/05/20 History Calcium Carbonate/Vitamin D3 1 tab PO DAILY 12/14/18 01/05/20 History [Calcium 600-Vit D3 800 Caplet] Lysine HCl [l-Lysine] 1,000 mg PO DAILY 12/14/18 01/05/20 History Multivit-Min/FA/Lycopen/Lutein 1 tab PO DAILY 12/14/18 01/05/20 History [Centrum Silver Tablet] Zinc 25 mg PO DAILY 12/14/18 01/05/20 History Brimonidine Tartrate/Timolol 1 drop BOTH EYES BID 01/07/19 01/05/20 History [Combigan 0.2%-0.5% Eye Drops] Latanoprost Ophth [Xalatan 0.005%] 1 drops BOTH EYES HS 01/23/19 01/05/20 History Mirtazapine [Remeron] 15 mg PO HS tab 02/02/19 01/05/20 Rx Atorvastatin [Lipitor] 40 mg PO HS 02/15/19 01/05/20 History Magnesium Oxide [Mag-Ox] 250 mg PO DAILY 02/15/19 01/05/20 History Metoprolol Tartrate [Lopressor] 12.5 mg PO BID 02/15/19 01/05/20 History Raloxifene [Evista] 60 mg PO DAILY 02/15/19 01/05/20 History Aspirin EC [Ecotrin Low Dose] 81 mg PO DAILY 01/05/20 01/05/20 History Psyllium Husk [Metamucil] 0.4 gm PO DAILY 01/05/20 01/05/20 History Rivastigmine 4.6MG/24Hr Patch 1 patch TRANSDERM DAILY 01/05/20 01/05/20 History [Exelon 4.6MG/24Hr Patch] Allergies Allergy/AdvReac Type Severity Reaction Status Date / Time Penicillins Allergy Unknown Verified 01/05/20 11:33 Childhood Physical Examination - Vital Signs Vital Signs: Vital Signs Temp Pulse Resp BP Pulse Ox 01/05/20 14:49 98.0 F 86 18 136/78 98 01/05/20 11:40 84 18 135/81 97 01/05/20 09:24 98.1 F 75 18 116/77 98 Intake and Output 01/05/20 01/05/20 01/05/20 06:59 14:59 22:59 Other: Weight 68.039 kg GENERAL: The patient is lying in bed and is not in acute distress. CHEST: The heart rate is regular rate rhythm. No murmurs to auscultation. No carotid bruit bilaterally. LUNG: Clear to auscultation bilaterally no wheezing noted throughout. Not labored breathing. ABDOMEN/GI: Bowel sounds present in all 4 quadrants. No tenderness to palpation throughout. NEUROLOGICAL: Higher mental function: The patient is awake, alert, oriented to self, place and time. Patient is following commands but slow to respond. No aphasia and no neglect. Cranial nerves: The pupils are round, equal and reactive to light. Visual f ields are full to confrontation throughout. Extraocular movement seems somewhat limited on fully upward or downward gaze and maneuvering her head to do it. No nystagmus is noted. Facial sensation is normal to touch throughout. The facial strength is normal throughout. Hearing is mildly decreased to hand rub. Tongue is midline and moved [id number] without any difficulty. No dysarthria is n oted. Shoulder shrug is normal bilaterally. Motor: Gait is normal but felt light headed with walking. The strength is 5 over 5 throughout. +ve Cogwheel ridigity of the right elbow. Otherwise normal tone throughout. No resting tremor. Sensation: Sensation is normal to touch throughout. Reflexes (right/left): 3+ on bilateral brachioradialis but otherwise 2+ throughout. Plantars are downgoing bilaterally. Results Calcium is 9.0. Magnesium is 1.9. UA was negative for urinary tract infection. - Laboratory Findings CBC and BMP: 01/05/20 10:22 01/05/20 10:22 Abnormal Lab Findings: Abnormal Labs 01/05/20 01/05/20 01/05/20 10:22 10:22 13:20 RBC 3.66 L MCV 103.6 H Chloride 109 H BUN 20 H Glucose 100 H Urine Appearance Cloudy H Urine Bacteria Many H Urine Mucus Few H Assessment and Plan Assessment: This is a 79-year-old woman with medical history of ?Parkinson's disease, mild dementia who presented to the emergency department on 01/05/2020 for multiple falls. She follows-up with Dr. Marroquin and he stopped Sinement and placed her on Exelon patch. 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 I felt the lateral and 3rd ventricle seemed mildly dilated for the atrophy (but seemed not full picture of Normal pressure hydrocephalus). * Feeling Lightheadedness with walk * Hx of mild dementia (per records) * Hypertension * Glaucoma * Status post mitral valve repair and tricuspid valve repair * History of breast cancer in 2001 status post lumpectomy and radiation therapy Plan: * The medicine team placed her on Sinemet 25/100 mg 0.5 tablets twice a day. I agree with restarting Sinemet and If patient has no side effects then we can go up to 1 tablet bid in one week and if no improvement can go up to 1 tab tid in two weeks. She notified me that the she had less falls with sentiments. Usually with atypical Parkinson's Sinemet can help or sometimes it does not help. * I recommend that patient get a Marisol scan as an outpatient to rule out Parkinson's * Recommend getting orthostatic vitals. If patient continues to be the lightheaded that with walk-in which she was consider getting tilt table test. * Physical therapy and occupation therapy are consulted. Thank you for the consultation Dr. Garg is covering this weekend for neurology perspective. Johnny Benton. Neuro-hospitalist Time with Patient: Greater than 30
[2020-01-05] MEDS: METOPROLOL TARTRATE 12.5 MG TAB PO SCH (17:30)
[2020-01-05] MEDS: INSULIN DETEMIR (LEVEMIR) 100 UNIT/ML SYR SQ SCH (20:48)
[2020-01-05] MEDS: MIRTAZAPINE 15 MG TAB PO SCH (20:49)
[2020-01-05] MEDS: BRIMONIDINE TARTRATE 0.2% DROPS 5 ML BTL BOTH EYES SCH (20:49)
[2020-01-05] MEDS: HEPARIN SODIUM,PORCINE 5,000 UNIT/ML 1 ML VIAL SQ SCH (20:50)
[2020-01-05] MEDS: ATORVASTATIN 40 MG TAB PO SCH (20:50)
[2020-01-05] MEDS: LATANOPROST 0.005% OPHTH DROPS 2.5 ML BTL BOTH EYES SCH (20:50)
[2020-01-05] MEDS: TIMOLOL 0.5% OPHTH DROPS 5 ML BTL BOTH EYES SCH (20:50)
[2020-01-05] MEDS ORDERED: CARBIDOPA-LEVODOPA 25-100 MG 1 EACH TAB PO SCH (21:00)
[2020-01-06 01:15] LABS: Glucose,Whole Blood 92 mg/dL (75-99)
[2020-01-06] MEDS: PANTOPRAZOLE 40 MG TABLET PO SCH (06:25)
[2020-01-06] MEDS: HEPARIN SODIUM,PORCINE 5,000 UNIT/ML 1 ML VIAL SQ SCH ×2 (08:13→21:26)
[2020-01-06] MEDS: METOPROLOL TARTRATE 12.5 MG TAB PO SCH ×2 (08:13→17:02)
[2020-01-06] MEDS: PSYLLIUM HUSK 100% 6 GM PACKET PO SCH (08:13)
[2020-01-06] MEDS: MAGNESIUM OXIDE 400 MG TAB PO SCH (08:21)
[2020-01-06] MEDS: ASPIRIN 81 MG PO SCH (08:21)
[2020-01-06] MEDS: CARBIDOPA-LEVODOPA 25-100 MG 1 EACH TAB PO SCH ×3 (08:22→21:31)
[2020-01-06] MEDS: BRIMONIDINE TARTRATE 0.2% DROPS 5 ML BTL BOTH EYES SCH ×2 (08:22→21:27)
[2020-01-06] MEDS: RALOXIFENE 60 MG TAB PO SCH (08:22)
[2020-01-06] MEDS: TIMOLOL 0.5% OPHTH DROPS 5 ML BTL BOTH EYES SCH ×2 (08:23→21:26)
[2020-01-06] MEDS ORDERED: AMIODARONE 200 MG TAB PO SCH (09:00)
--- NOTE | 2020-01-06 10:19 | P.PN ---
Subjective Progress Note Date: 01/06/20 Principal diagnosis: Multiple falls, metabolic encephalopathy, Parkinson disease, mild dementia, head concussion, valvular heart disease, third degree heart block post pacemaker This is a 79-year-old female patient of Dr. Monteiro with past medical history of breast cancer in 2002 status post lumpectomy and radiation therapy, mild dementia, Parkinson's, hypertension, osteoarthritis, glaucoma, status post mitral valve repair and tricuspid valve repair. Patient has been under the care of Dr. Marroquin and recently taken off Sinemet on a tapering dose and started on Exelon 4.6 patch. Daughter is at bedside and states she has had falls 1-2 times per day with worsening falls and more frequency. She has balance issues possibly related to medication changes. She was seen on December 29 after a fall and had laceration repair with lianna to the right frontoparietal area. Kayley norton presented to the emergency room on January 03 again with a fall and laceration repair. Patient presented on the third time following a fall with third laceration repair. Patient's vital signs were stable. CAT scan of the brain and cervical spine revealed no acute fracture-dislocation of the cervical spine. No acute intracranial hemorrhage, mass effect or midline shift seen. Right frontal and left posterior scalp cutaneous lianna with mild left posterior scalp hematoma. Patient admitted to the [facility] floor. She will be started back on Sinemet and off Exelon. 01/05: Patient is feeling much better so far since started on Sinemet patient was seen neurology concur with current diagnosis, her encephalopathy had settled some but found to have UTI will be started on Rocephin for now. Patient was started on physical therapy and highly recommended for subacute rehab Wednesday. Objective - Vital Signs Vital signs: Vital Signs Temp 97.6 F 01/06/20 04:57 Pulse 89 01/06/20 04:57 Resp 17 01/06/20 04:57 BP 132/84 01/06/20 04:57 Pulse Ox 97 01/06/20 04:57 Intake & Output 01/05/20 01/06/20 01/06/20 18:59 06:59 18:59 Intake Total 60 Balance 60 Weight 68.039 kg Intake: Oral 60 Other: Voiding Method Toilet Toilet # Voids 2 1 - Exam REVIEW OF SYSTEMS Constitutional: No fever, no chills, no night sweats. No weight change. No weakness, fatigue or lethargy. No daytime sleepiness. EENT: No headache. No blurred vision or double vision, no loss of vision. No loss of Hearing, no ringing in the ears, no dizziness. No nasal drainage or congestion. No epistaxis. No sore throat. Lungs: No shortness of breath, cough, no sputum production. No wheezing. Cardiovascular: No chest pain, no lower extremity edema. No palpitations. No paroxysmal nocturnal dyspnea. No orthopnea. No lightheadedness or dizziness. No syncopal episodes. Abdominal: No abdominal pain. No nausea, vomiting. No diarrhea. No constipation. No bloody or tarry stools.. No loss of appetite. Genitourinary: No dysuria, increased frequency, urgency. No urinary retention. Musculoskeletal: No myalgias. No muscle weakness, no gait dysfunction, no frequent falls. No back pain. No neck pain. Integumentary: No wounds, no lesions. No rash or pruritus. No unusual bruising. No change in hair or nails. Neurologic: No aphasia. No facial droop. No change in mentation. No head injury. No headache. No paralysis. No paresthesia. Psychiatric: No depression. No anxiety. No mood swings. Endocrine: No abnormal blood sugars. No weight change. No excessive sweating or thirst. No cold intolerance. PHYSICAL EXAMINATION Gen: This is a 79-year-old female. She is sitting up in the stretcher in the ER and appears to be in no acute distress. HEENT: Head has 3 lacerations one on the left parietal area of 3 inches, one on the occipital region of 2 inches and one on the right parietal region of 3 inches. Please see nursing documentation for measurements. Normocephalic. Pupils equal, round. Sclerae is anicteric. NECK: Supple. No JVD. No lymphadenopathy. No thyromegaly. LUNGS: Clear to auscultation. No wheezes or rhonchi. No intercostal retractions. HEART: Regular rate and rhythm. No murmur. ABDOMEN: Soft. Bowel sounds are present. No masses. No tenderness. EXTREMITIES: No pedal edema. No calf tenderness. Dorsalis pedis palpable bilaterally. NEUROLOGICAL: Patient is awake, alert and oriented x3. Cranial nerves 2 through 12 are grossly intact. Mild tremor noted. Speech is slow and deliberate. - Labs CBC & Chem 7: 01/05/20 10:22 11 10:22 Labs: Abnormal Lab Results - Last 24 Hours (Table) 01/05/20 01/05/20 01/05/20 Range/Units 10:22 10:22 13:20 RBC 3.66 L (3.80-5.40) m/uL MCV 103.6 H (80.0-100.0) fL Chloride 109 H (98-107) mmol/L BUN 20 H (7-17) mg/dL Glucose 100 H (74-99) mg/dL Urine Appearance Cloudy H (Clear) Urine Bacteria Many H (None) /hpf Urine Mucus Few H (None) /hpf Assessment and Plan Assessment: 1. Frequent falls with metabolic encephalopathy and concussion. Consult with neurology. Also beside the head concussion patient found to have urinary tract infection which probably contributing betime to the encephalopathy this point, her multiple falls was most likely caused by the proper stop of her Sinemet causing her balance and gait to be off been on medication has improved her symptoms significantly. 2. Parkinson with worsening balance and falls with recent transition off Sinemet and started on Exelon patch. Patient will be resumed on Sinemet 25/100 one half tablet twice daily. Patient follows with Dr. Marroquin in the outpatient setting. 3. Mild dementia. Patient has been on Aricept in the past. 4. Hypertension. Continue Lopressor 12.5 mg twice daily. 5. Valvular heart disease status post mitral valve repair and tricuspid valve repair, stable. 6. Hyperlipidemia. Continue Lipitor 40 mg at bedtime. 7. Diabetes mellitus type 2, insulin requiring. Continue Levemir 5 units at bedtime and NovoLog scale before meals and at bedtime. 8. Status post pacemaker for third-degree heart block. 9. GERD and GI prophylaxis. Continue Protonix. 10. Recurrent depression. Continue Remeron 15 mg at bedtime. 11. History of breast cancer status post lumpectomy and radiation therapy. 12. Glaucoma. Continue eyedrops. 13 urinary tract infection: Patient UA was positive awaiting for culture will continue Rocephin 1 g daily patient be continued on oral antibiotic for 7 days. 14 discharge plan: The patient does well with PTOT patient will be highly recommended for subacute rehab for Wednesday.
--- NOTE | 2020-01-06 17:17 | P.CRDCN ---
History of Present Illness Consult date: 01/06/20 History of present illness: This is a 79-year-old female with history of mild dementia and also Parkinson's disease, hypertension and history of mitral and tricuspid valve repair. Patient is being treated for atypical parkinsonism and some changes were made regarding medications. Patient has issues with balance and apparently had recurrent falls. Her medications are readjusted since admission. She seemed to be more stable. Blood pressures did show mild orthostatic changes. No arrhythmias are noted. No complaints of any chest pain. At this point her false appears to be related to her problem with balance related to parkinsonism. We'll continue to monitor her for any arrhythmias. Continue to check blood pressure for postural changes. May consider knee-high stockings. We'll follow. Review of Systems As per the chart Past Medical History Past Medical History: Cancer, Dementia, Eye Disorder, Hearing Disorder / Deafness, Hypertension, Liver Disease, Memory Impairment, Musculoskeletal Disorder, Syncope Additional Past Medical History / Comment(s): Hx heart murmur; Breast CA 2001; Hep A 1969's. Glaucoma. Wears hearing aids. "Recent EKG changes, Echo shows severe MV regurg," per daughter. Recent falls, has fx lt clavicle, parkinson's disease History of Any Multi-Drug Resistant Organisms: None Reported Past Surgical History: Breast Surgery, Section, Pacemaker Additional Past Surgical History / Comment(s): left breast Lumpectomy. Cataracts. Mitral valve repair and tricuspid valve repair 01/25/2019. Past Anesthesia/Blood Transfusion Reactions: No Reported Reaction Type of Cardiac Device: Permanent Pacemaker Device Placement Date:: 12/2018 Past Psychological History: No Psychological Hx Reported Smoking Status: Never smoker Past Alcohol Use History: None Reported, Rare Past Drug Use History: None Reported - Past Family History Mother Family Medical History: Cancer Additional Family Medical History / Comment(s): . Mother at age 90. Possible breast CA Father Additional Family Medical History / Comment(s): Father at age 90 from old age. Brother(s) Additional Family Medical History / Comment(s): Patient has 1 brother with no k nown medical problems. Patient does not have any sisters. Patient has 2 daughters with no major medical problems. Medications and Allergies Home Medications Medication Instructions Recorded Confirmed Type Ascorbic Acid [Vitamin C] 1,000 mg PO DAILY 12/14/18 01/05/20 History Calcium Carbonate/Vitamin D3 1 tab PO DAILY 12/14/18 01/05/20 History [Calcium 600-Vit D3 800 Caplet] Lysine HCl [l-Lysine] 1,000 mg PO DAILY 12/14/18 01/05/20 History Multivit-Min/FA/Lycopen/Lutein 1 tab PO DAILY 12/14/18 01/05/20 History [Centrum Silver Tablet] Zinc 25 mg PO DAILY 12/14/18 01/05/20 History Brimonidine Tartrate/Timolol 1 drop BOTH EYES BID 01/07/19 01/05/20 History [Combigan 0.2%-0.5% Eye Drops] Latanoprost Ophth [Xalatan 0.005%] 1 drops BOTH EYES HS 01/23/19 01/05/20 History Mirtazapine [Remeron] 15 mg PO HS tab 02/02/19 01/05/20 Rx Atorvastatin [Lipitor] 40 mg PO HS 02/15/19 01/05/20 History Magnesium Oxide [Mag-Ox] 250 mg PO DAILY 02/15/19 01/05/20 History Metoprolol Tartrate [Lopressor] 12.5 mg PO BID 02/15/19 01/05/20 History Raloxifene [Evista] 60 mg PO DAILY 02/15/19 01/05/20 History Aspirin EC [Ecotrin Low Dose] 81 mg PO DAILY 01/05/20 01/05/20 History Psyllium Husk [Metamucil] 0.4 gm PO DAILY 01/05/20 01/05/20 History Rivastigmine 4.6MG/24Hr Patch 1 patch TRANSDERM DAILY 01/05/20 01/05/20 History [Exelon 4.6MG/24Hr Patch] Allergies Allergy/AdvReac Type Severity Reaction Status Date / Time Penicillins Allergy Unknown Verified 01/05/20 11:33 Childhood Physical Exam Vitals: Vital Signs Temp Pulse Resp BP BP BP Pulse Ox 01/06/20 15:17 86 17 01/06/20 14:58 86 17 104/67 99/67 107/72 96 01/06/20 11:39 98.1 F 80 17 107/72 96 01/06/20 08:00 80 17 01/06/20 04:57 97.6 F 89 17 132/84 97 01/05/20 22:01 97.4 F L 89 18 131/82 97 Intake and Output 01/06/20 01/06/20 01/06/20 06:59 14:59 22:59 Intake Total 60 240 Balance 60 240 Intake: Oral 60 240 Other: Voiding Method Toilet Toilet Toilet # Voids 3 3 GENERAL EXAM: Patient is alert and oriented and doesn't appear to be in any acute distress. Patient has limited mobility HEENT: Normocephalic. Normal reaction of pupils, equal size, normal range of extraocular motion. No erythema or exudates in the throat. NECK: No masses, no nuchal rigidity. CHEST: No chest wall deformity. LUNGS: Equal air entry with no crackles or wheeze. HEART: S1 and S2 normal with no audible mumurs or gallops. Regular rhythm, femorals equal on both sides.. ABDOMEN: No hepatosplenomegaly, normal bowel sounds, no guarding or rigidity. SKIN: No rashes CENTRAL NERVOUS SYSTEM: No focal deficits. EXTREMITIES: No cyanosis, clubbing or edema. Results 01/05/20 10:22 01/05/20 10:22 Current Medications Generic Name Dose Route Start Last Admin Trade Name Freq PRN Reason Stop Dose Admin Acetaminophen 650 mg 01/05/20 10:15 Acetaminophen Tab 325 Mg Tab PO Q6HR PRN Mild Pain or Fever > 100.5 Aspirin 81 mg 01/06/20 09:00 01/06/20 08:21 Aspirin 81 Mg PO 81 mg DAILY GIOVANNY Administration Atorvastatin Calcium 40 mg 01/05/20 21:00 01/05/20 20:50 Atorvastatin 40 Mg Tab PO 40 mg HS GIOVANNY Administration Brimonidine Tartrate 1 drops 01/05/20 21:00 01/06/20 08:22 Brimonidine Tartrate 0.2% Drops 5 Ml Btl BOTH EYES 1 drops BID GIOVANNY Administration Carbidopa/Levodopa 0.5 each 01/06/20 09:00 01/06/20 17:01 Carbidopa-Levodopa 25-100 Mg 1 Each Tab PO 0.5 each TID GIOVANNY Administration Heparin Sodium (Porcine) 5,000 unit 01/05/20 21:00 01/06/20 08:13 Heparin Sodium,Porcine 5,000 Unit/Ml 1 Ml Vial SQ 5,000 unit Q12HR GIOVANNY Administration Ceftriaxone Sodium 1 gm/ 50 mls @ 100 mls/hr 01/06/20 09:00 01/06/20 08:13 Sodium Chloride IVPB 100 mls/hr Q24HR GIOVANNY Administration Insulin Detemir 5 unit 01/05/20 21:30 01/05/20 20:48 Insulin Detemir (Levemir) 100 Unit/Ml Syr SQ 5 unit HS@2130 GIOVANNY Administration Latanoprost 1 drops 01/05/20 21:00 01/05/20 20:50 Latanoprost 0.005% Ophth Drops 2.5 Ml Btl BOTH EYES 1 drops HS GIOVANNY Administration Magnesium Oxide 400 mg 01/06/20 09:00 01/06/20 08:21 Magnesium Oxide 400 Mg Tab PO 400 mg DAILY GIOVANNY Administration Metoprolol Tartrate 12.5 mg 01/05/20 17:00 01/06/20 17:02 Metoprolol Tartrate 12.5 Mg Tab PO 12.5 mg BID@0800,1700 GIOVANNY Administration Mirtazapine 15 mg 01/05/20 21:00 01/05/20 20:49 Mirtazapine 15 Mg Tab PO 15 mg HS GIOVANNY Administration Naloxone HCl 0.2 mg 01/05/20 10:15 Naloxone 0.4 Mg/Ml 1 Ml Vial IV Q2M PRN Opioid Reversal Ondansetron HCl 4 mg 01/05/20 10:15 Ondansetron 4 Mg/2 Ml Vial IVP Q8HR PRN Nausea And Vomiting Pantoprazole Sodium 40 mg 01/06/20 06:00 01/06/20 06:25 Pantoprazole 40 Mg Tablet PO 40 mg DAILY@0600 GIOVANNY Administration Psyllium Hydrophilic Mucilloid 6 gm 01/06/20 09:00 01/06/20 08:13 Psyllium Husk 100% 6 Gm Packet PO 6 gm DAILY GIOVANNY Administration Raloxifene HCl 60 mg 01/06/20 09:00 01/06/20 08:22 Raloxifene 60 Mg Tab PO 60 mg DAILY GIOVANNY Administration Timolol Maleate 1 drops 01/05/20 21:00 01/06/20 08:23 Timolol 0.5% Ophth Drops 5 Ml Btl BOTH EYES 1 drops BID GIOVANNY Administration Intake and Output 01/06/20 01/06/20 01/06/20 06:59 14:59 22:59 Intake Total 60 240 Balance 60 240 Intake: Oral 60 240 Other: Voiding Method Toilet Toilet Toilet # Voids 3 3 01/05/20 10:22 01/05/20 10:22 EKG Interpretations (text) Not available Assessment and Plan Assessment: This patient with history of parkinsonism is admitted with recurrent falls which seemed to be related to her balance issues. Since adjusting her medications, she seemed to be more stable. There is mild orthostatic changes in the blood pressure. We'll continue to monitor it. May consider knee-high stockings . continue to monitor for any cardiac arrhythmias. We'll follow
--- NOTE | 2020-01-06 17:20 | P.PN ---
Subjective Progress Note Date: 01/06/20 The patient is seen in neurologic follow-up on January 06, 2020 via teleneurology. The patient reports feeling slightly better since being in the hospital. Objective - Vital Signs Vital signs: Vital Signs Temp 98.1 F 01/06/20 11:39 Pulse 80 01/06/20 11:39 Resp 17 01/06/20 11:39 BP 107/72 01/06/20 11:39 Pulse Ox 96 01/06/20 11:39 Intake & Output 01/05/20 01/06/20 01/06/20 18:59 06:59 18:59 Intake Total 60 240 Balance 60 240 Weight 68.039 kg Intake: Oral 60 240 Other: Voiding Method Toilet Toilet Toilet # Voids 2 1 3 - Exam Gen.: The patient is reclining in the bed. She is well-nourished, well- developed and in no acute distress. HEENT: Head is atraumatic, normocephalic. Fundus not visualized. There is no scleral icterus. Mucous membranes are moist. Heart: Regular rate and rhythm Extremities: Without edema Neurological examination Mental status: The patient is awake and alert. Her speech is clear. There is no hypophonia. The patient does have a mask like face Cranial nerves: 2-12 intact as tested Motor: Strength is 5/5 throughout with the exception of the right upper extremity at 5-/5. There is bradykinesia bilaterally in the upper extremities. Coordination: There is no obvious tremor. Finger to nose testing is intact. Eaze-nh-stil testing is intact. There is mild decrease in right-sided rapid alternating movements. - Labs CBC & Chem 7: 01/05/20 10:22 01/05/20 10:22 Labs: Abnormal Lab Results - Last 24 Hours (Table) 01/05/20 Range/Units 13:20 Urine Appearance Cloudy H (Clear) Urine Bacteria Many H (None) /hpf Urine Mucus Few H (None) /hpf Assessment and Plan Assessment: 1. ?Parkinson's disease 2. Ataxia with frequent falls Plan: 1. Continue dosing Sinemet as recommended 2. Consider kathie scan as and outpatient Time with Patient: Less than 30 (spent 20 minutes with patient via teleneurology)
[2020-01-06] MEDS: INSULIN DETEMIR (LEVEMIR) 100 UNIT/ML SYR SQ SCH (17:52)
[2020-01-06] MEDS: ATORVASTATIN 40 MG TAB PO SCH (21:25)
[2020-01-06] MEDS: MIRTAZAPINE 15 MG TAB PO SCH (21:26)
[2020-01-06] MEDS: LATANOPROST 0.005% OPHTH DROPS 2.5 ML BTL BOTH EYES SCH (21:27)
[2020-01-07] MEDS: PANTOPRAZOLE 40 MG TABLET PO SCH (06:00)
[2020-01-07 07:10] LABS: Basophils % (A) 1 %; Eosinophils # (A) 0.1 k/uL (0-0.7); Eosinophils % (A) 1 %; HCT 37.4 % (34.0-46.0); HGB 12.2 gm/dL (11.4-16.0); Lymphocytes # (A) 1.9 k/uL (1.0-4.8); Lymphocytes % (A) 30 %; MCH 34.1 pg (25.0-35.0); MCHC 32.6 g/dL (31.0-37.0); MCV 104.6 fL (80.0-100.0); Macrocytosis Slight; Mean Platelet Volume 7.9; Monocytes # (A) 0.4 k/uL (0-1.0); Monocytes % (A) 6 %; Neutrophils % (A) 62 %; Platelet Count 199 k/uL (150-450); RBC 3.58 m/uL (3.80-5.40); WBC 6.5 k/uL (3.8-10.6)
[2020-01-07] MEDS: HEPARIN SODIUM,PORCINE 5,000 UNIT/ML 1 ML VIAL SQ SCH ×2 (07:26→20:31)
[2020-01-07] MEDS: MAGNESIUM OXIDE 400 MG TAB PO SCH (07:28)
[2020-01-07] MEDS: ASPIRIN 81 MG PO SCH (07:28)
[2020-01-07] MEDS: CARBIDOPA-LEVODOPA 25-100 MG 1 EACH TAB PO SCH ×3 (07:29→20:32)
[2020-01-07] MEDS: METOPROLOL TARTRATE 12.5 MG TAB PO SCH ×2 (07:29→16:20)
[2020-01-07] MEDS: PSYLLIUM HUSK 100% 6 GM PACKET PO SCH (07:34)
[2020-01-07] MEDS: BRIMONIDINE TARTRATE 0.2% DROPS 5 ML BTL BOTH EYES SCH ×2 (07:39→20:31)
[2020-01-07] MEDS: RALOXIFENE 60 MG TAB PO SCH (07:39)
[2020-01-07] MEDS: TIMOLOL 0.5% OPHTH DROPS 5 ML BTL BOTH EYES SCH ×2 (07:40→20:33)
[2020-01-07 09:37] LABS: African American GFR (CKD) 81.3 (60.0-200.0); Albumin 4.1 g/dL (3.80-4.90); Albumin/Globulin Ratio 1.86 (1.60-3.17); Calcium 9.2 mg/dL (8.7-10.3); Globulin 2.2 g/dL (1.6-3.3); Non-African American GFR(CKD) 70.1 (60.0-200.0); Potassium 4.1 mmol/L (3.5-5.5); Total Bilirubin 0.6 mg/dL (0.3-1.2); Total Protein 6.3 g/dL (6.2-8.2)
--- NOTE | 2020-01-07 10:47 | P.PN ---
Subjective Progress Note Date: 01/07/20 This 79-year-old female with history of parkinsonism and also dementia is admitted to the hospital with recurrent falls. Her blood pressure has been fluctuating with mild postural changes. She said she had easiness yesterday when she showed up. Today's blood pressure is higher. I will suggest that she use a knee-high stockings. Her Parkinson medications are being adjusted Objective - Vital Signs Vital signs: Vital Signs Temp 97.7 F 01/07/20 04:59 Pulse 83 01/07/20 07:48 Resp 16 01/07/20 07:48 BP 144/85 01/07/20 04:59 Pulse Ox 97 01/07/20 04:59 Intake & Output 01/06/20 01/07/20 01/07/20 18:59 06:59 18:59 Intake Total 240 240 Balance 240 240 Intake: Oral 240 240 Other: Voiding Method Toilet Toilet # Voids 4 2 - Exam GENERAL EXAM: Patient is alert and oriented and doesn't appear to be in any acute distress HEENT: Normocephalic. Normal reaction of pupils, equal size, normal range of extraocular motion. No erythema or exudates in the throat. NECK: No masses, no nuchal rigidity. CHEST: No chest wall deformity. LUNGS: Equal air entry with no crackles or wheeze. HEART: S1 and S2 normal with no audible mumurs or gallops. Regular rhythm, femorals equal on both sides.. ABDOMEN: No hepatosplenomegaly, normal bowel sounds, no guarding or rigidity. SKIN: No rashes CENTRAL NERVOUS SYSTEM: No focal deficits. EXTREMITIES: No cyanosis, clubbing or edema. - Labs CBC & Chem 7: 01/07/20 06:47 01/07/20 06:47 Labs: Abnormal Lab Results - Last 24 Hours (Table) 01/07/20 01/07/20 Range/Units 06:47 06:47 RBC 3.58 L (3.80-5.40) m/uL MCV 104.6 H (80.0-100.0) fL BUN/Creatinine Ratio 25.00 H (12.00-20.00) Ratio Assessment and Plan Assessment: This patient with history of parkinsonism is admitted with recurrent falls which seemed to be related to her balance issues. Since adjusting her medications, she seemed to be more stable. There is mild orthostatic changes in the blood pressure. We'll continue to monitor it. May consider knee-high stockings . continue to monitor for any cardiac arrhythmias. We'll follow. 01/07/2020: Patient is feeling better today. Yesterday she had some dizzy sp ells when she stood up. Her blood pressure was also low, yesterday. Today's blood pressures higher. I would recommend using knee-high stockings. Continue monitoring for any postural changes of blood pressure. If necessary, Florinef or midodrine can be added.
--- NOTE | 2020-01-07 12:35 | P.PN ---
Subjective Progress Note Date: 01/07/20 Principal diagnosis: Multiple falls, metabolic encephalopathy, Parkinson disease, mild dementia, head concussion, valvular heart disease, third degree heart block post pacemaker This is a 79-year-old female patient of Dr. Monteiro with past medical history of breast cancer in 2002 status post lumpectomy and radiation therapy, mild dementia, Parkinson's, hypertension, osteoarthritis, glaucoma, status post mitral valve repair and tricuspid valve repair. Patient has been under the care of Dr. Marroquin and recently taken off Sinemet on a tapering dose and started on Exelon 4.6 patch. Daughter is at bedside and states she has had falls 1-2 times per day with worsening falls and more frequency. She has balance issues possibly related to medication changes. She was seen on December 29 after a fall and had laceration repair with lianna to the right frontoparietal area. Kayley norton presented to the emergency room on January 03 again with a fall and laceration repair. Patient presented on the third time following a fall with third laceration repair. Patient's vital signs were stable. CAT scan of the brain and cervical spine revealed no acute fracture-dislocation of the cervical spine. No acute intracranial hemorrhage, mass effect or midline shift seen. Right frontal and left posterior scalp cutaneous lianna with mild left posterior scalp hematoma. Patient admitted [facility] floor. She will be started back on Sinemet and off Exelon. 01/05: Patient is feeling much better so far since started on Sinemet patient was seen neurology concur with current diagnosis, her encephalopathy had settled some but found to have UTI will be started on Rocephin for now. Patient was started on physical therapy and highly recommended for subacute rehab Wednesday. 01/06: Patient is doing much better with physical therapy also balancing gait has improved significantly on Sinemet patient remain on Rocephin for UTI with culture still pending. Her memory and cognitive is much better compared to 2 days ago patient still prepare to go to subacute rehab on Wednesday Objective - Vital Signs Vital signs: Vital Signs Temp 97.6 F 01/07/20 11:48 Pulse 80 01/07/20 11:48 Resp 17 01/07/20 11:48 BP 116/76 01/07/20 11:48 Pulse Ox 97 01/07/20 11:48 Intake & Output 01/06/20 01/07/20 01/07/20 18:59 06:59 18:59 Intake Total 240 480 Balance 240 480 Intake: Oral 240 480 Other: Voiding Method Toilet Toilet # Voids 4 2 3 - Exam REVIEW OF SYSTEMS Constitutional: No fever, no chills, no night sweats. No weight change. No weakness, fatigue or lethargy. No daytime sleepiness. EENT: No headache. No blurred vision or double vision, no loss of vision. No loss of Hearing, no ringing in the ears, no dizziness. No nasal drainage or congestion. No epistaxis. No sore throat. Lungs: No shortness of breath, cough, no sputum production. No wheezing. Cardiovascular: No chest pain, no lower extremity edema. No palpitations. No paroxysmal nocturnal dyspnea. No orthopnea. No lightheadedness or dizziness. No syncopal episodes. Abdominal: No abdominal pain. No nausea, vomiting. No diarrhea. No constipation. No bloody or tarry stools.. No loss of appetite. Genitourinary: No dysuria, increased frequency, urgency. No urinary retention. Musculoskeletal: No myalgias. No muscle weakness, no gait dysfunction, no frequent falls. No back pain. No neck pain. Integumentary: No wounds, no lesions. No rash or pruritus. No unusual bruising. No change in hair or nails. Neurologic: No aphasia. No facial droop. No change in mentation. No head injury. No headache. No paralysis. No paresthesia. Psychiatric: No depression. No anxiety. No mood swings. Endocrine: No abnormal blood sugars. No weight change. No excessive sweating or thirst. No cold intolerance. PHYSICAL EXAMINATION Gen: This is a 79-year-old female. She is sitting up in the stretcher in the ER and appears to be in no acute distress. HEENT: Head has 3 lacerations one on the left parietal area of 3 inches, one on the occipital region of 2 inches and one on the right parietal region of 3 inches. Please see nursing documentation for measurements. Normocephalic. Pupils equal, round. Sclerae is anicteric. NECK: Supple. No JVD. No lymphadenopathy. No thyromegaly. LUNGS: Clear to auscultation. No wheezes or rhonchi. No intercostal retractions. HEART: Regular rate and rhythm. No murmur. ABDOMEN: Soft. Bowel sounds are present. No masses. No tenderness. EXTREMITIES: No pedal edema. No calf tenderness. Dorsalis pedis palpable bilaterally. NEUROLOGICAL: Patient is awake, alert and oriented x3. Cranial nerves 2 through 12 are grossly intact. Mild tremor noted. Speech is slow and deliberate. - Labs CBC & Chem 7: 01/07/20 06:47 01/07/20 06:47 Labs: Abnormal Lab Results - Last 24 Hours (Table) 01/07/20 01/07/20 Range/Units 06:47 06:47 RBC 3.58 L (3.80-5.40) m/uL MCV 104.6 H (80.0-100.0) fL BUN/Creatinine Ratio 25.00 H (12.00-20.00) Ratio Assessment and Plan Assessment: 1. Frequent falls with metabolic encephalopathy and concussion. Consult with neurology. Also beside the head concussion patient found to have urinary tract infection which probably contributing betime to the encephalopathy this point, her multiple falls was most likely caused by the proper stop of her Sinemet causing her balance and gait to be off been on medication has improved her symptoms significantly. Despite the mild head concussion patient is doing much better with encephalopathy today her memory and cognitive is more clear compared to yesterday. 2. Parkinson with worsening balance and falls with recent transition off Sinemet and started on Exelon patch. Patient will be resumed on Sinemet 25/100 one half tablet twice daily. Patient follows with Dr. Marroquin in the outpatient setting. 3. Mild dementia. Patient has been on Aricept in the past. Was placed on Exelon patch recently with Dr. Marroquin with more side effect patient cognitive is much better so far last 24 hours. 4. Hypertension. Continue Lopressor 12.5 mg twice daily. 5. Valvular heart disease status post mitral valve repair and tricuspid valve repair, stable. 6. Hyperlipidemia. Continue Lipitor 40 mg at bedtime. 7. Diabetes mellitus type 2, insulin requiring. Continue Levemir 5 units at bedtime and NovoLog scale before meals and at bedtime. 8. Status post pacemaker for third-degree heart block. 9. GERD and GI prophylaxis. Continue Protonix. 10. Recurrent depression. Continue Remeron 15 mg at bedtime. 11. History of breast cancer status post lumpectomy and radiation therapy. 12. Glaucoma. Continue eyedrops. 13 urinary tract infection: Patient UA was positive awaiting for culture will continue Rocephin 1 g daily patient be continued on oral antibiotic for 7 days. 14 discharge plan: The patient does well with PTOT patient will be highly recommended for subacute rehab for Wednesday.
[2020-01-07 13:26] LABS: Hemoglobin A1C 5.3 % (4.0-6.0)
[2020-01-07] MEDS: ATORVASTATIN 40 MG TAB PO SCH (20:31)
[2020-01-07] MEDS: LATANOPROST 0.005% OPHTH DROPS 2.5 ML BTL BOTH EYES SCH (20:32)
[2020-01-07] MEDS: MIRTAZAPINE 15 MG TAB PO SCH (20:32)
[2020-01-07 21:07] VITALS: PULSE 84; RESP 16
[2020-01-08 05:30] VITALS: BP 116/71; TEMP 97.7
[2020-01-08] MEDS: PANTOPRAZOLE 40 MG TABLET PO SCH (06:00)
--- NOTE | 2020-01-08 07:51 | P.DS ---
Providers Date of admission: 01/05/20 09:45 Expected date of discharge: 01/08/20 Attending physician: Sunny Monteiro Consults: 01/05/20 14:03 Consult Physician Routine Consulting Provider: Chetan Bragg Consult Reason/Comments: falls, Parkinson's, concussion Do you want consulting provider notified?: Yes Primary care physician: [facility] Hospital Course: This is a 79-year-old female patient of Dr. Monteiro with past medical history of breast cancer in 2002 status post lumpectomy and radiation therapy, mild dementia, Parkinson's, hypertension, osteoarthritis, glaucoma, status post mitral valve repair and tricuspid valve repair. Patient has been under the care of Dr. Marroquin and recently taken off Sinemet on a tapering dose and started on Exelon 4.6 patch. Daughter is at bedside and states she has had falls 1-2 times per day with worsening falls and more frequency. She has balance issues possibly related to medication changes. She was seen on December 29 after a fall and had laceration repair with lianna to the right frontoparietal area. Patient presented to the emergency room on January 03 again with a fall and laceration repair. Patient presented on the third time following a fall with third laceration repair. Patient's vital signs were stable. CAT scan of the brain and cervical spine revealed no acute fracture-dislocation of the cervical spine. No acute intracranial hemorrhage, mass effect or midline shift seen. Right frontal and left posterior scalp cutaneous lianna with mild left posterior scalp hematoma. Patient admitted to the [facility] floor. She will be started back on Sinemet and off Exelon. 01/05: Patient is feeling much better so far since started on Sinemet patient was seen neurology concur with current diagnosis, her encephalopathy had settled some but found to have UTI will be started on Rocephin for now. Patient was started on physical therapy and highly recommended for subacute rehab Wednesday. 01/06: Patient is doing much better with physical therapy also balancing gait has improved significantly on Sinemet patient remain on Rocephin for UTI with culture still pending. Her memory and cognitive is much better compared to 2 da ys ago patient still prepare to go to subacute rehab on Sunday 01/07: Patient states that she has had improvement of her symptoms. Weakness is slightly improved. She has been on Sinemet since admission. She is undergoing treatment for urinary tract infection and we'll continue 4 more days of Ceftin. She has been afebrile, heart rate 84, blood pressure 116/71, pulse ox 96% on room air. Discharge Diagnoses: 1. Frequent falls with metabolic encephalopathy and concussion. 2. Parkinson with worsening balance and falls with recent transition off Sinemet and started on Exelon patch. 3. Mild dementia. 4. Hypertension. 5. Valvular heart disease status post mitral valve repair and tricuspid valve repair, stable. 6. Hyperlipidemia. 7. Diabetes mellitus type 2, insulin requiring. 8. Status post pacemaker for third-degree heart block. 9. GERD. 10. Recurrent depression. 11. History of breast cancer status post lumpectomy and radiation therapy. 12. Glaucoma. 13 urinary tract infection Discharge plan: [place].COVID-19 not detected. Impression and plan of care have been directed as dictated by the signing physician. Noris Gonzales nurse practitioner acting as scribe for signing physician. Patient Condition at Discharge: Good Plan - Discharge Summary Discharge Rx Participant: No New Discharge Prescriptions: New Carbidopa-Levodopa 25-100 mg [Sinemet 25-100 mg] 0.5 each PO TID tab Cefuroxime [Ceftin] 250 mg PO BID 4 Days #8 tab Continue Calcium Carbonate/Vitamin D3 [Calcium 600-Vit D3 800 Caplet] 1 tab PO DAILY Zinc 25 mg PO DAILY Ascorbic Acid [Vitamin C] 1,000 mg PO DAILY Multivit-Min/FA/Lycopen/Lutein [Centrum Silver Tablet] 1 tab PO DAILY Lysine HCl [l-Lysine] 1,000 mg PO DAILY Brimonidine Tartrate/Timolol [Combigan 0.2%-0.5% Eye Drops] 1 drop BOTH EYES BID Latanoprost Ophth [Xalatan 0.005%] 1 drops BOTH EYES HS Mirtazapine [Remeron] 15 mg PO HS tab Atorvastatin [Lipitor] 40 mg PO HS Magnesium Oxide [Mag-Ox] 250 mg PO DAILY Metoprolol Tartrate [Lopressor] 12.5 mg PO BID Raloxifene [Evista] 60 mg PO DAILY Aspirin EC [Ecotrin Low Dose] 81 mg PO DAILY Psyllium Husk [Metamucil] 0.4 gm PO DAILY Discontinued Rivastigmine 4.6MG/24Hr Patch [Exelon 4.6MG/24Hr Patch] 1 patch TRANSDERM DAILY Discharge Medication List Ascorbic Acid [Vitamin C] 1,000 mg PO DAILY 12/14/18 [History] Calcium Carbonate/Vitamin D3 [Calcium 600-Vit D3 800 Caplet] 1 tab PO DAILY 12/14/18 [History] Lysine HCl [l-Lysine] 1,000 mg PO DAILY 12/14/18 [History] Multivit-Min/FA/Lycopen/Lutein [Centrum Silver Tablet] 1 tab PO DAILY 12/14/18 [History] Zinc 25 mg PO DAILY 12/14/18 [History] Brimonidine Tartrate/Timolol [Combigan 0.2%-0.5% Eye Drops] 1 drop BOTH EYES BID 01/07/19 [History] Latanoprost Ophth [Xalatan 0.005%] 1 drops BOTH EYES HS 01/23/19 [History] Mirtazapine [Remeron] 15 mg PO HS tab 02/02/19 [Rx] Atorvastatin [Lipitor] 40 mg PO HS 02/15/19 [History] Magnesium Oxide [Mag-Ox] 250 mg PO DAILY 02/15/19 [History] Metoprolol Tartrate [Lopressor] 12.5 mg PO BID 02/15/19 [History] Raloxifene [Evista] 60 mg PO DAILY 02/15/19 [History] Aspirin EC [Ecotrin Low Dose] 81 mg PO DAILY 01/05/20 [History] Psyllium Husk [Metamucil] 0.4 gm PO DAILY 01/05/20 [History] Carbidopa-Levodopa 25-100 mg [Sinemet 25-100 mg] 0.5 each PO TID tab 01/08/20 [Rx] Cefuroxime [Ceftin] 250 mg PO BID 4 Days #8 tab 01/08/20 [Rx] Follow up Appointment(s)/Referral(s): Sunny Monteiro MD [Primary Care Provider] - 1 Week (at [facility]) Mickey Marroquin DO [Family Provider] - 2 Weeks Discharge Disposition: TRANSFER TO SNF/F
[2020-01-08] MEDS: METOPROLOL TARTRATE 12.5 MG TAB PO SCH (08:17)
[2020-01-08] MEDS: ASPIRIN 81 MG PO SCH (08:17)
[2020-01-08] MEDS: BRIMONIDINE TARTRATE 0.2% DROPS 5 ML BTL BOTH EYES SCH (08:18)
[2020-01-08] MEDS: TIMOLOL 0.5% OPHTH DROPS 5 ML BTL BOTH EYES SCH (08:18)
[2020-01-08] MEDS: CARBIDOPA-LEVODOPA 25-100 MG 1 EACH TAB PO SCH (08:19)
[2020-01-08] MEDS: HEPARIN SODIUM,PORCINE 5,000 UNIT/ML 1 ML VIAL SQ SCH (08:20)
[2020-01-08] MEDS: PSYLLIUM HUSK 100% 6 GM PACKET PO SCH (08:20)
[2020-01-08] MEDS: RALOXIFENE 60 MG TAB PO SCH (08:20)
[2020-01-08] MEDS: MAGNESIUM OXIDE 400 MG TAB PO SCH (08:37)
== END 2020-01-08 13:10 | DRG 88 ==
LOC: EC 09:09 → 6NMEDSUR 09:45
PROVIDERS: ADMIT Internal Medicine Geriatric Medicine; ATTEND Internal Medicine Geriatric Medicine
PROC: 0HQ0XZZ Repair Scalp Skin, External Approach (ICD-10-PCS; principal; 2020-01-05)
DX: S06.0X9A Concussion with loss of consciousness of unspecified duration, initial encounter (principal); G93.41 Metabolic encephalopathy; I44.2 Atrioventricular block, complete; F33.9 Major depressive disorder, recurrent, unspecified; N39.0 Urinary tract infection, site not specified; Z20.828 Contact with and (suspected) exposure to other viral communicable diseases; G20 Parkinson's disease; F02.80 Dementia in other diseases classified elsewhere, unspecified severity, without behavioral disturbance, psychotic disturbance, mood disturbance, and anxiety; E11.9 Type 2 diabetes mellitus without complications; H91.90 Unspecified hearing loss, unspecified ear; Z79.4 Long term (current) use of insulin; I10 Essential (primary) hypertension; H40.9 Unspecified glaucoma; R29.6 Repeated falls; I34.0 Nonrheumatic mitral (valve) insufficiency; S01.01XA Laceration without foreign body of scalp, initial encounter; M19.90 Unspecified osteoarthritis, unspecified site; E78.5 Hyperlipidemia, unspecified; K21.9 Gastro-esophageal reflux disease without esophagitis; R27.0 Ataxia, unspecified; W18.30XA Fall on same level, unspecified, initial encounter; Z79.82 Long term (current) use of aspirin; Z79.899 Other long term (current) drug therapy; Z85.3 Personal history of malignant neoplasm of breast; Z97.4 Presence of external hearing-aid; Z87.19 Personal history of other diseases of the digestive system; Z95.0 Presence of cardiac pacemaker; Z87.81 Personal history of (healed) traumatic fracture; Z98.42 Cataract extraction status, left eye; Z98.41 Cataract extraction status, right eye; Z98.890 Other specified postprocedural states; Z92.3 Personal history of irradiation; Z87.828 Personal history of other (healed) physical injury and trauma; Z88.0 Allergy status to penicillin; Z82.3 Family history of stroke; Z80.3 Family history of malignant neoplasm of breast
CPT/HCPCS: 12001; 70450; 72125; 80053; 81001; 83036; 83735; 85025; 87635; 99285

== ENCOUNTER 2020-04-14 08:27 | Emergency (ER) | payer MEDICARE ==
[2020-04-14] MEDS ORDERED: ACETAMINOPHEN TAB 325 MG TAB PO STA (08:36)
[2020-04-14 08:37] VITALS: RESP 18; TEMP 98
--- NOTE | 2020-04-14 08:54 | ED ---
Back Pain HPI <Chao De León - Last Filed: 04/14/20 09:31> - General Source: patient, EMS Limitations: no limitations <Bhumi Dowling - Last Filed: 04/14/20 09:36> - General Chief Complaint: Back Pain/Injury Stated Complaint: Fall, Back Injury Time Seen by Provider: 04/14/20 08:49 - History of Present Illness Initial Comments: Patient is a 79-year-old female, with history of Parkinson's, mild dementia, presenting to the emergency department via EMS from her assisted living facility with complaints of low back pain. One of patient's caregivers is here to help with history. Patient only walks with a walker, she was using her walker yesterday when she lost her footing and fell down landing mostly on her behind. Patient states she is having low back pain yesterday and it continued today. Wood Tool Maker said she is still walking with her walker and appears to be walking as she normally does. Patient did not hit her head, she has no neck pain, no chest pain. She has no pain in her lower extremities. She has no other pain from this fall. Patient denies history of previous low back injuries or surgeries. She denies any numbness and tingling into her extremities, no saddle paresthesias. She has no further complaints. Upon arrival to the ER her vitals are stable. (Bhumi Dowling) - Related Data Home Medications Medication Instructions Recorded Confirmed Calcium Carbonate/Vitamin D3 1 tab PO DAILY@1700 12/14/18 04/14/20 [Calcium 600-Vit D3 20 Mcg (800 Iu)] Lysine HCl [l-Lysine] 1,000 mg PO DAILY@1700 12/14/18 04/14/20 Multivit-Min/FA/Lycopen/Lutein 1 tab PO DAILY@1700 12/14/18 04/14/20 [Centrum Silver Tablet] Brimonidine Tartrate/Timolol 1 drop BOTH EYES BID@08,199901/07/19 04/14/20 [Combigan 0.2%-0.5% Eye Drops] Latanoprost Ophth [Xalatan 0.005%] 1 drops BOTH EYES HS@199901/23/19 04/14/20 Atorvastatin [Lipitor] 40 mg PO HS@199902/15/19 04/14/20 Magnesium Oxide [Mag-Ox] 250 mg PO DAILY@1700 02/15/19 04/14/20 Raloxifene [Evista] 60 mg PO DAILY@0800 02/15/19 04/14/20 Aspirin EC [Ecotrin Low Dose] 81 mg PO DAILY@1700 01/05/20 04/14/20 Albuterol Sulfate [Ventolin HFA] 2 puff INHALATION RT-Q4H PRN 04/14/20 04/14/20 Carbidopa-Levodopa 25-100 mg 1 tab PO TID@0800,1200,1700 04/14/20 04/14/20 [Sinemet 25-100 mg] Cholecalciferol [Vitamin D3 (25 25 mcg PO DAILY@169904/14/20 04/14/20 Mcg = 1000 Iu)] Clindamycin HCl 600 mg PO DAILY PRN 04/14/20 04/14/20 Metoprolol Tartrate [Lopressor] 12.5 mg PO BID@0800,1700 04/14/20 04/14/20 Midodrine [ProAmatine] 5 mg PO Q8H PRN 04/14/20 04/14/20 Mirtazapine [Remeron] 15 mg PO HS@199904/14/20 04/14/20 Psyllium Husk (with Sugar) 5 ml PO DAILY@0800 04/14/20 04/14/20 [Metamucil Powder] Allergies Allergy/AdvReac Type Severity Reaction Status Date / Time Penicillins Allergy Unknown Verified 04/14/20 09:19 Childhood Review of Systems ROS Other: All systems not noted in ROS Statement are negative. <Chao De León - Last Filed: 04/14/20 09:31> ROS Other: All systems not noted in ROS Statement are negative. <Bhumi Dowling - Last Filed: 04/14/20 09:36> ROS Statement: Those systems with pertinent positive or pertinent negative responses have been documented in the HPI. Past Medical History Past Medical History: Cancer, Dementia, Eye Disorder, Hearing Disorder / Deafness, Hypertension, Liver Disease, Memory Impairment, Musculoskeletal Disorder, Syncope Additional Past Medical History / Comment(s): Hx heart murmur; Breast CA 2001; Hep A 1970's. Glaucoma. Wears hearing aids. "Recent EKG changes, Echo shows severe MV regurg," per daughter. Recent falls, has fx lt clavicle, parkinson's disease History of Any Multi-Drug Resistant Organisms: None Reported Past Surgical History: Breast Surgery, Section, Pacemaker Additional Past Surgical History / Comment(s): left breast Lumpectomy. Cataracts. Mitral valve repair and tricuspid valve repair 01/25/2019. Past Anesthesia/Blood Transfusion Reactions: No Reported Reaction Type of Cardiac Device: Permanent Pacemaker Device Placement Date:: 12/2018 Past Psychological History: No Psychological Hx Reported Smoking Status: Never smoker Past Alcohol Use History: None Reported, Rare Past Drug Use History: None Reported - Past Family History Mother Family Medical History: Cancer Additional Family Medical History / Comment(s): . Mother at age 90. Possible breast CA Father Additional Family Medical History / Comment(s): Father at age 90 from old age. Brother(s) Additional Family Medical History / Comment(s): Patient has 1 brother with no known medical problems. Patient does not have any sisters. Patient has 2 daughters with no major medical problems. <Bhumi Dowling - Last Filed: 04/14/20 09:36> General Exam Limitations: no limitations <Bhumi Dowling - Last Filed: 04/14/20 09:36> - General Exam Comments Initial Comments: GENERAL: Patient is well-developed and well-nourished. Patient is nontoxic and in no acute distress. HEAD: Atraumatic, normocephalic. EYES: Pupils equal round and reactive to light, extraocular movements intact, sclera anicteric, conjunctiva are normal. Eyelids were unremarkable. ENT: TMs normal, nares patent, oropharynx clear without exudates. Moist mucous membranes. NECK: Normal range of motion, supple without lymphadenopathy or JVD. LUNGS: Unlabored respirations. Breath sounds clear to auscultation bilaterally and equal. No wheezes rales or rhonchi. HEART: Regular rate and rhythm without murmurs, rubs or gallops. ABDOMEN: Soft, nontender, normoactive bowel sounds. No guarding, no rebound. No masses appreciated. : Deferred MUSCULOSKELETAL: Normal extremities with adequate strength and normal range of motion, no pitting or edema. No clubbing or cyanosis. No pain with palpation of the lumbar spine, lumbar paraspinals, no pain into the sciatic area bilaterally. NEUROLOGICAL: Patient is alert and oriented x 2, at baseline. Motor and sensory are also intact. Cranial nerves II through XII grossly intact. Symmetrical smile. Normal speech, normal gait. PSYCH: Normal mood, normal affect. SKIN: Warm, Dry, normal turgor, no rashes or lesions noted. (hBumi Dowling) Course <Chao De León - Last Filed: 04/14/20 09:31> Vital Signs 04/14/20 04/14/20 08:29 09:17 Temperature 98.0 F 98.0 F Pulse Rate 77 77 Respiratory 18 18 Rate Blood Pressure 157/85 157/85 O2 Sat by Pulse 98 97 Oximetry - Reevaluation(s) Reevaluation #1: 04/14/20 09:32 E supervision: I did proceed evaluate his patient [id number] she did present with complaints of low back pain after fall yesterday while using her walker she does suffer from dementia and is not a good historian. Exam is within normal limits at this time. X-ray show no acute findings. Patient will be discharged I did discuss the findings with the caregiver that was present. (Chao De León) Medical Decision Making <Bhumi Dowling - Last Filed: 04/14/20 09:36> - Medical Decision Making Patient is a 79-year-old female with history of Parkinson's, dementia, presenting after she fell yesterday on her behind. She is complaining of low back pain. She normally walks with a walker, she is walking as normal today. No acute neuro deficits, no signs of cardiac cranial. Rest of her exam is unremarkable. She did not hit her head, she is not on blood thinners. X-rays of the low back showed no acute fracture dislocation. Patient was given Tylenol and states she is feeling better. Discussed with patient this is most likely a contusion or strain of the muscles. She may continue with Tylenol as needed for any discomfort. Or heat to the area can also help. Patient is stable for discharge. Patient and caregiver is in agreement with this plan of care. Return parameters were discussed with the patient and they verbalized understanding. Case discussed with Dr. De León. (Bhumi Dowling) Disposition <Chao De León - Last Filed: 04/14/20 09:31> Is patient prescribed a controlled substance at d/c from ED?: No <JoseyBhumi Rufina - Last Filed: 04/14/20 09:36> Clinical Impression: Fall, Low back pain Disposition: HOME SELF-CARE Condition: Stable Instructions (If sedation given, give patient instructions): Acute Low Back Pain (ED) Additional Instructions: Please return to the Emergency Department if symptoms worsen or any other concerns. Recommend Tylenol for any discomfort. May also try heat or ice to the area. Follow-up with PCP. Referrals: Sunny Monteiro MD [Primary Care Provider] - 1-2 days
--- NOTE | 2020-04-14 09:16 | XR ---
EXAM TYPE: LUMBAR SPINE X RAY SERIES COMPARISON: NONE HISTORY: Pain TECHNIQUE: 4 views are submitted. FINDINGS: Diffuse osteopenia. Hypertrophic and degenerative changes of the spine. Minimal endplate deformity L2 and L1 indeterminate age. Pedicles intact. Multilevel degenerative disc disease and facet arthropath y. IMPRESSION: 1. Diffuse osteopenia with minimal endplate deformities of L2 L1 which could be chronic correlate cli nically.
[2020-04-14 10:50] VITALS: BP 158/72; PULSE 78
== END 2020-04-14 10:50 | disposition home or self-care (01) ==
LOC: EC 08:27
DX: M54.5 Low back pain (principal); I10 Essential (primary) hypertension; G20 Parkinson's disease; F02.80 Dementia in other diseases classified elsewhere, unspecified severity, without behavioral disturbance, psychotic disturbance, mood disturbance, and anxiety; Z79.899 Other long term (current) drug therapy; Z88.0 Allergy status to penicillin; Z95.0 Presence of cardiac pacemaker; Z98.42 Cataract extraction status, left eye; Z85.3 Personal history of malignant neoplasm of breast; Z98.41 Cataract extraction status, right eye; W18.30XA Fall on same level, unspecified, initial encounter; Y93.01 Activity, walking, marching and hiking; Y92.099 Unspecified place in other non-institutional residence as the place of occurrence of the external cause
CPT/HCPCS: 72100; 99283

== ENCOUNTER 2020-06-07 12:31 | Emergency (ER) | payer MEDICARE ==
[2020-06-07 13:09] VITALS: BP 100/68; PULSE 79; RESP 20; TEMP 98.2
--- NOTE | 2020-06-07 13:09 | ED ---
General Adult HPI - General Source: patient, EMS, Caregiver Mode of arrival: EMS Limitations: altered mental status <Russell Ahn - Last Filed: 06/07/20 13:05> <Ania Salmeron - Last Filed: 06/07/20 17:07> - General Stated complaint: Fall Time Seen by Provider: 06/07/20 13:02 - History of Present Illness Initial comments: 79-year-old female presents emergency department via EMS chief complaint of a fall. Patient has frequent falls. Patient went to put her plate on her walker and states that she fell in the plate struck her face. Patient lost consciousness. Patient has left eyebrow laceration. Her tetanus is up-to-date per staff Patient comes from [facility]. Patient denies any neck pain patient also fall couple days ago injuring her right hand which there is noted swelling and bruising. No x-ray has been performed. (Russell Ahn) - Related Data Home Medications Medication Instructions Recorded Confirmed Calcium Carbonate/Vitamin D3 1 tab PO DAILY@169912/14/18 04/14/20 [Calcium 600-Vit D3 20 Mcg (800 Iu)] Lysine HCl [l-Lysine] 1,000 mg PO DAILY@169912/14/18 04/14/20 Multivit-Min/FA/Lycopen/Lutein 1 tab PO DAILY@169912/14/18 04/14/20 [Centrum Silver Tablet] Brimonidine Tartrate/Timolol 1 drop BOTH EYES BID@0800,199901/07/19 04/14/20 [Combigan 0.2%-0.5% Eye Drops] Latanoprost Ophth [Xalatan 0.005%] 1 drops BOTH EYES HS@199901/23/19 04/14/20 Atorvastatin [Lipitor] 40 mg PO HS@199902/15/19 04/14/20 Magnesium Oxide [Mag-Ox] 250 mg PO DAILY@169902/15/19 04/14/20 Raloxifene [Evista] 60 mg PO DAILY@0802/15/19 04/14/20 Aspirin EC [Ecotrin Low Dose] 81 mg PO DAILY@169901/05/20 04/14/20 Albuterol Sulfate [Ventolin HFA] 2 puff INHALATION RT-Q4H PRN 04/14/20 04/14/20 Carbidopa-Levodopa 25-100 mg 1 tab PO TID@0800,1200,1700 04/14/20 04/14/20 [Sinemet 25-100 mg] Cholecalciferol [Vitamin D3 (25 25 mcg PO DAILY@1700 04/14/20 04/14/20 Mcg = 1000 Iu)] Clindamycin HCl 600 mg PO DAILY PRN 04/14/20 04/14/20 Metoprolol Tartrate [Lopressor] 12.5 mg PO BID@0800,1700 04/14/20 04/14/20 Midodrine [ProAmatine] 5 mg PO Q8H PRN 04/14/20 04/14/20 Mirtazapine [Remeron] 15 mg PO HS@199904/14/20 04/14/20 Psyllium Husk (with Sugar) 5 ml PO DAILY@0800 04/14/20 04/14/20 [Metamucil Powder] Allergies Allergy/AdvReac Type Severity Reaction Status Date / Time Penicillins Allergy Unknown Verified 06/07/20 13:08 Childhood Review of Systems ROS Other: All systems not noted in ROS Statement are negative. <Russell Ahn - Last Filed: 06/07/20 13:05> ROS Other: All systems not noted in ROS Statement are negative. <Ania Salmeron - Last Filed: 06/07/20 17:07> ROS Statement: Those systems with pertinent positive or pertinent negative responses have been documented in the HPI. Past Medical History Past Medical History: Cancer, Dementia, Eye Disorder, Hearing Disorder / Deafness, Hypertension, Liver Disease, Memory Impairment, Musculoskeletal Disorder, Syncope Additional Past Medical History / Comment(s): Hx heart murmur; Breast CA 2001; Hep A 1970's. Glaucoma. Wears hearing aids. "Recent EKG changes, Echo shows severe MV regurg," per daughter. Recent falls, has fx lt clavicle, parkinson's disease History of Any Multi-Drug Resistant Organisms: None Reported Past Surgical History: Breast Surgery, Section, Pacemaker Additional Past Surgical History / Comment(s): left breast Lumpectomy. Cataracts. Mitral valve repair and tricuspid valve repair 01/25/2019. Past Anesthesia/Blood Transfusion Reactions: No Reported Reaction Type of Cardiac Device: Permanent Pacemaker Device Placement Date:: 12/2018 Past Psychological History: No Psychological Hx Reported Smoking Status: Never smoker Past Alcohol Use History: None Reported, Rare Past Drug Use History: None Reported - Past Family History Mother Family Medical History: Cancer Additional Family Medical History / Comment(s): . Mother at age 90. Possible breast CA Father Additional Family Medical History / Comment(s): Father at age 90 from old age. Brother(s) Additional Family Medical History / Comment(s): Patient has 1 brother with no known medical problems. Patient does not have any sisters. Patient has 2 daughters with no major medical problems. <Russell Ahn - Last Filed: 06/07/20 13:05> General Exam Limitations: altered mental status General appearance: alert, in no apparent distress Head exam: Present: atraumatic, normocephalic, normal inspection Eye exam: Present: PERRL, EOMI. Absent: normal appearance (Left periorbital laceration), scleral icterus, conjunctival injection, periorbital swelling ENT exam: Present: normal oropharynx, mucous membranes moist Neck exam: Present: normal inspection, full ROM. Absent: tenderness, meningismus, lymphadenopathy Respiratory exam: Present: normal lung sounds bilaterally. Absent: respiratory distress, wheezes, rales, rhonchi, stridor Cardiovascular Exam: Present: regular rate, normal rhythm, normal heart sounds. Absent: systolic murmur, diastolic murmur, rubs, gallop, clicks Extremities exam: Present: other (Right hand swelling, ecchymosis noted) Neurological exam: Present: alert Skin exam: Present: warm, dry, intact, normal color. Absent: rash <Russell Ahn M - Last Filed: 06/07/20 13:05> Course Vital Signs 06/07/20 13:04 Temperature 98.2 F Pulse Rate 79 Respiratory 20 Rate Blood Pressure 100/68 O2 Sat by Pulse 100 Oximetry Procedures - Laceration Laceration #1 Consent Obtained: verbal consent Indication: laceration Site: face (left eyebrow horizontal orientation) Size (cm): 3 Description: linear Depth: simple, single layer Anesthetic Used: lidocaine 1% Anesthesia Technique: local infiltration Amount (mls): 1 Pre-repair: wound explored, irrigated extensively, deep structures intact Type of Sutures: nylon Size of Sutures: 6-0 Number of Sutures: 5 Technique: simple, interrupted Patient Tolerated Procedure: well, no complications - Orthopedic Splinting/Casting Injury #1 Side: right Upper Extremity Injury Location: hand Upper Extremity Immobilizer: volar splint, Serjio wrap, synthetic pre-padded splint <Ania Salmeron L - Last Filed: 06/07/20 17:07> Medical Decision Making <Ania Salmeron L - Last Filed: 06/07/20 17:07> - Medical Decision Making 79-year-old female presenting for trip and fall. Patient tended to walk without her walker and fell striking her left-sided forehead. Denies extremity pain, back neck pain, headaches, nausea, vomiting, vision changes. pt statse she fell 3 days ago and has hand bruising minimal pain. denies syncope, chest pain, dyspnea. patient appears well nontoxic. General: The patient is awake and alert, in no distress, and does not appear acutely ill. Eye: +3 mm pupils are equal, round and reactive to light, extra-ocular movements are intact. No nystagmus. There is normal conjunctiva bilaterally. No signs of icterus. Ears, nose, mouth and throat: There are moist mucous membranes and no oral lesions. No raccoon or Torres sign Neck: The neck is supple, there is no tenderness or JVD. Cardiovascular: There is a regular rate and rhythm. No murmur, rub or gallop is appreciated. Respiratory: Lungs are clear to auscultation, respirations are non-labored, breath sounds are equal. No wheezes, stridor, rales, or rhonchi. Gastrointestinal: Soft, non-distended, non-tender abdomen without masses or organomegaly noted. There is no rebound or guarding present. Musculoskeletal: bruising of the right hand. Normal ROM, no tenderness. Strength 5/5. Sensation intact. Radial pulses equal bilaterally 2+. Neurological: A&O x 3. CN II-XII intact, There are no obvious motor or sensory deficits. Coordination appears grossly intact. Speech is normal. Skin: Skin is warm and dry and no rashes. 3 cm laceration horizontally oriented through the left eyebrow. No significant hematoma Psychiatric: Cooperative, appropriate mood & affect, normal judgment. Pt had laceration repair. imaging questionable third proximal phalanx fracture, otherwise mostly chronic findings/arthritis. patient CT brain c-spine (-). Patient splinted. discharged appearing wel. Attending agreeable to care plan. (Ania Salmeron) Disposition <Russell Ahn - Last Filed: 06/07/20 13:05> Is patient prescribed a controlled substance at d/c from ED?: No Time of Disposition: 15:27 <Ania Salmeron - Last Filed: 06/07/20 17:07> Clinical Impression: Fall, Eyebrow laceration, Fracture of phalanx of right middle finger, Right hand pain, Head injury Disposition: HOME SELF-CARE Condition: Good Additional Instructions: Please use medication as discussed. Please follow-up with family doctor in the next 2 days. Please follow-up wiht orthopedic surgery in next 2-3 days. keep splint in place. Please return to emergency room if the symptoms increase or worsen or for any other concerns. Referrals: Sunny Monteiro MD [Primary Care Provider] - 1-2 days Kelsi Corral DO [Doctor of Osteopathic Medicine] - 1-2 days
--- NOTE | 2020-06-07 13:55 | XR ---
EXAMINATION TYPE: XR hand complete RT DATE OF EXAM: 06/07/2020 COMPARISON: NONE HISTORY: Pain TECHNIQUE: Three views are submitted. FINDINGS: The osseous structures are intact. Diffuse osteopenia. Narrowing of the radiocarpal joint and all DIP joints, PIP and MCP joints most marked involving the DIP joints of the second through fifth digits. Third DIP joint suggest possible erosive osteoarthritis. Deformity involving the base proximal phalan x third digit. IMPRESSION: 1. 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 2. Subtle deformity involving the base proximal phalanx third digit. Correlate with point tenderness to exclude subtle hairline fracture.
--- NOTE | 2020-06-07 14:13 | CT ---
EXAMINATION TYPE: CT brain patti wo con DATE OF EXAM: 06/07/2020 COMPARISON: 01/05/2020 HISTORY: Fall CT DLP: 1307.7 mGycm, Automated exposure control for dose reduction was used. CONTRAST: None CT of the brain is performed utilizing 3 mm thick sections through the posterior fossa and 3 mm thick sections through the remaining calvarium. Study is performed within 24 hours of arrival to the hospital. No abnormal hyperdensity is present to suggest an acute intracranial hemorrhage. No mass lesion is evident. No acute infarcts are evident. Ventricles and sulci are prominent for the patient age. Paranasal sinuses and mastoid air cells within the [id number] are clear. IMPRESSIONS: 1. Atrophy CT cervical spine. COMPARISON: None CT of the cervical spine is performed in the axial plane at 2 mm thick sections. Reconstructed image s in the coronal, and sagittal plane are reviewed on the computer. No acute fractures are evident. Vertebral body alignment is some mild kyphosis in the lower cervical spine Disc space narrowing is present C4-5 C5-6 C6-7 Vertebral body heights are preserved. No spinal canal stenosis is evident. C3-4 left facet hypertrophy is present. There is some mild foraminal narrowing on the left this level . Endplate changes are present at C4-5. Uncovertebral joint hypertrophy is contributing to severe lef t and moderate right foraminal stenosis. Mild left uncovertebral joint hypertrophy at C6-7 is present with mild foraminal narrowing. IMPRESSIONS: 1. Degenerative disc changes and uncovertebral joint hypertrophy discussed above. 2. Mild kyphosis which can be related to patient positioning or muscle spasm. 3. No acute osseous abnormality
[2020-06-07] MEDS ORDERED: LIDOCAINE 1% INJ 10MG/ML (20 ML MDV) SQ ONE (14:29)
== END 2020-06-07 16:10 | disposition home or self-care (01) ==
LOC: EC 12:31
DX: S62.602A Fracture of unspecified phalanx of right middle finger, initial encounter for closed fracture (principal); S01.112A Laceration without foreign body of left eyelid and periocular area, initial encounter; S60.221A Contusion of right hand, initial encounter; I10 Essential (primary) hypertension; H91.90 Unspecified hearing loss, unspecified ear; H40.9 Unspecified glaucoma; Z79.899 Other long term (current) drug therapy; Z79.82 Long term (current) use of aspirin; Z88.0 Allergy status to penicillin; Z85.3 Personal history of malignant neoplasm of breast; W18.09XA Striking against other object with subsequent fall, initial encounter; Y92.009 Unspecified place in unspecified non-institutional (private) residence as the place of occurrence of the external cause
CPT/HCPCS: 73130; 72125; 70450; 99284; 12013; J2001

== ENCOUNTER 2020-08-23 21:57 | Emergency (ER) | payer MEDICARE ==
[2020-08-23 22:03] VITALS: RESP 16; TEMP 97.9
--- NOTE | 2020-08-23 22:28 | ED ---
Fall HPI - General Chief Complaint: Fall Stated Complaint: Fall Time Seen by Provider: 08/23/20 21:59 Source: patient, EMS Mode of arrival: EMS - History of Present Illness Initial Comments: 79-year-old female with history of Parkinson's, dementia presents to the emergency department with a chief complaint of a fall. Patient reports history of frequent falls. States earlier this evening she was putting pins back into her drawer when she had a mechanical fall, fell backwards on her buttocks and also hit her head. She denies any blood thinners. States she has been falling more to usual over the last several weeks. She denies any loss of consciousness at time of incident. She denies any one-sided weakness or paresthesias. She does report some pain at the lesser decided to put her region of her head. She denies any nausea or vomiting. Denies any visual changes chest pain or shortness of breath. - Related Data Home Medications Medication Instructions Recorded Confirmed Calcium Carbonate/Vitamin D3 1 tab PO DAILY@1700 12/14/18 04/14/20 [Calcium 600-Vit D3 20 Mcg (800 Iu)] Lysine HCl [l-Lysine] 1,000 mg PO DAILY@1700 12/14/18 04/14/20 Multivit-Min/FA/Lycopen/Lutein 1 tab PO DAILY@1700 12/14/18 04/14/20 [Centrum Silver Tablet] Brimonidine Tartrate/Timolol 1 drop BOTH EYES BID@0800,199901/07/19 04/14/20 [Combigan 0.2%-0.5% Eye Drops] Latanoprost Ophth [Xalatan 0.005%] 1 drops BOTH EYES HS@199901/23/19 04/14/20 Atorvastatin [Lipitor] 40 mg PO HS@199902/15/19 04/14/20 Magnesium Oxide [Mag-Ox] 250 mg PO DAILY@1700 02/15/19 04/14/20 Raloxifene [Evista] 60 mg PO DAILY@0800 02/15/19 04/14/20 Aspirin EC [Ecotrin Low Dose] 81 mg PO DAILY@1700 01/05/20 04/14/20 Albuterol Sulfate [Ventolin HFA] 2 puff INHALATION RT-Q4H PRN 04/14/20 04/14/20 Carbidopa-Levodopa 25-100 mg 1 tab PO TID@0800,1200,1700 04/14/20 04/14/20 [Sinemet 25-100 mg] Cholecalciferol [Vitamin D3 (25 25 mcg PO DAILY@1700 04/14/20 04/14/20 Mcg = 1000 Iu)] Clindamycin HCl 600 mg PO DAILY PRN 04/14/20 04/14/20 Metoprolol Tartrate [Lopressor] 12.5 mg PO BID@0800,1700 04/14/20 04/14/20 Midodrine [ProAmatine] 5 mg PO Q8H PRN 04/14/20 04/14/20 Mirtazapine [Remeron] 15 mg PO HS@199904/14/20 04/14/20 Psyllium Husk (with Sugar) 5 ml PO DAILY@0800 04/14/20 04/14/20 [Metamucil Powder] Allergies Allergy/AdvReac Type Severity Reaction Status Date / Time Penicillins Allergy Unknown Verified 06/07/20 13:08 Childhood Review of Systems ROS Statement: Those systems with pertinent positive or pertinent negative responses have been documented in the HPI. ROS Other: All systems not noted in ROS Statement are negative. Past Medical History Past Medical History: Cancer, Dementia, Eye Disorder, Hearing Disorder / Deafness, Hypertension, Liver Disease, Memory Impairment, Musculoskeletal Disorder, Syncope Additional Past Medical History / Comment(s): Hx heart murmur; Breast CA 2001; Hep A 1970's. Glaucoma. Wears hearing aids. "Recent EKG changes, Echo shows severe MV regurg," per daughter. Recent falls, has fx lt clavicle, parkinson's disease History of Any Multi-Drug Resistant Organisms: None Reported Past Surgical History: Breast Surgery, Section, Pacemaker Additional Past Surgical History / Comment(s): left breast Lumpectomy. Cataracts. Mitral valve repair and tricuspid valve repair 01/25/2019. Past Anesthesia/Blood Transfusion Reactions: No Reported Reaction Type of Cardiac Device: Permanent Pacemaker Device Placement Date:: 12/2018 Past Psychological History: No Psychological Hx Reported Smoking Status: Never smoker Past Alcohol Use History: None Reported, Rare Past Drug Use History: None Reported - Past Family History Mother Family Medical History: Cancer Additional Family Medical History / Comment(s): . Mother at age 90. Possible breast CA Father Additional Family Medical History / Comment(s): Father at age 90 from old age. Brother(s) Additional Family Medical History / Comment(s): Patient has 1 brother with no known medical problems. Patient does not have any sisters. Patient has 2 daughters with no major medical problems. General Exam Limitations: no limitations General appearance: alert, in no apparent distress Head exam: Present: atraumatic, normocephalic. Absent: normal inspection (1 cm laceration noted on the occipital region of the head), other (Negative Torres sign, raccoon eyes, tympana.) Eye exam: Present: normal appearance, PERRL, EOMI Pupils: Present: normal accommodation ENT exam: Present: normal exam, normal oropharynx, mucous membranes moist Neck exam: Present: normal inspection, full ROM. Absent: tenderness, lymphadenopathy Respiratory exam: Present: normal lung sounds bilaterally. Absent: respiratory distress Cardiovascular Exam: Present: regular rate, normal rhythm, normal heart sounds. Absent: systolic murmur Extremities exam: Present: normal inspection, full ROM, normal capillary refill. Absent: tenderness, pedal edema, joint swelling Back exam: Present: normal inspection, full ROM. Absent: tenderness, CVA tenderness (R), CVA tenderness (L) Neurological exam: Present: alert, oriented X3 Psychiatric exam: Present: normal affect, normal mood Skin exam: Present: warm, dry, intact, normal color Course Vital Signs 08/23/20 21:58 Temperature 97.9 F Pulse Rate 74 Respiratory 16 Rate Blood Pressure 142/82 O2 Sat by Pulse 98 Oximetry Procedures - Laceration Laceration #1 Consent Obtained: verbal consent Indication: laceration Site: scalp Size (cm): 1 Description: linear, clean Depth: simple, single layer Pre-repair: irrigated extensively, deep structures intact Type of Sutures: other (Lianna) Number of Sutures: 2 Patient Tolerated Procedure: well, no complications Medical Decision Making - Medical Decision Making 79-year-old female with history of Parkinson's, dementia presents to the emergency department with a chief complaint of a fall. On physical examination, she has a laceration on the occipital region of the head measuring approximately 1 cm in length, superficial. This was thoroughly irrigated and repaired with 2 lianna. Rest of physical exam is unremarkable. CT of the brain and C-spine is unremarkable. Pelvic x-rays also unremarkable. CBC unremarkable. CMP shows mild elevation a BUN at 25. Creatinine within normal limits. Patient unable to give a urine sample. Return parameters were thoroughly discussed the patient is understanding agreeable. Case discussed with - Lab Data Result diagrams: 08/23/20 22:26 08/23/20 22: Lab Results 08/23/20 08/23/20 08/23/20 Range/Units 22:26 22:26 22:26 WBC 7.4 (3.8-10.6) k/uL RBC 4.00 (3.80-5.40) m/uL Hgb 12.8 (11.4-16.0) gm/dL Hct 39.6 (34.0-46.0) % MCV 99.2 (80.0-100.0) fL MCH 32.1 (25.0-35.0) pg MCHC 32.4 (31.0-37.0) g/dL RDW 12.8 (11.5-15.5) % Plt Count 167 (150-450) k/uL MPV 7.9 Neutrophils % 47 % Lymphocytes % 44 % Monocytes % 6 % Eosinophils % 1 % Basophils % 1 % Neutrophils # 3.5 (1.3-7.7) k/uL Lymphocytes # 3.2 (1.0-4.8) k/uL Monocytes # 0.4 (0-1.0) k/uL Eosinophils # 0.1 (0-0.7) k/uL Basophils # 0.1 (0-0.2) k/uL PT 10.0 (9.0-12.0) sec INR 0.9 (<1.2) APTT 23.1 (22.0-30.0) sec Sodium 140 (137-145) mmol/L Potassium 4.5 (3.5-5.1) mmol/L Chloride 106 (98-107) mmol/L Carbon Dioxide 27 (22-30) mmol/L Anion Gap 7 mmol/L BUN 25 H (7-17) mg/dL Creatinine 0.69 (0.52-1.04) mg/dL Est GFR (CKD-EPI)AfAm >90 (>60 ml/min/1.73 sqM) Est GFR (CKD-EPI)NonAf 83 (>60 ml/min/1.73 sqM) Glucose 100 H (74-99) mg/dL Calcium 10.0 (8.4-10.2) mg/dL Total Bilirubin 0.3 (0.2-1.3) mg/dL AST 31 (14-36) U/L ALT 13 (4-34) U/L Alkaline Phosphatase 67 (38-126) U/L Total Protein 6.7 (6.3-8.2) g/dL Albumin 4.2 (3.5-5.0) g/dL - EKG Data EKG Comments: First-degree AV block Ventricular rate 73,. 224, QRS 94, QTC 429. Disposition Clinical Impression: Fall, Head injury, Scalp laceration Disposition: HOME SELF-CARE Condition: Stable Instructions (If sedation given, give patient instructions): Fall Prevention (ED), Staple Care (ED) Additional Instructions: Please return to the emergency room in 12 days to have sutures removed. Please watch for any signs of infection which may include increased pain, swelling, redness, fever or chills. Please return to emergency room for any signs of infection do occur. Please use clean soap and water over the area to prevent scabbing over your stitches. Please leave wound covered for the first 24-48 hours and then leave wound open to air. Please return to the emergency room for any other concerns. Is patient prescribed a controlled substance at d/c from ED?: No Referrals: Sunny Monteiro MD [Primary Care Provider] - 1-2 days Time of Disposition: 00:01
[2020-08-23 22:38] LABS: Basophils # (A) 0.1 k/uL (0-0.2); Basophils % (A) 1 %; Eosinophils # (A) 0.1 k/uL (0-0.7); Eosinophils % (A) 1 %; HCT 39.6 % (34.0-46.0); HGB 12.8 gm/dL (11.4-16.0); Lymphocytes # (A) 3.2 k/uL (1.0-4.8); Lymphocytes % (A) 44 %; MCH 32.1 pg (25.0-35.0); MCHC 32.4 g/dL (31.0-37.0); MCV 99.2 fL (80.0-100.0); Mean Platelet Volume 7.9; Monocytes # (A) 0.4 k/uL (0-1.0); Monocytes % (A) 6 %; Neutrophils # (A) 3.5 k/uL (1.3-7.7); Neutrophils % (A) 47 %; Platelet Count 167 k/uL (150-450); RDW 12.8 % (11.5-15.5); WBC 7.4 k/uL (3.8-10.6)
[2020-08-23 22:47] LABS: INR 0.9 (<1.2); Partial Thromboplastin Time 23.1 sec (22.0-30.0)
--- NOTE | 2020-08-23 23:00 | XR ---
EXAMINATION TYPE: XR pelvis AP view DATE OF EXAM: 08/23/2020 COMPARISON: NONE HISTORY: Fall. Pain. TECHNIQUE: Single view FINDINGS: The pelvic ring is intact. Proximal femurs and hip joints are intact. Sacroiliac joints are intact. IMPRESSION: Normal pelvis. No fracture.
[2020-08-23 23:05] LABS: ALT 13 U/L (4-34); AST 31 U/L (14-36); African American GFR (CKD) >90 (>60 ml/min/1.73 sqM); Albumin 4.2 g/dL (3.5-5.0); Alkaline Phosphatase 67 U/L (38-126); Anion Gap 7 mmol/L; Blood Urea Nitrogen 25 mg/dL (7-17); Carbon Dioxide 27 mmol/L (22-30); Chloride 106 mmol/L (98-107); Glucose 100 mg/dL (74-99); Non-African American GFR(CKD) 83 (>60 ml/min/1.73 sqM); Potassium 4.5 mmol/L (3.5-5.1); Sodium 140 mmol/L (137-145); Total Bilirubin 0.3 mg/dL (0.2-1.3); Total Protein 6.7 g/dL (6.3-8.2)
--- NOTE | 2020-08-23 23:08 | CT ---
EXAMINATION TYPE: CT brain dominickine wo con DATE OF EXAM: 08/23/2020 COMPARISON: 01/05/2020 HISTORY: fall, posterior head lac CT DLP: 1282.2 mGycm Automated exposure control for dose reduction was used. There is some cerebral cortical atrophy. There is no mass effect nor midline shift. There is no sign of intracranial hemorrhage. The calvarium is intact. Skull base is intact. There is normal aeration o f the mastoid sinuses. The cervical vertebra have normal alignment. Disc spaces are fairly normal. Posterior elements are in tact. There is minimal facet arthropathy. There is no compression fracture. There is mild anterior sp urring in the lower cervical spine. The facet joints are intact. IMPRESSION: Mild multilevel cervical spondylotic changes. No fracture. Mild cerebral atrophy. No acute intracranial abnormality. No change compared to old exam.
[2020-08-24 00:26] VITALS: BP 145/72; PULSE 67
== END 2020-08-24 00:26 | disposition home or self-care (01) ==
LOC: EC 21:57
DX: S01.01XA Laceration without foreign body of scalp, initial encounter (principal); F02.80 Dementia in other diseases classified elsewhere, unspecified severity, without behavioral disturbance, psychotic disturbance, mood disturbance, and anxiety; I10 Essential (primary) hypertension; H91.90 Unspecified hearing loss, unspecified ear; Z86.79 Personal history of other diseases of the circulatory system; Z95.0 Presence of cardiac pacemaker; Z86.69 Personal history of other diseases of the nervous system and sense organs; Z85.3 Personal history of malignant neoplasm of breast; Z80.9 Family history of malignant neoplasm, unspecified; Z79.82 Long term (current) use of aspirin; Z79.899 Other long term (current) drug therapy; Z88.0 Allergy status to penicillin; W19.XXXA Unspecified fall, initial encounter; Y92.89 Other specified places as the place of occurrence of the external cause
CPT/HCPCS: 12001; 70450; 72125; 72170; 80053; 85025; 85610; 85730; 93005; 99285

== ENCOUNTER 2020-08-24 20:44 | Emergency (ER) | payer MEDICARE ==
[2020-08-24 21:04] VITALS: RESP 18
--- NOTE | 2020-08-24 22:16 | ED ---
Fall HPI - General Chief Complaint: Fall Stated Complaint: Fall Time Seen by Provider: 08/24/20 21:11 Source: EMS Mode of arrival: EMS - History of Present Illness Initial Comments: 79-year-old female with history of Parkinson's and dementia presents to emergency Department with a chief complaint of fall. Patient states she suffered a similar injury of the yesterday. This was a mechanical fall from a ground-level when she fell backwards and hit the left and poor region of her head. She reports some bleeding which has since resolved. Patient reports she was in emergency department yesterday for similar injury. Patient was brought to the ED via EMS. No c-collar. Patient on blood thinners. - Related Data Home Medications Medication Instructions Recorded Confirmed Calcium Carbonate/Vitamin D3 1 tab PO DAILY@169912/14/18 04/14/20 [Calcium 600-Vit D3 20 Mcg (800 Iu)] Lysine HCl [l-Lysine] 1,000 mg PO DAILY@169912/14/18 04/14/20 Multivit-Min/FA/Lycopen/Lutein 1 tab PO DAILY@169912/14/18 04/14/20 [Centrum Silver Tablet] Brimonidine Tartrate/Timolol 1 drop BOTH EYES BID@0800,199901/07/19 04/14/20 [Combigan 0.2%-0.5% Eye Drops] Latanoprost Ophth [Xalatan 0.005%] 1 drops BOTH EYES HS@199901/23/19 04/14/20 Atorvastatin [Lipitor] 40 mg PO HS@199902/15/19 04/14/20 Magnesium Oxide [Mag-Ox] 250 mg PO DAILY@169902/15/19 04/14/20 Raloxifene [Evista] 60 mg PO DAILY@0800 02/15/19 04/14/20 Aspirin EC [Ecotrin Low Dose] 81 mg PO DAILY@169901/05/20 04/14/20 Albuterol Sulfate [Ventolin HFA] 2 puff INHALATION RT-Q4H PRN 04/14/20 04/14/20 Carbidopa-Levodopa 25-100 mg 1 tab PO TID@0800,1200,1700 04/14/20 04/14/20 [Sinemet 25-100 mg] Cholecalciferol [Vitamin D3 (25 25 mcg PO DAILY@1700 04/14/20 04/14/20 Mcg = 1000 Iu)] Clindamycin HCl 600 mg PO DAILY PRN 04/14/20 04/14/20 Metoprolol Tartrate [Lopressor] 12.5 mg PO BID@0800,1700 04/14/20 04/14/20 Midodrine [ProAmatine] 5 mg PO Q8H PRN 04/14/20 04/14/20 Mirtazapine [Remeron] 15 mg PO HS@2000 04/14/20 04/14/20 Psyllium Husk (with Sugar) 5 ml PO DAILY@0800 04/14/20 04/14/20 [Metamucil Powder] Allergies Allergy/AdvReac Type Severity Reaction Status Date / Time Penicillins Allergy Unknown Verified 08/24/20 21:00 Childhood Review of Systems ROS Statement: Those systems with pertinent positive or pertinent negative responses have been documented in the HPI. ROS Other: All systems not noted in ROS Statement are negative. Past Medical History Past Medical History: Cancer, Dementia, Eye Disorder, Hearing Disorder / Deafness, Hypertension, Liver Disease, Memory Impairment, Musculoskeletal Disorder, Syncope Additional Past Medical History / Comment(s): Hx heart murmur; Breast CA 2001; Hep A 1969's. Glaucoma. Wears hearing aids. "Recent EKG changes, Echo shows severe MV regurg," per daughter. Recent falls, has fx lt clavicle, parkinson's disease History of Any Multi-Drug Resistant Organisms: None Reported Past Surgical History: Breast Surgery, Section, Pacemaker Additional Past Surgical History / Comment(s): left breast Lumpectomy. Cataracts. Mitral valve repair and tricuspid valve repair 01/25/2019. Past Anesthesia/Blood Transfusion Reactions: No Reported Reaction Type of Cardiac Device: Permanent Pacemaker Device Placement Date:: 12/2018 Past Psychological History: No Psychological Hx Reported Smoking Status: Never smoker Past Alcohol Use History: None Reported, Rare Past Drug Use History: None Reported - Past Family History Mother Family Medical History: Cancer Additional Family Medical History / Comment(s): . Mother at age 90. Possible breast CA Father Additional Family Medical History / Comment(s): Father at age 90 from old age. Brother(s) Additional Family Medical History / Comment(s): Patient has 1 brother with no known medical problems. Patient does not have any sisters. Patient has 2 da ughters with no major medical problems. General Exam Limitations: no limitations General appearance: alert, in no apparent distress Head exam: Present: atraumatic, normocephalic. Absent: normal inspection (2 cm laceration on the left and poor region of the scalp), other (Negative Torres sign, raccoon eyes, hemotympanum.) Eye exam: Present: normal appearance, PERRL, EOMI Pupils: Present: normal accommodation ENT exam: Present: normal exam, normal oropharynx, mucous membranes moist, TM's normal bilaterally, normal external ear exam Neck exam: Present: normal inspection, full ROM. Absent: tenderness, lym phadenopathy Respiratory exam: Present: normal lung sounds bilaterally. Absent: respiratory distress, rales, rhonchi, stridor, chest wall tenderness, accessory muscle use Cardiovascular Exam: Present: regular rate, normal rhythm, normal heart sounds. Absent: systolic murmur Extremities exam: Present: normal inspection, full ROM, normal capillary refill. Absent: tenderness, pedal edema, joint swelling, calf tenderness Back exam: Present: normal inspection, full ROM. Absent: tenderness, CVA te nderness (R), CVA tenderness (L) Neurological exam: Present: alert, oriented X3 Psychiatric exam: Present: normal affect, normal mood Skin exam: Present: warm, dry, intact, normal color Course Vital Signs 08/24/20 08/24/20 21:00 23:00 Temperature 98.4 F Pulse Rate 75 70 Respiratory 18 18 Rate Blood Pressure 126/82 137/78 O2 Sat by Pulse 93 L 95 Oximetry Procedures - Laceration Laceration #1 Consent Obtained: verbal consent Indication: laceration Site: scalp (2 cm) Size (cm): 2 Description: linear, clean Depth: simple, single layer Sedation/Analgesia: none Type of Sutures: other (Edmonds) Number of Sutures: 4 Technique: other (Lianna) Patient Tolerated Procedure: well, no complications Medical Decision Making - Medical Decision Making 79-year-old female with history of Parkinson's dementia presents emergency Department with a chief complaint of fall. On physical examination, she appears to be at her baseline, same as yesterday. However, she has a new laceration to the left and poor region of the head that was thoroughly irrigated and repaired with 4 ilanna. Patient started procedure well. CT of the brain and C-spine is unremarkable. CBC CMP was within normal limits. UA is also unremarkable. She did have some meat bacteriuria. Did send a urine culture. She did not have any urinary symptoms. I spoke with her daughter on the phone considering that the patient has had multiple returns to the ED for same chief complaint. I discussed the possibility of increasing the level of care at the nursing facility. Patient is well aware what states the current best option is to have a return back to her current facility. She will speak with the staff the following day. Strict return parameters were thoroughly discussed patient is an ascending and agreeable. Case discussed with - Lab Data Result diagrams: 08/24/20 22:59 08/24/20 22:59 Lab Results 08/24/20 08/24/20 08/24/20 Range/Units 22:59 22:59 22:59 WBC 8.2 (3.8-10.6) k/uL RBC 3.88 (3.80-5.40) m/uL Hgb 13.0 (11.4-16.0) gm/dL Hct 38.0 (34.0-46.0) % MCV 97.9 (80.0-100.0) fL MCH 33.7 (25.0-35.0) pg MCHC 34.4 (31.0-37.0) g/dL RDW 12.2 (11.5-15.5) % Plt Count 177 (150-450) k/uL MPV 8.2 Neutrophils % 57 % Lymphocytes % 36 % Monocytes % 5 % Eosinophils % 1 % Basophils % 1 % Neutrophils # 4.7 (1.3-7.7) k/uL Lymphocytes # 2.9 (1.0-4.8) k/uL Monocytes # 0.4 (0-1.0) k/uL Eosinophils # 0.1 (0-0.7) k/uL Basophils # 0.0 (0-0.2) k/uL PT 10.5 (9.0-12.0) sec INR 1.0 (<1.2) APTT 23.2 (22.0-30.0) sec Sodium 140 (137-145) mmol/L Potassium 4.0 (3.5-5.1) mmol/L Chloride 104 (98-107) mmol/L Carbon Dioxide 28 (22-30) mmol/L Anion Gap 8 mmol/L BUN 23 H (7-17) mg/dL Creatinine 0.73 (0.52-1.04) mg/dL Est GFR (CKD-EPI)AfAm >90 (>60 ml/min/1.73 sqM) Est GFR (CKD-EPI)NonAf 79 (>60 ml/min/1.73 sqM) Glucose 98 (74-99) mg/dL Calcium 9.8 (8.4-10.2) mg/dL Total Bilirubin 0.4 (0.2-1.3) mg/dL AST 29 (14-36) U/L ALT 13 (4-34) U/L Alkaline Phosphatase 68 (38-126) U/L Total Protein 6.8 (6.3-8.2) g/dL Albumin 4.3 (3.5-5.0) g/dL Urine Color Urine Appearance (Clear) Urine pH (5.0-8.0) Ur Specific Wood[place] (1.001-1.035) Urine Protein (Negative) Urine Glucose (UA) (Negative) Urine Ketones (Negative) Urine Blood (Negative) Urine Nitrite (Negative) Urine Bilirubin (Negative) Urine Urobilinogen (<2.0) mg/dL Ur Leukocyte Esterase (Negative) Urine RBC (0-5) /hpf Urine WBC (0-5) /hpf Ur Squamous Epith Cells (0-4) /hpf Urine Bacteria (None) /hpf Hyaline Casts (0-2) /lpf Urine Mucus (None) /hpf 08/25/20 Range/Units 00:15 WBC (3.8-10.6) k/uL RBC (3.80-5.40) m/uL Hgb (11.4-16.0) gm/dL Hct (34.0-46.0) % MCV (80.0-100.0) fL MCH (25.0-35.0) pg MCHC (31.0-37.0) g/dL RDW (11.5-15.5) % Plt Count (150-450) k/uL MPV Neutrophils % % Lymphocytes % % Monocytes % % Eosinophils % % Basophils % % Neutrophils # (1.3-7.7) k/uL Lymphocytes # (1.0-4.8) k/uL Monocytes # (0-1.0) k/uL Eosinophils # (0-0.7) k/uL Basophils # (0-0.2) k/uL PT (9.0-12.0) sec INR (<1.2) APTT (22.0-30.0) sec Sodium (137-145) mmol/L Potassium (3.5-5.1) mmol/L Chloride (98-107) mmol/L Carbon Dioxide (22-30) mmol/L Anion Gap mmol/L BUN (7-17) mg/dL Creatinine (0.52-1.04) mg/dL Est GFR (CKD-EPI)AfAm (>60 ml/min/1.73 sqM) Est GFR (CKD-EPI)NonAf (>60 ml/min/1.73 sqM) Glucose (74-99) mg/dL Calcium (8.4-10.2) mg/dL Total Bilirubin (0.2-1.3) mg/dL AST (14-36) U/L ALT (4-34) U/L Alkaline Phosphatase (38-126) U/L Total Protein (6.3-8.2) g/dL Albumin (3.5-5.0) g/dL Urine Color Yellow Urine Appearance Cloudy H (Clear) Urine pH 6.0 (5.0-8.0) Ur Specific [place] 1.015 (1.001-1.035) Urine Protein Negative (Negative) Urine Glucose (UA) Negative (Negative) Urine Ketones Negative (Negative) Urine Blood Negative (Negative) Urine Nitrite Negative (Negative) Urine Bilirubin Negative (Negative) Urine Urobilinogen <2.0 (<2.0) mg/dL Ur Leukocyte Esterase Moderate H (Negative) Urine RBC <1 (0-5) /hpf Urine WBC 2 (0-5) /hpf Ur Squamous Epith Cells 1 (0-4) /hpf Urine Bacteria Moderate H (None) /hpf Hyaline Casts 1 (0-2) /lpf Urine Mucus Rare H (None) /hpf Disposition Clinical Impression: Scalp laceration, Fall, Head injury Disposition: HOME SELF-CARE Condition: Stable Instructions (If sedation given, give patient instructions): Staple Care (ED) Additional Instructions: Please return to the emergency room in 12 days to have sutures removed. Please watch for any signs of infection which may include increased pain, swelling, redness, fever or chills. Please return to emergency room for any signs of infection do occur. Please use clean soap and water over the area to prevent scabbing over your stitches. Please leave wound covered for the first 24-48 hours and then leave wound open to air. Please return to the emergency room for any other concerns. Is patient prescribed a controlled substance at d/c from ED?: No Referrals: Sunny Monteiro MD [Primary Care Provider] - 1-2 days Time of Disposition: 00:24
--- NOTE | 2020-08-24 22:26 | CT ---
EXAMINATION TYPE: CT brain patti wo con DATE OF EXAM: 08/24/2020 COMPARISON: Yesterday HISTORY: Fall with head injury. CT DLP: 1322.8 mGycm Automated exposure control for dose reduction was used. There is cerebral atrophy. There is no mass effect nor midline shift. There is no sign of intracrania l hemorrhage. There is some enlargement of the ventricles. The calvarium is intact. Cervical vertebra have fairly normal alignment. There is no compression fracture. There is multilevel cervical facet arthropathy. The skull base is intact. Prevertebral soft tissues are intact. I see no bony destructive process. There is some anterior spur formation in the mid and lower cervical spine. IMPRESSION: Mild multilevel degenerative hypertrophic changes in the cervical spine. No fracture. No change crystal red to old exam. Cerebral atrophy. No acute intracranial abnormality. No change.
[2020-08-24 23:19] LABS: Basophils % (A) 1 %; Eosinophils # (A) 0.1 k/uL (0-0.7); Eosinophils % (A) 1 %; Lymphocytes # (A) 2.9 k/uL (1.0-4.8); Lymphocytes % (A) 36 %; MCH 33.7 pg (25.0-35.0); MCHC 34.4 g/dL (31.0-37.0); MCV 97.9 fL (80.0-100.0); Mean Platelet Volume 8.2; Monocytes # (A) 0.4 k/uL (0-1.0); Monocytes % (A) 5 %; Neutrophils # (A) 4.7 k/uL (1.3-7.7); Neutrophils % (A) 57 %; Platelet Count 177 k/uL (150-450); RBC 3.88 m/uL (3.80-5.40); RDW 12.2 % (11.5-15.5); WBC 8.2 k/uL (3.8-10.6)
[2020-08-24 23:34] LABS: Partial Thromboplastin Time 23.2 sec (22.0-30.0); Prothrombin Time 10.5 sec (9.0-12.0)
[2020-08-24 23:36] LABS: ALT 13 U/L (4-34); AST 29 U/L (14-36); African American GFR (CKD) >90 (>60 ml/min/1.73 sqM); Albumin 4.3 g/dL (3.5-5.0); Alkaline Phosphatase 68 U/L (38-126); Anion Gap 8 mmol/L; Blood Urea Nitrogen 23 mg/dL (7-17); Calcium 9.8 mg/dL (8.4-10.2); Carbon Dioxide 28 mmol/L (22-30); Chloride 104 mmol/L (98-107); Glucose 98 mg/dL (74-99); Non-African American GFR(CKD) 79 (>60 ml/min/1.73 sqM); Sodium 140 mmol/L (137-145); Total Bilirubin 0.4 mg/dL (0.2-1.3); Total Protein 6.8 g/dL (6.3-8.2)
[2020-08-25 00:32] LABS: Appearance,Urine Cloudy (Clear); Bacteria,Urine Moderate /hpf; Bilirubin,Urine Negative (Negative); Blood,Urine Negative (Negative); Color,Urine Yellow; Glucose,Urine (UA) Negative (Negative); Hyaline Casts,Urine 1 /lpf (0-2); Ketones,Urine Negative (Negative); Leukocyte Esterase,Urine Moderate (Negative); Mucus,Urine Rare /hpf; Nitrite,Urine Negative (Negative); Protein,Urine Negative (Negative); RBC,Urine <1 /hpf (0-5); Specific Gravity,Urine 1.015 (1.001-1.035); Squamous Epithelial Cell,Urine 1 /hpf (0-4); Urobilinogen,Urine <2.0 mg/dL (<2.0); WBC,Urine 2 /hpf (0-5)
[2020-08-25 01:02] VITALS: BP 125/79; PULSE 72; TEMP 97.7
== END 2020-08-25 02:32 | disposition home or self-care (01) ==
LOC: EC 20:44
DX: S01.01XA Laceration without foreign body of scalp, initial encounter (principal); I10 Essential (primary) hypertension; G20 Parkinson's disease; F02.80 Dementia in other diseases classified elsewhere, unspecified severity, without behavioral disturbance, psychotic disturbance, mood disturbance, and anxiety; H40.9 Unspecified glaucoma; Z79.82 Long term (current) use of aspirin; Z79.51 Long term (current) use of inhaled steroids; Z79.01 Long term (current) use of anticoagulants; Z88.0 Allergy status to penicillin; Z95.0 Presence of cardiac pacemaker; Z85.3 Personal history of malignant neoplasm of breast; W18.30XA Fall on same level, unspecified, initial encounter
CPT/HCPCS: 12001; 36415; 70450; 72125; 80053; 81001; 85025; 85610; 85730; 87077; 87086; 87186; 93005; 99284